=== PATIENT | male | born 1955 | race African-American/Black ===

== ENCOUNTER → 2016-08-11 | Outpatient (CLI) | payer MEDICARE, OTHER ==
--- NOTE | 2016-08-11 15:00 | MR ---
EXAMINATION TYPE: MR brain wo con DATE OF EXAM: 08/11/2016 2:49 PM COMPARISON: NONE HISTORY: Lung CA, Headaches. No Contrast GFR is 24. FINDINGS: The ventricles, basal cisterns and sulci overlying the cerebral convexities are moderately enlarged. There is evidence of mild periventricular white matter ischemic demyelination. Remote deep white matter insults are also noted. No acute edema is seen on diffusion weighted imaging. There is no evidence for midline shift or mass effect. No distinct mass is seen with certainty altho ugh examination is limited by the lack of contrast. Acute intracranial hemorrhage or extra-axial collection is not evident. Chronic paranasal sinusitis. Complete opacification of the bilateral mastoid air cells. IMPRESSION: Age-related atrophic and chronic small vessel ischemic change. No acute intracranial process at this time. No definite evidence for metastatic lesion at this time on this unenhanced study.
== END | disposition home or self-care (01) ==
LOC: RADMRIMAIN 13:12
PROVIDERS: ATTEND Internal Medicine Hematology & Oncology
DX: I67.82 Cerebral ischemia (principal); C34.90 Malignant neoplasm of unspecified part of unspecified bronchus or lung; G31.9 Degenerative disease of nervous system, unspecified
CPT/HCPCS: 36415; 70551; 82565

== ENCOUNTER 2016-08-14 08:56 | Day surgery (SDC) | payer MEDICARE, OTHER ==
[2016-08-11 14:06] VITALS: BMI 23.7
[~2016-08-14 08:56] MED LIST: DEXAMETHASONE SOD PHOSPHATE 10 MG/ML 1 ML VIAL IV ONE; HEPARIN SODIUM,PORCINE 5,000 UNIT/ML 1 ML VIAL SQ ONE; HYDROmorphone 1 MG/ML 1 ML SYRINGE IVP PRN; LACTATED RINGERS 1,000 ML IV SCH; LIDOCAINE 1% 20 ML VIAL (10MG/ML) FOR IV START INTRADERMA PRN; ceFAZolin 2 GM in SODIUM CHLORIDE 0.9% 100 ML IVPB ONE
[2016-08-14] MEDS ORDERED: LIDOCAINE 1% 20 ML VIAL (10MG/ML) FOR IV START INTRADERMA ONE (09:46)
[2016-08-14 10:10] LABS: Glucose,Whole Blood 85 mg/dL (75-99)
--- NOTE | 2016-08-14 10:40 | P.GSHP ---
History of Present Illness H&P Date: 08/14/16 Chief Complaint: Laryngeal cancer This is a 61-year-old male with history of laryngeal cancer. Patient is requiring a Port-A-Cath for IV infusion therapy. Past Medical History Past Medical History: Cancer, Deep Vein Thrombosis (DVT), Sleep Apnea/CPAP/BIPAP , Thyroid Disorder Additional Past Medical History / Comment(s): lung cancer, stage 4 throat cancer -occ uses cane, non verbal from throat surgery, emphysema, no cpap used, hiatal hernia, History of Any Multi-Drug Resistant Organisms: None Reported Additional Past Surgical History / Comment(s): Tracheostomy, Surgery for throat cancer, filter in stomach for blood clots, Past Anesthesia/Blood Transfusion Reactions: No Reported Reaction Past Psychological History: Depression Smoking Status: Former smoker Past Alcohol Use History: None Reported Additional Past Alcohol Use History / Comment(s): quit smoking 2010-1PPD, started smoking age 13 Past Drug Use History: None Reported - Past Family History Mother Family Medical History: No Reported History Medications and Allergies Home Medications Medication Instructions Recorded Confirmed Type Levothyroxine Sodium [Synthroid] 75 mcg PEG/G-TUBE DAILY 04/26/16 08/14/16 History Megestrol Acetate [Megace] 1 - 2 tsp PEG/G-TUBE DAILY 04/26/16 08/14/16 History Morphine Sulfate [Morphine Sulfate 60 mg PO TID PRN 04/26/16 08/14/16 History ER] oxyCODONE HCL/ACETAMINOPHEN 1 tab PEG/G-TUBE TID 04/26/16 08/14/16 History [Percocet 7.5-325 mg] Nebulizer(Name Unknown) 1 applicate IH TID 08/11/16 08/14/16 History Allergies Allergy/AdvReac Type Severity Reaction Status Date / Time No Known Allergies Allergy Verified 08/14/16 09:37 Surgical - Exam Vital Signs Temp Pulse Resp BP Pulse Ox 98.4 F 88 16 145/69 99 08/14/16 10:19 08/14/16 10:19 08/14/16 10:19 08/14/16 10:08/14/16 10:19 - General well developed, no distress - Eyes PERRL - ENT Tracheostomy - Neck no masses - Respiratory normal expansion - Cardiovascular Rhythm: regular - Abdomen Abdomen: soft, non tender Assessment and Plan Plan: History of laryngeal cancer. We'll perform Port-A-Cath insertion
[2016-08-14] MEDS ORDERED: HEPARIN SODIUM,PORCINE 100 UNIT/ML 5 ML VIAL IV ONE (11:12)
[2016-08-14] MEDS ORDERED: IOHEXOL 180 MG/ML 1 ML ML INJ ONE (11:13)
[2016-08-14] MEDS ORDERED: BUPIVACAIN-EPI 0.25%-1:200,000 30 ML VIAL SQ ONE (11:13)
[2016-08-14] MEDS ORDERED: PROPOFOL 10 MG/ML 20 ML VIAL IV ONE (11:24)
[2016-08-14] MEDS ORDERED: fentaNYL (PF) 50 MCG/ML 2 ML AMP ONE (11:24)
[2016-08-14] MEDS ORDERED: MIDAZOLAM 2 MG/2 ML VIAL ONE (11:24)
--- NOTE | 2016-08-14 12:02 | P.OP ---
Date of Procedure: 08/14/16 Preoperative Diagnosis: Laryngeal cancer Postoperative Diagnosis: Laryngeal cancer Procedure(s) Performed: Insertion of right subclavian Port-A-Cath Anesthesia: MAC Surgeon: Jimmy Sánchez Estimated Blood Loss (ml): 5 Pathology: none sent Condition: stable Disposition: PACU Description of Procedure: PROCEDURE: The patient was placed on the operating table in the supine position. She received MAC anesthetic. The Right chest was prepped and draped in the usual sterile fashion. The skin underneath the right clavicle was anesthetized with 1% Xylocaine and using Seldinger technique, the right subclavian vein was cannulized. The wire was placed through the needle and positioned under fluoroscopy. Next, the needle was removed and the port site was anesthetized with 1% Xylocaine. Skin was incised with #15 blade and port pocket was made using blunt and sharp dissection. Following this the catheter was attached to the sport and the port was flushed. The port was positioned into the pocket site and was secured with 3-0 Vicryl suture. The catheter was then brought out through the wire site and then the dilator sheath was placed over the wire and the dilator and the wire were removed. The catheter was placed through the sheath and the sheath was removed. The port was flushed with hep-lock solution. Skin was closed with interrupted 3-0 Vicryl sutures. Steri-Strips were applied. The patient tolerated the procedure well. The patient was sent to recovery room for chest x -ray after the procedure.
[2016-08-14 12:20] VITALS: TEMP 97.4
--- NOTE | 2016-08-14 12:27 | FL ---
EXAMINATION TYPE: FL guided central line placemt HISTORY: Fluoroscopy time Impression: 1. Fluoroscopy support provided to the referring physician. 35 seconds of fluoroscopy provided.
--- NOTE | 2016-08-14 12:45 | XR ---
EXAMINATION TYPE: XR chest 1V DATE OF EXAM: 08/14/2016 12:40 PM COMPARISON: 02/27/2014 HISTORY: Line placement TECHNIQUE: Single frontal view of the chest is obtained. FINDINGS: There is no focal air space opacity, pleural effusion, or pneumothorax seen. The cardiac silhouette size is within normal limits. The osseous structures are intact. There is enlargement of the right upper lobe pulmonary nodule which now measures 3 cm. Heart is enlar ged and there is atherosclerotic change aorta. Mediport catheter seen. Interstitium is somewhat coars ened. IMPRESSION: 1. Mediport appears in good position with the tip overlying the SVC and no sizable pneumothorax. 2. Left basilar atelectasis favored over infiltrate 3. Enlargement of the right upper lobe mass with suspected right hilar adenopathy. Mass now measures 3 cm. 4. Correlate for chronic interstitial pulmonary fibrosis
[2016-08-14 13:01] VITALS: BP 138/74; PULSE 84; RESP 20
== END 2016-08-14 13:13 | disposition home or self-care (01) ==
LOC: OR 08:56
PROVIDERS: ATTEND Surgery
DX: Z45.2 Encounter for adjustment and management of vascular access device (principal); C32.9 Malignant neoplasm of larynx, unspecified; C34.90 Malignant neoplasm of unspecified part of unspecified bronchus or lung; G47.33 Obstructive sleep apnea (adult) (pediatric); J43.9 Emphysema, unspecified; E07.9 Disorder of thyroid, unspecified; Z93.1 Gastrostomy status; Z93.0 Tracheostomy status; Z87.891 Personal history of nicotine dependence; Z86.718 Personal history of other venous thrombosis and embolism; Z79.899 Other long term (current) drug therapy; Z79.891 Long term (current) use of opiate analgesic
CPT/HCPCS: 36556; 77001; 71010; C1788; J2250; J1644; J1642; J1100; Q9965; J0690; J3010; J2704; 99152; 99153

== ENCOUNTER → 2016-08-19 | Outpatient (CLI) | payer MEDICARE, OTHER ==
--- NOTE | 2016-08-20 11:21 | PE ---
EXAMINATION TYPE: PET CT fusion skull to thigh DATE OF EXAM: 08/19/2016 12:18 PM COMPARISON: 10/25/2013 PET/CT, CT chest 10/17/2013, chest x-ray 08/14/2016 HISTORY: Lung cancer TECHNIQUE: Following the intravenous administration of 15.35 mCi of F-18 FDG, whole body images are performed from the skull base to the midthigh. Images are reviewed on the computer in the coronal, a xial, and sagittal planes. Reconstructed rotating images are created on independent workstation and reviewed on the computer. A localization and attenuation correction CT is performed in conjunction with the PET scan. DLP: 494.67 mGycm SCAN: Subsequent Scan Blood glucose: 103 mg/dL Average Mediastinum SUV: 1.5 Average Liver SUV: 2.1 FINDINGS: NECK: There is increased uptake within the parotid glands bilaterally. This is an SUV value of 3 lef t 2.9 on the right there is also a focal area of increased uptake within the parotid region just post erior to the angle of the jaw measuring 2.5 on the left. THORAX: There is increased uptake within a small nodule in the periphery of the right upper lobe. Thi s has an SUV value of 2.8 and be compatible with a metastatic lesion. ABDOMEN AND PELVIS: No abnormal uptake OSSEOUS STRUCTURES: No abnormal uptake LOCALIZATION CT: PEG tube is present. IVC filter is present. Mucosal thickening is within the left et hmoid air cells. Appears to be fluid within the bilateral mastoid air cells. Correlate for mastoiditi s. There is fullness to the adenoid region patient's 2.7 cm right lung mass is well visualized. There is fullness in the right suprahilar region. The ascending thoracic aorta at the level of main pulmon ana artery measures 3.6 cm. The main pulmonary artery bifurcation is 2.8 cm. Coronary artery calcific ation is present. Some punctate calcifications are inferior to the right hilar region in the lingula likely represent calcified granuloma. COMPARISON: The nodular density in the right upper lobe appears to correspond to an area of increased signal on the previous abnormal PET/CT of 10/25/2013. IMPRESSION: 1. Metastatic lesion enlargement right upper lobe from comparison of 2013.
== END | disposition home or self-care (01) ==
LOC: RADPETMAIN 08:02
PROVIDERS: ATTEND Radiology Radiation Oncology
DX: C34.11 Malignant neoplasm of upper lobe, right bronchus or lung (principal)
CPT/HCPCS: 78815; A9552

== ENCOUNTER 2016-08-30 16:07 | Inpatient (IN) | payer MEDICARE, OTHER ==
[2016-08-30] MEDS ORDERED: methylPREDNISolone SOD SUCCI 125 MG/2 ML VIAL IV STA (17:32)
[2016-08-30] MEDS ORDERED: IPRATROPIUM-ALBUTEROL 3 ML NEB INHALATION STA (17:32)
[2016-08-30] MEDS ORDERED: SODIUM CHLORIDE 0.9% 1,000 ML IV ONE ×2 (17:32→22:56)
--- NOTE | 2016-08-30 17:35 | ED ---
General Adult HPI - General Chief complaint: Weakness Stated complaint: Weakness, CA pt Time Seen by Provider: 08/30/16 17:14 Source: patient Mode of arrival: ambulatory Limitations: no limitations - History of Present Illness Initial comments: This is a 61-year-old male with a history of laryngeal cancer that is in remission however developed Small cell lung cancer on chemotherapy presents emergency department for diarrhea for the last few days. It is nonbloody and not melanotic. He has not had any vomiting associated with that there. He does have some associated abdominal discomfort in the epigastric and left upper quadrants. He is also been having a little bit more productive cough recently through his stoma and they've noticed blood in the sputum. No fevers or chills. No sick contacts. No recent hospitalizations or antibiotic use. No other complaints. They have noted that the patient's urine output has decreased. - Related Data Home Medications Medication Instructions Recorded Confirmed Levothyroxine Sodium [Synthroid] 75 mcg PEG/G-TUBE DAILY 04/26/16 08/30/16 Megestrol Acetate [Megace] 40 - 80 mg PEG/G-TUBE DAILY 04/26/16 08/30/16 Morphine Sulfate [Morphine Sulfate 60 mg PEG/G-TUBE BID 04/26/16 08/30/16 ER] oxyCODONE HCL/ACETAMINOPHEN 1 tab PEG/G-TUBE QID PRN 04/26/16 08/30/16 [Percocet 7.5-325 mg] Acetaminophen/Diphenhydramine 1 tab PEG/G-TUBE HS PRN 08/30/16 08/30/16 [Tylenol PM 500-25mg] Budesonide [Pulmicort] 0.5 mg INHALATION RT-BID 08/30/16 08/30/16 Citalopram Hydrobromide [CeleXA] 30 mg PEG/G-TUBE DAILY 08/30/16 08/30/16 Ensure 1 can PEG/G-TUBE TID 08/30/16 08/30/16 Loratadine [Claritin] 10 mg PEG/G-TUBE DAILY 08/30/16 08/30/16 Prochlorperazine [Compazine] 10 mg PEG/G-TUBE Q6H PRN 08/30/16 08/30/16 Allergies Allergy/AdvReac Type Severity Reaction Status Date / Time No Known Allergies Allergy Verified 08/30/16 17:48 Review of Systems ROS Statement: Those systems with pertinent positive or pertinent negative responses have been documented in the HPI. ROS Other: All systems not noted in ROS Statement are negative. Past Medical History Past Medical History: Cancer, Deep Vein Thrombosis (DVT), Thyroid Disorder Additional Past Medical History / Comment(s): lung cancer, stage 4 throat cancer pt- throat, uses cane, non verbal from throat surgery History of Any Multi-Drug Resistant Organisms: None Reported Additional Past Surgical History / Comment(s): Tracheostomy, Surgery for throat ca, filter in stomach for blood clots, Past Anesthesia/Blood Transfusion Reactions: No Reported Reaction Past Psychological History: Depression Smoking Status: Former smoker Past Alcohol Use History: None Reported Additional Past Alcohol Use History / Comment(s): quit smoking 2010-1PPD, started smoking age 13 Past Drug Use History: None Reported - Past Family History Mother Family Medical History: No Reported History General Exam - General Exam Comments Initial Comments: Constitutional: Awake alert Appears comfortable Head: Normocephalic atraumatic Eyes: no conjunctival injection No scleral icterus EOMI ENT: Stoma is intact and patent Neck: No JVD Supple Heart: Tachycardia normal S1-S2 no murmurs Lungs: Kidney with bilateral suturing expiratory wheezes is mild rhonchi bilaterally No rales Abdomen: Soft nondistended is to palpation in the epigastric and left upper quadrants, mild tenderness to palpation the left lower quadrant Extremities: Non edematous DP pulses intact Radial pulses intact Neuro: A&Ox3 No focal neurologic deficits Psych: Appropriate mood and affect Limitations: no limitations Course Vital Signs 08/30/16 08/30/16 08/30/16 16:12 17:42 18:00 Temperature 98.8 F Pulse Rate 115 H 108 H 110 H Respiratory 20 Rate Blood Pressure 108/54 O2 Sat by Pulse 100 Oximetry 08/30/16 08/30/16 08/30/16 18:18 19:00 19:39 Temperature 98.5 F Pulse Rate 115 H 74 110 H Respiratory 30 H 28 H 30 H Rate Blood Pressure 111/62 145/108 107/60 O2 Sat by Pulse 99 99 95 Oximetry Medical Decision Making - Medical Decision Making This is a 61-year-old male presents emergency department for diarrhea and decreased urination. The patient is found to be in acute renal failure with a creatinine of 6. His potassium was elevated as well. His white blood cell was also elevated at 20. Patient's been having a lot of diarrhea and some concern for C. diff. The patient started on Rocephin and Flagyl to also cover for respiratory source because he is been having some cough and soreness of breath. Patient's going to be admitted for IV fluid administration and also monitoring of his respiratory status and further antibiotic treatment. The patient and her updated and agree. - Lab Data Result diagrams: 08/30/16 18:14 08/30/16 18:14 Lab Results 08/30/16 08/30/16 08/30/16 Range/Units 18:14 18:14 18:14 WBC 20.9 H (3.8-10.6) k/uL RBC 3.59 L (4.30-5.90) m/uL Hgb 9.5 L (13.0-17.5) gm/dL Hct 28.0 L (39.0-53.0) % MCV 78.0 L (80.0-100.0) fL MCH 26.4 (25.0-35.0) pg MCHC 33.8 (31.0-37.0) g/dL RDW 16.9 H (11.5-15.5) % PT 12.7 H (9.0-12.0) sec INR 1.3 (<1.1) APTT 23.7 (22.0-30.0) sec Sodium 127 L (137-145) mmol/L Potassium 6.1 H (3.5-5.1) mmol/L Chloride 96 L (98-107) mmol/L Carbon Dioxide 13 L (22-30) mmol/L Anion Gap 18 mmol/L BUN 104 H* (9-20) mg/dL Creatinine 6.39 H* (0.66-1.25) mg/dL Est GFR (MDRD) Af Amer 11 (>60 ml/min/1.73 sqM) Est GFR (MDRD) Non-Af 9 (>60 ml/min/1.73 sqM) Glucose 103 H (74-99) mg/dL Plasma Lactic Acid James (0.7-2.0) mmol/L Calcium 7.2 L (8.4-10.2) mg/dL Total Bilirubin 0.6 (0.2-1.3) mg/dL AST 17 (17-59) U/L ALT 22 (21-72) U/L Alkaline Phosphatase 80 (38-126) U/L Troponin I (0.000-0.034) ng/mL Total Protein 5.4 L (6.3-8.2) g/dL Albumin 2.6 L (3.5-5.0) g/dL Amylase 86 (30-110) U/L Lipase 565 H (23-300) U/L 08/30/16 08/30/16 Range/Units 18:14 18:14 WBC (3.8-10.6) k/uL RBC (4.30-5.90) m/uL Hgb (13.0-17.5) gm/dL Hct (39.0-53.0) % MCV (80.0-100.0) fL MCH (25.0-35.0) pg MCHC (31.0-37.0) g/dL RDW (11.5-15.5) % PT (9.0-12.0) sec INR (<1.1) APTT (22.0-30.0) sec Sodium (137-145) mmol/L Potassium (3.5-5.1) mmol/L Chloride (98-107) mmol/L Carbon Dioxide (22-30) mmol/L Anion Gap mmol/L BUN (9-20) mg/dL Creatinine (0.66-1.25) mg/dL Est GFR (MDRD) Af Amer (>60 ml/min/1.73 sqM) Est GFR (MDRD) Non-Af (>60 ml/min/1.73 sqM) Glucose (74-99) mg/dL Plasma Lactic Acid James 1.3 (0.7-2.0) mmol/L Calcium (8.4-10.2) mg/dL Total Bilirubin (0.2-1.3) mg/dL AST (17-59) U/L ALT (21-72) U/L Alkaline Phosphatase (38-126) U/L Troponin I 0.109 H* (0.000-0.034) ng/mL Total Protein (6.3-8.2) g/dL Albumin (3.5-5.0) g/dL Amylase (30-110) U/L Lipase (23-300) U/L Disposition Clinical Impression: JOVANI (acute kidney injury), Leukocytosis, Diarrhea Disposition: ADMITTED IP TO THIS HOSP Condition: Serious
--- NOTE | 2016-08-30 18:32 | XR ---
EXAMINATION TYPE: XR chest 1V DATE OF EXAM: 08/30/2016 6:27 PM COMPARISON: 08/14/2016 HISTORY: Short of breath TECHNIQUE: Single frontal view of the chest is obtained. FINDINGS: Heart is enlarged. There is mild pulmonary vascular congestion. There is a 2 cm nodular de nsity in the lateral right upper lobe. There is slight blunting of right costophrenic angle. IMPRESSION: Mild heart failure. Small right pleural effusion. Right upper lobe nodule appears slight ly smaller than last exam of 08/14/2016. Pulmonary congestion is unchanged.
[2016-08-30 18:44] LABS: Anisocytosis Slight; CH 27.6; CHCM 35.5; Calcium 7.2 mg/dL (8.4-10.2); HDW 2.41; HGB 9.5 gm/dL (13.0-17.5); INR 1.3 (<1.1); Immature Gran Flag Marked; MCH 26.4 pg (25.0-35.0); MCHC 33.8 g/dL (31.0-37.0); Mean Platelet Volume 9.8; Microcytosis Slight; Partial Thromboplastin Time 23.7 sec (22.0-30.0); Potassium 6.1 mmol/L (3.5-5.1); Prothrombin Time 12.7 sec (9.0-12.0); RBC 3.59 m/uL (4.30-5.90); RDW 16.9 % (11.5-15.5); Total Bilirubin 0.6 mg/dL (0.2-1.3); Total Protein 5.4 g/dL (6.3-8.2); WBC 20.9 k/uL (3.8-10.6); WBC (Perox) 22.36
--- NOTE | 2016-08-30 19:16 | CT ---
EXAMINATION TYPE: CT abdomen pelvis wo con DATE OF EXAM: 08/30/2016 7:02 PM COMPARISON: 02/26/2012 HISTORY: Abd pain and diarrhea, currently on chemo for lung and throat CA. CT DLP: 950. mGycm Automated exposure control for dose reduction was used. TECHNIQUE: Helical acquisition of images was performed from the lung bases through the pelvis. FINDINGS: The heart is enlarged. There are bilateral pleural effusions. There is mild infiltrate the posterior lung bases. Liver shows no focal defect. Spleen appears normal. There is no sign of a pancreatic mass. There is n o adrenal mass. The kidneys show no hydronephrosis. There is inferior vena cava filter noted. There i s no evidence of retroperitoneal adenopathy. Abdominal aorta is atheromatous. There is a gastrostomy tube noted. Gallbladder has normal size. There is no ascites. Bladder distends smoothly. There is pro static 1 cm calcification. There is no sign of a pelvic mass. The appendix appears normal. I see no s ign of a bowel obstruction. There is a small hiatal hernia. I see no bony destructive process. IMPRESSION: SMALL HIATAL HERNIA. THERE IS CARDIOMEGALY THAT IS WORSE THAN OLD EXAM. BILATERAL PLEURAL EFFUSIONS P ROBABLY RELATED TO CONGESTIVE HEART FAILURE. NO EVIDENCE OF AN ACUTE ABNORMALITY WITHIN THE ABDOMEN A ND PELVIS. There is clearing of almost all of the ascites fluid compared to old exam. There is some m inimal residual fluid adjacent to the right colon.
[2016-08-30] MEDS ORDERED: INSULIN REGULAR 100 UNIT/ML VIAL IV ONE (19:22)
[2016-08-30] MEDS ORDERED: DEXTROSE 50%-WATER 50 ML SYRINGE IVP STA (19:22)
[2016-08-30] MEDS ORDERED: CALCIUM GLUCONATE 1,000 MG in SODIUM CHLORIDE 0.9% 100 ML IVPB ONE (19:22)
[2016-08-30 19:23] LABS: Add Differential Manual Differential
[2016-08-30] MEDS ORDERED: AMPICILLIN-SULBACTAM 1.5 GM in SODIUM CHLORIDE 0.9% 50 ML IVPB STA (19:24)
[2016-08-30] MEDS ORDERED: metroNIDAZOLE-NS PMX 500 MG in SALINE 1 100ML.BAG IVPB STA (19:26)
[2016-08-30] MEDS ORDERED: NALOXONE 0.4 MG/ML 1 ML VIAL IV PRN (19:44)
[2016-08-30 20:49] LABS: Glucose,Whole Blood 87 mg/dL (75-99)
[2016-08-30] MEDS ORDERED: VANCOMYCIN 1,000 MG in SODIUM CHLORIDE 0.9% 250 ML IVPB STA (22:45)
[2016-08-30] MEDS ORDERED: IV VANCOMYCIN PER PHARMACY 1 EACH MISC MISCELLANE PRN (22:46)
[2016-08-30] MEDS: MORPHINE SULFATE ER 60 MG TABLET PO SCH (23:12)
[2016-08-30] MEDS: SODIUM CHLORIDE 0.9% 1,000 ML IV SCH (23:13)
[2016-08-31 00:34] LABS: Amorphous Sediment,Urine Rare /hpf; Appearance,Urine Cloudy (Clear); Bilirubin,Urine Negative (Negative); Glucose,Urine (UA) Negative (Negative); Ketones,Urine Negative (Negative); Leukocyte Esterase,Urine Negative (Negative); Nitrite,Urine Negative (Negative); Particle Count 10574; Protein,Urine Trace (Negative); RBC,Urine 2 /hpf (0-5); Squamous Epithelial Cell,Urine 1 /hpf (0-4); UA Billing (MACRO vs. MICRO) MICRO; Urobilinogen,Urine <2.0 mg/dL (<2.0); WBC,Urine 4 /hpf (0-5)
[2016-08-31] MEDS: NOREPINEPHRINE 16 MG in SODIUM CHLORIDE 0.9% 250 ML IV SCH (03:23)
[2016-08-31] MEDS: oxyCODONE-APAP 7.5-325MG 1 EACH TAB PEG/G-TUBE PRN ×2 (03:28→23:38)
[2016-08-31] MEDS: LEVOTHYROXINE 75 MCG TAB PEG/G-TUBE SCH (05:35)
[2016-08-31 06:24] LABS: Anisocytosis Slight; CH 26.3; CHCM 32.8; HCT 28.8 % (39.0-53.0); HGB 9.3 gm/dL (13.0-17.5); Immature Gran Flag Moderate; MCHC 32.4 g/dL (31.0-37.0); MCV 80.2 fL (80.0-100.0); Mean Platelet Volume 9.2; Microcytosis Slight; RBC 3.59 m/uL (4.30-5.90); RDW 16.7 % (11.5-15.5); WBC (Perox) 27.75
[2016-08-31 06:27] LABS: WBC 25.7 k/uL (3.8-10.6)
[2016-08-31 06:28] LABS: Add Differential Manual Differential; INR 1.3 (<1.1); Partial Thromboplastin Time 22.5 sec (22.0-30.0)
[2016-08-31 06:34] LABS: Calcium 7.2 mg/dL (8.4-10.2); Magnesium 2.4 mg/dL (1.6-2.3); Total Bilirubin 0.5 mg/dL (0.2-1.3); Total Protein 5.4 g/dL (6.3-8.2)
[2016-08-31 06:45] LABS: Nucleated Red Blood Cells 0 /100 WBC (0-0); Total Cells Counted 200
[2016-08-31 06:46] LABS: Target Cells Present
[2016-08-31 06:48] LABS: Manual Review Performed
--- NOTE | 2016-08-31 06:50 | XR ---
EXAMINATION TYPE: XR chest 1V DATE OF EXAM: 08/31/2016 6:36 AM HISTORY: SOB. REFERENCE: Previous study dated 08/30/2016. FINDINGS: There is a MediPort in place on the right. The heart is enlarged. There is mild vascular congestion without michelle edema. Pleural spaces are francisco r. IMPRESSION: CARDIOMEGALY.
[2016-08-31 07:01] LABS: Phosphorous 8.3 mg/dL (2.5-4.5); Potassium 6.4 mmol/L (3.5-5.1)
[2016-08-31 07:05] LABS: Creatine Kinase MB 1.5 ng/mL (0.0-2.4)
[2016-08-31 07:16] LABS: Manual Review Performed; Metamyelocytes % 5.5 %; Myelocytes % 1.5 %; Nucleated Red Blood Cells 0 /100 WBC (0-0); Total Cells Counted 200
[2016-08-31 07:17] LABS: Large Platelets Present
[2016-08-31] MEDS ORDERED: DEXTROSE 50%-WATER 50 ML SYRINGE IVP STA (07:18)
[2016-08-31] MEDS ORDERED: INSULIN REGULAR 100 UNIT/ML VIAL IV ONE (07:18)
[2016-08-31] MEDS ORDERED: SODIUM POLYSTYRENE SULFONATE 15 GM/60 ML BOTTLE PO STA (07:18)
[2016-08-31 07:19] LABS: Troponin I 0.116 ng/mL (0.000-0.034)
[2016-08-31] MEDS ORDERED: CALCIUM GLUCONATE 1,000 MG in SODIUM CHLORIDE 0.9% 100 ML IVPB ONE (07:19)
[2016-08-31 07:20] LABS: Polychromasia Present
[2016-08-31 07:22] LABS: Toxic Granulation Present
--- NOTE | 2016-08-31 07:52 | US ---
EXAMINATION TYPE: US kidneys/renal and bladder DATE OF EXAM: 08/31/2016 7:38 AM COMPARISON: NONE CLINICAL HISTORY: JOVANI. ICU patient with LUQ abdominal pain EXAM MEASUREMENTS: Right Kidney: 9.3 x 3.9 x 3.9 cm Left Kidney: 7.5 x 4.0 x 3.9 cm TECHNOLOGIST IMPRESSION: Right Kidney: multiple cystic areas, largest = 0.8 x 0.9 x 0.9cm Left Kidney: atrophic, cystic areas noted, largest = 0.8 x 0.6 x 0.6cm Bladder: patient has Carr Catheter There are multiple cystic areas in both kidneys. These large and appears simply cystic. The bladder i s not distended due to Carr catheter. Neither ureteral jet was visualized. IMPRESSION: LIMITED EXAMINATION SHOWING MULTIPLE CYSTIC LESIONS IN BOTH KIDNEYS.
[2016-08-31] MEDS: SODIUM CHLORIDE 0.9% 1,000 ML IV SCH (08:26)
[2016-08-31] MEDS: IPRATROPIUM-ALBUTEROL 3 ML NEB INHALATION PRN ×2 (08:28→11:46)
[2016-08-31] MEDS: CALCIUM ACETATE 667 MG CAP PO SCH ×3 (08:32→17:38)
[2016-08-31] MEDS: HEPARIN SODIUM,PORCINE 5,000 UNIT/ML 1 ML VIAL SQ SCH ×2 (08:54→20:03)
[2016-08-31] MEDS: CITALOPRAM HYDROBROMIDE 10 MG TAB PO SCH (08:54)
[2016-08-31] MEDS: PANTOPRAZOLE 40 MG/10 ML VIAL IV SCH (08:54)
[2016-08-31] MEDS: metroNIDAZOLE-NS PMX 500 MG in SALINE 1 100ML.BAG IVPB SCH ×3 (08:58→23:18)
--- NOTE | 2016-08-31 10:07 | CONS ---
DATE OF CONSULTATION: Mr. Francisco is a 61-year-old male with a known history of laryngeal cancer, status post tracheostomy, history of small cell CA recently, did start with chemotherapy. I am not able to obtain a good history from the patient since he has the tracheostomy and he is nonvocal, but according to the emergency room he recently was getting chemotherapy and he started to have episode of diarrhea, decreased oral intake, decreased urinary output, progressive fatigue, and abdominal discomfort. He was brought in to the emergency room and subsequently admitted. Cardiology consultation was requested because of elevation of his NT-proBNP, elevation of his troponin as well as abnormal EKG. Patient from asking him he is nodding that he is not having chest pain, but he is having abdominal pain. On the monitor, he has been having episode of nonsustained ventricular tachycardia. There is no clear evidence of dizziness or syncope. I do not have any documentation of prior cardiac abnormalities, although no old records are available to me. He was noted to have severe worsening of his renal function compared with the prior testing. His medications at the time of admission included Percocet, Compazine, Megace, Synthroid, Celexa, Pulmicort. I do not have any prior review of systems. PHYSICAL EXAMINATION: He is a 61-year-old male, alert, status post tracheostomy and non-verbal. Blood pressure 92/60 with the heart rate in the 90s. HEAD: Normocephalic. EYES: Sclerae anicteric. Tracheostomy in place. LUNGS: No wheezes with mild decreased in breath sounds. HEART: Regular rate and rhythm. S1, S2, no S3, with systolic murmur. No diastolic murmur. ABDOMEN: Soft, PEG tube in place. No organomegaly. EXTREMITIES: No edema. Neurologically, he is following commands. Lab data reveals a white blood cell of 20.9 and 25.7, hemoglobin 9.3, platelets count of 107. His potassium 6.4. BUN and creatinine 103 and 6.03. His troponin of 0.109, 0.114 and 0.116. NT-proBNP of 138,000. His EKG revealed a sinus mechanism with intraventricular conduction delay with left axis deviation, nonspecific ST-T wave changes. Chest x-ray shows mild congestion. No clear edema. Abdominal CT scan revealed small hiatal hernia with bilateral pleural effusion. IMPRESSION: 1. Acute worsening of his renal function, could be related to dehydration and his diarrhea. Reviewing the old records, patient has baseline renal insufficiency. 2. Mild elevation of his troponin, most likely related to the renal failure and probably sepsis. 3. Elevation of NT-proBNP although the patient is not in overt heart failure at this point. 4. History of laryngeal carcinoma. 5. Small cell carcinoma receiving chemotherapy. 6. Episode of nonsustained ventricular tachycardia most likely related to the hyperkalemia and the renal failure. RECOMMENDATION: From the cardiac standpoint, will obtain an echocardiogram with Doppler. He is on Levophed at this time. He will be evaluated by Nephrology and ID service. I do not believe that we are dealing with an acute ischemic event. Depending on his progress, further recommendation will be made. Thank you for this consult. We will follow with you.
[2016-08-31] MEDS ORDERED: VANCOMYCIN ORAL SOLUTION 250 MG/5 ML BOTTLE PO SCH (12:00)
[2016-08-31] MEDS: DEXTROSE 5% IN WATER 1,000 ML with SODIUM BICARB (1 MEQ/ML) 150 ML IV SCH ×2 (12:00→20:49)
[2016-08-31] MEDS ORDERED: CHERRY FLAVOR 60 ML BOTTLE PO SCH (12:00)
--- NOTE | 2016-08-31 15:13 | P.HPIM ---
History of Present Illness H&P Date: 08/31/16 Chief Complaint: Diarrhea, abdominal pain This is a 61-year-old -Faroese male patient of Dr. 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 Cartagena. Patient apparently received chemotherapy 2 weeks ago. History of DVT status post IVC filter, hypothyroidism , history of trach and stoma and PEG tube. Patient apparently eats and PEG tube was only used for medications. Patient apparently has been nonverbal since throat surgery. Patient was brought into [facility] emergency center due to weakness and diarrhea that he had had for a few days. There was no blood or tarriness to the stool. No vomiting was noted there was abdominal discomfort in the epigastric and left upper quadrant and increased productive cough through his stoma and also noted of blood in his sputum. This information was obtained from the ER record as patient is unable to provide any history. He underwent renal ultrasound that showed multiple cystic lesions in the bilateral kidneys. Abdominal and pelvic CAT scan without contrast showed small hiatal hernia, cardiomegaly, bilateral pleural effusions. No acute abnormality within the abdomen or pelvis. There is clearing of almost all ascites fluid to from previous exam. Chest x-ray showed mild heart failure with small right pleural effusion and right upper lobe nodule which is smaller since August 14. Multiple consultants were added including nephrology, cardiology, geology professor and infectious disease and patient was admitted into intensive care unit due to hypotension requiring levo fed. He was found to be in acute renal failure with BUN of 104 and creatinine 6.39 with hyponatremia of 127 and hyperkalemia at 6.1. White count was elevated at 20.9. Lactic acid was 1.3. Hemoglobin 9.5 and platelet count 93. Lipase 565 and amylase within normal limits. Troponin was elevated at 0.109, 0.114 and 0.116.. Influenza testing was negative. Urinalysis was cloudy with nitrate and leukoesterase negative. Carr catheter was placed to monitor urine output. There was concern of pus at the PEG tube site for which this was cultured. Patient has received calcium gluconate and insulin and Kayexalate. Dr. clinton has placed him on Flagyl IV and oral vancomycin. Patient has had no further stools since arrival. Review of Systems ROS unobtainable: due to mental status Past Medical History Past Medical History: Cancer, Deep Vein Thrombosis (DVT), Thyroid Disorder Additional Past Medical History / Comment(s): Small cell lung cancer under the care of Dr. Cartagena status post chemotherapy 2 weeks ago, laryngeal cancer, uses cane, non verbal from throat surgery History of Any Multi-Drug Resistant Organisms: None Reported Additional Past Surgical History / Comment(s): Tracheostomy, Surgery for throat ca,IVC filter Past Anesthesia/Blood Transfusion Reactions: No Reported Reaction Past Psychological History: Depression Smoking Status: Former smoker Past Alcohol Use History: None Reported Additional Past Alcohol Use History / Comment(s): quit smoking 2010-1PPD, started smoking age 13. He lives at home with his . Past Drug Use History: None Reported - Past Family History Mother Family Medical History: No Reported History Medications and Allergies Home Medications Medication Instructions Recorded Confirmed Type Levothyroxine Sodium [Synthroid] 75 mcg PEG/G-TUBE DAILY 04/26/16 08/30/16 History Megestrol Acetate [Megace] 40 mg PEG/G-TUBE DAILY 04/26/16 08/30/16 History Morphine Sulfate [Morphine Sulfate 60 mg PO BID 04/26/16 08/30/16 History ER] oxyCODONE HCL/ACETAMINOPHEN 1 tab PEG/G-TUBE QID PRN 04/26/16 08/30/16 History [Percocet 7.5-325 mg] Acetaminophen/Diphenhydramine 1 tab PEG/G-TUBE HS PRN 08/30/16 08/30/16 History [Tylenol PM 500-25mg] Budesonide [Pulmicort] 0.5 mg INHALATION RT-BID 08/30/16 08/30/16 History Citalopram Hydrobromide [CeleXA] 30 mg PEG/G-TUBE DAILY 08/30/16 08/30/16 History Ensure 1 can PEG/G-TUBE TID 08/30/16 08/30/16 History Loratadine [Claritin] 10 mg PEG/G-TUBE DAILY PRN 08/30/16 08/30/16 History Prochlorperazine [Compazine] 10 mg PEG/G-TUBE Q6H PRN 08/30/16 08/30/16 History Allergies Allergy/AdvReac Type Severity Reaction Status Date / Time No Known Allergies Allergy Verified 08/30/16 17:48 Physical Exam Vitals: Vital Signs Temp Pulse Resp BP Pulse Ox 08/31/16 10:15 103 H 16 93 L 08/31/16 10:00 98 19 92/64 94 L 08/31/16 09:45 102 H 14 102/70 92 L 08/31/16 09:30 104 H 18 95/67 90 L 08/31/16 09:15 98 14 104/68 93 L 08/31/16 09:00 102 H 18 109/66 92 L 08/31/16 08:43 105 H 08/31/16 08:31 94 L 08/31/16 08:30 105 H 17 111/66 92 L 08/31/16 08:27 105 H 08/31/16 08:15 99 12 95/68 93 L 08/31/16 08:00 98.0 F 94 15 95/68 87 L 08/31/16 07:45 97 15 110/68 92 L 08/31/16 07:30 96 15 110/68 94 L 08/31/16 07:15 95 13 92/62 94 L 08/31/16 07:00 93 14 92/62 95 08/31/16 06:30 94 14 101/69 94 L 08/31/16 06:00 95 17 107/74 95 08/31/16 05:30 96 16 108/72 91 L 08/31/16 05:00 95 15 92/59 95 08/31/16 04:30 95 17 75/55 96 08/31/16 04:00 98 F 94 10 L 104/72 96 08/31/16 03:30 103 H 10 L 81/58 92 L 08/31/16 03:00 99 21 83/55 95 08/31/16 02:30 100 22 93/71 95 08/31/16 02:00 100 20 81/57 95 08/31/16 01:30 100 21 93/63 97 08/31/16 01:00 103 H 27 H 82/57 97 08/31/16 00:30 103 H 23 96/60 95 08/31/16 00:00 98.2 F 106 H 26 H 82/60 90 L 08/30/16 23:30 105 H 24 82/62 96 08/30/16 23:00 106 H 26 H 86/57 96 08/30/16 22:30 106 H 25 H 92/57 96 08/30/16 22:00 107 H 28 H 82/56 96 08/30/16 21:30 112 H 29 H 90/59 94 L 08/30/16 21:00 98.5 F 113 H 30 H 91/70 97 08/30/16 20:44 100 Intake and Output 08/30/16 08/31/16 08/31/16 22:59 06:59 14:59 Intake Total 2672.916 582.053 Output Total 820 200 Balance 1852.916 382.053 Intake: IV 2550 450 Cefepime 1 gm In Sodium 100 Chloride 0.9% 50 ml @ 100 mls/hr IVPB Q12HR RYAN Rx #:[id number] Sodium Chloride 0.9% 1, 1100 200 000 ml @ 100 mls/hr IV . Q10H RYAN Rx#:[id number] Sodium Chloride 0.9% 1, 1000 000 ml @ 999 mls/hr IV . Q1H1M ONE Rx#:[id number] Vancomycin 1,000 mg In 250 250 Sodium Chloride 0.9% 250 ml @ 125 mls/hr IVPB ONCE STA Rx#:[id number] metroNIDAZOLE-NS PMX 500 100 mg In Saline 1 100ml.bag @ 100 mls/hr IVPB ONCE STA Rx#:[id number] Intake, IV Titration 2.916 132.053 Amount Calcium Gluconate 1,000 100 mg In Sodium Chloride 0.9 % 100 ml @ 100 mls/hr IVPB ONCE ONE Rx#: [id number] Norepinephrine 16 mg In 2.916 32.053 Sodium Chloride 0.9% 250 ml @ Titrate IV .Q0M RYAN Rx#:[id number] Oral 120 Output: Urine 820 200 Other: Voiding Method Urinal Indwelling Catheter Indwelling Catheter Weight 84.7 kg 84.7 kg Patient Weight 09/01/16 06:59 Weight 84.7 kg Gen: This is a 61-year-old -Faro[place] male. He is sitting upright in ICU bed and appears to be in no acute distress. Patient is noted to be nonverbal but appears to be alert and can answer some questions by nodding his head. He is continued on norepinephrine neck. HEENT: Head is atraumatic, normocephalic. Pupils equal, round. Sclerae is anicteric. NECK: Supple. No JVD. No lymphadenopathy. No thyromegaly. Tracheostomy noted to Center. No drainage noted at the site. LUNGS: Decreased breath sounds but otherwise no wheezes.. No intercostal retractions. HEART: Regular rate and rhythm. Systolic murmur. ABDOMEN: Soft. Bowel sounds are present. No masses. No tenderness. PEG tube in place to the left upper quadrant with no noted tenderness or drainage. EXTREMITIES: No pedal edema. No calf tenderness. NEUROLOGICAL: Patient is awake, alert and able to follow simple commands and nod to answer questions. Results CBC & Chem 7: 09/01/16 03:19 09/01/16 03:19 Labs: Abnormal Lab Results - Last 24 Hours (Table) 08/30/16 08/31/16 08/31/16 Range/Units 23:58 00:15 05:48 WBC 25.7 H* (3.8-10.6) k/uL RBC 3.59 L (4.30-5.90) m/uL Hgb 9.3 L (13.0-17.5) gm/dL Hct 28.8 L (39.0-53.0) % RDW 16.7 H (11.5-15.5) % Plt Count 107 L (150-450) k/uL Neutrophils # (Manual) 21.8 H (1.3-7.7) k/uL PT (9.0-12.0) sec Sodium (137-145) mmol/L Potassium (3.5-5.1) mmol/L Carbon Dioxide (22-30) mmol/L BUN (9-20) mg/dL Creatinine (0.66-1.25) mg/dL Glucose (74-99) mg/dL Calcium (8.4-10.2) mg/dL Phosphorus (2.5-4.5) mg/dL Magnesium (1.6-2.3) mg/dL Troponin I 0.114 H* (0.000-0.034) ng/mL Total Protein (6.3-8.2) g/dL Albumin (3.5-5.0) g/dL Urine Protein Trace H (Negative) Amorphous Sediment Rare H (None) /hpf 08/31/16 08/31/16 08/31/16 Range/Units 05:48 05:48 05:48 WBC (3.8-10.6) k/uL RBC (4.30-5.90) m/uL Hgb (13.0-17.5) gm/dL Hct (39.0-53.0) % RDW (11.5-15.5) % Plt Count (150-450) k/uL Neutrophils # (Manual) (1.3-7.7) k/uL PT 13.0 H (9.0-12.0) sec Sodium 133 L (137-145) mmol/L Potassium 6.4 H* (3.5-5.1) mmol/L Carbon Dioxide 11 L (22-30) mmol/L BUN 103 H* (9-20) mg/dL Creatinine 6.03 H* (0.66-1.25) mg/dL Glucose 114 H (74-99) mg/dL Calcium 7.2 L (8.4-10.2) mg/dL Phosphorus 8.3 H* (2.5-4.5) mg/dL Magnesium 2.4 H (1.6-2.3) mg/dL Troponin I 0.116 H* (0.000-0.034) ng/mL Total Protein 5.4 L (6.3-8.2) g/dL Albumin 2.6 L (3.5-5.0) g/dL Urine Protein (Negative) Amorphous Sediment (None) /hpf Thrombosis Risk Factor Assmnt - DVT/VTE Prophylaxis DVT/VTE Prophylaxis: Pharmacologic Prophylaxis ordered - Choose All That Apply Any of the Below Risk Factors Present?: No Other Risk Factors: Yes Each Risk Factor Represents 2 Points: Age 61-74 years Each Risk Factor Represents 3 Points: History of DVT/PE Thrombosis Risk Factor Assessment Total Risk Factor Score: 5 Thrombosis Risk Factor Assessment Level: High Risk Assessment and Plan Plan: 1. Acute renal failure and metabolic acidosis with dehydration due to recent diarrhea and possibly worsened by recent chemotherapy. Nephrology is on consult. IV fluids to be D5 with 3 Amps of bicarbonate 125 mL per hour. Without 2. Diarrhea with signs of sepsis and dehydration with septic shock requiring vasopressors. Patient has been started on IV Flagyl and oral vancomycin. Continue IV fluids. Continue norepinephrine. Continue care in the intensive care unit. Dr. Reece is on consult. 3. Sepsis with septic shock requiring vasopressors. Source may be related to PEG tube site or diarrhea. Peg site culture is pending. Blood cultures been obtained. Patient is currently on IV Flagyl and oral vancomycin. 4. Bicytopenia with low hemoglobin RBC and platelet count. Most likely secondary to recent chemotherapy. Oncology on consult. 5. Elevated troponin. Cardiology consult appreciated. This is thought to be due to renal failure and sepsis. Echocardiogram is ordered. 6. History of laryngeal carcinoma with tracheostomy in place and PEG tube. Patient normally and takes food by mouth and PEG tube issues for medications only. 7. Small cell lung cancer on chemotherapy under the care of Dr. Granado. Consult with Dr. Bonds. 8. Episodes of nonsustained ventricular tachycardia most likely due to hyperkalemia. 9. Hyperkalemia status post Kayexalate and calcium gluconate and insulin with D50. 10. History of DVT status post IVC filter. 11. Gastrointestinal prophylaxis. Protonix. 12. DVT prophylaxis. Subcutaneous heparin. Patient will be admitted to the hospital for a minimum of 2 night stay. Discharge plan: To be determined Impression and plan of care have been directed as dictated by the signing physician. Jacquelyn Ram nurse practitioner acting as scribe for signing physician. Time with Patient: Greater than 30
--- NOTE | 2016-08-31 15:21 | CONS ---
DATE OF CONSULTATION: 08/31/2016 REASON FOR CONSULTATION: Renal failure. HISTORY OF PRESENT ILLNESS: Patient is a 61-year-old male who has a history of laryngeal cancer, which was in remission, but now has a small cell lung cancer and currently maintained on chemotherapy. He had been having diarrhea after his last stay chemo. He had been weak. He did not admit to significant nausea or vomiting. Patient does have a PEG tube, but he has been able to eat through the mouth as well. There has been drainage noted at the site of his PEG tube. Patient's serum creatinine on admission was at 6.39 mg/dL. He initially had no urine output. Currently his urine output has improved. Previous creatinine was 3.1 on 08/11/2016 and 2.46 in February 2014. The patient denies any nonsteroidal anti-inflammatory agents. His potassium was also elevated at 6.1 on admission. He has been acidotic with CO2 13. No diarrhea has been noted since he has been here. Patient is being empirically treated for C. difficile colitis. He was hypotensive and is currently maintained on Levophed. Normal saline is running at 120 mL an hour. PAST MEDICAL HISTORY: History of laryngeal cancer and recent non-small cell lung cancer on chemo, chronic kidney disease as previous creatinine was noted to be around 3, history of DVT, hypothyroidism. PAST SURGICAL HISTORY: Tracheostomy, surgery for laryngeal cancer, [place] filter placement. SOCIAL HISTORY: Patient is an ex-smoker. No history of drug abuse or alcohol abuse. Medications at home included: Synthroid, Megace, morphine, [place], Claritin, Celexa, Pulmicort, Compazine. ALLERGIES: None. REVIEW OF SYSTEMS: As per HPI. Other systems negative. On examination, the patient is currently awake. He is not in any acute distress. Blood pressure was 94/71, heart rate 103 per minute. He is afebrile. Examination of the heart S1 and S2. Examination of the lungs: Bilateral breath sounds are heard. Abdomen is soft, nontender. Examination of lower extremities shows no significant edema. [employer] exam shows patient is moving all 4 extremities. Tracheostomy site is noted. PEG tube is in place. The site is covered; therefore, I did not notice the drainage, which nursing staff had reported. The abdomen is otherwise soft. Labs show white cell count of 25.7, hemoglobin 9.3, sodium 133, potassium 6.4. CO2 is 11, BUN 103, serum creatinine 6.03, phosphorus 8.3. ASSESSMENT: 1. Acute kidney injury, acute tubular necrosis, currently nonoliguric, initially oliguric with perhaps improving renal function with volume replacement. 2. Hyperkalemia associated with acute kidney injury, status post IV treatment and Kayexalate. 3. Metabolic acidosis secondary to advanced renal failure as well as diarrhea. We will start IV bicarb. 4. History of laryngeal cancer. 5. Non-small cell lung cancer, maintained on chemotherapy. 6. Hyperphosphatemia secondary to advanced renal failure. We will start phosphate binders. 7. Mild elevation in troponin. Patient has been seen by Cardiology. 8. History of nonsustained ventricular tachycardia. PLAN: Start IV bicarb. Continue IV fluids. Continue empiric antibiotics. Repeat labs. Avoid nephrotoxic agents. Maintain patient on PhosLo. Thank you for this consultation. Will continue to follow the patient with you during his hospitalization.
--- NOTE | 2016-08-31 15:28 | P.CNPUL ---
History of Present Illness Consult date: 08/31/16 Chief complaint: Acute kidney injury, suspected sepsis History of present illness: 59-year-old male patient, with a previous history of laryngeal cancer status post total laryngectomy and tracheotomy, also history of small cell lung cancer with interval progression based on the recent PET scan, for which the patient was started on systemic chemotherapy. The patient came in to the burst department yesterday because of diminished oral intake, single episode of diarrhea, dehydration, diminished urine output, lethargy, fatigue, vague abdominal discomfort and some fall smelling drainage around the PEG tube. In addition, the patient was found to be in acute kidney injury, acute metabolic acidosis and acute hyperkalemia. For all this reasons, the patient got transferred to the intensive care unit. He got bolused with a total of 2-3 L of IV fluids in the form normal saline and based on the sides recommendation the patient was switched to bicarb drip. The patient was also covered with broad-spectrum antibiotics. He was initially stopped and accommodation of cefepime and vancomycin. Subsequently, the patient was seen by infectious disease and antibiotics were simplified and the patient was placed on IV Flagyl and oral vancomycin suspecting an underlying C. diff colitis. Nevertheless, the patient has not had any further episodes of diarrhea since he came to the ICU. The patient was examined in the ICU. Active site essentially clean and there was no evidence of any purulent drainage. Abdomen was soft and the CAT scan of the abdomen was done in the emergency department showed no acute abnormalities. He was a bit lethargic and slow in answering questions. He denied having any history distress. Denied any cough or sputum production or any chest pain. No open wounds or sores. No dysuria frequency or urgency. Review of Systems Limited information can be provided by the patient. Past Medical History Past Medical History: Cancer, Deep Vein Thrombosis (DVT), Thyroid Disorder Additional Past Medical History / Comment(s): Laryngeal cancer status post laryngectomy and tracheotomy, small cell lung cancer currently under the care of Dr. Cartagena and the patient is receiving systemic chemotherapy and last treatment was approximately 2 weeks ago, history of DVT, hypothyroidism, PEG tube insertion for enteral feeding and nutritional support, IVC filter insertion , depression, limited performance status based on the above-mentioned comorbidities. History of Any Multi-Drug Resistant Organisms: None Reported Additional Past Surgical History / Comment(s): Tracheotomy, total laryngectomy , IVC filter Past Anesthesia/Blood Transfusion Reactions: No Reported Reaction Past Psychological History: Depression Smoking Status: Former smoker Past Alcohol Use History: None Reported Additional Past Alcohol Use History / Comment(s): quit smoking 2010-1PPD, started smoking age 13. He lives at home with his . Past Drug Use History: None Reported - Past Family History Mother Family Medical History: No Reported History Medications and Allergies Home Medications Medication Instructions Recorded Confirmed Type Levothyroxine Sodium [Synthroid] 75 mcg PEG/G-TUBE DAILY 04/26/16 08/30/16 History Megestrol Acetate [Megace] 40 mg PEG/G-TUBE DAILY 04/26/16 08/30/16 History Morphine Sulfate [Morphine Sulfate 60 mg PO BID 04/26/16 08/30/16 History ER] oxyCODONE HCL/ACETAMINOPHEN 1 tab PEG/G-TUBE QID PRN 04/26/16 08/30/16 History [Percocet 7.5-325 mg] Acetaminophen/Diphenhydramine 1 tab PEG/G-TUBE HS PRN 08/30/16 08/30/16 History [Tylenol PM 500-25mg] Budesonide [Pulmicort] 0.5 mg INHALATION RT-BID 08/30/16 08/30/16 History Citalopram Hydrobromide [CeleXA] 30 mg PEG/G-TUBE DAILY 08/30/16 08/30/16 History Ensure 1 can PEG/G-TUBE TID 08/30/16 08/30/16 History Loratadine [Claritin] 10 mg PEG/G-TUBE DAILY PRN 08/30/16 08/30/16 History Prochlorperazine [Compazine] 10 mg PEG/G-TUBE Q6H PRN 08/30/16 08/30/16 History Allergies Allergy/AdvReac Type Severity Reaction Status Date / Time No Known Allergies Allergy Verified 08/30/16 17:48 Physical Exam Vitals: Vital Signs Temp Pulse Resp BP Pulse Ox 08/31/16 11:57 110 H 08/31/16 11:47 108 H 08/31/16 11:15 102 H 12 93 L 08/31/16 11:00 104 H 19 88 L 08/31/16 10:45 102 H 12 93 L 08/31/16 10:30 103 H 12 94/71 91 L 08/31/16 10:15 103 H 16 93 L 08/31/16 10:00 98 19 92/64 94 L 08/31/16 09:45 102 H 14 102/70 92 L 08/31/16 09:30 104 H 18 95/67 90 L 08/31/16 09:15 98 14 104/68 93 L 08/31/16 09:00 102 H 18 109/66 92 L 08/31/16 08:43 105 H 08/31/16 08:31 94 L 08/31/16 08:30 105 H 17 111/66 92 L 08/31/16 08:27 105 H 08/31/16 08:15 99 12 95/68 93 L 08/31/16 08:00 98.0 F 94 15 95/68 87 L 08/31/16 07:45 97 15 110/68 92 L 08/31/16 07:30 96 15 110/68 94 L 08/31/16 07:15 95 13 92/62 94 L 08/31/16 07:00 93 14 92/62 95 08/31/16 06:30 94 14 101/69 94 L 08/31/16 06:00 95 17 107/74 95 08/31/16 05:30 96 16 108/72 91 L 08/31/16 05:00 95 15 92/59 95 08/31/16 04:30 95 17 75/55 96 08/31/16 04:00 98 F 94 10 L 104/72 96 08/31/16 03:30 103 H 10 L 81/58 92 L 08/31/16 03:00 99 21 83/55 95 08/31/16 02:30 100 22 93/71 95 08/31/16 02:00 100 20 81/57 95 08/31/16 01:30 100 21 93/63 97 08/31/16 01:00 103 H 27 H 82/57 97 08/31/16 00:30 103 H 23 96/60 95 08/31/16 00:00 98.2 F 106 H 26 H 82/60 90 L 08/30/16 23:30 105 H 24 82/62 96 08/30/16 23:00 106 H 26 H 86/57 96 08/30/16 22:30 106 H 25 H 92/57 96 08/30/16 22:00 107 H 28 H 82/56 96 08/30/16 21:30 112 H 29 H 90/59 94 L 08/30/16 21:00 98.5 F 113 H 30 H 91/70 97 08/30/16 20:44 100 Intake and Output 08/31/16 08/31/16 08/31/16 06:59 14:59 22:59 Intake Total 2672.916 782.053 Output Total 820 240 Balance 1852.916 542.053 Intake: IV 2550 650 Cefepime 1 gm In Sodium 100 Chloride 0.9% 50 ml @ 100 mls/hr IVPB Q12HR RYAN Rx #:[id number] Sodium Chloride 0.9% 1, 1100 300 000 ml @ 100 mls/hr IV . Q10H RYAN Rx#:[id number] Sodium Chloride 0.9% 1, 1000 000 ml @ 999 mls/hr IV . Q1H1M ONE Rx#:[id number] Vancomycin 1,000 mg In 250 250 Sodium Chloride 0.9% 250 ml @ 125 mls/hr IVPB ONCE STA Rx#:[id number] metroNIDAZOLE-NS PMX 500 100 100 mg In Saline 1 100ml.bag @ 100 mls/hr IVPB ONCE STA Rx#:[id number] Intake, IV Titration 2.916 132.053 Amount Calcium Gluconate 1,000 100 mg In Sodium Chloride 0.9 % 100 ml @ 100 mls/hr IVPB ONCE ONE Rx#: [id number] Norepinephrine 16 mg In 2.916 32.053 Sodium Chloride 0.9% 250 ml @ Titrate IV .Q0M RYAN Rx#:[id number] Oral 120 Output: Urine 820 240 Other: Voiding Method Indwelling Catheter Indwelling Catheter Weight 84.7 kg Patient Weight 09/01/16 06:59 Weight 84.7 kg Elderly -[place]ian male patient, slightly lethargic and obtunded. Able to open up his eyes and follows some simple commands.Head exam was generally normal. There was no scleral icterus or corneal arcus. Mucous membranes were moist. Mucous membranes are dry and the patient has a tracheostomy which is open and widely patent. Scars of previous laryngectomy can be seen over the anterior neck. Lung sounds are diminished bilaterally along with some few rales in the lung bases.Cardiac exam revealed the PMI to be normally situated and sized. The rhythm was regular and no extrasystoles were noted during several minutes of auscultation. The first and second heart sounds were normal and physiologic splitting of the second heart sound was noted. There were no murmurs, rubs, clicks, or gallops. Abdominal exam revealed normal bowel sounds. The abdomen was soft, non-tender, and without masses, organomegaly, or appreciable enlargement of the abdominal aorta. PEG tube site is clean.Examination of the extremities revealed easily palpable radial, femoral and pedal pulses. There was no cyanosis, clubbing or edema. Results - Laboratory Findings CBC and BMP: 08/31/16 05:48 08/31/16 05:48 PT/INR, D-dimer PT 13.0 sec (9.0-12.0) H 08/31/16 05:48 INR 1.3 (<1.1) 08/31/16 05:48 Abnormal lab findings: Abnormal Labs 08/30/16 08/31/16 08/31/16 23:58 00:15 05:48 WBC 25.7 H* RBC 3.59 L Hgb 9.3 L Hct 28.8 L RDW 16.7 H Plt Count 107 L Neutrophils # (Manual) 21.8 H PT Sodium Potassium Carbon Dioxide BUN Creatinine Glucose Calcium Phosphorus Magnesium Troponin I 0.114 H* Total Protein Albumin Urine Protein Trace H Amorphous Sediment Rare H 08/31/16 08/31/16 08/31/16 05:48 05:48 05:48 WBC RBC Hgb Hct RDW Plt Count Neutrophils # (Manual) PT 13.0 H Sodium 133 L Potassium 6.4 H* Carbon Dioxide 11 L BUN 103 H* Creatinine 6.03 H* Glucose 114 H Calcium 7.2 L Phosphorus 8.3 H* Magnesium 2.4 H Troponin I 0.116 H* Total Protein 5.4 L Albumin 2.6 L Urine Protein Amorphous Sediment - Diagnostic Findings Chest x-ray: image reviewed Assessment and Plan Plan: Assessment 1 acute kidney injury, most likely secondary to intravascular volume depletion/ dehydration. Is very much likely the patient had diminished oral intake and this probably got further exacerbated by diarrhea that was reported prior to him coming to the hospital. He is oliguric. He was resuscitated IV fluids and currently he will be switched to D5 with 3 A of bicarb at the rate of 125 mL an hour. Ultrasound the kidneys are to follow nephrology consultation is to follow. 2 acute hyperkalemia, treated and follow-up potassium levels are pending 3 metabolic acidosis secondary to above 4 diarrhea, limited and currently the patient is not having any further episodes. He is covered with broad-spectrum antibiotics including coverage for C. diff 5 laryngeal cancer status post total laryngectomy and tracheotomy 6 small cell lung cancer, metastatic, currently receiving systemic chemotherapy 7 enteral feeding via PEG tube 8 previous history of DVT status post IVC filter placement 9 leukocytosis/thrombocytopenia/chronic anemia, microcytic Plan Continue fluid resuscitation with bicarbonate infusion. Monitor renal function. Ultrasound of the kidneys and abdomen. Watch for any diarrhea and check stool for C. diff if diarrhea recurs. Nephrology consultation. ID consultation. Respiratory status is stable. Prognosis is poor baseline above- mentioned comorbidities. May need supplemental enteral feeding as the patient is unable to keep up with his oral intake. CAT scan of the abdomen was noted in the findings are essentially unremarkable. Cultures of been sent. We'll continue to follow. Time with Patient: Greater than 30
[2016-08-31] MEDS: MORPHINE SULFATE ER 60 MG TABLET PO SCH (17:37)
--- NOTE | 2016-08-31 20:48 | P.CONS ---
History of Present Illness - Reason for Consult Consult date: 08/31/16 Small cell lung cancer on chemotherapy. diarrhea, hypotension - History of Present Illness The patient is a 61-year-old -[place] gentleman, well-known to our service. He is followed by Dr. Cartagena in the outpatient setting. He was diagnosed with locally advanced laryngeal cancer in 2010. He underwent lying ectomy as well as bilateral lymph node dissection at [facility]. He was subsequently treated with chemotherapy and radiation under the care of Dr. Randall and Shruthi. He continued on follow-up with Dr. cartagena subsequently. At that time imaging studies had shown lung nodules with the one in the right upper lobe showing enlargement as well as positivity on PET scan. This was in 2013, and surgery was recommended. The patient however refused that. In the 07/25, he was diagnosed with small cell lung cancer, while a CT-guided needle biopsy of a right lung mass. He was also noted to have evidence of mediastinal lymphadenopathy. The biopsy was done at the [facility] [place]. The patient appeared to have lung limited disease, and was started on carboplatin and ROLLER TURNER-16 along with concurrent radiation. He is status post 1 cycle of chemotherapy completing that about 2 weeks ago. The patient came into the emergency room because of the significant diarrhea that started a few days ago and had been progressive. No bleeding, nausea and vomiting was associated. He was complaining of some pain in the left upper quadrant, especially around the PEG tube site. He was noted to be in acute renal failure with creatinine of 6.39, with baseline creatinine on 08/11/16 being 3.16. Of note he did have a history of renal failure that was attributed to cisplatin received for his laryngeal cancer. Potassium was markedly elevated at 6.1. The patient subsequently developed significant hypotension and was admitted to the ICU for hydration as well as pressors. Hemoglobin on admission was 9.3 with white count elevated at 25.7 with the majority being neutrophils. Case was discussed with nursing. At the time of admission, purulent drainage was noted around the PEG site. Therefore CT of the abdomen and pelvis was done which showed no major abnormality. Ultrasound of the KUB did not show any evidence of obstruction. Review of Systems Constitutional: Reports fatigue, Reports weakness, Reports weight loss Eyes: denies blurred vision, denies pain Ears: deny: decreased hearing, ear discharge, earache, tinnitus Ears, nose, mouth and throat: Reports as per HPI (A tracheostomy opening present ) Cardiovascular: Reports decreased exercise tolerance Respiratory: Reports congestion, Reports dyspnea Gastrointestinal: Reports diarrhea Genitourinary: Reports as per HPI (History of renal insufficiency, developing while on chemo previously.) Musculoskeletal: Reports muscle weakness Integumentary: Denies pruritus, Denies rash Neurological: Reports weakness Psychiatric: Denies anxiety, Denies depression Endocrine: Reports weight change Hematologic/Lymphatic: Reports as per HPI Past Medical History Past Medical History: Cancer, Deep Vein Thrombosis (DVT), Thyroid Disorder Additional Past Medical History / Comment(s): lung cancer, stage 4 throat cancer pt- throat, uses cane, non verbal from throat surgery History of Any Multi-Drug Resistant Organisms: None Reported Additional Past Surgical History / Comment(s): Tracheostomy, Surgery for throat ca, filter in stomach for blood clots, Past Anesthesia/Blood Transfusion Reactions: No Reported Reaction Past Psychological History: Depression Smoking Status: Former smoker Past Alcohol Use History: None Reported Additional Past Alcohol Use History / Comment(s): quit smoking 2010-1PPD, started smoking age 13 Past Drug Use History: None Reported - Past Family History Mother Family Medical History: No Reported History Medications and Allergies Home Medications Medication Instructions Recorded Confirmed Type Levothyroxine Sodium [Synthroid] 75 mcg PEG/G-TUBE DAILY 04/26/16 08/30/16 History Megestrol Acetate [Megace] 40 mg PEG/G-TUBE DAILY 04/26/16 08/30/16 History Morphine Sulfate [Morphine Sulfate 60 mg PO BID 04/26/16 08/30/16 History ER] oxyCODONE HCL/ACETAMINOPHEN 1 tab PEG/G-TUBE QID PRN 04/26/16 08/30/16 History [Percocet 7.5-325 mg] Acetaminophen/Diphenhydramine 1 tab PEG/G-TUBE HS PRN 08/30/16 08/30/16 History [Tylenol PM 500-25mg] Budesonide [Pulmicort] 0.5 mg INHALATION RT-BID 08/30/16 08/30/16 History Citalopram Hydrobromide [CeleXA] 30 mg PEG/G-TUBE DAILY 08/30/16 08/30/16 History Ensure 1 can PEG/G-TUBE TID 08/30/16 08/30/16 History Loratadine [Claritin] 10 mg PEG/G-TUBE DAILY PRN 08/30/16 08/30/16 History Prochlorperazine [Compazine] 10 mg PEG/G-TUBE Q6H PRN 08/30/16 08/30/16 History Allergies Allergy/AdvReac Type Severity Reaction Status Date / Time No Known Allergies Allergy Verified 08/30/16 17:48 Physical Exam Vitals: Vital Signs Temp Pulse Resp BP Pulse Ox 08/31/16 09:00 102 H 18 109/66 92 L 08/31/16 08:43 105 H 08/31/16 08:31 94 L 08/31/16 08:30 105 H 17 111/66 92 L 08/31/16 08:27 105 H 08/31/16 08:15 99 12 95/68 93 L 08/31/16 08:00 98.0 F 94 15 95/68 87 L 08/31/16 07:45 97 15 110/68 92 L 08/31/16 07:30 96 15 110/68 94 L 08/31/16 07:15 95 13 92/62 94 L 08/31/16 07:00 93 14 92/62 95 08/31/16 06:30 94 14 101/69 94 L 08/31/16 06:00 95 17 107/74 95 08/31/16 05:30 96 16 108/72 91 L 08/31/16 05:00 95 15 92/59 95 08/31/16 04:30 95 17 75/55 96 08/31/16 04:00 98 F 94 10 L 104/72 96 08/31/16 03:30 103 H 10 L 81/58 92 L 08/31/16 03:00 99 21 83/55 95 08/31/16 02:30 100 22 93/71 95 08/31/16 02:00 100 20 81/57 95 08/31/16 01:30 100 21 93/63 97 08/31/16 01:00 103 H 27 H 82/57 97 08/31/16 00:30 103 H 23 96/60 95 08/31/16 00:00 98.2 F 106 H 26 H 82/60 90 L 08/30/16 23:30 105 H 24 82/62 96 08/30/16 23:00 106 H 26 H 86/57 96 08/30/16 22:30 106 H 25 H 92/57 96 08/30/16 22:00 107 H 28 H 82/56 96 08/30/16 21:30 112 H 29 H 90/59 94 L 08/30/16 21:00 98.5 F 113 H 30 H 91/70 97 08/30/16 20:44 100 Intake and Output 08/30/16 08/31/16 08/31/16 22:59 06:59 14:59 Intake Total 2672.916 482.053 Output Total 820 150 Balance 1852.916 332.053 Intake: IV 2550 350 Cefepime 1 gm In Sodium 100 Chloride 0.9% 50 ml @ 100 mls/hr IVPB Q12HR RYAN Rx #:[id number] Sodium Chloride 0.9% 1, 1100 100 000 ml @ 100 mls/hr IV . Q10H RAYN Rx#:[id number] Sodium Chloride 0.9% 1, 1000 000 ml @ 999 mls/hr IV . Q1H1M ONE Rx#:[id number] Vancomycin 1,000 mg In 250 250 Sodium Chloride 0.9% 250 ml @ 125 mls/hr IVPB ONCE STA Rx#:[id number] metroNIDAZOLE-NS PMX 500 100 mg In Saline 1 100ml.bag @ 100 mls/hr IVPB ONCE STA Rx#:[id number] Intake, IV Titration 2.916 132.053 Amount Calcium Gluconate 1,000 100 mg In Sodium Chloride 0.9 % 100 ml @ 100 mls/hr IVPB ONCE ONE Rx#: [id number] Norepinephrine 16 mg In 2.916 32.053 Sodium Chloride 0.9% 250 ml @ Titrate IV .Q0M RYAN Rx#:[id number] Oral 120 Output: Urine 820 150 Other: Voiding Method Urinal Indwelling Catheter Indwelling Catheter Weight 84.7 kg - Constitutional General appearance: mild distress - EENT Eyes: EOMI, PERRLA ENT: hearing grossly normal, normal oropharynx - Neck Neck: other (Tracheostomy present. Opening overall looks clean), stridor (Mild) - Respiratory Respiratory: bilateral: CTA, wheezing - Cardiovascular Rhythm: regular Heart sounds: normal: S1, S2 - Gastrointestinal PEG tube in situ in the left upper quadrant. Currently site appears clean. I could not appreciate any fluctuation or express any discharge General gastrointestinal: normal bowel sounds, soft, tenderness (Around the PEG site) - Integumentary Integumentary: normal - Neurologic Neurologic: CNII-XII intact - Musculoskeletal Musculoskeletal: generalized weakness, strength equal bilaterally - Psychiatric Orientation is difficult to estimate as the patient is nonverbal Psychiatric: appropriate affect Results CBC & Chem 7: 08/31/16 05:48 08/31/16 18:00 Labs: Abnormal Lab Results - Last 24 Hours (Table) 08/30/16 08/31/16 08/31/16 Range/Units 23:58 00:15 05:48 WBC 25.7 H* (3.8-10.6) k/uL RBC 3.59 L (4.30-5.90) m/uL Hgb 9.3 L (13.0-17.5) gm/dL Hct 28.8 L (39.0-53.0) % RDW 16.7 H (11.5-15.5) % Plt Count 107 L (150-450) k/uL Neutrophils # (Manual) 21.8 H (1.3-7.7) k/uL PT (9.0-12.0) sec Sodium (137-145) mmol/L Potassium (3.5-5.1) mmol/L Carbon Dioxide (22-30) mmol/L BUN (9-20) mg/dL Creatinine (0.66-1.25) mg/dL Glucose (74-99) mg/dL Calcium (8.4-10.2) mg/dL Phosphorus (2.5-4.5) mg/dL Magnesium (1.6-2.3) mg/dL Troponin I 0.114 H* (0.000-0.034) ng/mL Total Protein (6.3-8.2) g/dL Albumin (3.5-5.0) g/dL Urine Protein Trace H (Negative) Amorphous Sediment Rare H (None) /hpf 08/31/16 08/31/16 08/31/16 Range/Units 05:48 05:48 05:48 WBC (3.8-10.6) k/uL RBC (4.30-5.90) m/uL Hgb (13.0-17.5) gm/dL Hct (39.0-53.0) % RDW (11.5-15.5) % Plt Count (150-450) k/uL Neutrophils # (Manual) (1.3-7.7) k/uL PT 13.0 H (9.0-12.0) sec Sodium 133 L (137-145) mmol/L Potassium 6.4 H* (3.5-5.1) mmol/L Carbon Dioxide 11 L (22-30) mmol/L BUN 103 H* (9-20) mg/dL Creatinine 6.03 H* (0.66-1.25) mg/dL Glucose 114 H (74-99) mg/dL Calcium 7.2 L (8.4-10.2) mg/dL Phosphorus 8.3 H* (2.5-4.5) mg/dL Magnesium 2.4 H (1.6-2.3) mg/dL Troponin I 0.116 H* (0.000-0.034) ng/mL Total Protein 5.4 L (6.3-8.2) g/dL Albumin 2.6 L (3.5-5.0) g/dL Urine Protein (Negative) Amorphous Sediment (None) /hpf Chest x-ray: report reviewed (Ultrasound KUB reviewed) CT scan - abdomen: report reviewed, image reviewed CT scan - pelvis: report reviewed, image reviewed Assessment and Plan (1) JOVANI (acute kidney injury) Narrative/Plan: The patient developed kidney injury initially when he was on chemoradiation for his laryngeal cancer. At that time it was attributed to his cisplatin chemotherapy. He only had a partial improvement at that time. Baseline creatinine is elevated, as noted. The current major dropping GFR, is likely due to intravascular volume depletion from his diarrhea. The patient also received carboplatin, though the dosing for that is according to the kidney function. The patient is still making urine. In this situation, control of diarrhea and hydration would be expected to improve the kidney function. Follow labs with ongoing hydration. If renal function does not improve back to baseline, it would pose a significant problem going forward in regards to resuming chemotherapy. The carboplatin is much less toxic to the kidneys than cisplatin, and dosing is based on GFR, the risk would be increased in a patient with significant underlying kidney disease Status: Acute (2) Diarrhea Narrative/Plan: The cause of this is unclear at this time. His chemotherapy regimen is not generally associated with diarrhea. In fact patients tend to have more trouble with constipation. There was concern regarding pain and drainage around his PEG tube site. However computed tomography scan of the abdomen and pelvis did not show any significant collection in that area. The patient has not had diarrhea with the PEG feeding before. In this situation, and infectious process should be ruled out. C. diff and stool testing for appropriately ordered. However diarrhea has ceased, since coming to the ICU. If this has not recurred, a viral gastroenteritis would be a possibility. Status: Acute (3) Leukocytosis Narrative/Plan: This is reactive, due to her recent diarrhea and dehydration, as well as recovery from his chemotherapy. No intervention from the hematology standpoint required Status: Acute (4) Small cell lung cancer Narrative/Plan: The history is as noted in the HPI. Chemo will be on hold until acute problems resolve Status: Acute
[2016-08-31] MEDS ORDERED: CEFEPIME 1 GM in SODIUM CHLORIDE 0.9% 50 ML IVPB SCH ×3 (21:00)
--- NOTE | 2016-08-31 23:47 | CONS ---
DATE OF CONSULTATION: 08/31/2016 REASON FOR CONSULTATION: 1. Diarrhea with C difficile. 2. Positive blood culture with Gram-negative. HISTORY OF PRESENT ILLNESS: The patient is a 61-year-old -[place] male with a past medical history significant for laryngeal cancer and small-cell lung cancer. Patient's last chemotherapy was about 2 weeks ago. Patient has been brought into the [facility] ER with chief complaints of weakness and diarrhea that he has had for about 5 days now. Patient has multiple loose stools with no blood or mucus in it. No nausea or vomiting. Patient subsequently was evaluated by the ER physician. He was noticed to have elevated white count of 20,000. He did have CT of abdomen and pelvis which did not show any acute abnormality; rather the ascites has resolved. Chest x-ray did show some mild heart failure and a small right pleural effusion, right upper lobe nodule. The patient was noticed to have some pus around the PEG tube site that was cultured. Patient did receive a dose of Rocephin in the ER and he was continued on vancomycin and was admitted to the ICU because of acute renal failure as well as hypotension requiring Levophed. I was contacted this morning by the R.N. to notify of the consult and also patient's white count was elevated at 25,000 compared to 20,000 yesterday. With the history provided mostly of the diarrhea in a patient with recent chemo, he was empirically being treated for possible C difficile in the form of IV Flagyl and vancomycin. Oral vancomycin was later on discontinued by the director of music. Stool for C difficile was requested, but that has not been collected, as the patient did not have any bowel movement. Patient remains non-verbal. All of this information has been obtained from review of the chart and talking to the nursing staff. Review of systems could not be reliably obtained. The positive ones have been mentioned in the HPI. His past medical history is significant for: 1. Laryngeal cancer. 2. Small-cell lung cancer. 3. DVT. 4. Hypothyroidism. PAST SURGICAL HISTORY: 1. Tracheostomy. 2. Laryngectomy for his cancer. 3. IVC filter placement. SOCIAL HISTORY: Positive for smoking; quit back in 2010. No drinking or drug use. FAMILY HISTORY: No pertinent findings were noticed. ALLERGIES: NO KNOWN DRUG ALLERGIES. Medications currently include: 1. DuoNeb. 2. PhosLo. 3. Celexa. 4. Heparin. 5. Synthroid. 6. Flagyl. 7. MS Contin. 8. Narcan. 9. Norepinephrine. 10. Percocet. 11. Protonix. On examination, his blood pressure is 100/72 with a pulse of 106, temperature 97.8. He is 99% on trach collar. General description is a middle-aged male lying in bed in no distress. No tachypnea or accessory muscle of respiration use. HEENT examination shows pallor. No scleral icterus. Oral mucosal membranes dry. NECK: Trachea site looks clean with no evidence of any purulence. LUNGS: Unlabored breathing. Some decreased breath sounds at the base. No wheeze. HEART: S1, S2. Regular rate and rhythm. ABDOMEN: Soft. No tenderness. No guarding or rigidity. The PEG tube site looks clean, with no evidence of any cellulitis or drainage. EXTREMITIES: No edema of feet. SKIN EXAMINATION: No rash or mass palpable. Neurologically the patient is awake and alert. Orientation could not be determined because patient is non-verbal. Mood and affect are normal. LABS: Hemoglobin is 9.3 with a white count of 25.7 with a BUN of 103 with a creatinine of 6.03. UA has been negative. Chest x-ray reported to show mild heart failure, a small right pleural effusion; no new pneumonia. CT of abdomen and pelvis report as mentioned above. DIAGNOSTIC IMPRESSION AND PLAN: 1. Patient presented to hospital with sepsis, and patient did have significant hypotension requiring pressor and fluid support. The patient did have elevated white count, meeting criteria for systemic inflammatory response syndrome, now with a Gram-negative bacteremia. Source is more likely abdominal, though the CT of the abdomen and pelvis is negative for any abscess collection or significant colitis. Patient with no other clinical focus of infection. His urine was negative. Chest x-ray was negative for any pneumonia. 2. Patient with diarrhea with recent exposure to chemotherapy. Will need to rule out C. difficile colitis. PLAN: 1. Will try to obtain stool for C. difficile. 2. Will try to obtain sputum for Gram stain and cultures. 3. Cefepime 1 gram daily for the Gram-negative in the blood. 4. Continue Flagyl 500 q.8. 5. Will follow up on his clinical condition and cultures to further adjust the medication if needed. Thank you for this consultation. Will follow this patient along with you. [facility]
[2016-09-01 03:44] LABS: Calcium 6.6 mg/dL (8.4-10.2); Magnesium 2.3 mg/dL (1.6-2.3); Potassium 4.8 mmol/L (3.5-5.1)
[2016-09-01 03:55] LABS: Phosphorous 9.5 mg/dL (2.5-4.5)
[2016-09-01 03:58] LABS: Anisocytosis Slight; CH 26.6; CHCM 34.2; HCT 24.9 % (39.0-53.0); HDW 2.44; HGB 8.3 gm/dL (13.0-17.5); Immature Gran Flag Marked; MCH 25.8 pg (25.0-35.0); MCHC 33.2 g/dL (31.0-37.0); Mean Platelet Volume 8.7; Microcytosis Slight; RDW 16.9 % (11.5-15.5); WBC (Perox) 35.67
[2016-09-01] MEDS ORDERED: SODIUM CHLORIDE 0.9% 500 ML IV ONE (04:49)
[2016-09-01] MEDS: DEXTROSE 5% IN WATER 1,000 ML with SODIUM BICARB (1 MEQ/ML) 150 ML IV SCH (05:02)
[2016-09-01] MEDS: MORPHINE SULFATE ER 60 MG TABLET PO SCH ×2 (05:02→18:47)
[2016-09-01 05:16] LABS: Add Differential Manual Differential
[2016-09-01 05:23] LABS: Metamyelocytes % 4.5 %; Myelocytes % 1.5 %; Nucleated Red Blood Cells 1 /100 WBC (0-0); Total Cells Counted 200; WBC 33.9 k/uL (3.8-10.6)
[2016-09-01 05:27] LABS: Polychromasia Present; Target Cells Present
[2016-09-01 05:29] LABS: Large Platelets Present; Manual Review Performed
[2016-09-01 05:39] LABS: Glucose,Whole Blood 252 mg/dL (75-99)
[2016-09-01] MEDS: LEVOTHYROXINE 75 MCG TAB PEG/G-TUBE SCH (05:39)
[2016-09-01 07:55] LABS: Glucose,Whole Blood 226 mg/dL (75-99)
[2016-09-01] MEDS: IPRATROPIUM-ALBUTEROL 3 ML NEB INHALATION PRN ×4 (07:57→19:53)
[2016-09-01] MEDS: IOHEXOL 350 MG/ML 25 ML BOTTLE (ORAL USE) PO PRN ×2 (08:06→08:57)
[2016-09-01] MEDS: NOREPINEPHRINE 16 MG in SODIUM CHLORIDE 0.9% 250 ML IV SCH (08:12)
[2016-09-01] MEDS: INSULIN LISPRO (humaLOG) 300 UNIT/3 ML VIAL SQ SCH ×4 (08:14→22:17)
[2016-09-01] MEDS: metroNIDAZOLE-NS PMX 500 MG in SALINE 1 100ML.BAG IVPB SCH ×2 (08:16→18:50)
[2016-09-01] MEDS: PANTOPRAZOLE 40 MG/10 ML VIAL IV SCH (08:17)
--- NOTE | 2016-09-01 08:30 | XR ---
EXAMINATION TYPE: XR chest 1V DATE OF EXAM: 09/01/2016 6:56 AM COMPARISON: Prior chest x-ray August HISTORY: Shortness of breath TECHNIQUE: Single frontal view of the chest is obtained. FINDINGS: Patient is rotated, the heart is enlarged. Right-sided Port-A-Cath shows the distal tip ov erlying the superior vena cava, patient is rotated. Interstitium thought to be improved. There are ov erlying cardiac leads. No pneumothorax or pleural effusion. IMPRESSION: Similar findings. Cardiomegaly. There may be some improvement in volume status.
[2016-09-01] MEDS: SODIUM CHLORIDE 0.9% 1,000 ML IV SCH ×2 (08:38→18:51)
[2016-09-01] MEDS ORDERED: APIXABAN 2.5 MG TABLET PO SCH (09:00)
[2016-09-01] MEDS: MEROPENEM 1 GM in SODIUM CHLORIDE 0.9% 100 ML IVPB SCH ×2 (09:54→20:40)
[2016-09-01] MEDS: METOPROLOL TARTRATE 12.5 MG TAB PO SCH ×2 (09:57→22:19)
[2016-09-01] MEDS: CALCIUM ACETATE 667 MG CAP PO SCH ×3 (09:57→18:47)
[2016-09-01] MEDS: SODIUM BICARBONATE TAB 650 MG TAB PO SCH ×3 (09:57→22:19)
[2016-09-01] MEDS: CITALOPRAM HYDROBROMIDE 10 MG TAB PO SCH (09:58)
--- NOTE | 2016-09-01 10:00 | PN ---
Mr. Francisco is a 61-year-old male with a history of prior tracheostomy, history of small cell CA, history of renal failure who presented with symptoms of progressive fatigue, diarrhea, dehydration, worsening renal function. Cardiology consultation was requested because of a mild troponin elevation. He is more awake. He continues to be been on the aggressive hydration with bicarb in addition to Levophed. His urine output is stable. He had episode of nonsustained ventricular tachycardia during the night. He has not verbalized any symptoms of chest pain. His breathing is unchanged. His past history is remarkable for history of laryngeal CA and small cell CA. He is status post PEG tube in addition to the tracheostomy. He continues to be at this time on the IV Levophed in addition to that Protonix, vancomycin. PHYSICAL EXAMINATION: Blood pressure running in the 100s with the heart rate in the low 100s. LUNGS: With scattered rhonchi. No wheezes. HEART: Regular rate and rhythm. S1, S2, no S3, no rub appreciated. ABDOMEN: Soft and nontender. PEG tube in place. EXTREMITIES: No significant edema. Lab data revealed BUN and creatinine of 103 and 5.4. Potassium 4.8. Hemoglobin of 8.3, white blood cells 33.9. IMPRESSION: 1. Worsening renal failure, most likely related to the dehydration and the severe diarrhea. 2. Episode of nonsustained ventricular tachycardia, stable. 3. Hyperkalemia, resolved. 4. History of laryngeal carcinoma, status post tracheostomy. 5. Small cell carcinoma, metastatic, receiving chemotherapy. 6. Minimal troponin elevation, nondiagnostic. RECOMMENDATIONS: From the cardiac standpoint, I will try to add a low-dose beta cheng. I am hopeful that we can wean the IV Levophed. Continue the rest of his medical regimen. Unfortunately, the prognosis remains guarded.
--- NOTE | 2016-09-01 10:15 | ECHOF ---
Referral Reason:htn MEASUREMENTS -------- HEIGHT: 182.9 cm WEIGHT: 84.4 kg BP: RVIDd: 3.2 cm (< 3.3) IVSd: 1.2 cm (0.6 - 1.1) LVIDd: 6.3 cm (3.9 - 5.3) LVPWd: 1.1 cm (0.6 - 1.1) IVSs: 1.3 cm LVIDs: 5.7 cm LVPWs: 1.4 cm LA Diam: 5.2 cm (2.7 - 3.8) LAESV Index (A-L): 72.59 ml/m Ao Diam: 3.4 cm (2.0 - 3.7) AV Cusp: 2.1 cm (1.5 - 2.6) LA Diam: 5.5 cm (2.7 - 3.8) MV EXCURSION: 19.913 mm (> 18.000) MV EF SLOPE: 67 mm/s (70 - 150) EPSS: 3.2 cm MV E Lloyd: 1.32 m/s MV DecT: 180 ms MV A Lloyd: 0.68 m/s MV E/A Ratio: 1.93 AR PHT: 273 ms RAP: 5.00 mmHg RVSP: 32.66 mmHg FINDINGS -------- Sinus rhythm. This was a technically adequate study. There is mild concentric left ventricular hypertrophy. There is severe global hypokinesis of LV . Overall left ventricular systolic function is severely impaired with, an EF between 20 - 25 %. only basal inflateral wall is martina. The right ventricle is normal in size. LA is severely dilated >40 ml/m2 The right atrial size is normal. There is mild aortic valve sclerosis. There is moderate aortic regurgitation. Mild mitral annular calcification present. Severe mitral regurgitation is present. Mild tricuspid regurgitation present. There is mild pulmonary hypertension. The right ventricular systolic pressure, as measured by Doppler, is 32.66mmHg. There is no pulmonic regurgitation present. The aortic root size is normal. There is no pericardial effusion. CONCLUSIONS -------- 1. There is mild concentric left ventricular hypertrophy. 2. Mild tricuspid regurgitation present. 3. There is mild pulmonary hypertension. 4. The right ventricular systolic pressure, as measured by Doppler, is 32.66mmHg. 5. There is no pulmonic regurgitation present. 6. The aortic root size is normal. 7. There is no pericardial effusion. 8. There is severe global hypokinesis of LV . 9. Overall left ventricular systolic function is severely impaired with, an EF between 20 - 25 %. 10. only basal inflateral wall is martina. 11. LA is severely dilated >40 ml/m2 12. There is mild aortic valve sclerosis. 13. There is moderate aortic regurgitation. 14. Mild mitral annular calcification present. 15. Severe mitral regurgitation is present. CURRICULUM DESIGNER: Blanquita Kelley RDCS
--- NOTE | 2016-09-01 10:17 | CT ---
EXAMINATION TYPE: CT abdomen pelvis wo con DATE OF EXAM: 09/01/2016 9:49 AM COMPARISON: 08/30/2016 HISTORY: 61 year-old male abdominal pain, leukocytosis. Patient poor historian. Patient has drainage from around peg tube. Rule out infection. CT DLP: 1006.8 mGycm. Automated exposure control for dose reduction was used. TECHNIQUE: Contiguous axial scanning of the abdomen and pelvis without IV contrast. Coronal and sagit natalie reconstructions performed. FINDINGS: The heart remains moderately enlarged with continued small pleural effusions with adjacent atelectasi s. Small hiatal hernia redemonstrated A PEG tube is in place. There is some soft tissue thickening along the superior and right lateral asp ect of the PEG tube, refer to axial images 27 and 28 and sagittal image 73. No sizable fluid collecti on is identified. There are prominent artifacts from multiple lines over the patient, patient size, and motion. Within this limitation, no discrete liver lesion by noncontrast CT. There is mild perihepatic ascites , new from prior. Gallbladder shows no abnormal distention. Adrenal glands are not evaluated in detail due to motion an d artifacts. No gross abnormality of the kidneys on noncontrast CT. Spleen and pancreas show no gross abnormality. An IVC filter is present. There is a medial flip of the cecum which is new from 08/30/2016 and with the cecum dilated to 10 cm, coronal image 16. No clear evidence for pneumatosis. Mild right mid and lower abdominal ascites fluid is slightly increased. No dilated small bowel or free air mild hazy densities throughout the abdominal and subcutaneous fat. Appears to be some surgical material at the distal third transverse colon. No mesenteric or retroperitoneal lymphadenopathy. Carr catheter decompresses the bladder. There is nondependent bladder air likely relating to instrum entation. Central prosthetic calcification. Mild presacral edema. No abnormal fluid collection in the pelvis or pelvic lymphadenopathy seen. Bones: No osseous destructive process. IMPRESSION: 1. Soft tissue thickening along the PEG tube especially along the superior margin. Findings could rep resent cellulitis/localized infection. No sizable fluid collection. 2. New cecal bascule as compared to 08/30/2016 and abnormal cecal dilatation up to 10 cm (coronal imag e 16). Close clinical follow-up recommended. Consider surgical evaluation. 3. Mild abdominal ascites, slightly increased from 08/30/2016. 4. Correlate with patient's fluid status given persistent cardiomegaly, small pleural effusions, and mild anasarca-type change.
[2016-09-01 12:27] LABS: Glucose,Whole Blood 151 mg/dL (75-99)
--- NOTE | 2016-09-01 13:15 | PN ---
Patient is seen for followup for acute kidney injury. He was admitted to the hospital after chemotherapy with complaints of diarrhea, nausea and vomiting. He has been hypotensive and was on Levophed yesterday. Patient continues to have adequate urine output. He is currently being hydrated and he is maintained on aggressive IV hydration. Serum creatinine was 6.3 on initial admission. It is now down to 5.4 and we have a prior creatinine of 3.1 on 08/11/2016 and 2.4 in 2013. On examination, the patient is comfortable. He is not in acute distress. Blood pressure 102/68, heart rate 100 per minute. He is afebrile. EXAMINATION OF THE HEART: S1 and S2. EXAMINATION OF THE LUNGS: Bilateral breath sounds are heard. ABDOMEN: Soft. Some drainage at the site of the PEG tube. Examination of lower extremities shows no evidence of edema. Patient is moving all 4 extremities. Tracheostomy site is noted. Labs show sodium 134, potassium 4.8, BUN 103, serum creatinine 5.4. Hemoglobin 8.3 g/dL. ASSESSMENT: 1. Acute kidney injury, acute tubular necrosis, currently nonoliguric, with some improvement in renal function. Continue with aggressive IV hydration and try to wean off pressors. 2. Severe metabolic acidosis secondary to diarrhea and renal failure, currently improved. Will discontinue the IV bicarb and switch to oral sodium bicarb. 3. Hyperkalemia on initial admission, currently improved with improvement in acidosis. 4. Squamous non-small cell lung cancer, on chemotherapy. 5. History of laryngeal cancer, which had been in remission. 6. Anemia, multifactorial. 7. Sepsis with blood cultures growing gram-negative bacilli and wound culture from the PEG tube site is also growing gram-negative bacilli. Urine culture is currently showing no growth so far. 8. Chronic kidney disease, NKF stage IV with previous creatinine at 3.1 mg/dL on 08/11/2016. PLAN: Switch IV fluids to normal saline. Try to wean off Levophed. Start oral sodium bicarb. Increase PhosLo for hyperphosphatemia and repeat labs in a.m. Continue to avoid nephrotoxic agents. Patient has not followed up in the office since 2010 and he was scheduled to see us on the day he was admitted to the hospital on this admission.
--- NOTE | 2016-09-01 13:22 | P.PN ---
Subjective This is a 61-year-old -[place]cu[place] male patient of Dr. 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 Cartagena. Patient apparently received chemotherapy 2 weeks ago. History of DVT status post IVC filter, hypothyroidism , history of trach and stoma and PEG tube. Patient apparently eats and PEG tube was only used for medications. Patient apparently has been nonverbal since throat surgery. Patient was brought into [facility] emergency center due to weakness and diarrhea that he had had for a few days. There was no blood or tarriness to the stool. No vomiting was noted there was abdominal discomfort in the epigastric and left upper quadrant and increased productive cough through his stoma and also noted of blood in his sputum. This information was obtained from the ER record as patient is unable to provide any history. He underwent renal ultrasound that showed multiple cystic lesions in the bilateral kidneys. Abdominal and pelvic CAT scan without contrast showed small hiatal hernia, cardiomegaly, bilateral pleural effusions. No acute abnormality within the abdomen or pelvis. There is clearing of almost all ascites fluid to from previous exam. Chest x-ray showed mild heart failure with small right pleural effusion and right upper lobe nodule which is smaller since August 14. Multiple consultants were added including nephrology, cardiology, travel trailer components assembler and infectious disease and patient was admitted into intensive care unit due to hypotension requiring levo fed. He was found to be in acute renal failure with BUN of 104 and creatinine 6.39 with hyponatremia of 127 and hyperkalemia at 6.1. White count was elevated at 20.9. Lactic acid was 1.3. Hemoglobin 9.5 and platelet count 93. Lipase 565 and amylase within normal limits. Troponin was elevated at 0.109, 0.114 and 0.116.. Influenza testing was negative. Urinalysis was cloudy with nitrate and leukoesterase negative. Carr catheter was placed to monitor urine output. There was concern of pus at the PEG tube site for which this was cultured. Patient has received calcium gluconate and insulin and Kayexalate. Dr. clinton has placed him on Flagyl IV and oral vancomycin. Patient has had no further stools since arrival. 09/01: patient has a known history of PE 2 years ago and has been on eliquis since then. However due to his renal function, he has been started on Coumadin. His PEG tube was placed by Dr. Sánchez. He has had chronic kidney disease since his chemotherapy for the laryngeal cancer. Patient did have several runs of V. tach. IV fluids to be changed over to 0.9 and sodium bicarb per PEG to start. Patient is followed by Dr. Thompson. His urine output has been low and he did receive a 500 mL bolus at 2 AM.CAT scan of the abdomen and pelvis showed soft tissue thickening along the PEG tube. Findings could represent cellulitis or localized infection. No sizable fluid collection. New cecal bascule as compared to August 30 and abnormal cecal dilation up to 10 cm. Consider surgical evaluation mild abdominal ascites increased from August 30. chest x-ray shows similar findings with cardiomegaly some improvement in volume status. wound culture from the PEG tube site is showing gram-negative bacilli to organisms and group B strep agalactia. Blood culture gram-negative bacilli. Urine culture finalized with no growth. Dr. Reece has changed antibiotics to Flagyl and meropenem. He has been seen by cardiology and low dose beta cheng plan to be added and plan to wean levo.Dr. Khan is on consult for intensive care management. Objective - Vital Signs Vital signs: Vital Signs Temp 98.2 F 09/01/16 08:00 Pulse 94 09/01/16 11:46 Resp 20 09/01/16 11:15 BP 102/68 09/01/16 11:15 Pulse Ox 92 L 09/01/16 11:15 Intake & Output 08/31/16 09/01/16 09/01/16 18:59 06:59 18:59 Intake Total 6970.674 5780.595 617.190 Output Total 505 474 77 Balance 6927.140 8038.595 540.190 Weight 84.7 kg 88.9 kg Intake: IV 750 Sodium Chloride 0.9% 1, 300 000 ml @ 100 mls/hr IV . Q10H RYAN Rx#:[id number] Vancomycin 1,000 mg In 250 Sodium Chloride 0.9% 250 ml @ 125 mls/hr IVPB ONCE STA Rx#:[id number] metroNIDAZOLE-NS PMX 500 200 mg In Saline 1 100ml.bag @ 100 mls/hr IVPB ONCE STA Rx#:[id number] Intake, IV Titration 5972.920 8920.595 617.190 Amount Calcium Gluconate 1,000 100 mg In Sodium Chloride 0.9 % 100 ml @ 100 mls/hr IVPB ONCE ONE Rx#: [id number] Dextrose 5% in Water 1, 875 1500 125 000 ml @ 125 mls/hr IV . Q9H12M RYAN with Sodium Bicarb (1 Meq/ml) 150 ml Rx#:[id number] Meropenem 1 gm In Sodium 100 Chloride 0.9% 100 ml @ 200 mls/hr IVPB Q12HR [facility] Rx#:[id number] Norepinephrine 16 mg In 87.866 109.595 17.190 Sodium Chloride 0.9% 250 ml @ Titrate IV .Q0M RYAN Rx#:[id number] Sodium Chloride 0.9% 1, 375 000 ml @ 125 mls/hr IV . Q8H [facility] Rx#:[id number] Sodium Chloride 0.9% 500 500 ml @ 999 mls/hr IV .Q31M ONE Rx#:[id number] Oral 30 Tube Feeding 240 Other 60 Output: Urine 505 474 77 Other: Voiding Method Indwelling Catheter Indwelling Catheter Indwelling Catheter - Exam Gen: This is a 61-year-old -[place]cu[place] male. He is sitting upright in ICU bed and appears to be in no acute distress. Patient is noted to be nonverbal but appears to be alert and can answer some questions by nodding his head. He is continued on norepinephrine neck. HEENT: Head is atraumatic, normocephalic. Pupils equal, round. Sclerae is anicteric. NECK: Supple. No JVD. No lymphadenopathy. No thyromegaly. Tracheostomy noted to Center. No drainage noted at the site. LUNGS: Decreased breath sounds but otherwise no wheezes.. No intercostal retractions. HEART: Regular rate and rhythm. Systolic murmur. ABDOMEN: Soft. Bowel sounds are present. No masses. No tenderness. PEG tube in place to the left upper quadrant with no noted tenderness or drainage. EXTREMITIES: No pedal edema. No calf tenderness. NEUROLOGICAL: Patient is awake, alert and able to follow simple commands and nod to answer questions. - Labs CBC & Chem 7: 09/01/16 03:19 09/01/16 03:19 Labs: Abnormal Lab Results - Last 24 Hours (Table) 08/31/16 09/01/16 09/01/16 Range/Units 18:00 03:19 03:19 WBC 33.9 H* (3.8-10.6) k/uL RBC 3.20 L (4.30-5.90) m/uL Hgb 8.3 L (13.0-17.5) gm/dL Hct 24.9 L (39.0-53.0) % MCV 78.0 L (80.0-100.0) fL RDW 16.9 H (11.5-15.5) % Plt Count 115 L (150-450) k/uL Neutrophils # (Manual) 27.0 H (1.3-7.7) k/uL Monocytes # (Manual) 2.0 H (0-1.0) k/uL Nucleated RBCs 1 H (0-0) /100 WBC Sodium 134 L (137-145) mmol/L Potassium 5.4 H (3.5-5.1) mmol/L Carbon Dioxide 18 L (22-30) mmol/L BUN 103 H* (9-20) mg/dL Creatinine 5.40 H* (0.66-1.25) mg/dL Glucose 227 H (74-99) mg/dL POC Glucose (mg/dL) (75-99) mg/dL Calcium 6.6 L (8.4-10.2) mg/dL Phosphorus 9.5 H* (2.5-4.5) mg/dL 09/01/16 09/01/16 09/01/16 Range/Units 05:37 07:47 12:25 WBC (3.8-10.6) k/uL RBC (4.30-5.90) m/uL Hgb (13.0-17.5) gm/dL Hct (39.0-53.0) % MCV (80.0-100.0) fL RDW (11.5-15.5) % Plt Count (150-450) k/uL Neutrophils # (Manual) (1.3-7.7) k/uL Monocytes # (Manual) (0-1.0) k/uL Nucleated RBCs (0-0) /100 WBC Sodium (137-145) mmol/L Potassium (3.5-5.1) mmol/L Carbon Dioxide (22-30) mmol/L BUN (9-20) mg/dL Creatinine (0.66-1.25) mg/dL Glucose (74-99) mg/dL POC Glucose (mg/dL) 252 H 226 H 151 H (75-99) mg/dL Calcium (8.4-10.2) mg/dL Phosphorus (2.5-4.5) mg/dL Microbiology - Last 24 Hours (Table) 08/31/16 00:15 Urine Culture - Final Urine,Voided 08/31/16 00:25 Gram Stain - Preliminary Abdomen Wound Culture - Preliminary Gram Neg Bacilli Gram Neg Bacilli#2 Strep agalactiae - (group b) 08/31/16 00:25 Anaerobic Culture - Preliminary Abdomen Assessment and Plan Plan: 1. Acute renal failure and metabolic acidosis with dehydration due to recent diarrhea and possibly worsened by recent chemotherapy. Nephrology is on consult. IV fluids normal saline and oral bicarb. 2. Diarrhea with signs of sepsis and dehydration with septic shock requiring vasopressors. Patient now on meropenem and Flagyl. Continue IV fluids. Continue norepinephrine. Continue care in the intensive care unit. Dr. Reece is on consult. 3. Sepsis with septic shock with gram-negative bacteremia requiring vasopressors. Source may be related to PEG tube site or diarrhea. Peg site culture is pending. Blood cultures been obtained. Patient is currently on IV Flagyl and meropenem. 4. Bicytopenia with low hemoglobin RBC and platelet count. Most likely secondary to recent chemotherapy. Oncology on consult. 5. Elevated troponin. Cardiology consult appreciated. This is thought to be due to renal failure and sepsis. Echocardiogram is ordered. 6. History of laryngeal carcinoma with tracheostomy in place and PEG tube. Patient normally and takes food by mouth and PEG tube issues for medications only. 7. Small cell lung cancer on chemotherapy under the care of Dr. Granado. Consult with Dr. Bonds. 8. Episodes of nonsustained ventricular tachycardia most likely due to hyperkalemia. 9. Hyperkalemia status post Kayexalate and calcium gluconate and insulin with D50. 10. History of DVT status post IVC filter. 11. Gastrointestinal prophylaxis. Protonix. 12. DVT prophylaxis. Subcutaneous heparin. Patient will be admitted to the hospital for a minimum of 2 night stay. Discharge plan: To be determined Impression and plan of care have been directed as dictated by the signing physician. Jacquelyn Ram nurse practitioner acting as scribe for signing physician. Time with Patient: Greater than 30
[2016-09-01] MEDS ORDERED: FUROSEMIDE 10 MG/ML 10 ML VIAL IV STA (14:32)
--- NOTE | 2016-09-01 15:26 | P.GSCN ---
History of Present Illness Consult date: 09/01/16 Reason for Consult: PEG tube evaluation, cecal dilation Requesting physician: Janice Khan History of present illness: Patient is a 61-year-old male with past medical history significant for laryngeal carcinoma, small cell lung cancer currently undergoing chemotherapy, with history of tracheotomy and PEG tube. Patient presented to the emergency department with complaints of generalized weakness and diarrhea. No history of melena or hematochezia. Patient was found to have evidence of septic shock and admitted to the intensive care unit. No further evidence of diarrhea since admission. Computed tomography scan of abdomen with evidence of some soft tissue thickening along the superior and right lateral aspect of the PEG tube with no sizable fluid collection identified; new cecal bascule as compared to and new abnormal cecal dilatation up to 10 cm. Surgical consult requested for PEG tube evaluation and cecal lesion. Upon examination, patient is nonverbal and quite despondent. When asked if abdomen hurts, patient nods head yes. Patient afebrile. WBC increased to 33.9. Hemoglobin 8.3. Past Medical History Past Medical History: Cancer, Deep Vein Thrombosis (DVT), Thyroid Disorder Additional Past Medical History / Comment(s): Small cell lung cancer under the care of Dr. Cartagena status post chemotherapy 2 weeks ago, laryngeal cancer, uses cane, non verbal from throat surgery History of Any Multi-Drug Resistant Organisms: None Reported Additional Past Surgical History / Comment(s): Tracheostomy, Surgery for throat ca,IVC filter Past Anesthesia/Blood Transfusion Reactions: No Reported Reaction Past Psychological History: Depression Smoking Status: Former smoker Past Alcohol Use History: None Reported Additional Past Alcohol Use History / Comment(s): quit smoking 2010-PD, started smoking age 13. He lives at home with his . Past Drug Use History: None Reported - Past Family History Mother Family Medical History: No Reported History Medications and Allergies Home Medications Medication Instructions Recorded Confirmed Type Levothyroxine Sodium [Synthroid] 75 mcg PEG/G-TUBE DAILY 04/26/16 08/30/16 History Megestrol Acetate [Megace] 40 mg PEG/G-TUBE DAILY 04/26/16 08/30/16 History Morphine Sulfate [Morphine Sulfate 60 mg PO BID 04/26/16 08/30/16 History ER] oxyCODONE HCL/ACETAMINOPHEN 1 tab PEG/G-TUBE QID PRN 04/26/16 08/30/16 History [Percocet 7.5-325 mg] Acetaminophen/Diphenhydramine 1 tab PEG/G-TUBE HS PRN 08/30/16 08/30/16 History [Tylenol PM 500-25mg] Budesonide [Pulmicort] 0.5 mg INHALATION RT-BID 08/30/16 08/30/16 History Citalopram Hydrobromide [CeleXA] 30 mg PEG/G-TUBE DAILY 08/30/16 08/30/16 History Ensure 1 can PEG/G-TUBE TID 08/30/16 08/30/16 History Loratadine [Claritin] 10 mg PEG/G-TUBE DAILY PRN 08/30/16 08/30/16 History Prochlorperazine [Compazine] 10 mg PEG/G-TUBE Q6H PRN 08/30/16 08/30/16 History Allergies Allergy/AdvReac Type Severity Reaction Status Date / Time No Known Allergies Allergy Verified 08/30/16 17:48 Surgical - Exam Vital Signs Temp Pulse Resp BP Pulse Ox 98.8 F 115 H 20 108/54 100 08/30/16 16:12 08/30/16 16:12 08/30/16 16:12 08/30/16 16:12 08/30/16 16:12 GENERAL: Pt lying in bed, nonverbal, despondent, appears in no acute distress. HEAD: Atraumatic, normocephalic. EYES: Pupils equal and round. Sclera anicteric, conjunctiva are normal. ENT: Moist mucous membranes. Tracheostomy midline. No drainage noted at site. NECK:Supple. Tracheostomy midline. LUNGS: Breath sounds diminished to auscultation bilaterally. No wheezes, rales , or rhonchi. HEART: Heart S1, S2, no S3 or S4. Regular rate and rhythm. Systolic murmur. ABDOMEN: Soft, left upper quadrant tenderness, hypoactive bowel sounds, nondistended. No guarding no rebound. PEG tube to left upper quadrant. NEUROLOGICAL: Pt awake but despondent. Results - Labs 09/01/16 03:19 09/01/16 03:19 Abnormal Lab Results - Last 24 Hours (Table) 08/31/16 09/01/16 09/01/16 Range/Units 18:00 03:19 03:19 WBC 33.9 H* (3.8-10.6) k/uL RBC 3.20 L (4.30-5.90) m/uL Hgb 8.3 L (13.0-17.5) gm/dL Hct 24.9 L (39.0-53.0) % MCV 78.0 L (80.0-100.0) fL RDW 16.9 H (11.5-15.5) % Plt Count 115 L (150-450) k/uL Neutrophils # (Manual) 27.0 H (1.3-7.7) k/uL Monocytes # (Manual) 2.0 H (0-1.0) k/uL Nucleated RBCs 1 H (0-0) /100 WBC Sodium 134 L (137-145) mmol/L Potassium 5.4 H (3.5-5.1) mmol/L Carbon Dioxide 18 L (22-30) mmol/L BUN 103 H* (9-20) mg/dL Creatinine 5.40 H* (0.66-1.25) mg/dL Glucose 227 H (74-99) mg/dL POC Glucose (mg/dL) (75-99) mg/dL Calcium 6.6 L (8.4-10.2) mg/dL Phosphorus 9.5 H* (2.5-4.5) mg/dL 09/01/16 09/01/16 09/01/16 Range/Units 05:37 07:47 12:25 WBC (3.8-10.6) k/uL RBC (4.30-5.90) m/uL Hgb (13.0-17.5) gm/dL Hct (39.0-53.0) % MCV (80.0-100.0) fL RDW (11.5-15.5) % Plt Count (150-450) k/uL Neutrophils # (Manual) (1.3-7.7) k/uL Monocytes # (Manual) (0-1.0) k/uL Nucleated RBCs (0-0) /100 WBC Sodium (137-145) mmol/L Potassium (3.5-5.1) mmol/L Carbon Dioxide (22-30) mmol/L BUN (9-20) mg/dL Creatinine (0.66-1.25) mg/dL Glucose (74-99) mg/dL POC Glucose (mg/dL) 252 H 226 H 151 H (75-99) mg/dL Calcium (8.4-10.2) mg/dL Phosphorus (2.5-4.5) mg/dL Microbiology - Last 24 Hours (Table) 08/31/16 00:15 Urine Culture - Final Urine,Voided 08/31/16 00:25 Gram Stain - Preliminary Abdomen Wound Culture - Preliminary Gram Neg Bacilli Gram Neg Bacilli#2 Strep agalactiae - (group b) 08/31/16 00:25 Anaerobic Culture - Preliminary Abdomen Diabetes panel 08/31/16 09/01/16 Range/Units 18:00 03:19 Sodium 134 L (137-145) mmol/L Potassium 5.4 H 4.8 (3.5-5.1) mmol/L Chloride 101 (98-107) mmol/L Carbon Dioxide 18 L (22-30) mmol/L BUN 103 H* (9-20) mg/dL Creatinine 5.40 H* (0.66-1.25) mg/dL Glucose 227 H (74-99) mg/dL Calcium 6.6 L (8.4-10.2) mg/dL Calcium panel 09/01/16 Range/Units 03:19 Calcium 6.6 L (8.4-10.2) mg/dL Phosphorus 9.5 H* (2.5-4.5) mg/dL Pituitary panel 08/31/16 09/01/16 Range/Units 18:00 03:19 Sodium 134 L (137-145) mmol/L Potassium 5.4 H 4.8 (3.5-5.1) mmol/L Chloride 101 (98-107) mmol/L Carbon Dioxide 18 L (22-30) mmol/L BUN 103 H* (9-20) mg/dL Creatinine 5.40 H* (0.66-1.25) mg/dL Glucose 227 H (74-99) mg/dL Calcium 6.6 L (8.4-10.2) mg/dL Adrenal panel 08/31/16 09/01/16 Range/Units 18:00 03:19 Sodium 134 L (137-145) mmol/L Potassium 5.4 H 4.8 (3.5-5.1) mmol/L Chloride 101 (98-107) mmol/L Carbon Dioxide 18 L (22-30) mmol/L BUN 103 H* (9-20) mg/dL Creatinine 5.40 H* (0.66-1.25) mg/dL Glucose 227 H (74-99) mg/dL Calcium 6.6 L (8.4-10.2) mg/dL - Imaging CT scan - abdomen: report reviewed CT scan - pelvis: report reviewed Assessment and Plan Plan: Impression: 1. Septic shock with gram-negative bacteremia currently on vasopressors. PEG site cultures pending. 2. Cecal dilatation suspect secondary to ileus. 3. History of laryngeal carcinoma with recent chemotherapy status post tracheostomy and PEG tube placement. Plan: 1. Place PEG tube to low intermittent suction. Continue IV antibiotics per infectious disease service. Consider removal of Port-A-Cath if patient remains septic. Continue to follow with medical team. The above impression and plan have been discussed and directed by Dr. Sánchez. Chikis CAZARES acting as scribe for Dr. Sánchez.
--- NOTE | 2016-09-01 16:13 | P.PN ---
Subjective 59-year-old male patient, with a previous history of laryngeal cancer status post total laryngectomy and tracheotomy, also history of small cell lung cancer with interval progression based on the recent PET scan, for which the patient was started on systemic chemotherapy. The patient came in to the burst department yesterday because of diminished oral intake, single episode of diarrhea, dehydration, diminished urine output, lethargy, fatigue, vague abdominal discomfort and some fall smelling drainage around the PEG tube. In addition, the patient was found to be in acute kidney injury, acute metabolic acidosis and acute hyperkalemia. For all this reasons, the patient got transferred to the intensive care unit. He got bolused with a total of 2-3 L of IV fluids in the form normal saline and based on the sides recommendation the patient was switched to bicarb drip. The patient was also covered with broad-spectrum antibiotics. He was initially stopped and accommodation of cefepime and vancomycin. Subsequently, the patient was seen by infectious disease and antibiotics were simplified and the patient was placed on IV Flagyl and oral vancomycin suspecting an underlying C. diff colitis. Nevertheless, the patient has not had any further episodes of diarrhea since he came to the ICU. The patient was examined in the ICU. Active site essentially clean and there was no evidence of any purulent drainage. Abdomen was soft and the CAT scan of the abdomen was done in the emergency department showed no acute abnormalities. He was a bit lethargic and slow in answering questions. He denied having any history distress. Denied any cough or sputum production or any chest pain. No open wounds or sores. No dysuria frequency or urgency. On 09/01/2016, the patient is being seen in follow-up. The patient is quite lethargic. He is post laryngectomy and has a tracheotomy in place. He is also being treated for metastatic small cell lung cancer with systemic chemotherapy on outpatient basis. He presented with acute kidney injury and he is currently septic with gram-negative bacilli growing in his blood culture. The source of the gram-negative is not absolutely clear.. At one point there was suspicion for a PEG tube site infection yet the area seems to be relatively clean and the CAT scan of the abdomen was repeated and showed some soft tissue thickening along the PEG tube especially along the superior margin which raised the suspicion for localized infection and for that reason a surgical consultation was requested. At the same time, the CAT scan showed a new cecal dilatation up to 10 cm compared to the previous CAT scan and for that reason again a surgical consultation was requested. Note that the patient has a port in place yet the port site is clean and intact. Antibiotics have a modified to include a combination of IV Merrem and Flagyl. No diarrhea. No abdominal pain. No nausea vomiting or chest pain. The renal function is slightly improved compared to yesterday. Urine output remains low. The patient is on pressors still and the prednisone extremities 6-10 mics to maintain a mean arterial pressure above 65. The white cell count is elevated at 33.9 IDs on the case. Objective - Vital Signs Vital signs: Vital Signs Temp 98.7 F 09/01/16 12:00 Pulse 93 09/01/16 15:47 Resp 19 09/01/16 14:30 BP 97/68 09/01/16 14:30 Pulse Ox 97 09/01/16 14:30 Intake & Output 08/31/16 09/01/16 09/01/16 18:59 06:59 18:59 Intake Total 7465.110 5668.595 1117.190 Output Total 505 474 122 Balance 1457.862 1327.595 995.190 Weight 84.7 kg 88.9 kg 88.9 kg Intake: IV 750 Sodium Chloride 0.9% 1, 300 000 ml @ 100 mls/hr IV . Q10H [facility] Rx#:[id number] Vancomycin 1,000 mg In 250 Sodium Chloride 0.9% 250 ml @ 125 mls/hr IVPB ONCE STA Rx#:[id number] metroNIDAZOLE-NS PMX 500 200 mg In Saline 1 100ml.bag @ 100 mls/hr IVPB ONCE STA Rx#:[id number] Intake, IV Titration 9391.246 4483.595 1117.190 Amount Calcium Gluconate 1,000 100 mg In Sodium Chloride 0.9 % 100 ml @ 100 mls/hr IVPB ONCE ONE Rx#: [id number] Dextrose 5% in Water 1, 875 1500 125 000 ml @ 125 mls/hr IV . Q9H12M [facility] with Sodium Bicarb (1 Meq/ml) 150 ml Rx#:[id number] Meropenem 1 gm In Sodium 100 Chloride 0.9% 100 ml @ 200 mls/hr IVPB Q12HR [facility] Rx#:[id number] Norepinephrine 16 mg In 87.866 109.595 17.190 Sodium Chloride 0.9% 250 ml @ Titrate IV .Q0M [facility] Rx#:[id number] Sodium Chloride 0.9% 1, 875 000 ml @ 125 mls/hr IV . Q8H [facility] Rx#:[id number] Sodium Chloride 0.9% 500 500 ml @ 999 mls/hr IV .Q31M [facility] Rx#:[id number] Oral 30 Tube Feeding 240 Other 60 Output: Urine 505 474 122 Other: Voiding Method Indwelling Catheter Indwelling Catheter Indwelling Catheter - Exam Elderly -[place] male patient, slightly lethargic and obtunded. Able to open up his eyes and follows some simple commands.Head exam was generally normal. There was no scleral icterus or corneal arcus. Mucous membranes were moist. Mucous membranes are dry and the patient has a tracheostomy which is open and widely patent. Scars of previous laryngectomy can be seen over the anterior neck. Lung sounds are diminished bilaterally along with some few rales in the lung bases. On today's evaluation there is also bilateral extremity wheezes. Cardiac exam revealed the PMI to be normally situated and sized. The rhythm was regular and no extrasystoles were noted during several minutes of auscultation. The first and second heart sounds were normal and physiologic splitting of the second heart sound was noted. There were no murmurs , rubs, clicks, or gallops. Abdominal exam revealed normal bowel sounds. The abdomen was soft, non-tender, and without masses, organomegaly, or appreciable enlargement of the abdominal aorta. PEG tube site is clean.Examination of the extremities revealed easily palpable radial, femoral and pedal pulses. There was no cyanosis, clubbing or edema. - Labs CBC & Chem 7: 09/01/16 03:19 09/01/16 03:19 Labs: Abnormal Lab Results - Last 24 Hours (Table) 08/31/16 09/01/16 09/01/16 Range/Units 18:00 03:19 03:19 WBC 33.9 H* (3.8-10.6) k/uL RBC 3.20 L (4.30-5.90) m/uL Hgb 8.3 L (13.0-17.5) gm/dL Hct 24.9 L (39.0-53.0) % MCV 78.0 L (80.0-100.0) fL RDW 16.9 H (11.5-15.5) % Plt Count 115 L (150-450) k/uL Neutrophils # (Manual) 27.0 H (1.3-7.7) k/uL Monocytes # (Manual) 2.0 H (0-1.0) k/uL Nucleated RBCs 1 H (0-0) /100 WBC Sodium 134 L (137-145) mmol/L Potassium 5.4 H (3.5-5.1) mmol/L Carbon Dioxide 18 L (22-30) mmol/L BUN 103 H* (9-20) mg/dL Creatinine 5.40 H* (0.66-1.25) mg/dL Glucose 227 H (74-99) mg/dL POC Glucose (mg/dL) (75-99) mg/dL Calcium 6.6 L (8.4-10.2) mg/dL Phosphorus 9.5 H* (2.5-4.5) mg/dL 09/01/16 09/01/16 09/01/16 Range/Units 05:37 07:47 12:25 WBC (3.8-10.6) k/uL RBC (4.30-5.90) m/uL Hgb (13.0-17.5) gm/dL Hct (39.0-53.0) % MCV (80.0-100.0) fL RDW (11.5-15.5) % Plt Count (150-450) k/uL Neutrophils # (Manual) (1.3-7.7) k/uL Monocytes # (Manual) (0-1.0) k/uL Nucleated RBCs (0-0) /100 WBC Sodium (137-145) mmol/L Potassium (3.5-5.1) mmol/L Carbon Dioxide (22-30) mmol/L BUN (9-20) mg/dL Creatinine (0.66-1.25) mg/dL Glucose (74-99) mg/dL POC Glucose (mg/dL) 252 H 226 H 151 H (75-99) mg/dL Calcium (8.4-10.2) mg/dL Phosphorus (2.5-4.5) mg/dL Microbiology - Last 24 Hours (Table) 08/31/16 00:15 Urine Culture - Final Urine,Voided 08/31/16 00:25 Gram Stain - Preliminary Abdomen Wound Culture - Preliminary Gram Neg Bacilli Gram Neg Bacilli#2 Strep agalactiae - (group b) 08/31/16 00:25 Anaerobic Culture - Preliminary Abdomen Assessment and Plan Plan: Assessment 1 acute gram-negative sepsis, source being considered of an intra-abdominal in nature with potential infection originating from PEG tube site versus cecum. Line infection is also considered however this is felt to be less likely. The patient does not have any underlying pneumonia. 2 hypotension secondary to above and the patient is currently pressor dependent. Antibiotic coverage has been modified to include a combination of Merrem and Flagyl. The patient was resuscitated adequate with IV fluids and the patient was initially given 3. Normal saline, subsequently switched to a bicarb drip and the patient is currently back to normal saline at the rate of 125 mL an hour. The patient is still pressor dependent. 3 acute kidney injury, most likely secondary to intravascular volume depletion/ dehydration/ and also there is a possibility of an ATN/sepsis induced. 2 acute hyperkalemia, treated 3 metabolic acidosis secondary to above 4 diarrhea, limited and currently the patient is not having any further episodes. He is covered with broad-spectrum antibiotics including coverage for C. diff 5 laryngeal cancer status post total laryngectomy and tracheotomy 6 small cell lung cancer, metastatic, currently receiving systemic chemotherapy 7 enteral feeding via PEG tube, currently on hold and the PEG tube will be respected by general surgeon 8 previous history of DVT status post IVC filter placement 9 leukocytosis/thrombocytopenia/chronic anemia, microcytic 10 cecal dilatation, awaiting surgical evaluation Plan Patient is obviously septic/and septic shock. Continue the pressors. Continue the fluids. Continue the current antibiotic coverage. Obtain a surgical consultation regarding the PEG tube in the cecal limitation. Monitor renal function. Monitor electrolytes. Monitor urine output. We'll keep the patient intensive care unit. Awaiting a surgical consultation. ID is on the case. Nephrology is on the case. We'll continue to follow.
[2016-09-01 16:28] LABS: ABG PCO2 38 mmHg (35-45); ABG PO2 54 mmHg (83-108)
[2016-09-01 16:29] LABS: ABG Base Excess -7.2 mmol/L; ABG HCO3 18 mmol/L (21-25); ABG TCO2 19 mmol/L (19-24)
--- NOTE | 2016-09-01 16:54 | PN ---
DATE OF SERVICE: 09/01/2016 Reason for follow-up is gram-negative bacteremia and sepsis. INTERVAL HISTORY: The patient is afebrile. However, the patient is still requiring pressor support, currently on 20 mcg of Levophed. Blood culture was positive for gram-negative bacilli and showing a gram-negative in addition to Streptococcus agalactiae. Patient did not have any bowel movement, hence, stool for C. diff has not been collected. Though is his white count did jump to 33,000. Patient is unable to provide any history. On examination, blood pressure is 97/68 with a pulse of 93, temperature 98. He is 97% on trach collar. General description is a middle-age male lying in bed in no distress. RESPIRATORY SYSTEM: Unlabored breathing. Clear to auscultation anteriorly. HEART: S1, S2. Regular rate and rhythm. ABDOMEN: Soft. No significant guarding or rigidity. EXTREMITIES: No edema of feet. LABS: Hemoglobin is 8.3 with white count of 33.9. BUN 103 with 5.40. Blood cultures with gram negative with ID and sensitivity pending. Did have a CT of the abdomen and pelvis that was ordered this morning with the contrast, which did show soft tissue thickening along the PEG tube site especially along the superior margin. Findings could represent cellulitis or infection with cecal dilatation. DIAGNOSTIC IMPRESSION AND PLAN: Patient with sepsis. Source is abdomen, now with gram-negative bacteremia. Antibiotic has been brought in to add to meropenem and Flagyl will be continued. Await General Surgery evaluation. Continue supportive care. MTDD
[2016-09-01] MEDS ORDERED: WARFARIN 2.5 MG TAB PO SCH (18:00)
[2016-09-01 18:48] LABS: Glucose,Whole Blood 194 mg/dL (75-99)
--- NOTE | 2016-09-01 18:52 | PCN ---
DATE OF PROCEDURE: 09/01/2016 ARTERIAL LINE PLACEMENT Indication: Hemodynamic monitoring. A time-out was completed verifying correct patient, procedure, site, positioning, and implant(s) or special equipment if applicable. Mejia's test was performed to ensure adequate perfusion. The patient's right wrist was prepped and draped in sterile fashion. 1% Lidocaine was used to anesthetize the area. An 18G Arrow arterial line was introduced into the right radial artery. The catheter was threaded over the guide wire and the needle was removed with appropriate pulsatile blood return. Blood loss was minimal. The catheter was then sutured in place to the skin and a sterile dressing applied. Perfusion to the extremity distal to the point of catheter insertion was checked and found to be adequate. The patient tolerated the procedure well and there were no complications. HERO
[2016-09-01 20:12] LABS: Glucose,Whole Blood 161 mg/dL (75-99)
[2016-09-01] MEDS: oxyCODONE-APAP 7.5-325MG 1 EACH TAB PEG/G-TUBE PRN (20:33)
[2016-09-02] MEDS: metroNIDAZOLE-NS PMX 500 MG in SALINE 1 100ML.BAG IVPB SCH ×2 (00:14→09:03)
[2016-09-02] MEDS: NOREPINEPHRINE 16 MG in SODIUM CHLORIDE 0.9% 250 ML IV SCH (00:14)
[2016-09-02] MEDS: SODIUM CHLORIDE 0.9% 1,000 ML IV SCH ×3 (00:15→15:43)
[2016-09-02 04:03] LABS: Anisocytosis Slight; Immature Gran Flag Marked; MCH 26.1 pg (25.0-35.0); Microcytosis Slight
[2016-09-02 04:11] LABS: INR 1.6 (<1.1); Prothrombin Time 15.2 sec (9.0-12.0)
[2016-09-02 04:12] LABS: CH 26.8; CHCM 34.2; HCT 25.2 % (39.0-53.0); HDW 2.57; HGB 8.4 gm/dL (13.0-17.5); MCHC 33.2 g/dL (31.0-37.0); MCV 78.7 fL (80.0-100.0); Mean Platelet Volume 9.7; RBC 3.21 m/uL (4.30-5.90); WBC (Perox) 43.28
[2016-09-02 04:13] LABS: Magnesium 2.3 mg/dL (1.6-2.3); Potassium 4.9 mmol/L (3.5-5.1)
[2016-09-02 04:26] LABS: Calcium 5.9 mg/dL (8.4-10.2)
[2016-09-02 04:27] LABS: Phosphorous 9.3 mg/dL (2.5-4.5)
[2016-09-02 06:23] LABS: Add Differential Manual Differential
[2016-09-02] MEDS: MORPHINE SULFATE ER 60 MG TABLET PO SCH ×2 (06:25→17:46)
[2016-09-02] MEDS: oxyCODONE-APAP 7.5-325MG 1 EACH TAB PEG/G-TUBE PRN ×2 (06:26→20:44)
[2016-09-02] MEDS: LEVOTHYROXINE 75 MCG TAB PEG/G-TUBE SCH (06:26)
[2016-09-02 06:31] LABS: Nucleated Red Blood Cells 3 /100 WBC (0-0); Total Cells Counted 200
[2016-09-02 06:34] LABS: Manual Review Performed; WBC 42.1 k/uL (3.8-10.6)
[2016-09-02 06:35] LABS: Target Cells Present
--- NOTE | 2016-09-02 07:16 | XR ---
EXAMINATION TYPE: XR chest 1V DATE OF EXAM: 09/02/2016 6:31 AM COMPARISON: 09/01/2016 HISTORY: 61 year-old male shortness of breath TECHNIQUE: Single frontal view of the chest is obtained. FINDINGS: Right-sided anterior chest wall and injection port with subclavian access has tip in the mid SVC. Hea rt remains mildly enlarged. Pulmonary vasculature appears slightly cephalized and there is bilateral hilar prominence. Known right upper lobe pulmonary nodule. No consolidation or pleural effusion. Over all exam is unchanged. IMPRESSION: 1. Mild cardiomegaly and cephalized pulmonary vasculature, stable from prior. Findings suggest residu al mild CHF. 2. Known right upper lobe pulmonary nodule. 3. Bilateral hilar prominence suggests underlying pulmonary arterial hypertension.
[2016-09-02] MEDS: IPRATROPIUM-ALBUTEROL 3 ML NEB INHALATION PRN ×3 (08:05→16:00)
[2016-09-02 08:06] LABS: Glucose,Whole Blood 101 mg/dL (75-99)
[2016-09-02] MEDS: INSULIN LISPRO (humaLOG) 300 UNIT/3 ML VIAL SQ SCH ×4 (08:08→20:21)
[2016-09-02] MEDS: CALCIUM ACETATE 667 MG CAP PO SCH ×3 (08:11→17:46)
[2016-09-02] MEDS: MEROPENEM 1 GM in SODIUM CHLORIDE 0.9% 100 ML IVPB SCH (08:12)
[2016-09-02] MEDS: CITALOPRAM HYDROBROMIDE 10 MG TAB PO SCH (08:12)
[2016-09-02] MEDS: METOPROLOL TARTRATE 12.5 MG TAB PO SCH ×2 (08:12→20:23)
--- NOTE | 2016-09-02 08:12 | P.PN ---
Subjective Principal diagnosis: This is a 61-year-old male with lung cancers who had recent chemotherapy and is in acute kidney injury secondary to gram-negative bacteremia, diarrhea and intravascular volume depletion. He has severe oliguria as of yesterday, he is on norepinephrine drip. The drip has been reduced somewhat because of hemodynamic stability over the last few hours. His 24-hour intake was 34 73 mL and output is 442 mL. He has a chronic tracheostomy. He is known with metastatic lung cancer and had been recently started on chemotherapy. He has chronic remote tracheostomy status post laryngectomy. The cause of his sepsis with gram-negative bacteremia is unclear. He does have abdominal pain and there is suspicion of intra-abdominal source. A PEG tube has been placed and that might be one possible place. A computed tomography scan shows cecal dilatation. So it is somewhat suspicious as well to be the source of the bacteremia. Patient does have abdominal pain which is mild Objective - Vital Signs Vital signs: Vital Signs Temp 97.4 F L 09/02/16 04:00 Pulse 99 09/02/16 07:00 Resp 10 L 09/02/16 07:00 BP 95/69 09/02/16 07:00 Pulse Ox 98 09/02/16 07:00 Intake & Output 09/01/16 09/02/16 09/02/16 18:59 06:59 18:59 Intake Total 6329.545 6388.103 125 Output Total 202 240 20 Balance 6390.360 7097.103 105 Weight 88.9 kg 92.4 kg Intake: Intake, IV Titration 6145.544 5322.103 125 Amount Dextrose 5% in Water 1, 125 000 ml @ 125 mls/hr IV . Q9H12M RYAN with Sodium Bicarb (1 Meq/ml) 150 ml Rx#:[id number] Meropenem 1 gm In Sodium 100 100 Chloride 0.9% 100 ml @ 200 mls/hr IVPB Q12HR [facility] Rx#:[id number] Norepinephrine 16 mg In 17.190 220.103 Sodium Chloride 0.9% 250 ml @ Titrate IV .Q0M [facility] Rx#:[id number] Sodium Chloride 0.9% 1, 1375 1500 125 000 ml @ 125 mls/hr IV . Q8H [facility] Rx#:[id number] Output: Urine 202 240 20 Other: Voiding Method Indwelling Catheter Indwelling Catheter ABP, PAP, CO, CI - Last Documented Arterial Blood Pressure 114/67 On examination he has a tracheostomy tube with an oxygen mask on it. He responds to commands follows commands and understands questions. HEENT exam is difficult. No facial asymmetry. There is some facial fullness Lungs are clear to auscultation and occasional coarse crackle. Heart sounds are unremarkable for any murmur rub gallop Abdomen is soft but somewhat tender but generalized not very specific. Bowel sounds were not heard. He did have diarrhea seems to have slowed down Extremity exam was 2+ edema area. Moves all his extremities but profoundly weak - Labs CBC & Chem 7: 09/02/16 03:55 09/02/16 03:55 Labs: Abnormal Lab Results - Last 24 Hours (Table) 09/01/16 09/01/16 09/01/16 Range/Units 12:25 16:20 18:46 WBC (3.8-10.6) k/uL RBC (4.30-5.90) m/uL Hgb (13.0-17.5) gm/dL Hct (39.0-53.0) % MCV (80.0-100.0) fL RDW (11.5-15.5) % Plt Count (150-450) k/uL Neutrophils # (Manual) (1.3-7.7) k/uL Monocytes # (Manual) (0-1.0) k/uL Nucleated RBCs (0-0) /100 WBC PT (9.0-12.0) sec ABG pH 7.30 L (7.35-7.45) ABG pO2 54 L (83-108) mmHg ABG HCO3 18 L (21-25) mmol/L ABG O2 Saturation 84.0 L (94-97) % Carbon Dioxide (22-30) mmol/L BUN (9-20) mg/dL Creatinine (0.66-1.25) mg/dL POC Glucose (mg/dL) 151 H 194 H (75-99) mg/dL Calcium (8.4-10.2) mg/dL Phosphorus (2.5-4.5) mg/dL 09/01/16 09/02/16 09/02/16 Range/Units 20:11 03:55 03:55 WBC 42.1 H* (3.8-10.6) k/uL RBC 3.21 L (4.30-5.90) m/uL Hgb 8.4 L (13.0-17.5) gm/dL Hct 25.2 L (39.0-53.0) % MCV 78.7 L (80.0-100.0) fL RDW 17.0 H (11.5-15.5) % Plt Count 125 L (150-450) k/uL Neutrophils # (Manual) 31.6 H (1.3-7.7) k/uL Monocytes # (Manual) 2.5 H (0-1.0) k/uL Nucleated RBCs 3 H (0-0) /100 WBC PT (9.0-12.0) sec ABG pH (7.35-7.45) ABG pO2 (83-108) mmHg ABG HCO3 (21-25) mmol/L ABG O2 Saturation (94-97) % Carbon Dioxide 18 L (22-30) mmol/L BUN 99 H* (9-20) mg/dL Creatinine 5.10 H* (0.66-1.25) mg/dL POC Glucose (mg/dL) 161 H (75-99) mg/dL Calcium 5.9 L* (8.4-10.2) mg/dL Phosphorus 9.3 H* (2.5-4.5) mg/dL 09/02/16 Range/Units 03:55 WBC (3.8-10.6) k/uL RBC (4.30-5.90) m/uL Hgb (13.0-17.5) gm/dL Hct (39.0-53.0) % MCV (80.0-100.0) fL RDW (11.5-15.5) % Plt Count (150-450) k/uL Neutrophils # (Manual) (1.3-7.7) k/uL Monocytes # (Manual) (0-1.0) k/uL Nucleated RBCs (0-0) /100 WBC PT 15.2 H (9.0-12.0) sec ABG pH (7.35-7.45) ABG pO2 (83-108) mmHg ABG HCO3 (21-25) mmol/L ABG O2 Saturation (94-97) % Carbon Dioxide (22-30) mmol/L BUN (9-20) mg/dL Creatinine (0.66-1.25) mg/dL POC Glucose (mg/dL) (75-99) mg/dL Calcium (8.4-10.2) mg/dL Phosphorus (2.5-4.5) mg/dL Microbiology - Last 24 Hours (Table) 09/01/16 09:25 Gram Stain - Preliminary Sputum Sputum Culture - Preliminary 08/31/16 00:15 Urine Culture - Final Urine,Voided 08/31/16 00:25 Gram Stain - Preliminary Abdomen Wound Culture - Preliminary Gram Neg Bacilli Gram Neg Bacilli#2 Strep agalactiae - (group b) Assessment and Plan Plan: Impression. 1. Acute kidney injury secondary to sepsis with oliguria. Possibly recovering as his urine output has picked up somewhat. Hemodynamically stable. 2. Mild gap acidosis with bicarb of 18 delta bicarbonate 6, anion gap is 16 delta delta off 4. The cause of this is acute kidney injury. Diarrhea also may be additional factor causing a non-gap acidosis. 3. Hyperkalemia resolved. 4. Remote history of laryngectomy and tracheostomy. 5. More recent history of metastatic lung CA on chemotherapy. Recommendation. Maintain blood pressure with a target mean arterial pressure of about 65-70 with norepinephrine and IV fluids currently he is on IV normal saline maintain that and adjust norepinephrine to keep his pressure up. We're hoping his renal function will recover. Regarding his acidosis maintained sodium bicarbonate by mouth. Monitor labs.
[2016-09-02] MEDS: PANTOPRAZOLE 40 MG/10 ML VIAL IV SCH (08:13)
[2016-09-02] MEDS: SODIUM BICARBONATE TAB 650 MG TAB PO SCH ×3 (08:13→21:15)
--- NOTE | 2016-09-02 09:19 | P.PN ---
Subjective Principal diagnosis: Abdominal pain Patient states his abdominal pain is improved. He remains nothing by mouth. Hypotension seems to be improving with decreased Levophed requirements. White blood cell count remains elevated. Objective - Vital Signs Vital signs: Vital Signs Temp 97.4 F L 09/02/16 04:00 Pulse 99 09/02/16 07:00 Resp 10 L 09/02/16 07:00 BP 95/69 09/02/16 07:00 Pulse Ox 98 09/02/16 07:00 Intake & Output 09/01/16 09/02/16 09/02/16 18:59 06:59 18:59 Intake Total 1746.684 5160.103 125 Output Total 202 240 20 Balance 4255.439 8506.103 105 Weight 88.9 kg 92.4 kg Intake: Intake, IV Titration 4793.326 7469.103 125 Amount Dextrose 5% in Water 1, 125 000 ml @ 125 mls/hr IV . Q9H12M RYAN with Sodium Bicarb (1 Meq/ml) 150 ml Rx#:[id number] Meropenem 1 gm In Sodium 100 100 Chloride 0.9% 100 ml @ 200 mls/hr IVPB Q12HR RYAN Rx#:[id number] Norepinephrine 16 mg In 17.190 220.103 Sodium Chloride 0.9% 250 ml @ Titrate IV .Q0M [facility] Rx#:[id number] Sodium Chloride 0.9% 1, 1375 1500 125 000 ml @ 125 mls/hr IV . Q8H RYAN Rx#:[id number] Output: Urine 202 240 20 Other: Voiding Method Indwelling Catheter Indwelling Catheter ABP, PAP, CO, CI - Last Documented Arterial Blood Pressure 114/67 - Exam Abdomen: Soft, minimal distention, mild tenderness at the PEG tube site without erythema or fluctuance, no lower abdominal tenderness Chest: Port-A-Cath site without erythema or tenderness - Labs CBC & Chem 7: 09/02/16 03:55 09/02/16 03:55 Labs: Abnormal Lab Results - Last 24 Hours (Table) 09/01/16 09/01/16 09/01/16 Range/Units 12:25 16:20 18:46 WBC (3.8-10.6) k/uL RBC (4.30-5.90) m/uL Hgb (13.0-17.5) gm/dL Hct (39.0-53.0) % MCV (80.0-100.0) fL RDW (11.5-15.5) % Plt Count (150-450) k/uL Neutrophils # (Manual) (1.3-7.7) k/uL Monocytes # (Manual) (0-1.0) k/uL Nucleated RBCs (0-0) /100 WBC PT (9.0-12.0) sec ABG pH 7.30 L (7.35-7.45) ABG pO2 54 L (83-108) mmHg ABG HCO3 18 L (21-25) mmol/L ABG O2 Saturation 84.0 L (94-97) % Carbon Dioxide (22-30) mmol/L BUN (9-20) mg/dL Creatinine (0.66-1.25) mg/dL POC Glucose (mg/dL) 151 H 194 H (75-99) mg/dL Calcium (8.4-10.2) mg/dL Phosphorus (2.5-4.5) mg/dL 09/01/16 09/02/16 09/02/16 Range/Units 20:11 03:55 03:55 WBC 42.1 H* (3.8-10.6) k/uL RBC 3.21 L (4.30-5.90) m/uL Hgb 8.4 L (13.0-17.5) gm/dL Hct 25.2 L (39.0-53.0) % MCV 78.7 L (80.0-100.0) fL RDW 17.0 H (11.5-15.5) % Plt Count 125 L (150-450) k/uL Neutrophils # (Manual) 31.6 H (1.3-7.7) k/uL Monocytes # (Manual) 2.5 H (0-1.0) k/uL Nucleated RBCs 3 H (0-0) /100 WBC PT (9.0-12.0) sec ABG pH (7.35-7.45) ABG pO2 (83-108) mmHg ABG HCO3 (21-25) mmol/L ABG O2 Saturation (94-97) % Carbon Dioxide 18 L (22-30) mmol/L BUN 99 H* (9-20) mg/dL Creatinine 5.10 H* (0.66-1.25) mg/dL POC Glucose (mg/dL) 161 H (75-99) mg/dL Calcium 5.9 L* (8.4-10.2) mg/dL Phosphorus 9.3 H* (2.5-4.5) mg/dL 09/02/16 09/02/16 Range/Units 03:55 08:03 WBC (3.8-10.6) k/uL RBC (4.30-5.90) m/uL Hgb (13.0-17.5) gm/dL Hct (39.0-53.0) % MCV (80.0-100.0) fL RDW (11.5-15.5) % Plt Count (150-450) k/uL Neutrophils # (Manual) (1.3-7.7) k/uL Monocytes # (Manual) (0-1.0) k/uL Nucleated RBCs (0-0) /100 WBC PT 15.2 H (9.0-12.0) sec ABG pH (7.35-7.45) ABG pO2 (83-108) mmHg ABG HCO3 (21-25) mmol/L ABG O2 Saturation (94-97) % Carbon Dioxide (22-30) mmol/L BUN (9-20) mg/dL Creatinine (0.66-1.25) mg/dL POC Glucose (mg/dL) 101 H (75-99) mg/dL Calcium (8.4-10.2) mg/dL Phosphorus (2.5-4.5) mg/dL Microbiology - Last 24 Hours (Table) 09/01/16 09:25 Gram Stain - Preliminary Sputum Sputum Culture - Preliminary 08/31/16 00:15 Urine Culture - Final Urine,Voided 08/31/16 00:25 Gram Stain - Preliminary Abdomen Wound Culture - Preliminary Gram Neg Bacilli Gram Neg Bacilli#2 Strep agalactiae - (group b) Assessment and Plan (1) Abdominal pain Narrative/Plan: Continue nothing by mouth today. Continue IV antibiotics per infectious disease. Patient may require Port-A-Cath removal given the positive blood cultures. We'll follow closely with you. Status: Acute
--- NOTE | 2016-09-02 09:30 | PN ---
Mr. Francisco is a 61-year-old male who presented with symptoms of progressive dyspnea, was found to have evidence of sepsis. 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 He was hypotensive on pressors. He has been evaluated by Dr. Khan yesterday. He has a prior history of DVT. He had prior episode of ventricular tachycardia that has been stable. He appears to be alert denying any chest pain at this time. He continues to be on insulin, levothyroxine,, metoprolol tartrate 12.5 mg twice a day, sodium bicarb, Coumadin. PHYSICAL EXAMINATION: Blood pressure running in the 140s with the heart rate in the 90s. LUNGS: Clear anteriorly. No wheezes. Tracheotomy in place and noted. HEART: Regular rate and rhythm. S1, S2. No S3. No rub with a systolic murmur. ABDOMEN: Mild tenderness. Positive bowel sounds. EXTREMITIES: No edema. His echocardiogram that was performed during this admission revealed a severely impaired left ventricular systolic function with moderate aortic regurgitation and severe mitral regurgitation. Lab data revealed a white blood cell of 42,000, which has been worsening, hemoglobin of 8.4. INR 1.6. BUN and creatinine are 99 and 5.1, that is improving slowly. IMPRESSION: 1. Worsening renal failure, improving at this point, probably was worsened by the dehydration then diarrhea. 2. Evidence of gram-negative sepsis, could be related to intra-abdominal process. 3. Hypotension. 4. Severe cardiomyopathy of unknown duration. 5. Prior history of deep venous thrombosis. 6. History of laryngeal carcinoma, status post laryngectomy and tracheotomy. 7. Small cell carcinoma metastatic. RECOMMENDATIONS: From the cardiac standpoint, I will continue supportive care. He had no further episode of ventricular tachycardia. Will follow his renal function. Unfortunately, the prognosis remains guarded.
[2016-09-02 12:38] LABS: Glucose,Whole Blood 84 mg/dL (75-99)
--- NOTE | 2016-09-02 15:26 | P.PN ---
Subjective Principal diagnosis: Sepsis 61-year-old male presented to Hospital with difficulties with abdominal pain and diarrhea. He has a known history of locally advanced laryngeal cancer in 2010. More recently he has been diagnosed with small cell lung carcinoma and has received therapy with carboplatinum and [employer]-16 as well as radiation therapy. It is noted that he completed his first cycle about 2 weeks prior. He is having difficulties with the nausea and emesis and diarrhea. He now has acute renal failure superimposed on his underlying disease state. At admission he was acutely ill and there is evidence of possible blood cultures for which infectious disease was consulted. As noted there is evidence of possible culture, there is also some positive culture from his PEG site as well as a positive sputum culture for gram- negative bacilli. Initially the patient is somewhat improved today and is being followed up. Objective - Vital Signs Vital signs: Vital Signs Temp 97.1 F L 09/02/16 08:00 Pulse 92 09/02/16 14:00 Resp 8 L 09/02/16 14:00 BP 101/65 09/02/16 14:00 Pulse Ox 99 09/02/16 14:00 Intake & Output 09/01/16 09/02/16 09/02/16 18:59 06:59 18:59 Intake Total 0133.999 9466.103 1200 Output Total 202 240 240 Balance 6268.917 7912.103 960 Weight 88.9 kg 92.4 kg Intake: IV 100 metroNIDAZOLE-NS PMX 500 100 mg In Saline 1 100ml.bag @ 100 mls/hr IVPB ONCE STA Rx#:[id number] Intake, IV Titration 9357.669 0664.103 1100 Amount Dextrose 5% in Water 1, 125 000 ml @ 125 mls/hr IV . Q9H12M [facility]YAN with Sodium Bicarb (1 Meq/ml) 150 ml Rx#:[id number] Meropenem 1 gm In Sodium 100 100 Chloride 0.9% 100 ml @ 200 mls/hr IVPB Q12HR [facility] Rx#:[id number] Norepinephrine 16 mg In 17.190 220.103 Sodium Chloride 0.9% 250 ml @ Titrate IV .Q0M [facility] Rx#:[id number] Sodium Chloride 0.9% 1, 1375 1500 1000 000 ml @ 125 mls/hr IV . Q8H [facility] Rx#:[id number] metroNIDAZOLE-NS PMX 500 100 mg In Saline 1 100ml.bag @ 100 mls/hr IVPB ONCE STA Rx#:[id number] Output: Urine 202 240 240 Other: Voiding Method Indwelling Catheter Indwelling Catheter Indwelling Catheter # Bowel Movements 0 ABP, PAP, CO, CI - Last Documented Arterial Blood Pressure 91/50 - Exam 61-year-old male who is quite comfortable HEENT: Anicteric conjunctiva are pink and moist nasal mucosa grossly intact without significant lesions, there is no thrush. Tracheostomy in place trach shield being utilized without purulent secretions Neck: The neck is supple without significant lymphadenopathy or thyromegaly. Lungs: They're symmetrical air entry. There is evidence of expiratory wheezes. A few basilar crackles. No michelle bronchial sounds are noted Heart: Regular rate and rhythm with an audible S1-S2, no S3 no S4. There is no significant murmur click or rub, PMI was nondisplaced. Abdomen: Positive bowel sounds soft and nontender without palpable masses or organomegaly. There was no guarding or rebound. The PEG tube site left upper quadrant has evidence of some scant purulent drainage and nonstick dressing is applied Extremities: The upper extremities have excellent pulses they are symmetric, no significant petechiae or telangiectasia. No splinter hemorrhages were noted. The lower extremities are free from significant edema. The peripheral pulses were 2+ and symmetric. Neuro: Patient is tracheostomy in place. Follows simple commands without difficulties he has no new acute gross focal sensory motor deficits Skin: Patient has a stage III pressure ulceration on his coccyx. Measuring at 1 x 1 x 0.3 cm. - Labs CBC & Chem 7: 09/02/16 03:55 09/02/16 03:55 Labs: Abnormal Lab Results - Last 24 Hours (Table) 09/01/16 09/01/16 09/01/16 Range/Units 16:20 18:46 20:11 WBC (3.8-10.6) k/uL RBC (4.30-5.90) m/uL Hgb (13.0-17.5) gm/dL Hct (39.0-53.0) % MCV (80.0-100.0) fL RDW (11.5-15.5) % Plt Count (150-450) k/uL Neutrophils # (Manual) (1.3-7.7) k/uL Monocytes # (Manual) (0-1.0) k/uL Nucleated RBCs (0-0) /100 WBC PT (9.0-12.0) sec ABG pH 7.30 L (7.35-7.45) ABG pO2 54 L (83-108) mmHg ABG HCO3 18 L (21-25) mmol/L ABG O2 Saturation 84.0 L (94-97) % Carbon Dioxide (22-30) mmol/L BUN (9-20) mg/dL Creatinine (0.66-1.25) mg/dL POC Glucose (mg/dL) 194 H 161 H (75-99) mg/dL Calcium (8.4-10.2) mg/dL Phosphorus (2.5-4.5) mg/dL 09/02/16 09/02/16 09/02/16 Range/Units 03:55 03:55 03:55 WBC 42.1 H* (3.8-10.6) k/uL RBC 3.21 L (4.30-5.90) m/uL Hgb 8.4 L (13.0-17.5) gm/dL Hct 25.2 L (39.0-53.0) % MCV 78.7 L (80.0-100.0) fL RDW 17.0 H (11.5-15.5) % Plt Count 125 L (150-450) k/uL Neutrophils # (Manual) 31.6 H (1.3-7.7) k/uL Monocytes # (Manual) 2.5 H (0-1.0) k/uL Nucleated RBCs 3 H (0-0) /100 WBC PT 15.2 H (9.0-12.0) sec ABG pH (7.35-7.45) ABG pO2 (83-108) mmHg ABG HCO3 (21-25) mmol/L ABG O2 Saturation (94-97) % Carbon Dioxide 18 L (22-30) mmol/L BUN 99 H* (9-20) mg/dL Creatinine 5.10 H* (0.66-1.25) mg/dL POC Glucose (mg/dL) (75-99) mg/dL Calcium 5.9 L* (8.4-10.2) mg/dL Phosphorus 9.3 H* (2.5-4.5) mg/dL 09/02/16 Range/Units 08:03 WBC (3.8-10.6) k/uL RBC (4.30-5.90) m/uL Hgb (13.0-17.5) gm/dL Hct (39.0-53.0) % MCV (80.0-100.0) fL RDW (11.5-15.5) % Plt Count (150-450) k/uL Neutrophils # (Manual) (1.3-7.7) k/uL Monocytes # (Manual) (0-1.0) k/uL Nucleated RBCs (0-0) /100 WBC PT (9.0-12.0) sec ABG pH (7.35-7.45) ABG pO2 (83-108) mmHg ABG HCO3 (21-25) mmol/L ABG O2 Saturation (94-97) % Carbon Dioxide (22-30) mmol/L BUN (9-20) mg/dL Creatinine (0.66-1.25) mg/dL POC Glucose (mg/dL) 101 H (75-99) mg/dL Calcium (8.4-10.2) mg/dL Phosphorus (2.5-4.5) mg/dL Microbiology - Last 24 Hours (Table) 08/31/16 00:25 Anaerobic Culture - Preliminary Abdomen Izabel albicans 08/31/16 00:25 Gram Stain - Final Abdomen Wound Culture - Final Pseudomonas aeruginosa Klebsiella pneumoniae Strep agalactiae - (group b) 09/01/16 09:25 Gram Stain - Preliminary Sputum Sputum Culture - Preliminary Gram Neg Bacilli 08/31/16 00:15 Urine Culture - Final Urine,Voided Laboratory Results WBC 42.1 k/uL (3.8-10.6) H* 09/02/16 03:55 RBC 3.21 m/uL (4.30-5.90) L 09/02/16 03:55 Hgb 8.4 gm/dL (13.0-17.5) L 09/02/16 03:55 Hct 25.2 % (39.0-53.0) L 09/02/16 03:55 MCV 78.7 fL (80.0-100.0) L 09/02/16 03:55 MCH 26.1 pg (25.0-35.0) 09/02/16 03:55 MCHC 33.2 g/dL (31.0-37.0) 09/02/16 03:55 RDW 17.0 % (11.5-15.5) H 09/02/16 03:55 Plt Count 125 k/uL (150-450) L 09/02/16 03:55 Neutrophils % CAT SCAN TECH 08/31/16 05:48 Neutrophils % (Manual) 63.0 % 09/02/16 03:55 Band Neutrophils % 12.0 % 09/02/16 03:55 Lymphocytes % CAT SCAN TECH 08/31/16 05:48 Lymphocytes % (Manual) 9.0 % 09/02/16 03:55 Monocytes % CAT SCAN TECH 08/31/16 05:48 Monocytes % (Manual) 6.0 % 09/02/16 03:55 Eosinophils % CAT SCAN TECH 08/31/16 05:48 Eosinophils % (Manual) 0.5 % 09/01/16 03:19 Basophils % CAT SCAN TECH 08/31/16 05:48 Metamyelocytes % 5.0 % 09/02/16 03:55 Myelocytes % 4.0 % 09/02/16 03:55 Promyelocytes % 1.0 % 09/02/16 03:55 Neutrophils # CAT SCAN TECH 08/31/16 05:48 Neutrophils # (Manual) 31.6 k/uL (1.3-7.7) H 09/02/16 03:55 Lymphocytes # CAT SCAN TECH 08/31/16 05:48 Lymphocytes # (Manual) 3.8 k/uL (1.0-4.8) 09/02/16 03:55 Monocytes # CAT SCAN TECH 08/31/16 05:48 Monocytes # (Manual) 2.5 k/uL (0-1.0) H 09/02/16 03:55 Eosinophils # CAT SCAN TECH 08/31/16 05:48 Eosinophils # (Manual) 0.2 k/uL (0-0.7) 09/01/16 03:19 Basophils # CAT SCAN TECH 08/31/16 05:48 Nucleated RBCs 3 /100 WBC (0-0) H 09/02/16 03:55 Differential Comment 08/31/16 05:48 Manual Slide Review Performed 09/02/16 03:55 Toxic Granulation Present 08/30/16 18:14 Large Platelets Present 09/01/16 03:19 Polychromasia Present 09/01/16 03:19 Poikilocytosis (manual Present 09/02/16 03:55 Anisocytosis Slight 09/02/16 03:55 Anisocytosis (manual) Present 09/02/16 03:55 Microcytosis Slight 09/02/16 03:55 Target Cells Present 09/02/16 03:55 PT 15.2 sec (9.0-12.0) H 09/02/16 03:55 INR 1.6 (<1.1) 09/02/16 03:55 APTT 22.5 sec (22.0-30.0) 08/31/16 05:48 Sample Site R RAD 09/01/16 16:20 ABG pH 7.30 (7.35-7.45) L 09/01/16 16:20 ABG pCO2 38 mmHg (35-45) 09/01/16 16:20 ABG pO2 54 mmHg (83-108) L 09/01/16 16:20 ABG HCO3 18 mmol/L (21-25) L 09/01/16 16:20 ABG Total CO2 19 mmol/L (19-24) 09/01/16 16:20 ABG O2 Saturation 84.0 % (94-97) L 09/01/16 16:20 ABG Base Excess -7.2 mmol/L 09/01/16 16:20 FiO2 28 % 09/01/16 16:20 Sodium 138 mmol/L (137-145) 09/02/16 03:55 Potassium 4.9 mmol/L (3.5-5.1) 09/02/16 03:55 Chloride 104 mmol/L (98-107) 09/02/16 03:55 Carbon Dioxide 18 mmol/L (22-30) L 09/02/16 03:55 Anion Gap 16 mmol/L 09/02/16 03:55 BUN 99 mg/dL (9-20) H* 09/02/16 03:55 Creatinine 5.10 mg/dL (0.66-1.25) H* 09/02/16 03:55 Est GFR (MDRD) Af Amer 14 (>60 ml/min/1.73 sqM) 09/02/16 03:55 Est GFR (MDRD) Non-Af 12 (>60 ml/min/1.73 sqM) 09/02/16 03:55 Glucose 96 mg/dL (74-99) 09/02/16 03:55 POC Glucose (mg/dL) 84 mg/dL (75-99) 09/02/16 12:36 POC Glu Classroom Instruction[employer] Aide ID Makayla Thompson 09/02/16 12:36 Plasma Lactic Acid James 1.3 mmol/L (0.7-2.0) 09/01/16 04:20 Calcium 5.9 mg/dL (8.4-10.2) L* 09/02/16 03:55 Phosphorus 9.3 mg/dL (2.5-4.5) H* 09/02/16 03:55 Magnesium 2.3 mg/dL (1.6-2.3) 09/02/16 03:55 Total Bilirubin 0.5 mg/dL (0.2-1.3) 08/31/16 05:48 AST 17 U/L (17-59) 08/31/16 05:48 ALT 25 U/L (21-72) 08/31/16 05:48 Alkaline Phosphatase 76 U/L (38-126) 08/31/16 05:48 CK-MB (CK-2) 1.5 ng/mL (0.0-2.4) 08/31/16 05:48 Troponin I 0.116 ng/mL (0.000-0.034) H* 08/31/16 05:48 NT-Pro-B Natriuret Pep [id number] pg/mL 08/30/16 18:14 Total Protein 5.4 g/dL (6.3-8.2) L 08/31/16 05:48 Albumin 2.6 g/dL (3.5-5.0) L 08/31/16 05:48 Amylase 86 U/L (30-110) 08/30/16 18:14 Lipase 565 U/L (23-300) H 08/30/16 18:14 Urine Color Yellow 08/31/16 00:15 Urine Appearance Cloudy (Clear) 08/31/16 00:15 Urine pH 5.0 (5.0-8.0) 08/31/16 00:15 Ur Specific [place] 1.010 (1.001-1.035) 08/31/16 00:15 Urine Protein Trace (Negative) H 08/31/16 00:15 Urine Glucose (UA) Negative (Negative) 08/31/16 00:15 Urine Ketones Negative (Negative) 08/31/16 00:15 Urine Blood Negative (Negative) 08/31/16 00:15 Urine Nitrate Negative (Negative) 08/31/16 00:15 Urine Bilirubin Negative (Negative) 08/31/16 00:15 Urine Urobilinogen <2.0 mg/dL (<2.0) 08/31/16 00:15 Ur Leukocyte Esterase Negative (Negative) 08/31/16 00:15 Urine RBC 2 /hpf (0-5) 08/31/16 00:15 Urine WBC 4 /hpf (0-5) 08/31/16 00:15 Ur Squamous Epith Cells 1 /hpf (0-4) 08/31/16 00:15 Amorphous Sediment Rare /hpf (None) H 08/31/16 00:15 Microbiology 08/31/16 00:25 Abdomen Anaerobic Culture - Preliminary [place] albicans 08/31/16 00:25 Abdomen Gram Stain - Final 08/31/16 00:25 Abdomen Wound Culture - Final Pseudomonas aeruginosa Klebsiella pneumoniae Strep agalactiae - (group b) 09/01/16 09:25 Sputum Gram Stain - Preliminary 09/01/16 09:25 Sputum Sputum Culture - Preliminary Gram Neg Bacilli 08/30/16 18:14 Blood Blood Culture Gram Stain - Final 08/30/16 18:14 Blood Blood Culture - Final Pseudomonas aeruginosa 08/31/16 00:15 Urine,Voided Urine Culture - Final 08/30/16 18:14 Blood Blood Culture - Preliminary - Imaging and Cardiology Chest x-ray: image reviewed (No michelle pneumonias are noted the right upper lobe nodule is seen) Assessment and Plan (1) Gram negative sepsis Narrative/Plan: 61-year-old male presents to Hospital acutely ill. Evidence of sepsis with gram -negative bacilli, as well as drainage from his PEG tube site. The computed tomography scan of the abdomen shows evidence of some irritation to that site but no drainable abscess was noted Sputum culture also now has some gram-negative bacilli that are present at admission. Blood culture shows evidence of pseudomonas aeruginosa that is quite susceptible. The patient however is quite immunocompromise. He has extensive leukocytosis that appears to be on the basis of his underlying sepsis which is gram-negative in nature. Repeat blood cultures have been requested to ensure that his bacteremia has cleared. If he has any further ongoing bacteremia would want to consider removal of his port is potential ongoing source of infection, however the abdominal wall appears to be the likely source in his seen in a compromised host. He has tracheostomy in the bacteria that's present could be a colonization. Await the final cultures from above. Metronidazole may be discontinued Currently receiving meropenem and with his thrombocytopenia is a reasonable choice and that Zosyn may further impact his thrombocytopenia. Status: Acute (2) Pseudomonal bacteremia Status: Acute
[2016-09-02 17:48] LABS: Glucose,Whole Blood 83 mg/dL (75-99)
[2016-09-02 18:18] LABS: ABG Base Excess -9.8 mmol/L; ABG HCO3 16 mmol/L (21-25); ABG PCO2 37 mmHg (35-45); ABG PH 7.26 (7.35-7.45); ABG PO2 110 mmHg (83-108); ABG TCO2 17 mmol/L (19-24)
[2016-09-02] MEDS ORDERED: SODIUM BICARB 8.4% 50 ML SYR (1 MEQ/ML) IV ONE (18:30)
[2016-09-02] MEDS: DEXTROSE 5% IN WATER 1,000 ML with SODIUM BICARB (1 MEQ/ML) 150 ML IV SCH (18:54)
--- NOTE | 2016-09-02 18:56 | P.PN ---
Subjective This is a 61-year-old -[place] male patient of Dr. 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 Cartagena. Patient apparently received chemotherapy 2 weeks ago. History of DVT status post IVC filter, hypothyroidism , history of trach and stoma and PEG tube. Patient apparently eats and PEG tube was only used for medications. Patient apparently has been nonverbal since throat surgery. Patient was brought into [facility] emergency center due to weakness and diarrhea that he had had for a few days. There was no blood or tarriness to the stool. No vomiting was noted there was abdominal discomfort in the epigastric and left upper quadrant and increased productive cough through his stoma and also noted of blood in his sputum. This information was obtained from the ER record as patient is unable to provide any history. He underwent renal ultrasound that showed multiple cystic lesions in the bilateral kidneys. Abdominal and pelvic CAT scan without contrast showed small hiatal hernia, cardiomegaly, bilateral pleural effusions. No acute abnormality within the abdomen or pelvis. There is clearing of almost all ascites fluid to from previous exam. Chest x-ray showed mild heart failure with small right pleural effusion and right upper lobe nodule which is smaller since August 14. Multiple consultants were added including nephrology, cardiology, reprint sorter and infectious disease and patient was admitted into intensive care unit due to hypotension requiring levo fed. He was found to be in acute renal failure with BUN of 104 and creatinine 6.39 with hyponatremia of 127 and hyperkalemia at 6.1. White count was elevated at 20.9. Lactic acid was 1.3. Hemoglobin 9.5 and platelet count 93. Lipase 565 and amylase within normal limits. Troponin was elevated at 0.109, 0.114 and 0.116.. Influenza testing was negative. Urinalysis was cloudy with nitrate and leukoesterase negative. Carr catheter was placed to monitor urine output. There was concern of pus at the PEG tube site for which this was cultured. Patient has received calcium gluconate and insulin and Kayexalate. Dr. clinton has placed him on Flagyl IV and oral vancomycin. Patient has had no further stools since arrival. 09/01: patient has a known history of PE 2 years ago and has been on eliquis since then. However due to his renal function, he has been started on Coumadin. His PEG tube was placed by Dr. Sánchez. He has had chronic kidney disease since his chemotherapy for the laryngeal cancer. Patient did have several runs of V. tach. IV fluids to be changed over to 0.9 and sodium bicarb per PEG to start. Patient is followed by Dr. Thompson. His urine output has been low and he did receive a 500 mL bolus at 2 AM.CAT scan of the abdomen and pelvis showed soft tissue thickening along the PEG tube. Findings could represent cellulitis or localized infection. No sizable fluid collection. New cecal bascule as compared to August 30 and abnormal cecal dilation up to 10 cm. Consider surgical evaluation mild abdominal ascites increased from August 30. chest x-ray shows similar findings with cardiomegaly some improvement in volume status. wound culture from the PEG tube site is showing gram-negative bacilli to organisms and group B strep agalactia. Blood culture gram-negative bacilli. Urine culture finalized with no growth. Dr. Reece has changed antibiotics to Flagyl and meropenem. He has been seen by cardiology and low dose beta cheng plan to be added and plan to wean levo.Dr. Khan is on consult for intensive care management. 09/02:Patient had imaging studies performed CAT scan of abdomen and pelvis showing soft tissue thickening along the superior and lateral aspect of the PEG tube area, no sizable fluid collection is identified however findings could represent localized infection or cellulitis, there is a new cecal bascule as compared to 08/2216 with abnormal cecal dilatation up to 10 cm, mild abdominal ascites which is increased small pleural effusion mild anasarca patient currently is made nothing by mouth with oral medications held. Patient remains in ICU still on Levophed 3 mics also followed by Dr. Spence and Dr. Roa from general surgery. Abdominal cultures pseudomonas aeruginosa klebsiella pneumonia strep agalactiae sputum cultures pending blood cultures pseudomonas aeruginosa, C. diff collection still pending Objective - Vital Signs Vital signs: Vital Signs Temp 97.1 F L 09/02/16 08:00 Pulse 90 09/02/16 13:05 Resp 8 L 09/02/16 12:51 BP 109/74 09/02/16 10:00 Pulse Ox 99 09/02/16 10:00 Intake & Output 09/01/16 09/02/16 09/02/16 18:59 06:59 18:59 Intake Total 1684.849 5091.103 700 Output Total 202 240 120 Balance 8227.706 8323.103 580 Weight 88.9 kg 92.4 kg Intake: IV 100 metroNIDAZOLE-NS PMX 500 100 mg In Saline 1 100ml.bag @ 100 mls/hr IVPB ONCE STA Rx#:[id number] Intake, IV Titration 9327.625 4941.103 600 Amount Dextrose 5% in Water 1, 125 000 ml @ 125 mls/hr IV . Q9H12M RYAN with Sodium Bicarb (1 Meq/ml) 150 ml Rx#:[id number] Meropenem 1 gm In Sodium 100 100 Chloride 0.9% 100 ml @ 200 mls/hr IVPB Q12HR RYAN Rx#:[id number] Norepinephrine 16 mg In 17.190 220.103 Sodium Chloride 0.9% 250 ml @ Titrate IV .Q0M RYAN Rx#:[id number] Sodium Chloride 0.9% 1, 1375 1500 500 000 ml @ 125 mls/hr IV . Q8H RYAN Rx#:[id number] metroNIDAZOLE-NS PMX 500 100 mg In Saline 1 100ml.bag @ 100 mls/hr IVPB ONCE STA Rx#:[id number] Output: Urine 202 240 120 Other: Voiding Method Indwelling Catheter Indwelling Catheter Indwelling Catheter # Bowel Movements 0 ABP, PAP, CO, CI - Last Documented Arterial Blood Pressure 100/60 - Constitutional General appearance: Present: cooperative, no acute distress - EENT Eyes: Present: anicteric sclerae, EOMI, PERRLA, dentition normal, normal appearance ENT: Present: hearing grossly normal, NA/AT, normal oropharynx - Neck Neck: Present: normal ROM. Absent: lymphadenopathy, other, rigidity, stridor, thyromegaly - Respiratory Respiratory: bilateral: CTA, negative: diminished, dullness, rales, rhonchi, wheezing, prolonged expiration - Cardiovascular Rhythm: regular Heart sounds: normal: S1, S2 Abnormal Heart Sounds: Absent: systolic murmur, diastolic murmur, rub, S3 Gallop , S4 Gallop, click, other - Gastrointestinal General gastrointestinal: Present: normal bowel sounds, soft - Integumentary Integumentary: Present: decreased turgor, normal - Musculoskeletal Musculoskeletal: Present: generalized weakness, strength equal bilaterally - Psychiatric Psychiatric: Present: A&O x's 3, appropriate affect - Labs CBC & Chem 7: 09/02/16 03:55 09/02/16 03:55 Labs: Abnormal Lab Results - Last 24 Hours (Table) 09/01/16 09/01/16 09/01/16 Range/Units 16:20 18:46 20:11 WBC (3.8-10.6) k/uL RBC (4.30-5.90) m/uL Hgb (13.0-17.5) gm/dL Hct (39.0-53.0) % MCV (80.0-100.0) fL RDW (11.5-15.5) % Plt Count (150-450) k/uL Neutrophils # (Manual) (1.3-7.7) k/uL Monocytes # (Manual) (0-1.0) k/uL Nucleated RBCs (0-0) /100 WBC PT (9.0-12.0) sec ABG pH 7.30 L (7.35-7.45) ABG pO2 54 L (83-108) mmHg ABG HCO3 18 L (21-25) mmol/L ABG O2 Saturation 84.0 L (94-97) % Carbon Dioxide (22-30) mmol/L BUN (9-20) mg/dL Creatinine (0.66-1.25) mg/dL POC Glucose (mg/dL) 194 H 161 H (75-99) mg/dL Calcium (8.4-10.2) mg/dL Phosphorus (2.5-4.5) mg/dL 09/02/16 09/02/16 09/02/16 Range/Units 03:55 03:55 03:55 WBC 42.1 H* (3.8-10.6) k/uL RBC 3.21 L (4.30-5.90) m/uL Hgb 8.4 L (13.0-17.5) gm/dL Hct 25.2 L (39.0-53.0) % MCV 78.7 L (80.0-100.0) fL RDW 17.0 H (11.5-15.5) % Plt Count 125 L (150-450) k/uL Neutrophils # (Manual) 31.6 H (1.3-7.7) k/uL Monocytes # (Manual) 2.5 H (0-1.0) k/uL Nucleated RBCs 3 H (0-0) /100 WBC PT 15.2 H (9.0-12.0) sec ABG pH (7.35-7.45) ABG pO2 (83-108) mmHg ABG HCO3 (21-25) mmol/L ABG O2 Saturation (94-97) % Carbon Dioxide 18 L (22-30) mmol/L BUN 99 H* (9-20) mg/dL Creatinine 5.10 H* (0.66-1.25) mg/dL POC Glucose (mg/dL) (75-99) mg/dL Calcium 5.9 L* (8.4-10.2) mg/dL Phosphorus 9.3 H* (2.5-4.5) mg/dL 09/02/16 Range/Units 08:03 WBC (3.8-10.6) k/uL RBC (4.30-5.90) m/uL Hgb (13.0-17.5) gm/dL Hct (39.0-53.0) % MCV (80.0-100.0) fL RDW (11.5-15.5) % Plt Count (150-450) k/uL Neutrophils # (Manual) (1.3-7.7) k/uL Monocytes # (Manual) (0-1.0) k/uL Nucleated RBCs (0-0) /100 WBC PT (9.0-12.0) sec ABG pH (7.35-7.45) ABG pO2 (83-108) mmHg ABG HCO3 (21-25) mmol/L ABG O2 Saturation (94-97) % Carbon Dioxide (22-30) mmol/L BUN (9-20) mg/dL Creatinine (0.66-1.25) mg/dL POC Glucose (mg/dL) 101 H (75-99) mg/dL Calcium (8.4-10.2) mg/dL Phosphorus (2.5-4.5) mg/dL Microbiology - Last 24 Hours (Table) 08/31/16 00:25 Gram Stain - Final Abdomen Wound Culture - Final Pseudomonas aeruginosa Klebsiella pneumoniae Strep agalactiae - (group b) 09/01/16 09:25 Gram Stain - Preliminary Sputum Sputum Culture - Preliminary Gram Neg Bacilli 02/23/17 00:15 Urine Culture - Final Urine,Voided Microbiology 08/31/16 00:25 Abdomen Anaerobic Culture - Preliminary Izabel albicans 08/31/16 00:25 Abdomen Gram Stain - Final 08/31/16 00:25 Abdomen Wound Culture - Final Pseudomonas aeruginosa Klebsiella pneumoniae Strep agalactiae - (group b) 09/01/16 09:25 Sputum Gram Stain - Preliminary 09/01/16 09:25 Sputum Sputum Culture - Preliminary Gram Neg Bacilli 08/30/16 18:14 Blood Blood Culture Gram Stain - Final 08/30/16 18:14 Blood Blood Culture - Final Pseudomonas aeruginosa 08/31/16 00:15 Urine,Voided Urine Culture - Final 08/30/16 18:14 Blood Blood Culture - Preliminary Assessment and Plan Plan: 1. Acute renal failure and metabolic acidosis with dehydration due to recent diarrhea and possibly worsened by recent chemotherapy. Nephrology is on consult. IV fluids normal saline and oral bicarb. 2. Diarrhea with signs of sepsis and dehydration with septic shock requiring vasopressors. Patient now on meropenem and Flagyl. Continue IV fluids. Continue norepinephrine. C. diff illness be collected Continue care in the intensive care unit. Dr. Reece is on consult. 3. Sepsis with septic shock with gram-negative bacteremia Pseudomonas aeruginosa requiring vasopressors. Source may be related to PEG tube site or diarrhea. Peg site culture is pending. Blood cultures been obtained. Patient is currently on IV Flagyl and meropenem. Infectious disease following 4. Bicytopenia with low hemoglobin RBC and platelet count. Most likely secondary to recent chemotherapy. Oncology on consult. 5. Elevated troponin. Cardiology consult appreciated. This is thought to be due to renal failure and sepsis. Echocardiogram is ordered. 6. History of laryngeal carcinoma with tracheostomy in place and PEG tube. Patient normally and takes food by mouth and PEG tube issues for medications only. 7. Small cell lung cancer on chemotherapy under the care of Dr. Granado. Consult with Dr. Bonds. 8. Episodes of nonsustained ventricular tachycardia most likely due to hyperkalemia. 9. Hyperkalemia status post Kayexalate and calcium gluconate and insulin with D50. 10. Cecal dilatation 10 cm on 09/01/2015 patient currently is nothing by mouth followed by surgery 10. History of DVT status post IVC filter. 11. Gastrointestinal prophylaxis. Protonix. 12. DVT prophylaxis. Subcutaneous heparin.
--- NOTE | 2016-09-02 19:02 | P.PN ---
Subjective 59-year-old male patient, with a previous history of laryngeal cancer status post total laryngectomy and tracheotomy, also history of small cell lung cancer with interval progression based on the recent PET scan, for which the patient was started on systemic chemotherapy. The patient came in to the burst department yesterday because of diminished oral intake, single episode of diarrhea, dehydration, diminished urine output, lethargy, fatigue, vague abdominal discomfort and some fall smelling drainage around the PEG tube. In addition, the patient was found to be in acute kidney injury, acute metabolic acidosis and acute hyperkalemia. For all this reasons, the patient got transferred to the intensive care unit. He got bolused with a total of 2-3 L of IV fluids in the form normal saline and based on the sides recommendation the patient was switched to bicarb drip. The patient was also covered with broad-spectrum antibiotics. He was initially stopped and accommodation of cefepime and vancomycin. Subsequently, the patient was seen by infectious disease and antibiotics were simplified and the patient was placed on IV Flagyl and oral vancomycin suspecting an underlying C. diff colitis. Nevertheless, the patient has not had any further episodes of diarrhea since he came to the ICU. The patient was examined in the ICU. Active site essentially clean and there was no evidence of any purulent drainage. Abdomen was soft and the CAT scan of the abdomen was done in the emergency department showed no acute abnormalities. He was a bit lethargic and slow in answering questions. He denied having any history distress. Denied any cough or sputum production or any chest pain. No open wounds or sores. No dysuria frequency or urgency. On 09/01/2016, the patient is being seen in follow-up. The patient is quite lethargic. He is post laryngectomy and has a tracheotomy in place. He is also being treated for metastatic small cell lung cancer with systemic chemotherapy on outpatient basis. He presented with acute kidney injury and he is currently septic with gram-negative bacilli growing in his blood culture. The source of the gram-negative is not absolutely clear.. At one point there was suspicion for a PEG tube site infection yet the area seems to be relatively clean and the CAT scan of the abdomen was repeated and showed some soft tissue thickening along the PEG tube especially along the superior margin which raised the suspicion for localized infection and for that reason a surgical consultation was requested. At the same time, the CAT scan showed a new cecal dilatation up to 10 cm compared to the previous CAT scan and for that reason again a surgical consultation was requested. Note that the patient has a port in place yet the port site is clean and intact. Antibiotics have a modified to include a combination of IV Merrem and Flagyl. No diarrhea. No abdominal pain. No nausea vomiting or chest pain. The renal function is slightly improved compared to yesterday. Urine output remains low. The patient is on pressors still and the prednisone extremities 6-10 mics to maintain a mean arterial pressure above 65. The white cell count is elevated at 33.9 IDs on the case. On the patient is being seen in follow-up. As mentioned earlier he has a pseudomonal septicemia. The exact source remains not clear. One potential sources of the Mediport this was inserted recently. Intra-abdominal sources are felt to be possible although less likely. I discussed the case with general surgery and infectious disease. The patient has a gram-negative septicemia and the CAT scan of the abdomen showing some cecal dilatation along with evidence of some irritation at the PEG tube site. There is no evidence of pneumonia. The patient is on Merrem. He is immunosuppressed and immunocompromised based on recent chemotherapy as well as being given for lung cancer. I made recommendations to obtain 2 sets of blood cultures from the Mediport and from peripheral site. The patient was weaned off the pressors throughout the day and currently he is off pressors. We have made a decision to continue the treatment and consider taking out the Mediport if the patient does not improve and/or he continues to have persistent bacteremia. Meanwhile, the patient is still nothing by mouth. Abdomen is nondistended. He is awake and alert and is following simple commands. He has a tracheostomy and today's chest x-ray showing cardiomegaly without any evidence of pulmonary infiltration or pneumonia. Gases were obtained late in the afternoon showed evidence of metabolic acidosis with a pH of 7.26 and a pCO2 of 37 and pO2 of 110 and based on that I have made recommendations to switch this patient back to her bicarb drip infusion. His serum bicarbs at 18 and his anion gap is around 16. His renal function remains impaired with a creatinine of 5.1. White cell count remains elevated at 42. No diarrhea. Objective - Vital Signs Vital signs: Vital Signs Temp 98.1 F 09/02/16 17:00 Pulse 95 09/02/16 18:00 Resp 6 L 09/02/16 18:00 BP 94/63 09/02/16 18:00 Pulse Ox 96 09/02/16 18:00 Intake & Output 09/01/16 09/02/16 09/02/16 18:59 06:59 18:59 Intake Total 6788.989 0375.103 1700 Output Total 202 240 375 Balance 4632.063 2645.103 1325 Weight 88.9 kg 92.4 kg Intake: IV 100 metroNIDAZOLE-NS PMX 500 100 mg In Saline 1 100ml.bag @ 100 mls/hr IVPB ONCE STA Rx#:[id number] Intake, IV Titration 2636.499 3162.103 1600 Amount Dextrose 5% in Water 1, 125 000 ml @ 125 mls/hr IV . Q9H12M RYAN with Sodium Bicarb (1 Meq/ml) 150 ml Rx#:[id number] Meropenem 1 gm In Sodium 100 100 Chloride 0.9% 100 ml @ 200 mls/hr IVPB Q12HR RYAN Rx#:[id number] Norepinephrine 16 mg In 17.190 220.103 Sodium Chloride 0.9% 250 ml @ Titrate IV .Q0M RYAN Rx#:[id number] Sodium Chloride 0.9% 1, 1375 1500 1500 000 ml @ 125 mls/hr IV . Q8H RYAN Rx#:[id number] metroNIDAZOLE-NS PMX 500 100 mg In Saline 1 100ml.bag @ 100 mls/hr IVPB ONCE STA Rx#:[id number] Output: Urine 202 240 375 Other: Voiding Method Indwelling Catheter Indwelling Catheter Indwelling Catheter # Bowel Movements 0 ABP, PAP, CO, CI - Last Documented Arterial Blood Pressure 110/49 - Exam Elderly -[place] male patient, slightly lethargic and obtunded. Able to open up his eyes and follows some simple commands.Head exam was generally normal. There was no scleral icterus or corneal arcus. Mucous membranes were moist. Mucous membranes are dry and the patient has a tracheostomy which is open and widely patent. Scars of previous laryngectomy can be seen over the anterior neck. Lung sounds are diminished bilaterally along with some few rales in the lung bases. On today's evaluation there is also bilateral extremity wheezes. Cardiac exam revealed the PMI to be normally situated and sized. The rhythm was regular and no extrasystoles were noted during several minutes of auscultation. The first and second heart sounds were normal and physiologic splitting of the second heart sound was noted. There were no murmurs , rubs, clicks, or gallops. Abdominal exam revealed normal bowel sounds. The abdomen was soft, non-tender, and without masses, organomegaly, or appreciable enlargement of the abdominal aorta. PEG tube site is clean.Examination of the extremities revealed easily palpable radial, femoral and pedal pulses. There was no cyanosis, clubbing or edema. - Labs CBC & Chem 7: 09/02/16 03:55 09/02/16 03:55 Labs: Abnormal Lab Results - Last 24 Hours (Table) 09/01/16 09/02/16 09/02/16 Range/Units 20:11 03:55 03:55 WBC 42.1 H* (3.8-10.6) k/uL RBC 3.21 L (4.30-5.90) m/uL Hgb 8.4 L (13.0-17.5) gm/dL Hct 25.2 L (39.0-53.0) % MCV 78.7 L (80.0-100.0) fL RDW 17.0 H (11.5-15.5) % Plt Count 125 L (150-450) k/uL Neutrophils # (Manual) 31.6 H (1.3-7.7) k/uL Monocytes # (Manual) 2.5 H (0-1.0) k/uL Nucleated RBCs 3 H (0-0) /100 WBC PT (9.0-12.0) sec ABG pH (7.35-7.45) ABG pO2 (83-108) mmHg ABG HCO3 (21-25) mmol/L ABG Total CO2 (19-24) mmol/L ABG O2 Saturation (94-97) % Carbon Dioxide 18 L (22-30) mmol/L BUN 99 H* (9-20) mg/dL Creatinine 5.10 H* (0.66-1.25) mg/dL POC Glucose (mg/dL) 161 H (75-99) mg/dL Calcium 5.9 L* (8.4-10.2) mg/dL Phosphorus 9.3 H* (2.5-4.5) mg/dL 09/02/16 09/02/16 09/02/16 Range/Units 03:55 08:03 16:59 WBC (3.8-10.6) k/uL RBC (4.30-5.90) m/uL Hgb (13.0-17.5) gm/dL Hct (39.0-53.0) % MCV (80.0-100.0) fL RDW (11.5-15.5) % Plt Count (150-450) k/uL Neutrophils # (Manual) (1.3-7.7) k/uL Monocytes # (Manual) (0-1.0) k/uL Nucleated RBCs (0-0) /100 WBC PT 15.2 H (9.0-12.0) sec ABG pH 7.26 L (7.35-7.45) ABG pO2 110 H (83-108) mmHg ABG HCO3 16 L (21-25) mmol/L ABG Total CO2 17 L (19-24) mmol/L ABG O2 Saturation 98.0 H (94-97) % Carbon Dioxide (22-30) mmol/L BUN (9-20) mg/dL Creatinine (0.66-1.25) mg/dL POC Glucose (mg/dL) 101 H (75-99) mg/dL Calcium (8.4-10.2) mg/dL Phosphorus (2.5-4.5) mg/dL Microbiology - Last 24 Hours (Table) 08/31/16 00:25 Anaerobic Culture - Preliminary Abdomen Izabel albicans 08/31/16 00:25 Gram Stain - Final Abdomen Wound Culture - Final Pseudomonas aeruginosa Klebsiella pneumoniae Strep agalactiae - (group b) 09/01/16 09:25 Gram Stain - Preliminary Sputum Sputum Culture - Preliminary Gram Neg Bacilli Assessment and Plan Plan: Assessment 1 septic shock secondary to pseudomonas aeruginosa, source being considered of an intra-abdominal in nature with potential infection originating from PEG tube site versus cecum. Line infection is also considered however this is felt to be less likely. The patient does not have any underlying pneumonia. The patient is currently on IV Merrem. Hemodynamically improved and the patient was taken off norepinephrine infusion this afternoon. 2 hypotension, secondary to septic shock and the patient was aggressively resuscitated with IV fluids and pressors and he is being taken off vasopressors.. 3 acute kidney injury, most likely secondary to intravascular volume depletion/ dehydration/ and also there is a possibility of an ATN/sepsis induced, proving and creatinine is dropping down to 5.1 and the patient is producing adequate amount of urine output. 2 acute hyperkalemia, treated 3 metabolic acidosis secondary to above 4 diarrhea, limited and currently the patient is not having any further episodes. He is covered with broad-spectrum antibiotics including coverage for C. diff 5 laryngeal cancer status post total laryngectomy and tracheotomy 6 small cell lung cancer, metastatic, currently receiving systemic chemotherapy 7 enteral feeding via PEG tube, currently on hold and the PEG tube will be respected by general surgeon 8 previous history of DVT status post IVC filter placement 9 leukocytosis/thrombocytopenia/chronic anemia, microcytic 10 cecal dilatation, awaiting surgical evaluation Plan Switch this patient back to D 5 with 3 Amp of bicarb infusion at the rate of 75 mL an hour. The patient was taken off norepinephrine infusion this afternoon. The patient will have 2 sets of blood cultures sent from periphery and the port and will consider removal of the port if the patient continues to be septic and/ or shows persistent bacteremia. White cell count will be monitored. Continue IV Merrem. Stop the Flagyl. Do not use the PEG tube yet. Surgeries on the case. ID is on the case. We'll continue to follow.
[2016-09-02 20:17] LABS: Glucose,Whole Blood 99 mg/dL (75-99)
[2016-09-02] MEDS: MEROPENEM 500 MG in SODIUM CHLORIDE 0.9% 50 ML IVPB SCH (20:22)
[2016-09-03] MEDS: HEPARIN SODIUM,PORCINE 5,000 UNIT/ML 1 ML VIAL SQ SCH ×3 (00:10→15:00)
[2016-09-03 05:12] LABS: INR 1.6 (<1.1); Prothrombin Time 15.4 sec (9.0-12.0)
[2016-09-03 05:19] LABS: Magnesium 2.5 mg/dL (1.6-2.3); Potassium 5.2 mmol/L (3.5-5.1)
[2016-09-03 05:25] LABS: Calcium 6.3 mg/dL (8.4-10.2)
[2016-09-03 05:57] LABS: Anisocytosis Slight; CH 26.4; CHCM 32.6; HCT 26.9 % (39.0-53.0); HDW 2.53; HGB 8.7 gm/dL (13.0-17.5); Immature Gran Flag Marked; MCH 26.2 pg (25.0-35.0); MCHC 32.3 g/dL (31.0-37.0); MCV 81.2 fL (80.0-100.0); Mean Platelet Volume 9.3; Microcytosis Slight; RBC 3.31 m/uL (4.30-5.90); RDW 17.1 % (11.5-15.5); WBC (Perox) 45.28
[2016-09-03 06:54] LABS: Add Differential Manual Differential
[2016-09-03 07:01] LABS: Band Neutrophils % 21.5 %; Metamyelocytes % 9.5 %; Nucleated Red Blood Cells 3 /100 WBC (0-0); Target Cells Present; Total Cells Counted 200; WBC 42.4 k/uL (3.8-10.6)
[2016-09-03] MEDS: LEVOTHYROXINE 75 MCG TAB PEG/G-TUBE SCH (07:01)
[2016-09-03 07:02] LABS: Large Platelets Present; Polychromasia Present
--- NOTE | 2016-09-03 07:27 | XR ---
EXAMINATION TYPE: XR chest 1V DATE OF EXAM: 09/03/2016 6:44 AM COMPARISON: 09/02/2016 HISTORY: 61 year-old male shortness of breath TECHNIQUE: Single frontal view of the chest is obtained. FINDINGS: Heart remains mildly enlarged. Mild elongation of the thoracic aorta. Opacity is now somewhat more co nfluent in the right upper lobe. Known peripheral right upper lobe pulmonary nodule is not as well-se en on the current exam. Pulmonary vasculature remains mildly cephalized. No significant pleural effus ion. Right anterior chest wall injection port with catheter tip at the mid SVC. IMPRESSION: 1. Cardiomegaly and known right upper lobe pulmonary nodule. 2. Pulmonary vasculature remains mildly cephalized. This may represent mild CHF. 3. Some developing infiltrate in the right upper lobe is not excluded. Follow-up recommended.
[2016-09-03] MEDS: MORPHINE SULFATE ER 60 MG TABLET PO SCH ×2 (07:30→17:59)
[2016-09-03] MEDS: PANTOPRAZOLE 40 MG/10 ML VIAL IV SCH (08:10)
[2016-09-03] MEDS: CALCIUM ACETATE 667 MG CAP PO SCH ×3 (08:10→17:54)
[2016-09-03] MEDS: METOPROLOL TARTRATE 12.5 MG TAB PO SCH ×3 (08:10→20:21)
[2016-09-03] MEDS: MEROPENEM 500 MG in SODIUM CHLORIDE 0.9% 50 ML IVPB SCH (08:10)
[2016-09-03] MEDS: CITALOPRAM HYDROBROMIDE 10 MG TAB PO SCH (08:11)
[2016-09-03] MEDS: INSULIN LISPRO (humaLOG) 300 UNIT/3 ML VIAL SQ SCH ×4 (08:25→20:25)
[2016-09-03] MEDS: SODIUM BICARBONATE TAB 650 MG TAB PO SCH ×3 (08:25→22:31)
[2016-09-03 08:27] LABS: Glucose,Whole Blood 150 mg/dL (75-99)
--- NOTE | 2016-09-03 10:14 | P.PN ---
Subjective Principal diagnosis: This is a 61-year-old male with lung cancers who had recent chemotherapy and is in acute kidney injury secondary to gram-negative bacteremia, Pseudomonas bacteremia diarrhea and intravascular volume depletion. He has severe oliguria as of day before yesterday, he was on norepinephrine drip. Overnight though his urine output has improved. The norepinephrine drip has been discontinued blood pressure is stable in the 110s. He was started on sodium bicarb drip with D5W 3 A of bicarb because of a pH of 7.6. He remains extremely weak and listless almost. Arousable and tries to follow commands but profoundly weak. His PEG tube area is somewhat open and there is a old and he has Pseudomonas growing from it as well as in his blood. He has a chronic tracheostomy. He is known with metastatic lung cancer and had been recently started on chemotherapy. He has chronic remote tracheostomy status post laryngectomy. The cause of his sepsis with gram-negative bacteremia is unclear. He does have abdominal pain and there is suspicion of intra-abdominal source. A PEG tube has been placed and that might be one possible place. A computed tomography scan shows cecal dilatation. So it is somewhat suspicious as well to be the source of the bacteremia. Patient does have abdominal pain which is mild Objective - Vital Signs Vital signs: Vital Signs Temp 98 F 09/03/16 04:00 Pulse 109 H 09/03/16 07:00 Resp 15 09/03/16 07:00 BP 97/62 09/03/16 07:00 Pulse Ox 98 09/03/16 07:00 Intake & Output 09/02/16 09/03/16 09/03/16 18:59 06:59 18:59 Intake Total 1825 950 Output Total 435 650 Balance 1390 300 Weight 95.9 kg Intake: IV 100 950 Dextrose 5% in Water 1, 900 000 ml @ 75 mls/hr IV . [id number] RYAN with Sodium Bicarb (1 Meq/ml) 150 ml Rx#:[id number] Meropenem 500 mg In 50 Sodium Chloride 0.9% 50 ml @ 100 mls/hr IVPB Q12HR RYAN Rx#:[id number] metroNIDAZOLE-NS PMX 500 100 mg In Saline 1 100ml.bag @ 100 mls/hr IVPB ONCE STA Rx#:[id number] Intake, IV Titration 1725 Amount Sodium Chloride 0.9% 1, 1625 000 ml @ 125 mls/hr IV . Q8H RYAN Rx#:[id number] metroNIDAZOLE-NS PMX 500 100 mg In Saline 1 100ml.bag @ 100 mls/hr IVPB ONCE STA Rx#:[id number] Output: Urine 435 650 Other: Voiding Method Indwelling Catheter Indwelling Catheter # Bowel Movements 0 ABP, PAP, CO, CI - Last Documented 102/50 Patient exam difficult to see his neck because of the chronic tracheostomy. Neck is supple no facial asymmetry Lungs are significant for diminished breath sounds bilaterally because of poor inspiratory effort. A chest x-ray though is not any different, there is cardiomegaly with right upper lobe pulmonary nodule and slightly increased pulmonary vasculature. Heart sounds are unremarkable for any murmur rub gallop normal sinus rhythm Abdomen is soft nontender PEG tube with slight drainage from her own. Extremity exam reveals 2+ edema. Warm to touch. Neurologically awake alert oriented follows commands but profoundly weak. - Labs CBC & Chem 7: 09/03/16 04:30 09/03/16 04:30 Labs: Abnormal Lab Results - Last 24 Hours (Table) 09/02/16 09/03/16 09/03/16 Range/Units 16:59 04:30 04:30 WBC 42.4 H* (3.8-10.6) k/uL RBC 3.31 L (4.30-5.90) m/uL Hgb 8.7 L (13.0-17.5) gm/dL Hct 26.9 L (39.0-53.0) % RDW 17.1 H (11.5-15.5) % Neutrophils # (Manual) 30.1 H (1.3-7.7) k/uL Monocytes # (Manual) 1.3 H (0-1.0) k/uL Nucleated RBCs 3 H (0-0) /100 WBC PT (9.0-12.0) sec ABG pH 7.26 L (7.35-7.45) ABG pO2 110 H (83-108) mmHg ABG HCO3 16 L (21-25) mmol/L ABG Total CO2 17 L (19-24) mmol/L ABG O2 Saturation 98.0 H (94-97) % Potassium 5.2 H (3.5-5.1) mmol/L Carbon Dioxide 21 L (22-30) mmol/L BUN 97 H* (9-20) mg/dL Creatinine 5.00 H* (0.66-1.25) mg/dL Glucose 128 H (74-99) mg/dL POC Glucose (mg/dL) (75-99) mg/dL Calcium 6.3 L* (8.4-10.2) mg/dL Phosphorus 9.0 H* (2.5-4.5) mg/dL Magnesium 2.5 H (1.6-2.3) mg/dL Lipase 401 H (23-300) U/L 09/03/16 09/03/16 Range/Units 04:30 08:24 WBC (3.8-10.6) k/uL RBC (4.30-5.90) m/uL Hgb (13.0-17.5) gm/dL Hct (39.0-53.0) % RDW (11.5-15.5) % Neutrophils # (Manual) (1.3-7.7) k/uL Monocytes # (Manual) (0-1.0) k/uL Nucleated RBCs (0-0) /100 WBC PT 15.4 H (9.0-12.0) sec ABG pH (7.35-7.45) ABG pO2 (83-108) mmHg ABG HCO3 (21-25) mmol/L ABG Total CO2 (19-24) mmol/L ABG O2 Saturation (94-97) % Potassium (3.5-5.1) mmol/L Carbon Dioxide (22-30) mmol/L BUN (9-20) mg/dL Creatinine (0.66-1.25) mg/dL Glucose (74-99) mg/dL POC Glucose (mg/dL) 150 H (75-99) mg/dL Calcium (8.4-10.2) mg/dL Phosphorus (2.5-4.5) mg/dL Magnesium (1.6-2.3) mg/dL Lipase (23-300) U/L Microbiology - Last 24 Hours (Table) 08/31/16 00:25 Anaerobic Culture - Final Abdomen Anaerobic Gm Negative Bacilli Anaerobic Gm Negative Bacilli#2 Izabel albicans 08/31/16 00:25 Gram Stain - Final Abdomen Wound Culture - Final Pseudomonas aeruginosa Klebsiella pneumoniae Strep agalactiae - (group b) 09/01/16 09:25 Gram Stain - Preliminary Sputum Sputum Culture - Preliminary Gram Neg Bacilli Assessment and Plan Plan: Impression. 1. Acute kidney injury secondary to sepsis with oliguria. He is recovering as his urine output has picked up somewhat. Hemodynamically stable. Off off norepinephrine this morning 09/03/2016 2. Improving Mild metabolic acidosis with a pH of 7.26, pCO2 of 37, bicarb was 18 dated 09/02/2016 yesterday. Today's serum bicarb of 21 and anion gap of 15 The cause of this is acute kidney injury. Diarrhea also may be additional factor causing a non-gap acidosis. 3. Hyperkalemia resolved. 4. Remote history of laryngectomy and tracheostomy. 5. More recent history of metastatic lung CA on chemotherapy. Recommendation. Patient has been started on D5W with 3 A of bicarb. We will repeat his blood gases today to see where his pH is and then further recommendations will follow. Watch as he might be going into congestive heart failure and uremia and to reduce his sodium load as well as the fluid load. In the meantime maintain oral bicarb.
[2016-09-03 10:20] LABS: ABG HCO3 20 mmol/L (21-25); ABG PCO2 36 mmHg (35-45); ABG PH 7.36 (7.35-7.45); ABG PO2 110 mmHg (83-108)
[2016-09-03 10:21] LABS: ABG Base Excess -4.4 mmol/L; ABG TCO2 21 mmol/L (19-24)
--- NOTE | 2016-09-03 10:27 | P.PN ---
Subjective Principal diagnosis: Abdominal pain Patient sitting up in a chair. He is now off of his Levophed. White blood cell count remains elevated with bandemia. Patient admits to abdominal discomfort but agrees that it is mild. Localizes to the PEG tube site. He is afebrile. Objective - Vital Signs Vital signs: Vital Signs Temp 98 F 09/03/16 04:00 Pulse 109 H 09/03/16 07:00 Resp 15 09/03/16 07:00 BP 97/62 09/03/16 07:00 Pulse Ox 98 09/03/16 07:00 Intake & Output 09/02/16 09/03/16 09/03/16 18:59 06:59 18:59 Intake Total 1825 950 Output Total 435 650 Balance 1390 300 Weight 95.9 kg Intake: IV 100 950 Dextrose 5% in Water 1, 900 000 ml @ 75 mls/hr IV . [id number] RYAN with Sodium Bicarb (1 Meq/ml) 150 ml Rx#:[id number] Meropenem 500 mg In 50 Sodium Chloride 0.9% 50 ml @ 100 mls/hr IVPB Q12HR RYAN Rx#:[id number] metroNIDAZOLE-NS PMX 500 100 mg In Saline 1 100ml.bag @ 100 mls/hr IVPB ONCE STA Rx#:[id number] Intake, IV Titration 1725 Amount Sodium Chloride 0.9% 1, 1625 000 ml @ 125 mls/hr IV . Q8H RYAN Rx#:[id number] metroNIDAZOLE-NS PMX 500 100 mg In Saline 1 100ml.bag @ 100 mls/hr IVPB ONCE STA Rx#:[id number] Output: Urine 435 650 Other: Voiding Method Indwelling Catheter Indwelling Catheter # Bowel Movements 0 ABP, PAP, CO, CI - Last Documented Arterial Blood Pressure 102/50 - Exam Abdomen: Soft, nondistended, mild tenderness around the PEG tube site, no lower abdominal tenderness - Labs CBC & Chem 7: 09/03/16 04:30 09/03/16 04:30 Labs: Abnormal Lab Results - Last 24 Hours (Table) 09/02/16 09/03/16 09/03/16 Range/Units 16:59 04:30 04:30 WBC 42.4 H* (3.8-10.6) k/uL RBC 3.31 L (4.30-5.90) m/uL Hgb 8.7 L (13.0-17.5) gm/dL Hct 26.9 L (39.0-53.0) % RDW 17.1 H (11.5-15.5) % Neutrophils # (Manual) 30.1 H (1.3-7.7) k/uL Monocytes # (Manual) 1.3 H (0-1.0) k/uL Nucleated RBCs 3 H (0-0) /100 WBC PT (9.0-12.0) sec ABG pH 7.26 L (7.35-7.45) ABG pO2 110 H (83-108) mmHg ABG HCO3 16 L (21-25) mmol/L ABG Total CO2 17 L (19-24) mmol/L ABG O2 Saturation 98.0 H (94-97) % Potassium 5.2 H (3.5-5.1) mmol/L Carbon Dioxide 21 L (22-30) mmol/L BUN 97 H* (9-20) mg/dL Creatinine 5.00 H* (0.66-1.25) mg/dL Glucose 128 H (74-99) mg/dL POC Glucose (mg/dL) (75-99) mg/dL Calcium 6.3 L* (8.4-10.2) mg/dL Phosphorus 9.0 H* (2.5-4.5) mg/dL Magnesium 2.5 H (1.6-2.3) mg/dL Lipase 401 H (23-300) U/L 09/03/16 09/03/16 09/03/16 Range/Units 04:30 08:24 10:12 WBC (3.8-10.6) k/uL RBC (4.30-5.90) m/uL Hgb (13.0-17.5) gm/dL Hct (39.0-53.0) % RDW (11.5-15.5) % Neutrophils # (Manual) (1.3-7.7) k/uL Monocytes # (Manual) (0-1.0) k/uL Nucleated RBCs (0-0) /100 WBC PT 15.4 H (9.0-12.0) sec ABG pH (7.35-7.45) ABG pO2 110 H (83-108) mmHg ABG HCO3 20 L (21-25) mmol/L ABG Total CO2 (19-24) mmol/L ABG O2 Saturation 98.0 H (94-97) % Potassium (3.5-5.1) mmol/L Carbon Dioxide (22-30) mmol/L BUN (9-20) mg/dL Creatinine (0.66-1.25) mg/dL Glucose (74-99) mg/dL POC Glucose (mg/dL) 150 H (75-99) mg/dL Calcium (8.4-10.2) mg/dL Phosphorus (2.5-4.5) mg/dL Magnesium (1.6-2.3) mg/dL Lipase (23-300) U/L Microbiology - Last 24 Hours (Table) 08/31/16 00:25 Anaerobic Culture - Final Abdomen Anaerobic Gm Negative Bacilli Anaerobic Gm Negative Bacilli#2 Izabel albicans 08/31/16 00:25 Gram Stain - Final Abdomen Wound Culture - Final Pseudomonas aeruginosa Klebsiella pneumoniae Strep agalactiae - (group b) 09/01/16 09:25 Gram Stain - Preliminary Sputum Sputum Culture - Preliminary Gram Neg Bacilli Assessment and Plan (1) Abdominal pain Narrative/Plan: Begin tube feeds at 10 mL per hour. Begin clear liquid diet. We'll follow with you. Status: Acute
[2016-09-03] MEDS: DEXTROSE 5% IN WATER 1,000 ML with SODIUM BICARB (1 MEQ/ML) 150 ML IV SCH ×2 (12:06→17:55)
[2016-09-03 12:31] LABS: Glucose,Whole Blood 140 mg/dL (75-99)
--- NOTE | 2016-09-03 13:05 | PN ---
Mr. Francisco is a 61-year-old male who has a history of tracheotomy, laryngeal CA and small cell CA, was found to have severe cardiomyopathy and presented with sepsis. He is off his pressors at this morning. Hemodynamically, he is stable. He has no symptoms of chest discomfort. He has some abdominal discomfort before, but he was seen by the Surgical Department by Dr. Roa and was starting feeding tube. His urine output has been stable. He has not received his beta cheng as of yet. He was initiated on metoprolol tartrate 12.5 mg twice a day. He is going to receive the first dose soon. His blood pressure 113/50 with a heart rate in 90s. LUNGS: With a few crackles. No wheezes. HEART: Regular rate and rhythm. S1, S2, no S3, with a systolic murmur. ABDOMEN: Soft, PEG tube in place. EXTREMITIES: No significant edema. Lab data revealed BUN and creatinine are 97 and 5.0, potassium 5.2. He is white blood cells 42.4. His hemoglobin is 8.7. IMPRESSION: 1. Sepsis with septic shock and Pseudomonas infection, probably intra-abdominal. 2. Hypotension, resolved. 3. Severe cardiomyopathy of unknown duration. 4. Chronic kidney disease with acute worsening. 5. Diarrhea. 6. Laryngeal carcinoma. 7. Small cell carcinoma. 8. History of deep venous thrombosis, status post IVC placement. RECOMMENDATIONS: From the cardiac standpoint, will continue present therapy. If his pressure is stable then his beta cheng will be started. Will continue to monitor his blood pressure to adjust his regimen. He is not a candidate for LAWANDA inhibitor at this point because of the severe renal failure. If his pressure is stable, then he may be a candidate for hydralazine and nitrate combination.
--- NOTE | 2016-09-03 13:30 | P.PN ---
Subjective Principal diagnosis: Sepsis 61-year-old male presented to Hospital with difficulties with abdominal pain and diarrhea. He has a known history of locally advanced laryngeal cancer in 2010. More recently he has been diagnosed with small cell lung carcinoma and has received therapy with carboplatinum and QUESTIONED DOCUMENTS EXAMINER-16 as well as radiation therapy. It is noted that he completed his first cycle about 2 weeks prior. He is having difficulties with the nausea and emesis and diarrhea. He now has acute renal failure superimposed on his underlying disease state. At admission he was acutely ill and there is evidence of possible blood cultures for which infectious disease was consulted. As noted there is evidence of positive blood culture, there is also some positive culture from his PEG site as well as a positive sputum culture for gram -negative bacilli. The patient is improved today. He is off of vasopressor therapy. He does have somewhat of a moist cough at times. He does have some minimal abdominal discomfort. Tube feed has been restarted by the surgeon. Objective - Vital Signs Vital signs: Vital Signs Temp 97.4 F L 09/03/16 12:00 Pulse 97 09/03/16 12:00 Resp 6 L 09/03/16 12:00 BP 102/66 09/03/16 09:00 Pulse Ox 98 09/03/16 12:00 Intake & Output 09/02/16 09/03/16 09/03/16 18:59 06:59 18:59 Intake Total 1825 950 375 Output Total 435 650 240 Balance 1390 300 135 Weight 95.9 kg Intake: IV 100 950 375 Dextrose 5% in Water 1, 900 375 000 ml @ 75 mls/hr IV . [id number] RYAN with Sodium Bicarb (1 Meq/ml) 150 ml Rx#:[id number] Meropenem 500 mg In 50 Sodium Chloride 0.9% 50 ml @ 100 mls/hr IVPB Q12HR RYAN Rx#:[id number] metroNIDAZOLE-NS PMX 500 100 mg In Saline 1 100ml.bag @ 100 mls/hr IVPB ONCE STA Rx#:[id number] Intake, IV Titration 1725 Amount Sodium Chloride 0.9% 1, 1625 000 ml @ 125 mls/hr IV . Q8H RYAN Rx#:[id number] metroNIDAZOLE-NS PMX 500 100 mg In Saline 1 100ml.bag @ 100 mls/hr IVPB ONCE STA Rx#:[id number] Output: Urine 435 650 240 Other: Voiding Method Indwelling Catheter Indwelling Catheter Indwelling Catheter # Bowel Movements 0 ABP, PAP, CO, CI - Last Documented Arterial Blood Pressure 117/55 - Exam 61-year-old male who is quite comfortable HEENT: Anicteric conjunctiva are pink and moist nasal mucosa grossly intact without significant lesions, there is no thrush. Tracheostomy in place trach shield being utilized without purulent secretions Neck: The neck is supple without significant lymphadenopathy or thyromegaly. Lungs: They're symmetrical air entry. There is evidence of expiratory wheezes. A few basilar crackles. No michelle bronchial sounds are noted Heart: Regular rate and rhythm with an audible S1-S2, no S3 no S4. There is no significant murmur click or rub, PMI was nondisplaced. Abdomen: Positive bowel sounds soft and nontender without palpable masses or organomegaly. There was no guarding or rebound. The PEG tube site left upper quadrant has evidence of some scant purulent drainage and nonstick dressing is applied Extremities: The upper extremities have excellent pulses they are symmetric, no significant petechiae or telangiectasia. No splinter hemorrhages were noted. The lower extremities are free from significant edema. The peripheral pulses were 2+ and symmetric. Neuro: Patient is tracheostomy in place. Follows simple commands without difficulties he has no new acute gross focal sensory motor deficits Skin: Patient has a stage III pressure ulceration on his coccyx. Measuring at 1 x 1 x 0.3 cm. - Labs CBC & Chem 7: 09/03/16 04:30 09/03/16 04:30 Labs: Abnormal Lab Results - Last 24 Hours (Table) 09/02/16 09/03/16 09/03/16 Range/Units 16:59 04:30 04:30 WBC 42.4 H* (3.8-10.6) k/uL RBC 3.31 L (4.30-5.90) m/uL Hgb 8.7 L (13.0-17.5) gm/dL Hct 26.9 L (39.0-53.0) % RDW 17.1 H (11.5-15.5) % Neutrophils # (Manual) 30.1 H (1.3-7.7) k/uL Monocytes # (Manual) 1.3 H (0-1.0) k/uL Nucleated RBCs 3 H (0-0) /100 WBC PT (9.0-12.0) sec ABG pH 7.26 L (7.35-7.45) ABG pO2 110 H (83-108) mmHg ABG HCO3 16 L (21-25) mmol/L ABG Total CO2 17 L (19-24) mmol/L ABG O2 Saturation 98.0 H (94-97) % Potassium 5.2 H (3.5-5.1) mmol/L Carbon Dioxide 21 L (22-30) mmol/L BUN 97 H* (9-20) mg/dL Creatinine 5.00 H* (0.66-1.25) mg/dL Glucose 128 H (74-99) mg/dL POC Glucose (mg/dL) (75-99) mg/dL Calcium 6.3 L* (8.4-10.2) mg/dL Phosphorus 9.0 H* (2.5-4.5) mg/dL Magnesium 2.5 H (1.6-2.3) mg/dL Lipase 401 H (23-300) U/L 09/03/16 09/03/16 09/03/16 Range/Units 04:30 08:24 10:12 WBC (3.8-10.6) k/uL RBC (4.30-5.90) m/uL Hgb (13.0-17.5) gm/dL Hct (39.0-53.0) % RDW (11.5-15.5) % Neutrophils # (Manual) (1.3-7.7) k/uL Monocytes # (Manual) (0-1.0) k/uL Nucleated RBCs (0-0) /100 WBC PT 15.4 H (9.0-12.0) sec ABG pH (7.35-7.45) ABG pO2 110 H (83-108) mmHg ABG HCO3 20 L (21-25) mmol/L ABG Total CO2 (19-24) mmol/L ABG O2 Saturation 98.0 H (94-97) % Potassium (3.5-5.1) mmol/L Carbon Dioxide (22-30) mmol/L BUN (9-20) mg/dL Creatinine (0.66-1.25) mg/dL Glucose (74-99) mg/dL POC Glucose (mg/dL) 150 H (75-99) mg/dL Calcium (8.4-10.2) mg/dL Phosphorus (2.5-4.5) mg/dL Magnesium (1.6-2.3) mg/dL Lipase (23-300) U/L 09/03/16 Range/Units 12:30 WBC (3.8-10.6) k/uL RBC (4.30-5.90) m/uL Hgb (13.0-17.5) gm/dL Hct (39.0-53.0) % RDW (11.5-15.5) % Neutrophils # (Manual) (1.3-7.7) k/uL Monocytes # (Manual) (0-1.0) k/uL Nucleated RBCs (0-0) /100 WBC PT (9.0-12.0) sec ABG pH (7.35-7.45) ABG pO2 (83-108) mmHg ABG HCO3 (21-25) mmol/L ABG Total CO2 (19-24) mmol/L ABG O2 Saturation (94-97) % Potassium (3.5-5.1) mmol/L Carbon Dioxide (22-30) mmol/L BUN (9-20) mg/dL Creatinine (0.66-1.25) mg/dL Glucose (74-99) mg/dL POC Glucose (mg/dL) 140 H (75-99) mg/dL Calcium (8.4-10.2) mg/dL Phosphorus (2.5-4.5) mg/dL Magnesium (1.6-2.3) mg/dL Lipase (23-300) U/L Microbiology - Last 24 Hours (Table) 09/02/16 10:50 Blood Culture - Preliminary Blood No Growth after 24 hours 09/01/16 09:25 Gram Stain - Final Sputum Sputum Culture - Final Pseudomonas aeruginosa 08/31/16 00:25 Anaerobic Culture - Final Abdomen Anaerobic Gm Negative Bacilli Anaerobic Gm Negative Bacilli#2 Izabel albicans 08/31/16 00:25 Gram Stain - Final Abdomen Wound Culture - Final Pseudomonas aeruginosa Klebsiella pneumoniae Strep agalactiae - (group b) Laboratory Results WBC 42.4 k/uL (3.8-10.6) H* 09/03/16 04:30 RBC 3.31 m/uL (4.30-5.90) L 09/03/16 04:30 Hgb 8.7 gm/dL (13.0-17.5) L 09/03/16 04:30 Hct 26.9 % (39.0-53.0) L 09/03/16 04:30 MCV 81.2 fL (80.0-100.0) 09/03/16 04:30 MCH 26.2 pg (25.0-35.0) 09/03/16 04:30 MCHC 32.3 g/dL (31.0-37.0) 09/03/16 04:30 RDW 17.1 % (11.5-15.5) H 09/03/16 04:30 Plt Count 151 k/uL (150-450) 09/03/16 04:30 Neutrophils % MACHINE ATTENDANT 08/31/16 05:48 Neutrophils % (Manual) 49.5 % 09/03/16 04:30 Band Neutrophils % 21.5 % 09/03/16 04:30 Lymphocytes % MACHINE ATTENDANT 08/31/16 05:48 Lymphocytes % (Manual) 11.0 % 09/03/16 04:30 Monocytes % MACHINE ATTENDANT 08/31/16 05:48 Monocytes % (Manual) 3.0 % 09/03/16 04:30 Eosinophils % MACHINE ATTENDANT 08/31/16 05:48 Eosinophils % (Manual) 0.5 % 09/03/16 04:30 Basophils % MACHINE ATTENDANT 08/31/16 05:48 Metamyelocytes % 9.5 % 09/03/16 04:30 Myelocytes % 5.0 % 09/03/16 04:30 Promyelocytes % 1.0 % 09/02/16 03:55 Neutrophils # MACHINE ATTENDANT 08/31/16 05:48 Neutrophils # (Manual) 30.1 k/uL (1.3-7.7) H 09/03/16 04:30 Lymphocytes # MACHINE ATTENDANT 08/31/16 05:48 Lymphocytes # (Manual) 4.7 k/uL (1.0-4.8) 09/03/16 04:30 Monocytes # MACHINE ATTENDANT 08/31/16 05:48 Monocytes # (Manual) 1.3 k/uL (0-1.0) H 09/03/16 04:30 Eosinophils # MACHINE ATTENDANT 08/31/16 05:48 Eosinophils # (Manual) 0.2 k/uL (0-0.7) 09/03/16 04:30 Basophils # MACHINE ATTENDANT 08/31/16 05:48 Nucleated RBCs 3 /100 WBC (0-0) H 09/03/16 04:30 Differential Comment 08/31/16 05:48 Manual Slide Review Performed 09/02/16 03:55 Toxic Granulation Present 08/30/16 18:14 Large Platelets Present 09/03/16 04:30 Polychromasia Present 09/03/16 04:30 Poikilocytosis (manual Present 09/03/16 04:30 Anisocytosis Slight 09/03/16 04:30 Anisocytosis (manual) Present 09/02/16 03:55 Microcytosis Slight 09/03/16 04:30 Target Cells Present 09/03/16 04:30 PT 15.4 sec (9.0-12.0) H 09/03/16 04:30 INR 1.6 (<1.1) 09/03/16 04:30 APTT 22.5 sec (22.0-30.0) 08/31/16 05:48 Sample Site [place] 09/03/16 10:12 ABG pH 7.36 (7.35-7.45) 09/03/16 10:12 ABG pCO2 36 mmHg (35-45) 09/03/16 10:12 ABG pO2 110 mmHg (83-108) H 09/03/16 10:12 ABG HCO3 20 mmol/L (21-25) L 09/03/16 10:12 ABG Total CO2 21 mmol/L (19-24) 09/03/16 10:12 ABG O2 Saturation 98.0 % (94-97) H 09/03/16 10:12 ABG Base Excess -4.4 mmol/L 09/03/16 10:12 FiO2 50 % 09/03/16 10:12 Sodium 140 mmol/L (137-145) 09/03/16 04:30 Potassium 5.2 mmol/L (3.5-5.1) H 09/03/16 04:30 Chloride 104 mmol/L (98-107) 09/03/16 04:30 Carbon Dioxide 21 mmol/L (22-30) L 09/03/16 04:30 Anion Gap 15 mmol/L 09/03/16 04:30 BUN 97 mg/dL (9-20) H* 09/03/16 04:30 Creatinine 5.00 mg/dL (0.66-1.25) H* 09/03/16 04:30 Est GFR (MDRD) Af Amer 14 (>60 ml/min/1.73 sqM) 09/03/16 04:30 Est GFR (MDRD) Non-Af 12 (>60 ml/min/1.73 sqM) 09/03/16 04:30 Glucose 128 mg/dL (74-99) H 09/03/16 04:30 POC Glucose (mg/dL) 140 mg/dL (75-99) H 09/03/16 12:30 POC Glu Pressurization Mechanic Paige Jesus 09/03/16 12:30 Plasma Lactic Acid James 1.3 mmol/L (0.7-2.0) 09/01/16 04:20 Calcium 6.3 mg/dL (8.4-10.2) L* 09/03/16 04:30 Phosphorus 9.0 mg/dL (2.5-4.5) H* 09/03/16 04:30 Magnesium 2.5 mg/dL (1.6-2.3) H 09/03/16 04:30 Total Bilirubin 0.5 mg/dL (0.2-1.3) 08/31/16 05:48 AST 17 U/L (17-59) 08/31/16 05:48 ALT 25 U/L (21-72) 08/31/16 05:48 Alkaline Phosphatase 76 U/L (38-126) 08/31/16 05:48 CK-MB (CK-2) 1.5 ng/mL (0.0-2.4) 08/31/16 05:48 Troponin I 0.116 ng/mL (0.000-0.034) H* 08/31/16 05:48 NT-Pro-B Natriuret Pep 349424 pg/mL 08/30/16 18:14 Total Protein 5.4 g/dL (6.3-8.2) L 08/31/16 05:48 Albumin 2.6 g/dL (3.5-5.0) L 08/31/16 05:48 Amylase 86 U/L (30-110) 08/30/16 18:14 Lipase 401 U/L (23-300) H 09/03/16 04:30 Urine Color Yellow 08/31/16 00:15 Urine Appearance Cloudy (Clear) 08/31/16 00:15 Urine pH 5.0 (5.0-8.0) 08/31/16 00:15 Ur Specific [place] 1.010 (1.001-1.035) 08/31/16 00:15 Urine Protein Trace (Negative) H 08/31/16 00:15 Urine Glucose (UA) Negative (Negative) 08/31/16 00:15 Urine Ketones Negative (Negative) 08/31/16 00:15 Urine Blood Negative (Negative) 08/31/16 00:15 Urine Nitrate Negative (Negative) 08/31/16 00:15 Urine Bilirubin Negative (Negative) 08/31/16 00:15 Urine Urobilinogen <2.0 mg/dL (<2.0) 08/31/16 00:15 Ur Leukocyte Esterase Negative (Negative) 08/31/16 00:15 Urine RBC 2 /hpf (0-5) 08/31/16 00:15 Urine WBC 4 /hpf (0-5) 08/31/16 00:15 Ur Squamous Epith Cells 1 /hpf (0-4) 08/31/16 00:15 Amorphous Sediment Rare /hpf (None) H 08/31/16 00:15 Microbiology 09/02/16 10:50 Blood Blood Culture - Preliminary No Growth after 24 hours 09/01/16 09:25 Sputum Gram Stain - Final 09/01/16 09:25 Sputum Sputum Culture - Final Pseudomonas aeruginosa 08/31/16 00:25 Abdomen Anaerobic Culture - Final Anaerobic Gm Negative Bacilli Anaerobic Gm Negative Bacilli#2 Izabel albicans 08/31/16 00:25 Abdomen Gram Stain - Final 08/31/16 00:25 Abdomen Wound Culture - Final Pseudomonas aeruginosa Klebsiella pneumoniae Strep agalactiae - (group b) 08/30/16 18:14 Blood Blood Culture Gram Stain - Final 08/30/16 18:14 Blood Blood Culture - Final Pseudomonas aeruginosa 08/31/16 00:15 Urine,Voided Urine Culture - Final 08/30/16 18:14 Blood Blood Culture - Preliminary Assessment and Plan (1) Gram negative sepsis Narrative/Plan: 61-year-old male presents to Hospital acutely ill. Evidence of sepsis with gram -negative bacilli, as well as drainage from his PEG tube site. The computed tomography scan of the abdomen shows evidence of some irritation to that site but no drainable abscess was noted Sputum culture also now has some gram-negative bacilli that are present at admission. Blood culture shows evidence of pseudomonas aeruginosa that is quite susceptible. The patient however is quite immunocompromise. He has extensive leukocytosis that appears to be on the basis of his underlying sepsis which is gram-negative in nature. Repeat blood cultures have been requested to ensure that his bacteremia has cleared. If he has any further ongoing bacteremia would want to consider removal of his port is potential ongoing source of infection, however the abdominal wall appears to be the likely source in his seen in a compromised host. He has tracheostomy in the bacteria that's present could be a colonization. Await the final cultures from above. Metronidazole may be discontinued Was receiving meropenem therapy. However given the current final cultures a transition this to piperacillin tazobactam for de-escalation. The patient continues to have a significant leukocytosis. He has had chemotherapy a consequently with a mild abnormality seen on his computed tomography scan would be conservative the possibility of a bowel wall infection, typhilits. An upright and flat plate x-ray will be obtained to further evaluate his bowel at this time to ensure there is no worsening. At this time doubt pneumonia As far as the PEG tube site, the computed tomography scan as well as a physical exam did not seem to point to a significant abscess at that site. General surgery is following. Status: Acute (2) Pseudomonal bacteremia Status: Acute
--- NOTE | 2016-09-03 14:09 | XR ---
INDICATION: Cecal COMPARISON: None FINDINGS: Two views of the abdomen demonstrates a normal bowel gas pattern. Inferior vena cava filter. No evidence of organomegaly, abnormal calcifications or obvious soft tissue masses. Oral contrast seen in the colon. Gastrostomy tube. The osseous structures are intact. IMPRESSION: Nonobstructive bowel gas pattern. Contrast seen in colon.
--- NOTE | 2016-09-03 14:32 | P.PN ---
Subjective This is a 61-year-old -Luxembourger male patient of Dr. 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 Cartagena. Patient apparently received chemotherapy 2 weeks ago. History of DVT status post IVC filter, hypothyroidism , history of trach and stoma and PEG tube. Patient apparently eats and PEG tube was only used for medications. Patient apparently has been nonverbal since throat surgery. Patient was brought into [facility] emergency center due to weakness and diarrhea that he had had for a few days. There was no blood or tarriness to the stool. No vomiting was noted there was abdominal discomfort in the epigastric and left upper quadrant and increased productive cough through his stoma and also noted of blood in his sputum. This information was obtained from the ER record as patient is unable to provide any history. He underwent renal ultrasound that showed multiple cystic lesions in the bilateral kidneys. Abdominal and pelvic CAT scan without contrast showed small hiatal hernia, cardiomegaly, bilateral pleural effusions. No acute abnormality within the abdomen or pelvis. There is clearing of almost all ascites fluid to from previous exam. Chest x-ray showed mild heart failure with small right pleural effusion and right upper lobe nodule which is smaller since August 14. Multiple consultants were added including nephrology, cardiology, broadcast correspondent and infectious disease and patient was admitted into intensive care unit due to hypotension requiring levo fed. He was found to be in acute renal failure with BUN of 104 and creatinine 6.39 with hyponatremia of 127 and hyperkalemia at 6.1. White count was elevated at 20.9. Lactic acid was 1.3. Hemoglobin 9.5 and platelet count 93. Lipase 565 and amylase within normal limits. Troponin was elevated at 0.109, 0.114 and 0.116.. Influenza testing was negative. Urinalysis was cloudy with nitrate and leukoesterase negative. Carr catheter was placed to monitor urine output. There was concern of pus at the PEG tube site for which this was cultured. Patient has received calcium gluconate and insulin and Kayexalate. Dr. clinton has placed him on Flagyl IV and oral vancomycin. Patient has had no further stools since arrival. 09/01: patient has a known history of PE 2 years ago and has been on eliquis since then. However due to his renal function, he has been started on Coumadin. His PEG tube was placed by Dr. Sánchez. He has had chronic kidney disease since his chemotherapy for the laryngeal cancer. Patient did have several runs of V. tach. IV fluids to be changed over to 0.9 and sodium bicarb per PEG to start. Patient is followed by Dr. Thompson. His urine output has been low and he did receive a 500 mL bolus at 2 AM.CAT scan of the abdomen and pelvis showed soft tissue thickening along the PEG tube. Findings could represent cellulitis or localized infection. No sizable fluid collection. New cecal bascule as compared to August 30 and abnormal cecal dilation up to 10 cm. Consider surgical evaluation mild abdominal ascites increased from August 30. chest x-ray shows similar findings with cardiomegaly some improvement in volume status. wound culture from the PEG tube site is showing gram-negative bacilli to organisms and group B strep agalactia. Blood culture gram-negative bacilli. Urine culture finalized with no growth. Dr. Reece has changed antibiotics to Flagyl and meropenem. He has been seen by cardiology and low dose beta cheng plan to be added and plan to wean levo.Dr. Khan is on consult for intensive care management. 09/02:Patient had imaging studies performed CAT scan of abdomen and pelvis showing soft tissue thickening along the superior and lateral aspect of the PEG tube area, no sizable fluid collection is identified however findings could represent localized infection or cellulitis, there is a new cecal bascule as compared to 08/2216 with abnormal cecal dilatation up to 10 cm, mild abdominal ascites which is increased small pleural effusion mild anasarca patient currently is made nothing by mouth with oral medications held. Patient remains in ICU still on Levophed 3 mics also followed by Dr. Spence and Dr. Roa from general surgery. Abdominal cultures pseudomonas aeruginosa klebsiella pneumonia strep agalactiae sputum cultures pending blood cultures pseudomonas aeruginosa, C. diff collection still pending 08/28; patient remains in ICU he has been off his Levophed, diet has been reordered with PEG feeds at 10 mL per hour with titration patient has prolonged expiration refused any suctioning from his tracheostomy Objective - Vital Signs Vital signs: Vital Signs Temp 97.4 F L 09/03/16 12:00 Pulse 97 09/03/16 12:00 Resp 6 L 09/03/16 12:00 BP 102/66 02/26/17 09:00 Pulse Ox 98 09/03/16 12:00 Intake & Output 09/02/16 09/03/16 09/03/16 18:59 06:59 18:59 Intake Total 1825 950 375 Output Total 435 650 240 Balance 1390 300 135 Weight 95.9 kg Intake: IV 100 950 375 Dextrose 5% in Water 1, 900 375 000 ml @ 75 mls/hr IV . [id number] RYAN with Sodium Bicarb (1 Meq/ml) 150 ml Rx#:[id number] Meropenem 500 mg In 50 Sodium Chloride 0.9% 50 ml @ 100 mls/hr IVPB Q12HR RYAN Rx#:[id number] metroNIDAZOLE-NS PMX 500 100 mg In Saline 1 100ml.bag @ 100 mls/hr IVPB ONCE STA Rx#:[id number] Intake, IV Titration 1725 Amount Sodium Chloride 0.9% 1, 1625 000 ml @ 125 mls/hr IV . Q8H RYAN Rx#:[id number] metroNIDAZOLE-NS PMX 500 100 mg In Saline 1 100ml.bag @ 100 mls/hr IVPB ONCE STA Rx#:[id number] Output: Urine 435 650 240 Other: Voiding Method Indwelling Catheter Indwelling Catheter Indwelling Catheter # Bowel Movements 0 ABP, PAP, CO, CI - Last Documented Arterial Blood Pressure 117/55 - Constitutional General appearance: Present: cooperative, mild distress - EENT Eyes: Present: anicteric sclerae, EOMI, PERRLA, normal appearance ENT: Present: hard of hearing, NA/AT - Neck Neck: Present: normal ROM - Respiratory Respiratory: bilateral: CTA, diminished, prolonged expiration - Cardiovascular Rhythm: regular Heart sounds: normal: S1, S2 Abnormal Heart Sounds: Absent: systolic murmur, diastolic murmur, rub, S3 Gallop , S4 Gallop, click, other - Gastrointestinal General gastrointestinal: Present: normal bowel sounds, soft - Integumentary Integumentary: Present: normal, normal turgor - Neurologic Neurologic: Present: CNII-XII intact - Psychiatric Psychiatric: Present: A&O x's 3, appropriate affect - Labs CBC & Chem 7: 09/03/16 04:30 09/03/16 04:30 Labs: Abnormal Lab Results - Last 24 Hours (Table) 09/02/16 09/03/16 09/03/16 Range/Units 16:59 04:30 04:30 WBC 42.4 H* (3.8-10.6) k/uL RBC 3.31 L (4.30-5.90) m/uL Hgb 8.7 L (13.0-17.5) gm/dL Hct 26.9 L (39.0-53.0) % RDW 17.1 H (11.5-15.5) % Neutrophils # (Manual) 30.1 H (1.3-7.7) k/uL Monocytes # (Manual) 1.3 H (0-1.0) k/uL Nucleated RBCs 3 H (0-0) /100 WBC PT (9.0-12.0) sec ABG pH 7.26 L (7.35-7.45) ABG pO2 110 H (83-108) mmHg ABG HCO3 16 L (21-25) mmol/L ABG Total CO2 17 L (19-24) mmol/L ABG O2 Saturation 98.0 H (94-97) % Potassium 5.2 H (3.5-5.1) mmol/L Carbon Dioxide 21 L (22-30) mmol/L BUN 97 H* (9-20) mg/dL Creatinine 5.00 H* (0.66-1.25) mg/dL Glucose 128 H (74-99) mg/dL POC Glucose (mg/dL) (75-99) mg/dL Calcium 6.3 L* (8.4-10.2) mg/dL Phosphorus 9.0 H* (2.5-4.5) mg/dL Magnesium 2.5 H (1.6-2.3) mg/dL Lipase 401 H (23-300) U/L 09/03/16 09/03/16 09/03/16 Range/Units 04:30 08:24 10:12 WBC (3.8-10.6) k/uL RBC (4.30-5.90) m/uL Hgb (13.0-17.5) gm/dL Hct (39.0-53.0) % RDW (11.5-15.5) % Neutrophils # (Manual) (1.3-7.7) k/uL Monocytes # (Manual) (0-1.0) k/uL Nucleated RBCs (0-0) /100 WBC PT 15.4 H (9.0-12.0) sec ABG pH (7.35-7.45) ABG pO2 110 H (83-108) mmHg ABG HCO3 20 L (21-25) mmol/L ABG Total CO2 (19-24) mmol/L ABG O2 Saturation 98.0 H (94-97) % Potassium (3.5-5.1) mmol/L Carbon Dioxide (22-30) mmol/L BUN (9-20) mg/dL Creatinine (0.66-1.25) mg/dL Glucose (74-99) mg/dL POC Glucose (mg/dL) 150 H (75-99) mg/dL Calcium (8.4-10.2) mg/dL Phosphorus (2.5-4.5) mg/dL Magnesium (1.6-2.3) mg/dL Lipase (23-300) U/L 09/03/16 Range/Units 12:30 WBC (3.8-10.6) k/uL RBC (4.30-5.90) m/uL Hgb (13.0-17.5) gm/dL Hct (39.0-53.0) % RDW (11.5-15.5) % Neutrophils # (Manual) (1.3-7.7) k/uL Monocytes # (Manual) (0-1.0) k/uL Nucleated RBCs (0-0) /100 WBC PT (9.0-12.0) sec ABG pH (7.35-7.45) ABG pO2 (83-108) mmHg ABG HCO3 (21-25) mmol/L ABG Total CO2 (19-24) mmol/L ABG O2 Saturation (94-97) % Potassium (3.5-5.1) mmol/L Carbon Dioxide (22-30) mmol/L BUN (9-20) mg/dL Creatinine (0.66-1.25) mg/dL Glucose (74-99) mg/dL POC Glucose (mg/dL) 140 H (75-99) mg/dL Calcium (8.4-10.2) mg/dL Phosphorus (2.5-4.5) mg/dL Magnesium (1.6-2.3) mg/dL Lipase (23-300) U/L Microbiology - Last 24 Hours (Table) 09/02/16 11:18 Blood Culture - Preliminary Blood No Growth after 24 hours 09/02/16 10:50 Blood Culture - Preliminary Blood No Growth after 24 hours 09/01/16 09:25 Gram Stain - Final Sputum Sputum Culture - Final Pseudomonas aeruginosa 08/31/16 00:25 Anaerobic Culture - Final Abdomen Anaerobic Gm Negative Bacilli Anaerobic Gm Negative Bacilli#2 Izabel albicans 08/31/16 00:25 Gram Stain - Final Abdomen Wound Culture - Final Pseudomonas aeruginosa Klebsiella pneumoniae Strep agalactiae - (group b) Assessment and Plan Plan: 1. Acute renal failure and metabolic acidosis with dehydration due to recent diarrhea and possibly worsened by recent chemotherapy. Nephrology is on consult. IV fluids normal saline and oral bicarb. 2. Diarrhea with signs of sepsis and dehydration with septic shock requiring vasopressors. Patient now on meropenem and Flagyl. Continue IV fluids. Has been off norepinephrine. C. diff illness be collected Continue care in the intensive care unit. Dr. Reece is on consult. 3. Sepsis with septic shock with gram-negative bacteremia Pseudomonas aeruginosa requiring vasopressors. Source may be related to PEG tube site or diarrhea. Peg site culture is pending. Blood cultures been obtained. Patient is currently on IV Flagyl and meropenem. Infectious disease following Dr. Spence currently awaiting second set of blood cultures for bacterial clearance special with the current port that he has 4. Bicytopenia with low hemoglobin RBC and platelet count. Most likely secondary to recent chemotherapy. Oncology on consult. 5. Elevated troponin. Cardiology consult appreciated. This is thought to be due to renal failure and sepsis. Echocardiogram is ordered. 6. History of laryngeal carcinoma with tracheostomy in place and PEG tube. Patient normally and takes food by mouth and PEG tube issues for medications only. 7. Small cell lung cancer on chemotherapy under the care of Dr. Cartagena. Consult with Dr. Bonds. 8. Episodes of nonsustained ventricular tachycardia most likely due to hyperkalemia. 9. Hyperkalemia status post Kayexalate and calcium gluconate and insulin with D50. 10. Cecal dilatation 10 cm on 09/01/2015 patient currently is nothing by mouth followed by surgery, improved on follow-up x-rays 09/03/2016, diet restarted surgery following no intervention provided except for bowel rest 10. History of DVT status post IVC filter. 11. Gastrointestinal prophylaxis. Protonix. 12. DVT prophylaxis. Subcutaneous heparin. 13. Hemodynamic instability secondary to septic shock with bacteremia pseudomonas, improved
[2016-09-03] MEDS: PIPERACILLIN-TAZOBACTAM 3.375 GM in DEXTROSE/WATER 1 50ML.BAG IVPB SCH (15:00)
[2016-09-03 18:00] LABS: Glucose,Whole Blood 188 mg/dL (75-99)
--- NOTE | 2016-09-03 19:00 | P.PN ---
Subjective 59-year-old male patient, with a previous history of laryngeal cancer status post total laryngectomy and tracheotomy, also history of small cell lung cancer with interval progression based on the recent PET scan, for which the patient was started on systemic chemotherapy. The patient came in to the burst department yesterday because of diminished oral intake, single episode of diarrhea, dehydration, diminished urine output, lethargy, fatigue, vague abdominal discomfort and some fall smelling drainage around the PEG tube. In addition, the patient was found to be in acute kidney injury, acute metabolic acidosis and acute hyperkalemia. For all this reasons, the patient got transferred to the intensive care unit. He got bolused with a total of 2-3 L of IV fluids in the form normal saline and based on the sides recommendation the patient was switched to bicarb drip. The patient was also covered with broad-spectrum antibiotics. He was initially stopped and accommodation of cefepime and vancomycin. Subsequently, the patient was seen by infectious disease and antibiotics were simplified and the patient was placed on IV Flagyl and oral vancomycin suspecting an underlying C. diff colitis. Nevertheless, the patient has not had any further episodes of diarrhea since he came to the ICU. The patient was examined in the ICU. Active site essentially clean and there was no evidence of any purulent drainage. Abdomen was soft and the CAT scan of the abdomen was done in the emergency department showed no acute abnormalities. He was a bit lethargic and slow in answering questions. He denied having any history distress. Denied any cough or sputum production or any chest pain. No open wounds or sores. No dysuria frequency or urgency. On 09/01/2016, the patient is being seen in follow-up. The patient is quite lethargic. He is post laryngectomy and has a tracheotomy in place. He is also being treated for metastatic small cell lung cancer with systemic chemotherapy on outpatient basis. He presented with acute kidney injury and he is currently septic with gram-negative bacilli growing in his blood culture. The source of the gram-negative is not absolutely clear.. At one point there was suspicion for a PEG tube site infection yet the area seems to be relatively clean and the CAT scan of the abdomen was repeated and showed some soft tissue thickening along the PEG tube especially along the superior margin which raised the suspicion for localized infection and for that reason a surgical consultation was requested. At the same time, the CAT scan showed a new cecal dilatation up to 10 cm compared to the previous CAT scan and for that reason again a surgical consultation was requested. Note that the patient has a port in place yet the port site is clean and intact. Antibiotics have a modified to include a combination of IV Merrem and Flagyl. No diarrhea. No abdominal pain. No nausea vomiting or chest pain. The renal function is slightly improved compared to yesterday. Urine output remains low. The patient is on pressors still and the prednisone extremities 6-10 mics to maintain a mean arterial pressure above 65. The white cell count is elevated at 33.9 IDs on the case. On the patient is being seen in follow-up. As mentioned earlier he has a pseudomonal septicemia. The exact source remains not clear. One potential sources of the Mediport this was inserted recently. Intra-abdominal sources are felt to be possible although less likely. I discussed the case with general surgery and infectious disease. The patient has a gram-negative septicemia and the CAT scan of the abdomen showing some cecal dilatation along with evidence of some irritation at the PEG tube site. There is no evidence of pneumonia. The patient is on Merrem. He is immunosuppressed and immunocompromised based on recent chemotherapy as well as being given for lung cancer. I made recommendations to obtain 2 sets of blood cultures from the Mediport and from peripheral site. The patient was weaned off the pressors throughout the day and currently he is off pressors. We have made a decision to continue the treatment and consider taking out the Mediport if the patient does not improve and/or he continues to have persistent bacteremia. Meanwhile, the patient is still nothing by mouth. Abdomen is nondistended. He is awake and alert and is following simple commands. He has a tracheostomy and today's chest x-ray showing cardiomegaly without any evidence of pulmonary infiltration or pneumonia. Gases were obtained late in the afternoon showed evidence of metabolic acidosis with a pH of 7.26 and a pCO2 of 37 and pO2 of 110 and based on that I have made recommendations to switch this patient back to her bicarb drip infusion. His serum bicarbs at 18 and his anion gap is around 16. His renal function remains impaired with a creatinine of 5.1. White cell count remains elevated at 42. No diarrhea. On 09/03/2016, the patient is still being treated for a pseudomonal septicemia. The patient is on IV Merrem. Hemodynamically stable. The patient was taken off pressors. He is able to sit up on a chair. The sputum is also showing pseudomonas aeruginosa. The ones around the PEG tube is also growing the same microorganism. Discussed the case with ID. It is suspected that the source of infection is the PEG tube site. Meanwhile, the patient will be started on low rates to feet. No respiratory difficulties. He was placed on a bicarb drip and his metabolic acidosis is improved compared to yesterday. He is producing urine output. Renal function remains impaired. White cell count is still elevated at 42. Objective - Vital Signs Vital signs: Vital Signs Temp 98.2 F 09/03/16 16:00 Pulse 96 09/03/16 17:00 Resp 12 09/03/16 17:00 BP 102/66 09/03/16 09:00 Pulse Ox 96 09/03/16 17:00 Intake & Output 09/02/16 09/03/16 09/03/16 18:59 06:59 18:59 Intake Total 1825 950 725 Output Total 435 650 395 Balance 1390 300 330 Weight 95.9 kg Intake: IV 100 950 675 Dextrose 5% in Water 1, 900 675 000 ml @ 75 mls/hr IV . [id number] RYAN with Sodium Bicarb (1 Meq/ml) 150 ml Rx#:[id number] Meropenem 500 mg In 50 Sodium Chloride 0.9% 50 ml @ 100 mls/hr IVPB Q12HR RYAN Rx#:[id number] metroNIDAZOLE-NS PMX 500 100 mg In Saline 1 100ml.bag @ 100 mls/hr IVPB ONCE STA Rx#:[id number] Intake, IV Titration 1725 50 Amount Piperacillin-Tazobactam 3 50 .375 gm In Dextrose/Water 1 50ml.bag @ 12.5 mls/hr IVPB Q8HR RYAN Rx#: [id number] Sodium Chloride 0.9% 1, 1625 000 ml @ 125 mls/hr IV . Q8H RYAN Rx#:[id number] metroNIDAZOLE-NS PMX 500 100 mg In Saline 1 100ml.bag @ 100 mls/hr IVPB ONCE STA Rx#:[id number] Output: Urine 435 650 395 Other: Voiding Method Indwelling Catheter Indwelling Catheter Indwelling Catheter # Bowel Movements 0 ABP, PAP, CO, CI - Last Documented Arterial Blood Pressure 106/62 - Exam Elderly -[place] male patient, slightly lethargic and obtunded. Able to open up his eyes and follows some simple commands.Head exam was generally normal. There was no scleral icterus or corneal arcus. Mucous membranes were moist. Mucous membranes are dry and the patient has a tracheostomy which is open and widely patent. Scars of previous laryngectomy can be seen over the anterior neck. Lung sounds are diminished bilaterally along with some few rales in the lung bases. On today's evaluation there is also bilateral extremity wheezes. Cardiac exam revealed the PMI to be normally situated and sized. The rhythm was regular and no extrasystoles were noted during several minutes of auscultation. The first and second heart sounds were normal and physiologic splitting of the second heart sound was noted. There were no murmurs , rubs, clicks, or gallops. Abdominal exam revealed normal bowel sounds. The abdomen was soft, non-tender, and without masses, organomegaly, or appreciable enlargement of the abdominal aorta. PEG tube site is clean.Examination of the extremities revealed easily palpable radial, femoral and pedal pulses. There was no cyanosis, clubbing or edema. - Labs CBC & Chem 7: 09/03/16 04:30 09/03/16 04:30 Labs: Abnormal Lab Results - Last 24 Hours (Table) 09/03/16 09/03/16 09/03/16 Range/Units 04:30 04:30 04:30 WBC 42.4 H* (3.8-10.6) k/uL RBC 3.31 L (4.30-5.90) m/uL Hgb 8.7 L (13.0-17.5) gm/dL Hct 26.9 L (39.0-53.0) % RDW 17.1 H (11.5-15.5) % Neutrophils # (Manual) 30.1 H (1.3-7.7) k/uL Monocytes # (Manual) 1.3 H (0-1.0) k/uL Nucleated RBCs 3 H (0-0) /100 WBC PT 15.4 H (9.0-12.0) sec ABG pO2 (83-108) mmHg ABG HCO3 (21-25) mmol/L ABG O2 Saturation (94-97) % Potassium 5.2 H (3.5-5.1) mmol/L Carbon Dioxide 21 L (22-30) mmol/L BUN 97 H* (9-20) mg/dL Creatinine 5.00 H* (0.66-1.25) mg/dL Glucose 128 H (74-99) mg/dL POC Glucose (mg/dL) (75-99) mg/dL Calcium 6.3 L* (8.4-10.2) mg/dL Phosphorus 9.0 H* (2.5-4.5) mg/dL Magnesium 2.5 H (1.6-2.3) mg/dL Lipase 401 H (23-300) U/L 09/03/16 09/03/16 09/03/16 Range/Units 08:24 10:12 12:30 WBC (3.8-10.6) k/uL RBC (4.30-5.90) m/uL Hgb (13.0-17.5) gm/dL Hct (39.0-53.0) % RDW (11.5-15.5) % Neutrophils # (Manual) (1.3-7.7) k/uL Monocytes # (Manual) (0-1.0) k/uL Nucleated RBCs (0-0) /100 WBC PT (9.0-12.0) sec ABG pO2 110 H (83-108) mmHg ABG HCO3 20 L (21-25) mmol/L ABG O2 Saturation 98.0 H (94-97) % Potassium (3.5-5.1) mmol/L Carbon Dioxide (22-30) mmol/L BUN (9-20) mg/dL Creatinine (0.66-1.25) mg/dL Glucose (74-99) mg/dL POC Glucose (mg/dL) 150 H 140 H (75-99) mg/dL Calcium (8.4-10.2) mg/dL Phosphorus (2.5-4.5) mg/dL Magnesium (1.6-2.3) mg/dL Lipase (23-300) U/L 09/03/16 Range/Units 17:58 WBC (3.8-10.6) k/uL RBC (4.30-5.90) m/uL Hgb (13.0-17.5) gm/dL Hct (39.0-53.0) % RDW (11.5-15.5) % Neutrophils # (Manual) (1.3-7.7) k/uL Monocytes # (Manual) (0-1.0) k/uL Nucleated RBCs (0-0) /100 WBC PT (9.0-12.0) sec ABG pO2 (83-108) mmHg ABG HCO3 (21-25) mmol/L ABG O2 Saturation (94-97) % Potassium (3.5-5.1) mmol/L Carbon Dioxide (22-30) mmol/L BUN (9-20) mg/dL Creatinine (0.66-1.25) mg/dL Glucose (74-99) mg/dL POC Glucose (mg/dL) 188 H (75-99) mg/dL Calcium (8.4-10.2) mg/dL Phosphorus (2.5-4.5) mg/dL Magnesium (1.6-2.3) mg/dL Lipase (23-300) U/L Microbiology - Last 24 Hours (Table) 09/02/16 11:18 Blood Culture - Preliminary Blood No Growth after 24 hours 09/02/16 10:50 Blood Culture - Preliminary Blood No Growth after 24 hours 09/01/16 09:25 Gram Stain - Final Sputum Sputum Culture - Final Pseudomonas aeruginosa 08/31/16 00:25 Anaerobic Culture - Final Abdomen Anaerobic Gm Negative Bacilli Anaerobic Gm Negative Bacilli#2 Izabel albicans Assessment and Plan Plan: Assessment 1 septic shock secondary to pseudomonas aeruginosa, source being considered of an intra-abdominal in nature with potential infection originating from PEG tube site versus cecum. Line infection is also considered however this is felt to be less likely. The patient does not have any underlying pneumonia. The patient is currently on IV Merrem. Hemodynamically improved and the patient was taken off norepinephrine infusion this afternoon. On 09/03/2016, the patient is still being treated for septic shock. Hemodynamically improved. No hypotension. The patient is still on broad- spectrum antibiotics covering the pseudomonas septicemia. The source of infection is thought to be the PEG tube site not get it; rhythm was cultured from the wound around the PEG tube. Pseudomonas was also cultures from the lungs however this is a colonizer likely. Chest x-ray remains clear of any pulmonary infiltrates. 2 hypotension, secondary to septic shock and the patient was aggressively resuscitated with IV fluids and pressors and he is being taken off vasopressors.. 3 acute kidney injury, most likely secondary to intravascular volume depletion/ dehydration/ and also there is a possibility of an ATN/sepsis induced, proving and creatinine is dropping down to 5.0 and the patient is producing adequate amount of urine output. 2 acute hyperkalemia, treated 3 metabolic acidosis secondary to above, and the patient remains on a bicarb drip for his metabolic acidosis. 4 diarrhea, limited and currently the patient is not having any further episodes. He is covered with broad-spectrum antibiotics including coverage for C. diff 5 laryngeal cancer status post total laryngectomy and tracheotomy 6 small cell lung cancer, metastatic, currently receiving systemic chemotherapy 7 enteral feeding via PEG tube, 8 previous history of DVT status post IVC filter placement 9 leukocytosis/thrombocytopenia/chronic anemia, microcytic 10 cecal dilatation, as it evaluation was done. Plan Continue the bicarb drip. Monitored hemodynamics. ID switched antibiotics from Merrem to Zosyn which I think is reasonable as long as the pseudomonas is sensitive to the same antibiotic. Initiate tube feeds. Monitor the patient ICU and will continue to follow.
[2016-09-03 20:26] LABS: Glucose,Whole Blood 148 mg/dL (75-99)
[2016-09-04] MEDS: oxyCODONE-APAP 7.5-325MG 1 EACH TAB PEG/G-TUBE PRN ×3 (00:59→20:58)
[2016-09-04] MEDS: HEPARIN SODIUM,PORCINE 5,000 UNIT/ML 1 ML VIAL SQ SCH ×3 (01:00→15:14)
[2016-09-04] MEDS: PIPERACILLIN-TAZOBACTAM 3.375 GM in DEXTROSE/WATER 1 50ML.BAG IVPB SCH ×3 (01:01→20:58)
[2016-09-04 04:30] LABS: Anisocytosis Slight; CH 26.6; CHCM 34.2; HCT 26.7 % (39.0-53.0); HDW 2.55; HGB 8.7 gm/dL (13.0-17.5); Immature Gran Flag Marked; MCH 25.4 pg (25.0-35.0); MCHC 32.6 g/dL (31.0-37.0); MCV 77.9 fL (80.0-100.0); Mean Platelet Volume 8.6; Microcytosis Slight; RBC 3.43 m/uL (4.30-5.90); RDW 17.1 % (11.5-15.5); WBC (Perox) 48.17
[2016-09-04 04:47] LABS: INR 1.7 (<1.1); Prothrombin Time 16.6 sec (9.0-12.0)
[2016-09-04 04:49] LABS: Magnesium 2.5 mg/dL (1.6-2.3); Potassium 4.9 mmol/L (3.5-5.1)
[2016-09-04 04:58] LABS: Calcium 6.4 mg/dL (8.4-10.2); Phosphorous 8.2 mg/dL (2.5-4.5)
[2016-09-04 06:19] LABS: Add Differential Manual Differential
[2016-09-04 06:36] LABS: Nucleated Red Blood Cells 4 /100 WBC (0-0); Total Cells Counted 200
[2016-09-04 06:38] LABS: Manual Review Performed; WBC 42.6 k/uL (3.8-10.6)
[2016-09-04 06:39] LABS: Target Cells Present; Toxic Granulation Present; Toxic Vacuolation Present
[2016-09-04 07:36] LABS: Glucose,Whole Blood 179 mg/dL (75-99)
--- NOTE | 2016-09-04 07:37 | XR ---
EXAMINATION TYPE: XR chest 1V DATE OF EXAM: 09/04/2016 6:51 AM COMPARISON: Prior chest x-ray August HISTORY: Shortness of breath TECHNIQUE: Single frontal view of the chest is obtained. FINDINGS: The heart is enlarged. Central vascularity and interstitium are increased. Airspace diseas e persists in the right upper lobe. Right subclavian central venous catheter shows the distal overlyi ng superior vena cava. Possible improved aeration as compared to prior exam. Right upper lobe lung no dule again noted. No pneumothorax or pleural effusion evident. IMPRESSION: There may be improvement in patient's volume status, correlate for pneumonia, improving pulmonary venous hypertension and interstitial edema.
[2016-09-04] MEDS: SODIUM BICARBONATE TAB 650 MG TAB PO SCH ×2 (07:59→15:14)
[2016-09-04] MEDS: CITALOPRAM HYDROBROMIDE 10 MG TAB PO SCH (07:59)
[2016-09-04] MEDS: METOPROLOL TARTRATE 12.5 MG TAB PO SCH (07:59)
[2016-09-04] MEDS: PANTOPRAZOLE 40 MG/10 ML VIAL IV SCH (07:59)
[2016-09-04] MEDS: LEVOTHYROXINE 75 MCG TAB PEG/G-TUBE SCH (07:59)
[2016-09-04] MEDS: CALCIUM ACETATE 667 MG CAP PO SCH ×3 (07:59→17:17)
[2016-09-04] MEDS: MORPHINE SULFATE ER 60 MG TABLET PO SCH ×2 (08:00→17:18)
[2016-09-04] MEDS: INSULIN LISPRO (humaLOG) 300 UNIT/3 ML VIAL SQ SCH ×4 (08:11→20:55)
[2016-09-04 08:12] LABS: Glucose,Whole Blood 164 mg/dL (75-99)
[2016-09-04] MEDS: IPRATROPIUM-ALBUTEROL 3 ML NEB INHALATION PRN ×4 (08:15→18:57)
[2016-09-04 09:10] VITALS: BP 87/67
--- NOTE | 2016-09-04 10:33 | P.PN ---
Subjective Patient seen in follow-up for acute kidney injury. Unclear as to what his baseline renal function is. Creatinine was 2.4 in February 2014. It was 3.1 this admission and peaked at 6.4. It is down to 4.8 today. Patient has history of lung cancer and underwent recent chemotherapy. He is currently being treated for Pseudomonas bacteremia. Diarrhea has resolved. He did receive a dose of Lopressor yesterday and his blood pressure dropped to systolic 80s and the Levophed had to be resumed. Currently on 8 mics. Urine output is stable at 25-30 mL an hour. He is currently receiving tube feeds. Vital signs are stable. General: The patient appeared well nourished and normally developed. HEENT: Head exam is unremarkable. Neck is without jugular venous distension. LUNGS: Lungs are clear to auscultation and percussion. Breath sounds decreased. HEART: Rate and Rhythm are regular. First and second heart sounds normal. No murmurs, rubs or gallops. ABDOMEN: Abdominal exam reveals normal bowel sounds. Non-tender and non- distended. No evidence of peritonitis. EXTREMITITES: 1+ edema. Objective - Vital Signs Vital signs: Vital Signs Temp 97.4 F L 09/04/16 08:00 Pulse 93 09/04/16 09:00 Resp 18 09/04/16 09:00 BP 87/67 09/04/16 09:00 Pulse Ox 99 09/04/16 09:00 Intake & Output 09/03/16 09/04/16 09/04/16 18:59 06:59 18:59 Intake Total 945 1024.7 245 Output Total 465 355 85 Balance 480 669.7 160 Weight 98.4 kg 98.4 kg Intake: IV 825 900 225 Dextrose 5% in Water 1, 825 900 225 000 ml @ 75 mls/hr IV . [id number] RYAN with Sodium Bicarb (1 Meq/ml) 150 ml Rx#:[id number] Intake, IV Titration 50 4.7 Amount Norepinephrine 16 mg In 4.7 Sodium Chloride 0.9% 250 ml @ Titrate IV .Q0M RYAN Rx#:[id number] Piperacillin-Tazobactam 3 50 .375 gm In Dextrose/Water 1 50ml.bag @ 12.5 mls/hr IVPB Q8HR RYAN Rx#: [id number] Tube Feeding 70 120 20 Output: Urine 465 355 85 Other: Voiding Method Indwelling Catheter Indwelling Catheter Indwelling Catheter ABP, PAP, CO, CI - Last Documented Arterial Blood Pressure 97/46 - Labs CBC & Chem 7: 09/04/16 04:10 09/04/16 04:10 Labs: Abnormal Lab Results - Last 24 Hours (Table) 09/03/16 09/03/16 09/03/16 Range/Units 12:30 17:58 20:25 WBC (3.8-10.6) k/uL RBC (4.30-5.90) m/uL Hgb (13.0-17.5) gm/dL Hct (39.0-53.0) % MCV (80.0-100.0) fL RDW (11.5-15.5) % Neutrophils # (Manual) (1.3-7.7) k/uL Lymphocytes # (Manual) (1.0-4.8) k/uL Monocytes # (Manual) (0-1.0) k/uL Nucleated RBCs (0-0) /100 WBC PT (9.0-12.0) sec BUN (9-20) mg/dL Creatinine (0.66-1.25) mg/dL Glucose (74-99) mg/dL POC Glucose (mg/dL) 140 H 188 H 148 H (75-99) mg/dL Calcium (8.4-10.2) mg/dL Ionized Calcium Judith (4.5-5.3) mg/dL Phosphorus (2.5-4.5) mg/dL Magnesium (1.6-2.3) mg/dL 09/04/16 09/04/16 09/04/16 Range/Units 04:10 04:10 04:10 WBC 42.6 H* (3.8-10.6) k/uL RBC 3.43 L (4.30-5.90) m/uL Hgb 8.7 L (13.0-17.5) gm/dL Hct 26.7 L (39.0-53.0) % MCV 77.9 L (80.0-100.0) fL RDW 17.1 H (11.5-15.5) % Neutrophils # (Manual) 33.7 H (1.3-7.7) k/uL Lymphocytes # (Manual) 0.4 L (1.0-4.8) k/uL Monocytes # (Manual) 2.1 H (0-1.0) k/uL Nucleated RBCs 4 H (0-0) /100 WBC PT 16.6 H (9.0-12.0) sec BUN 102 H* (9-20) mg/dL Creatinine 4.80 H (0.66-1.25) mg/dL Glucose 142 H (74-99) mg/dL POC Glucose (mg/dL) (75-99) mg/dL Calcium 6.4 L* (8.4-10.2) mg/dL Ionized Calcium Judith (4.5-5.3) mg/dL Phosphorus 8.2 H* (2.5-4.5) mg/dL Magnesium 2.5 H (1.6-2.3) mg/dL 09/04/16 09/04/16 09/04/16 Range/Units 04:10 07:34 08:11 WBC (3.8-10.6) k/uL RBC (4.30-5.90) m/uL Hgb (13.0-17.5) gm/dL Hct (39.0-53.0) % MCV (80.0-100.0) fL RDW (11.5-15.5) % Neutrophils # (Manual) (1.3-7.7) k/uL Lymphocytes # (Manual) (1.0-4.8) k/uL Monocytes # (Manual) (0-1.0) k/uL Nucleated RBCs (0-0) /100 WBC PT (9.0-12.0) sec BUN (9-20) mg/dL Creatinine (0.66-1.25) mg/dL Glucose (74-99) mg/dL POC Glucose (mg/dL) 179 H 164 H (75-99) mg/dL Calcium (8.4-10.2) mg/dL Ionized Calcium Judith 3.6 L (4.5-5.3) mg/dL Phosphorus (2.5-4.5) mg/dL Magnesium (1.6-2.3) mg/dL Microbiology - Last 24 Hours (Table) 09/02/16 11:18 Blood Culture - Preliminary Blood No Growth after 24 hours 09/02/16 10:50 Blood Culture - Preliminary Blood No Growth after 24 hours 09/01/16 09:25 Gram Stain - Final Sputum Sputum Culture - Final Pseudomonas aeruginosa 08/31/16 00:25 Anaerobic Culture - Final Abdomen Anaerobic Gm Negative Bacilli Anaerobic Gm Negative Bacilli#2 Izabel albicans Assessment and Plan Plan: Assessment: #1. Nonoliguric acute kidney injury secondary to septic ATN. Creatinine improved to 4.8 today. #2. Hypotension requiring 8 mics of Levophed. #3. Hyperphosphatemia secondary to acute kidney injury. #4. Metabolic acidosis secondary to acute kidney injury. Improved. #5. Pseudomonas bacteremia. #6. Lung cancer. Plan: Discontinue sodium bicarbonate drip. Maintain tube feeds. Maintain PhosLo with meals. Wean vasopressors as blood pressure tolerates. Avoid nephrotoxic agents and hypotensive episodes. Antibiotics per infectious disease recommendations. Maintain oral sodium bicarbonate supplementation.
[2016-09-04 12:36] LABS: Glucose,Whole Blood 121 mg/dL (75-99)
[2016-09-04] MEDS: NOREPINEPHRINE 16 MG in SODIUM CHLORIDE 0.9% 250 ML IV SCH (13:54)
[2016-09-04] MEDS: methylPREDNISolone SOD SUCCI 125 MG/2 ML VIAL IV SCH ×2 (13:56→17:18)
--- NOTE | 2016-09-04 14:41 | P.PN ---
Subjective Principal diagnosis: Acute sepsis secondary to pseudomonal infection. 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 The patient came in to the burst department yesterday because of diminished oral intake, single episode of diarrhea, dehydration, diminished urine output, lethargy, fatigue, vague abdominal discomfort and some fall smelling drainage around the PEG tube. In addition, the patient was found to be in acute kidney injury, acute metabolic acidosis and acute hyperkalemia. For all this reasons, the patient got transferred to the intensive care unit. He got bolused with a total of 2-3 L of IV fluids in the form normal saline and based on the sides recommendation the patient was switched to bicarb drip. The patient was also covered with broad-spectrum antibiotics. He was initially stopped and accommodation of cefepime and vancomycin. Subsequently, the patient was seen by infectious disease and antibiotics were simplified and the patient was placed on IV Flagyl and oral vancomycin suspecting an underlying C. diff colitis. Nevertheless, the patient has not had any further episodes of diarrhea since he came to the ICU. The patient was examined in the ICU. Active site essentially clean and there was no evidence of any purulent drainage. Abdomen was soft and the CAT scan of the abdomen was done in the emergency department showed no acute abnormalities. He was a bit lethargic and slow in answering questions. He denied having any history distress. Denied any cough or sputum production or any chest pain. No open wounds or sores. No dysuria frequency or urgency. On 09/01/2016, the patient is being seen in follow-up. The patient is quite lethargic. He is post laryngectomy and has a tracheotomy in place. He is also being treated for metastatic small cell lung cancer with systemic chemotherapy on outpatient basis. He presented with acute kidney injury and he is currently septic with gram-negative bacilli growing in his blood culture. The source of the gram-negative is not absolutely clear.. At one point there was suspicion for a PEG tube site infection yet the area seems to be relatively clean and the CAT scan of the abdomen was repeated and showed some soft tissue thickening along the PEG tube especially along the superior margin which raised the suspicion for localized infection and for that reason a surgical consultation was requested. At the same time, the CAT scan showed a new cecal dilatation up to 10 cm compared to the previous CAT scan and for that reason again a surgical consultation was requested. Note that the patient has a port in place yet the port site is clean and intact. Antibiotics have a modified to include a combination of IV Merrem and Flagyl. No diarrhea. No abdominal pain. No nausea vomiting or chest pain. The renal function is slightly improved compared to yesterday. Urine output remains low. The patient is on pressors still and the prednisone extremities 6-10 mics to maintain a mean arterial pressure above 65. The white cell count is elevated at 33.9 IDs on the case. On the patient is being seen in follow-up. As mentioned earlier he has a pseudomonal septicemia. The exact source remains not clear. One potential sources of the Mediport this was inserted recently. Intra-abdominal sources are felt to be possible although less likely. I discussed the case with general surgery and infectious disease. The patient has a gram-negative septicemia and the CAT scan of the abdomen showing some cecal dilatation along with evidence of some irritation at the PEG tube site. There is no evidence of pneumonia. The patient is on Merrem. He is immunosuppressed and immunocompromised based on recent chemotherapy as well as being given for lung cancer. I made recommendations to obtain 2 sets of blood cultures from the Mediport and from peripheral site. The patient was weaned off the pressors throughout the day and currently he is off pressors. We have made a decision to continue the treatment and consider taking out the Mediport if the patient does not improve and/or he continues to have persistent bacteremia. Meanwhile, the patient is still nothing by mouth. Abdomen is nondistended. He is awake and alert and is following simple commands. He has a tracheostomy and today's chest x-ray showing cardiomegaly without any evidence of pulmonary infiltration or pneumonia. Gases were obtained late in the afternoon showed evidence of metabolic acidosis with a pH of 7.26 and a pCO2 of 37 and pO2 of 110 and based on that I have made recommendations to switch this patient back to her bicarb drip infusion. His serum bicarbs at 18 and his anion gap is around 16. His renal function remains impaired with a creatinine of 5.1. White cell count remains elevated at 42. No diarrhea. On 09/03/2016, the patient is still being treated for a pseudomonal septicemia. The patient is on IV Merrem. Hemodynamically stable. The patient was taken off pressors. He is able to sit up on a chair. The sputum is also showing pseudomonas aeruginosa. The ones around the PEG tube is also growing the same microorganism. Discussed the case with ID. It is suspected that the source of infection is the PEG tube site. Meanwhile, the patient will be started on low rates to feet. No respiratory difficulties. He was placed on a bicarb drip and his metabolic acidosis is improved compared to yesterday. He is producing urine output. Renal function remains impaired. White cell count is still elevated at 42. Patient was seen again on 09/04/2016, doing relatively well, hemodynamically stable, in no distress. Continues to have trach collar in place, on multiple antibiotics for his pseudomonal infection, his bicarb has been corrected nicely and I will discontinue the bicarbonate drip. Patient has a decent urine output. His white count remains elevated at 42.6. INR is 1.7. BUN is 102 creatinine is 4.80. Chest x-ray is showing slight improvement in volume status. And I believe there is slight improvement in the interstitial edema. Objective - Vital Signs Vital signs: Vital Signs Temp 97.6 F 09/04/16 12:00 Pulse 96 09/04/16 14:00 Resp 6 L 09/04/16 14:00 BP 87/67 09/04/16 09:00 Pulse Ox 97 09/04/16 14:00 Intake & Output 09/03/16 09/04/16 09/04/16 18:59 06:59 18:59 Intake Total 945 1024.7 485 Output Total 465 355 210 Balance 480 669.7 275 Weight 98.4 kg 98.4 kg Intake: IV 825 900 325 0.9 NS 100 Dextrose 5% in Water 1, 825 900 225 000 ml @ 75 mls/hr IV . [id number] RYAN with Sodium Bicarb (1 Meq/ml) 150 ml Rx#:[id number] Intake, IV Titration 50 4.7 Amount Norepinephrine 16 mg In 4.7 Sodium Chloride 0.9% 250 ml @ Titrate IV .Q0M RYAN Rx#:[id number] Piperacillin-Tazobactam 3 50 .375 gm In Dextrose/Water 1 50ml.bag @ 12.5 mls/hr IVPB Q8HR [facility] Rx#: [id number] Tube Feeding 70 120 120 Other 40 Output: Urine 465 355 210 Other: Voiding Method Indwelling Catheter Indwelling Catheter Indwelling Catheter ABP, PAP, CO, CI - Last Documented Arterial Blood Pressure 113/56 - Exam Elderly -[place] male patient, slightly lethargic and obtunded. Able to open up his eyes and follows some simple commands.Head exam was generally normal. There was no scleral icterus or corneal arcus. Mucous membranes were moist. Mucous membranes are dry and the patient has a tracheostomy which is open and widely patent. Scars of previous laryngectomy can be seen over the anterior neck. Lung sounds are diminished bilaterally along with some few rales in the lung bases. On today's evaluation there is also bilateral extremity wheezes. Cardiac exam revealed the PMI to be normally situated and sized. The rhythm was regular and no extrasystoles were noted during several minutes of auscultation. The first and second heart sounds were normal and physiologic splitting of the second heart sound was noted. There were no murmurs , rubs, clicks, or gallops. Abdominal exam revealed normal bowel sounds. The abdomen was soft, non-tender, and without masses, organomegaly, or appreciable enlargement of the abdominal aorta. PEG tube site is clean.Examination of the extremities revealed easily palpable radial, femoral and pedal pulses. There was no cyanosis, clubbing or edema. - Labs CBC & Chem 7: 09/04/16 04:10 09/04/16 04:10 Labs: Abnormal Lab Results - Last 24 Hours (Table) 09/03/16 09/03/16 09/04/16 Range/Units 17:58 20:25 04:10 WBC 42.6 H* (3.8-10.6) k/uL RBC 3.43 L (4.30-5.90) m/uL Hgb 8.7 L (13.0-17.5) gm/dL Hct 26.7 L (39.0-53.0) % MCV 77.9 L (80.0-100.0) fL RDW 17.1 H (11.5-15.5) % Neutrophils # (Manual) 33.7 H (1.3-7.7) k/uL Lymphocytes # (Manual) 0.4 L (1.0-4.8) k/uL Monocytes # (Manual) 2.1 H (0-1.0) k/uL Nucleated RBCs 4 H (0-0) /100 WBC PT (9.0-12.0) sec BUN (9-20) mg/dL Creatinine (0.66-1.25) mg/dL Glucose (74-99) mg/dL POC Glucose (mg/dL) 188 H 148 H (75-99) mg/dL Calcium (8.4-10.2) mg/dL Ionized Calcium Judith (4.5-5.3) mg/dL Phosphorus (2.5-4.5) mg/dL Magnesium (1.6-2.3) mg/dL 09/04/16 09/04/16 09/04/16 Range/Units 04:10 04:10 04:10 WBC (3.8-10.6) k/uL RBC (4.30-5.90) m/uL Hgb (13.0-17.5) gm/dL Hct (39.0-53.0) % MCV (80.0-100.0) fL RDW (11.5-15.5) % Neutrophils # (Manual) (1.3-7.7) k/uL Lymphocytes # (Manual) (1.0-4.8) k/uL Monocytes # (Manual) (0-1.0) k/uL Nucleated RBCs (0-0) /100 WBC PT 16.6 H (9.0-12.0) sec BUN 102 H* (9-20) mg/dL Creatinine 4.80 H (0.66-1.25) mg/dL Glucose 142 H (74-99) mg/dL POC Glucose (mg/dL) (75-99) mg/dL Calcium 6.4 L* (8.4-10.2) mg/dL Ionized Calcium Judith 3.6 L (4.5-5.3) mg/dL Phosphorus 8.2 H* (2.5-4.5) mg/dL Magnesium 2.5 H (1.6-2.3) mg/dL 09/04/16 09/04/16 09/04/16 Range/Units 07:34 08:11 12:34 WBC (3.8-10.6) k/uL RBC (4.30-5.90) m/uL Hgb (13.0-17.5) gm/dL Hct (39.0-53.0) % MCV (80.0-100.0) fL RDW (11.5-15.5) % Neutrophils # (Manual) (1.3-7.7) k/uL Lymphocytes # (Manual) (1.0-4.8) k/uL Monocytes # (Manual) (0-1.0) k/uL Nucleated RBCs (0-0) /100 WBC PT (9.0-12.0) sec BUN (9-20) mg/dL Creatinine (0.66-1.25) mg/dL Glucose (74-99) mg/dL POC Glucose (mg/dL) 179 H 164 H 121 H (75-99) mg/dL Calcium (8.4-10.2) mg/dL Ionized Calcium Judith (4.5-5.3) mg/dL Phosphorus (2.5-4.5) mg/dL Magnesium (1.6-2.3) mg/dL Microbiology - Last 24 Hours (Table) 09/02/16 11:18 Blood Culture - Preliminary Blood No Growth after 48 hours 09/02/16 10:50 Blood Culture - Preliminary Blood No Growth after 48 hours 09/01/16 09:25 Gram Stain - Final Sputum Sputum Culture - Final Pseudomonas aeruginosa 08/31/16 00:25 Anaerobic Culture - Final Abdomen Anaerobic Gm Negative Bacilli Anaerobic Gm Negative Bacilli#2 Izabel albicans Assessment and Plan Plan: 1 septic shock secondary to pseudomonas aeruginosa, source being considered of an intra-abdominal in nature with potential infection originating from PEG tube site versus cecum. Line infection is also considered however this is felt to be less likely. The patient does not have any underlying pneumonia. The patient is currently on IV Merrem. Hemodynamically improved and the patient was taken off norepinephrine infusion this afternoon. On 09/03/2016, the patient is still being treated for septic shock. Hemodynamically improved. No hypotension. The patient is still on broad- spectrum antibiotics covering the pseudomonas septicemia. The source of infection is thought to be the PEG tube site not get it; rhythm was cultured from the wound around the PEG tube. Pseudomonas was also cultures from the lungs however this is a colonizer likely. Chest x-ray remains clear of any pulmonary infiltrates. On 09/04/2016, patient is still being treated for septic shock. And pseudomonal sepsis. Improving, but clearly not quite ready to be transferred out of the ICU at this point. 2 hypotension, secondary to septic shock and the patient was aggressively resuscitated with IV fluids and pressors and he is being taken off vasopressors.. 3 acute kidney injury, most likely secondary to intravascular volume depletion/ dehydration/ and also there is a possibility of an ATN/sepsis induced, proving and creatinine is dropping down to 5.0 and the patient is producing adequate amount of urine output. 2 acute hyperkalemia, treated 3 metabolic acidosis secondary to above, and the patient remains on a bicarb drip for his metabolic acidosis. This was discontinued on 09/04/2016 4 diarrhea, limited and currently the patient is not having any further episodes. He is covered with broad-spectrum antibiotics including coverage for C. diff 5 laryngeal cancer status post total laryngectomy and tracheotomy 6 small cell lung cancer, metastatic, currently receiving systemic chemotherapy 7 enteral feeding via PEG tube, 8 previous history of DVT status post IVC filter placement 9 leukocytosis/thrombocytopenia/chronic anemia, microcytic 10 cecal dilatation, as it evaluation was done. Recommendation: Discontinue bicarb drip, continue antibiotics as per infectious disease recommendation, continue to monitor in the ICU, not quite ready to transfer out of the ICU at this point. Critical care time is 33 minutes. Time with Patient: Greater than 30
[2016-09-04] MEDS: SODIUM CHLORIDE 0.9% 1,000 ML IV SCH (15:13)
--- NOTE | 2016-09-04 15:33 | P.PN ---
Subjective This is a 61-year-old -[place] male patient of Dr. 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 Cartagena. Patient apparently received chemotherapy 2 weeks ago. History of DVT status post IVC filter, hypothyroidism , history of trach and stoma and PEG tube. Patient apparently eats and PEG tube was only used for medications. Patient apparently has been nonverbal since throat surgery. Patient was brought into [facility] emergency center due to weakness and diarrhea that he had had for a few days. There was no blood or tarriness to the stool. No vomiting was noted there was abdominal discomfort in the epigastric and left upper quadrant and increased productive cough through his stoma and also noted of blood in his sputum. This information was obtained from the ER record as patient is unable to provide any history. He underwent renal ultrasound that showed multiple cystic lesions in the bilateral kidneys. Abdominal and pelvic CAT scan without contrast showed small hiatal hernia, cardiomegaly, bilateral pleural effusions. No acute abnormality within the abdomen or pelvis. There is clearing of almost all ascites fluid to from previous exam. Chest x-ray showed mild heart failure with small right pleural effusion and right upper lobe nodule which is smaller since August 14. Multiple consultants were added including nephrology, cardiology, mixed livestock farm worker and infectious disease and patient was admitted into intensive care unit due to hypotension requiring levo fed. He was found to be in acute renal failure with BUN of 104 and creatinine 6.39 with hyponatremia of 127 and hyperkalemia at 6.1. White count was elevated at 20.9. Lactic acid was 1.3. Hemoglobin 9.5 and platelet count 93. Lipase 565 and amylase within normal limits. Troponin was elevated at 0.109, 0.114 and 0.116.. Influenza testing was negative. Urinalysis was cloudy with nitrate and leukoesterase negative. Carr catheter was placed to monitor urine output. There was concern of pus at the PEG tube site for which this was cultured. Patient has received calcium gluconate and insulin and Kayexalate. Dr. clinton has placed him on Flagyl IV and oral vancomycin. Patient has had no further stools since arrival. 09/01: patient has a known history of PE 2 years ago and has been on eliquis since then. However due to his renal function, he has been started on Coumadin. His PEG tube was placed by Dr. Sánchez. He has had chronic kidney disease since his chemotherapy for the laryngeal cancer. Patient did have several runs of V. tach. IV fluids to be changed over to 0.9 and sodium bicarb per PEG to start. Patient is followed by Dr. Thompson. His urine output has been low and he did receive a 500 mL bolus at 2 AM.CAT scan of the abdomen and pelvis showed soft tissue thickening along the PEG tube. Findings could represent cellulitis or localized infection. No sizable fluid collection. New cecal bascule as compared to August 30 and abnormal cecal dilation up to 10 cm. Consider surgical evaluation mild abdominal ascites increased from August 30. chest x-ray shows similar findings with cardiomegaly some improvement in volume status. wound culture from the PEG tube site is showing gram-negative bacilli to organisms and group B strep agalactia. Blood culture gram-negative bacilli. Urine culture finalized with no growth. Dr. Reece has changed antibiotics to Flagyl and meropenem. He has been seen by cardiology and low dose beta cheng plan to be added and plan to wean levo.Dr. Khan is on consult for intensive care management. 09/02:Patient had imaging studies performed CAT scan of abdomen and pelvis showing soft tissue thickening along the superior and lateral aspect of the PEG tube area, no sizable fluid collection is identified however findings could represent localized infection or cellulitis, there is a new cecal bascule as compared to 08/2216 with abnormal cecal dilatation up to 10 cm, mild abdominal ascites which is increased small pleural effusion mild anasarca patient currently is made nothing by mouth with oral medications held. Patient remains in ICU still on Levophed 3 mics also followed by Dr. Spence and Dr. Roa from general surgery. Abdominal cultures pseudomonas aeruginosa klebsiella pneumonia strep agalactiae sputum cultures pending blood cultures pseudomonas aeruginosa, C. diff collection still pending 09/03: patient remains in ICU he has been off his Levophed, diet has been reordered with PEG feeds at 10 mL per hour with titration patient has prolonged expiration refused any suctioning from his tracheostomy 09/04: Patient remains in the intensive care unit. Urine output has been 25-30 mL per hour. He is currently on tube feedings and also on vasopressors with Levophed. Blood culture was positive for Pseudomonas and repeat blood cultures are showing no growth after 24 hours. IV Solu-Medrolstarted along with inhaled steroids with Pulmicort and steroid Humalog scale. Objective - Vital Signs Vital signs: Vital Signs Temp 97.6 F 09/04/16 12:00 Pulse 100 09/04/16 12:00 Resp 23 09/04/16 12:00 BP 87/67 09/04/16 09:00 Pulse Ox 99 09/04/16 12:00 Intake & Output 09/03/16 09/04/16 09/04/16 18:59 06:59 18:59 Intake Total 945 1024.7 245 Output Total 465 355 85 Balance 480 669.7 160 Weight 98.4 kg 98.4 kg Intake: IV 825 900 225 Dextrose 5% in Water 1, 825 900 225 000 ml @ 75 mls/hr IV . [id number] [facility] with Sodium Bicarb (1 Meq/ml) 150 ml Rx#:[id number] Intake, IV Titration 50 4.7 Amount Norepinephrine 16 mg In 4.7 Sodium Chloride 0.9% 250 ml @ Titrate IV .Q0M [facility] Rx#:[id number] Piperacillin-Tazobactam 3 50 .375 gm In Dextrose/Water 1 50ml.bag @ 12.5 mls/hr IVPB Q8HR [facility] Rx#: [id number] Tube Feeding 70 120 20 Output: Urine 465 355 85 Other: Voiding Method Indwelling Catheter Indwelling Catheter Indwelling Catheter ABP, PAP, CO, CI - Last Documented Arterial Blood Pressure 109/51 - Exam Gen: This is a 61-year-old -[place] male. He is sitting upright in ICU bed and appears to be in no acute distress. Patient is noted to be nonverbal but appears to be alert and can answer some questions by nodding his head. He is continued on norepinephrine neck. HEENT: Head is atraumatic, normocephalic. Pupils equal, round. Sclerae is anicteric. NECK: Supple. No JVD. No lymphadenopathy. No thyromegaly. Tracheostomy noted to Center. No drainage noted at the site. LUNGS: Decreased breath sounds but otherwise no wheezes.. No intercostal retractions. HEART: Regular rate and rhythm. Systolic murmur. ABDOMEN: Soft. Bowel sounds are present. No masses. No tenderness. PEG tube in place to the left upper quadrant with no noted tenderness or drainage. EXTREMITIES: No pedal edema. No calf tenderness. NEUROLOGICAL: Patient is awake, alert and able to follow simple commands and nod to answer questions. - Labs CBC & Chem 7: 09/04/16 04:10 09/04/16 04:10 Labs: Abnormal Lab Results - Last 24 Hours (Table) 09/03/16 09/03/16 09/03/16 Range/Units 12:30 17:58 20:25 WBC (3.8-10.6) k/uL RBC (4.30-5.90) m/uL Hgb (13.0-17.5) gm/dL Hct (39.0-53.0) % MCV (80.0-100.0) fL RDW (11.5-15.5) % Neutrophils # (Manual) (1.3-7.7) k/uL Lymphocytes # (Manual) (1.0-4.8) k/uL Monocytes # (Manual) (0-1.0) k/uL Nucleated RBCs (0-0) /100 WBC PT (9.0-12.0) sec BUN (9-20) mg/dL Creatinine (0.66-1.25) mg/dL Glucose (74-99) mg/dL POC Glucose (mg/dL) 140 H 188 H 148 H (75-99) mg/dL Calcium (8.4-10.2) mg/dL Ionized Calcium Judith (4.5-5.3) mg/dL Phosphorus (2.5-4.5) mg/dL Magnesium (1.6-2.3) mg/dL 09/04/16 09/04/16 09/04/16 Range/Units 04:10 04:10 04:10 WBC 42.6 H* (3.8-10.6) k/uL RBC 3.43 L (4.30-5.90) m/uL Hgb 8.7 L (13.0-17.5) gm/dL Hct 26.7 L (39.0-53.0) % MCV 77.9 L (80.0-100.0) fL RDW 17.1 H (11.5-15.5) % Neutrophils # (Manual) 33.7 H (1.3-7.7) k/uL Lymphocytes # (Manual) 0.4 L (1.0-4.8) k/uL Monocytes # (Manual) 2.1 H (0-1.0) k/uL Nucleated RBCs 4 H (0-0) /100 WBC PT 16.6 H (9.0-12.0) sec BUN 102 H* (9-20) mg/dL Creatinine 4.80 H (0.66-1.25) mg/dL Glucose 142 H (74-99) mg/dL POC Glucose (mg/dL) (75-99) mg/dL Calcium 6.4 L* (8.4-10.2) mg/dL Ionized Calcium Judith (4.5-5.3) mg/dL Phosphorus 8.2 H* (2.5-4.5) mg/dL Magnesium 2.5 H (1.6-2.3) mg/dL 09/04/16 09/04/16 09/04/16 Range/Units 04:10 07:34 08:11 WBC (3.8-10.6) k/uL RBC (4.30-5.90) m/uL Hgb (13.0-17.5) gm/dL Hct (39.0-53.0) % MCV (80.0-100.0) fL RDW (11.5-15.5) % Neutrophils # (Manual) (1.3-7.7) k/uL Lymphocytes # (Manual) (1.0-4.8) k/uL Monocytes # (Manual) (0-1.0) k/uL Nucleated RBCs (0-0) /100 WBC PT (9.0-12.0) sec BUN (9-20) mg/dL Creatinine (0.66-1.25) mg/dL Glucose (74-99) mg/dL POC Glucose (mg/dL) 179 H 164 H (75-99) mg/dL Calcium (8.4-10.2) mg/dL Ionized Calcium Judith 3.6 L (4.5-5.3) mg/dL Phosphorus (2.5-4.5) mg/dL Magnesium (1.6-2.3) mg/dL Microbiology - Last 24 Hours (Table) 09/02/16 11:18 Blood Culture - Preliminary Blood No Growth after 24 hours 09/02/16 10:50 Blood Culture - Preliminary Blood No Growth after 24 hours 09/01/16 09:25 Gram Stain - Final Sputum Sputum Culture - Final Pseudomonas aeruginosa 08/31/16 00:25 Anaerobic Culture - Final Abdomen Anaerobic Gm Negative Bacilli Anaerobic Gm Negative Bacilli#2 Izabel albicans Assessment and Plan Plan: 1. Acute renal failure and metabolic acidosis with dehydration due to recent diarrhea and possibly worsened by recent chemotherapy. Nephrology is on consult. IV fluids normal saline and oral bicarb. 2. Diarrhea with signs of sepsis and dehydration with septic shock requiring vasopressors. Patient now on meropenem and Flagyl. Continue IV fluids. Continue norepinephrine. Continue care in the intensive care unit. Dr. Reece is on consult. 3. Sepsis with septic shock with Pseudomonas bacteremia requiring vasopressors. Source may be related to PEG tube site or diarrhea. Peg site culture is pending. Blood cultures been obtained. Patient is currently on IV Flagyl and meropenem. 4. Bicytopenia with low hemoglobin RBC and platelet count. Most likely secondary to recent chemotherapy. Oncology on consult. 5. Elevated troponin. Cardiology consult appreciated. This is thought to be due to renal failure and sepsis. Echocardiogram is ordered. 6. History of laryngeal carcinoma with tracheostomy in place and PEG tube. Patient normally and takes food by mouth and PEG tube issues for medications only. 7. Small cell lung cancer on chemotherapy under the care of Dr. Granado. Consult with Dr. Bonds. 8. Episodes of nonsustained ventricular tachycardia most likely due to hyperkalemia. 9. Hyperkalemia status post Kayexalate and calcium gluconate and insulin with D50. 10. Cecal dilatation 10 cm on 09/01/2015 patient currently is nothing by mouth followed by surgery, improved on follow-up x-rays 09/03/2016, diet restarted surgery following no intervention provided except for bowel rest 11. History of DVT status post IVC filter. 12. Gastrointestinal prophylaxis. Protonix. 13. DVT prophylaxis. Subcutaneous heparin. Discharge plan: To be determined Impression and plan of care have been directed as dictated by the signing physician. Jacquelyn Ram nurse practitioner acting as scribe for signing physician. Time with Patient: Greater than 30
--- NOTE | 2016-09-04 15:51 | PN ---
Mr. Francisco is a 61-year-old male who presented with symptoms of progressive dyspnea. He has a history of laryngeal carcinoma and tracheotomy as well as small-cell carcinoma of the lung. He is undergoing chemotherapy. He presented with pseudomonal septicemia and hypotension. He was found to have evidence of cardiomyopathy on his echocardiogram. He is back on his Levophed because of a drop in blood pressure. His urine output is stable, unchanged. He is tolerating feeding tube. He has no evidence of tachy- or bradyarrhythmia. He continues to be at this time on the Levophed in addition to his antibiotics. His beta cheng has been on hold. PHYSICAL EXAMINATION: Blood pressure running in the 90s on 8 mcg of Levophed. Heart rate in the 90s. Lungs with scattered rhonchi. No wheezes. HEART: Regular rate, rhythm. S1, S2. No S3. With a systolic murmur. No diastolic murmur. ABDOMEN: Soft. Mild tenderness. EXTREMITIES: No significant edema. Lab data revealed hemoglobin of 8.7. White blood cell 42,600. BUN and creatinine are 102 and 4.8. IMPRESSION: 1. Sepsis, pseudomonas, with associated hypotension. 2. Severe cardiomyopathy. The duration of the cardiomyopathy is unclear. 3. Worsening renal failure. 4. History of deep venous thrombosis. 5. History of laryngeal carcinoma, status post total laryngectomy. 6. Small-cell carcinoma, metastatic. 7. PEG tube feeding. RECOMMENDATIONS: From the cardiac standpoint, his beta cheng will continue to be on hold. Will continue supportive care. Once his blood pressure is stabilized, then we can consider reinitiating beta cheng. Unfortunately the prognosis is guarded.
[2016-09-04] MEDS: metroNIDAZOLE 500 MG TAB PEG/G-TUBE SCH (16:14)
[2016-09-04 17:08] LABS: Glucose,Whole Blood 156 mg/dL (75-99)
--- NOTE | 2016-09-04 17:16 | P.PN ---
Subjective Principal diagnosis: Abdominal pain Patient is evaluated at bedside lying in bed. Patient admits to abdominal discomfort. Localizes to PEG tube site. Denies nausea or vomiting. Patient had a large bowel movement per nurse yesterday. Tolerating tube feeds at 10 mL an hour. Tolerating clear liquid diet. WBC increased to 42.6. Hemoglobin 8.7. Patient currently off pressors. Objective - Vital Signs Vital signs: Vital Signs Temp 97.5 F L 09/04/16 16:00 Pulse 105 H 09/04/16 16:16 Resp 8 L 09/04/16 16:00 BP 87/67 09/04/16 09:00 Pulse Ox 98 09/04/16 16:05 Intake & Output 09/03/16 09/04/16 09/04/16 18:59 06:59 18:59 Intake Total 945 1024.7 580.455 Output Total 465 355 270 Balance 480 669.7 310.455 Weight 98.4 kg 98.4 kg Intake: IV 825 900 365 0.9 NS 140 Dextrose 5% in Water 1, 825 900 225 000 ml @ 75 mls/hr IV . [id number] RYAN with Sodium Bicarb (1 Meq/ml) 150 ml Rx#:[id number] Intake, IV Titration 50 4.7 35.455 Amount Norepinephrine 16 mg In 4.7 35.455 Sodium Chloride 0.9% 250 ml @ Titrate IV .Q0M [facility] Rx#:[id number] Piperacillin-Tazobactam 3 50 .375 gm In Dextrose/Water 1 50ml.bag @ 12.5 mls/hr IVPB Q8HR [facility] Rx#: [id number] Tube Feeding 70 120 140 Other 40 Output: Urine 465 355 270 Other: Voiding Method Indwelling Catheter Indwelling Catheter Indwelling Catheter ABP, PAP, CO, CI - Last Documented Arterial Blood Pressure 111/53 - Exam Abdomen: Soft, nondistended, mild tenderness around PEG tube site with no active drainage, active bowel sounds. - Labs CBC & Chem 7: 09/04/16 04:10 09/04/16 04:10 Labs: Abnormal Lab Results - Last 24 Hours (Table) 09/03/16 09/03/16 09/04/16 Range/Units 17:58 20:25 04:10 WBC 42.6 H* (3.8-10.6) k/uL RBC 3.43 L (4.30-5.90) m/uL Hgb 8.7 L (13.0-17.5) gm/dL Hct 26.7 L (39.0-53.0) % MCV 77.9 L (80.0-100.0) fL RDW 17.1 H (11.5-15.5) % Neutrophils # (Manual) 33.7 H (1.3-7.7) k/uL Lymphocytes # (Manual) 0.4 L (1.0-4.8) k/uL Monocytes # (Manual) 2.1 H (0-1.0) k/uL Nucleated RBCs 4 H (0-0) /100 WBC PT (9.0-12.0) sec BUN (9-20) mg/dL Creatinine (0.66-1.25) mg/dL Glucose (74-99) mg/dL POC Glucose (mg/dL) 188 H 148 H (75-99) mg/dL Calcium (8.4-10.2) mg/dL Ionized Calcium Judith (4.5-5.3) mg/dL Phosphorus (2.5-4.5) mg/dL Magnesium (1.6-2.3) mg/dL 09/04/16 09/04/16 09/04/16 Range/Units 04:10 04:10 04:10 WBC (3.8-10.6) k/uL RBC (4.30-5.90) m/uL Hgb (13.0-17.5) gm/dL Hct (39.0-53.0) % MCV (80.0-100.0) fL RDW (11.5-15.5) % Neutrophils # (Manual) (1.3-7.7) k/uL Lymphocytes # (Manual) (1.0-4.8) k/uL Monocytes # (Manual) (0-1.0) k/uL Nucleated RBCs (0-0) /100 WBC PT 16.6 H (9.0-12.0) sec BUN 102 H* (9-20) mg/dL Creatinine 4.80 H (0.66-1.25) mg/dL Glucose 142 H (74-99) mg/dL POC Glucose (mg/dL) (75-99) mg/dL Calcium 6.4 L* (8.4-10.2) mg/dL Ionized Calcium Judith 3.6 L (4.5-5.3) mg/dL Phosphorus 8.2 H* (2.5-4.5) mg/dL Magnesium 2.5 H (1.6-2.3) mg/dL 09/04/16 09/04/16 09/04/16 Range/Units 07:34 08:11 12:34 WBC (3.8-10.6) k/uL RBC (4.30-5.90) m/uL Hgb (13.0-17.5) gm/dL Hct (39.0-53.0) % MCV (80.0-100.0) fL RDW (11.5-15.5) % Neutrophils # (Manual) (1.3-7.7) k/uL Lymphocytes # (Manual) (1.0-4.8) k/uL Monocytes # (Manual) (0-1.0) k/uL Nucleated RBCs (0-0) /100 WBC PT (9.0-12.0) sec BUN (9-20) mg/dL Creatinine (0.66-1.25) mg/dL Glucose (74-99) mg/dL POC Glucose (mg/dL) 179 H 164 H 121 H (75-99) mg/dL Calcium (8.4-10.2) mg/dL Ionized Calcium Judith (4.5-5.3) mg/dL Phosphorus (2.5-4.5) mg/dL Magnesium (1.6-2.3) mg/dL 09/04/16 Range/Units 17:06 WBC (3.8-10.6) k/uL RBC (4.30-5.90) m/uL Hgb (13.0-17.5) gm/dL Hct (39.0-53.0) % MCV (80.0-100.0) fL RDW (11.5-15.5) % Neutrophils # (Manual) (1.3-7.7) k/uL Lymphocytes # (Manual) (1.0-4.8) k/uL Monocytes # (Manual) (0-1.0) k/uL Nucleated RBCs (0-0) /100 WBC PT (9.0-12.0) sec BUN (9-20) mg/dL Creatinine (0.66-1.25) mg/dL Glucose (74-99) mg/dL POC Glucose (mg/dL) 156 H (75-99) mg/dL Calcium (8.4-10.2) mg/dL Ionized Calcium Judith (4.5-5.3) mg/dL Phosphorus (2.5-4.5) mg/dL Magnesium (1.6-2.3) mg/dL Microbiology - Last 24 Hours (Table) 09/02/16 11:18 Blood Culture - Preliminary Blood No Growth after 48 hours 09/02/16 10:50 Blood Culture - Preliminary Blood No Growth after 48 hours Assessment and Plan Plan: Impression: 1. Abdominal pain. 2. Septic shock with cultures positive for Pseudomonas aeruginosa. 3. Cecal dilatation suspect secondary to ileus, resolved. 4. History of laryngeal carcinoma with recent chemotherapy status post tracheostomy and PEG tube placement. Plan: 1. Continue tube feeds at 10 mL an hour. Continue clear liquid diet. Continue IV antibiotics per infectious disease service. Continue to follow with medical team. The above impression and plan have been discussed and directed by Dr. Sánchez. Chikis CAZARES acting as scribe for Dr. Sánchez.
[2016-09-04] MEDS: BUDESONIDE 0.5 MG/2 ML NEBU INHALATION SCH (18:57)
[2016-09-04 20:27] LABS: Glucose,Whole Blood 154 mg/dL (75-99)
--- NOTE | 2016-09-04 21:19 | PN ---
DATE OF SERVICE: 09/04/2016 Reason for follow-up: Pseudomonas bacteremia, source pneumonia. INTERVAL HISTORY: The patient is afebrile. He has been breathing comfortably. No nausea. No vomiting. No significant abdominal pain. No diarrhea. Did have four bowel movements last night. On examination, blood pressure 107/50 with a pulse 102, temperature 97.6, he is 97% on trach collar. General description is a middle-age male lying in bed in no distress. RESPIRATORY SYSTEM: Unlabored breathing. Clear to auscultation anteriorly. HEART: S1, S2 regular rate and rhythm. ABDOMEN: Soft, no tenderness. LABS: Hemoglobin is 8.7, white count is 42.6. BUN of 102, with a creatinine 4.80. DIAGNOSTIC IMPRESSION AND PLAN: Patient with pseudomonas bacteremia source is likely a component of pneumonia and abdominal source, which is sensitive to pathogen. Currently on Piptazobactam and will be continued now with worsening of the white count. Will add Flagyl to cover for some of the anaerobes that were seen on the culture and may not be covered with zosyn and repeat CBC tomorrow. Continue supportive care. MTDD
[2016-09-05] MEDS: METOPROLOL TARTRATE 12.5 MG TAB PO SCH ×3 (00:59→21:10)
[2016-09-05] MEDS: HEPARIN SODIUM,PORCINE 5,000 UNIT/ML 1 ML VIAL SQ SCH ×4 (01:03→23:05)
[2016-09-05] MEDS: SODIUM BICARBONATE TAB 650 MG TAB PO SCH ×4 (01:03→23:03)
[2016-09-05] MEDS: methylPREDNISolone SOD SUCCI 125 MG/2 ML VIAL IV SCH ×5 (01:04→23:06)
[2016-09-05] MEDS: metroNIDAZOLE 500 MG TAB PEG/G-TUBE SCH ×4 (01:32→23:05)
[2016-09-05] MEDS: oxyCODONE-APAP 7.5-325MG 1 EACH TAB PEG/G-TUBE PRN ×2 (05:36→20:45)
[2016-09-05] MEDS: LEVOTHYROXINE 75 MCG TAB PEG/G-TUBE SCH (05:36)
[2016-09-05 05:47] LABS: INR 1.7 (<1.1); Prothrombin Time 16.4 sec (9.0-12.0)
[2016-09-05 05:48] LABS: Anisocytosis Slight; CH 26.4; CHCM 33.6; HCT 25.3 % (39.0-53.0); HDW 2.53; HGB 8.4 gm/dL (13.0-17.5); Immature Gran Flag Marked; MCH 26.1 pg (25.0-35.0); MCHC 33.1 g/dL (31.0-37.0); Mean Platelet Volume 9.4; Microcytosis Slight; RDW 17.1 % (11.5-15.5); WBC (Perox) 48.31
[2016-09-05 05:49] LABS: Calcium 6.8 mg/dL (8.4-10.2); Magnesium 2.5 mg/dL (1.6-2.3); Phosphorous 7.7 mg/dL (2.5-4.5); Potassium 4.6 mmol/L (3.5-5.1)
[2016-09-05] MEDS: MORPHINE SULFATE ER 60 MG TABLET PO SCH ×2 (07:04→16:25)
[2016-09-05 07:35] LABS: Glucose,Whole Blood 247 mg/dL (75-99)
[2016-09-05 07:42] LABS: Add Differential Manual Differential
[2016-09-05 07:50] LABS: Band Neutrophils % 8.5 %; Metamyelocytes % 6.5 %; Nucleated Red Blood Cells 5 /100 WBC (0-0); Total Cells Counted 200
[2016-09-05 07:51] LABS: Manual Review Performed
[2016-09-05 07:52] LABS: Target Cells Present; Toxic Granulation Present
[2016-09-05] MEDS: CALCIUM ACETATE 667 MG CAP PO SCH ×3 (08:00→16:25)
[2016-09-05] MEDS: BUDESONIDE 0.5 MG/2 ML NEBU INHALATION SCH ×2 (08:33→19:27)
[2016-09-05] MEDS: IPRATROPIUM-ALBUTEROL 3 ML NEB INHALATION PRN ×4 (08:33→19:27)
[2016-09-05] MEDS: PANTOPRAZOLE 40 MG/10 ML VIAL IV SCH (09:00)
[2016-09-05] MEDS: CITALOPRAM HYDROBROMIDE 10 MG TAB PO SCH (09:00)
--- NOTE | 2016-09-05 09:13 | XR ---
EXAMINATION TYPE: XR chest 1V portable DATE OF EXAM: 09/05/2016 6:36 AM COMPARISON: 09/04/2016 HISTORY: Shortness of breath TECHNIQUE: Single frontal view of the chest is obtained. FINDINGS: Heart is prominent. There is a right-sided central venous catheter with no pneumothorax. I nterstitial pattern persists. IMPRESSION: 1. Stable interstitial pattern correlate for interstitial pneumonitis or mild venous congestion. 2. Basilar atelectasis or early infiltrate stable
--- NOTE | 2016-09-05 10:29 | P.PN ---
Subjective Patient seen in follow-up for acute kidney injury. Unclear as to what his baseline renal function is. Creatinine was 2.4 in February 2014. It was 3.1 this admission and peaked at 6.4. It is relatively stable at 4.9 today. Patient has history of lung cancer and underwent recent chemotherapy. He is currently being treated for Pseudomonas bacteremia. Diarrhea has resolved. Vasopressors have been discontinued. Urine output is stable at 25-30 mL an hour. He is currently receiving tube feeds. Vital signs are stable. General: The patient appeared well nourished and normally developed. HEENT: Head exam is unremarkable. Neck is without jugular venous distension. LUNGS: Lungs are clear to auscultation and percussion. Breath sounds decreased. HEART: Rate and Rhythm are regular. First and second heart sounds normal. No murmurs, rubs or gallops. ABDOMEN: Abdominal exam reveals normal bowel sounds. Non-tender and non- distended. No evidence of peritonitis. EXTREMITITES: 1+ edema. Objective - Vital Signs Vital signs: Vital Signs Temp 98.2 F 09/05/16 04:00 Pulse 99 09/05/16 08:57 Resp 10 L 09/05/16 07:00 BP 87/67 09/04/16 09:00 Pulse Ox 96 09/05/16 08:35 Intake & Output 09/04/16 09/05/16 09/05/16 18:59 06:59 18:59 Intake Total 716.109 890 60 Output Total 360 320 30 Balance 356.109 570 30 Weight 98.4 kg 100.2 kg Intake: IV 425 220 20 0.9 NS 200 220 20 Dextrose 5% in Water 1, 225 000 ml @ 75 mls/hr IV . [id number] [facility] with Sodium Bicarb (1 Meq/ml) 150 ml Rx#:[id number] Intake, IV Titration 51.109 50 Amount Norepinephrine 16 mg In 51.109 Sodium Chloride 0.9% 250 ml @ Titrate IV .Q0M [facility] Rx#:[id number] Piperacillin-Tazobactam 3 50 .375 gm In Dextrose/Water 1 50ml.bag @ 12.5 mls/hr IVPB Q12HR [facility] Rx#: [id number] Oral 30 Tube Feeding 200 510 40 Other 40 80 Output: Urine 360 320 30 Other: Voiding Method Indwelling Catheter Indwelling Catheter ABP, PAP, CO, CI - Last Documented Arterial Blood Pressure 106/48 - Labs CBC & Chem 7: 09/05/16 05:30 09/05/16 05:30 Labs: Abnormal Lab Results - Last 24 Hours (Table) 09/04/16 09/04/16 09/04/16 Range/Units 12:34 17:06 20:26 WBC (3.8-10.6) k/uL RBC (4.30-5.90) m/uL Hgb (13.0-17.5) gm/dL Hct (39.0-53.0) % MCV (80.0-100.0) fL RDW (11.5-15.5) % Neutrophils # (Manual) (1.3-7.7) k/uL Monocytes # (Manual) (0-1.0) k/uL Nucleated RBCs (0-0) /100 WBC PT (9.0-12.0) sec BUN (9-20) mg/dL Creatinine (0.66-1.25) mg/dL Glucose (74-99) mg/dL POC Glucose (mg/dL) 121 H 156 H 154 H (75-99) mg/dL Calcium (8.4-10.2) mg/dL Phosphorus (2.5-4.5) mg/dL Magnesium (1.6-2.3) mg/dL 09/05/16 09/05/16 09/05/16 Range/Units 05:30 05:30 05:30 WBC 45.0 H* (3.8-10.6) k/uL RBC 3.20 L (4.30-5.90) m/uL Hgb 8.4 L (13.0-17.5) gm/dL Hct 25.3 L (39.0-53.0) % MCV 79.0 L (80.0-100.0) fL RDW 17.1 H (11.5-15.5) % Neutrophils # (Manual) 34.2 H (1.3-7.7) k/uL Monocytes # (Manual) 1.1 H (0-1.0) k/uL Nucleated RBCs 5 H (0-0) /100 WBC PT 16.4 H (9.0-12.0) sec BUN 108 H* (9-20) mg/dL Creatinine 4.92 H (0.66-1.25) mg/dL Glucose 194 H (74-99) mg/dL POC Glucose (mg/dL) (75-99) mg/dL Calcium 6.8 L (8.4-10.2) mg/dL Phosphorus 7.7 H (2.5-4.5) mg/dL Magnesium 2.5 H (1.6-2.3) mg/dL 09/05/16 Range/Units 07:32 WBC (3.8-10.6) k/uL RBC (4.30-5.90) m/uL Hgb (13.0-17.5) gm/dL Hct (39.0-53.0) % MCV (80.0-100.0) fL RDW (11.5-15.5) % Neutrophils # (Manual) (1.3-7.7) k/uL Monocytes # (Manual) (0-1.0) k/uL Nucleated RBCs (0-0) /100 WBC PT (9.0-12.0) sec BUN (9-20) mg/dL Creatinine (0.66-1.25) mg/dL Glucose (74-99) mg/dL POC Glucose (mg/dL) 247 H (75-99) mg/dL Calcium (8.4-10.2) mg/dL Phosphorus (2.5-4.5) mg/dL Magnesium (1.6-2.3) mg/dL Microbiology - Last 24 Hours (Table) 09/02/16 11:18 Blood Culture - Preliminary Blood No Growth after 48 hours 09/02/16 10:50 Blood Culture - Preliminary Blood No Growth after 48 hours Assessment and Plan Plan: Assessment: #1. Nonoliguric acute kidney injury secondary to septic ATN. Renal function is relatively stable with creatinine at 4.9 today. #2. Hypotension. Improved. Off all vasopressors. #3. Hyperphosphatemia secondary to acute kidney injury. #4. Metabolic acidosis secondary to acute kidney injury. Improved. #5. Pseudomonas bacteremia. #6. Lung cancer. Plan: Off all IV fluids at this time. Maintain tube feeds. Maintain PhosLo with meals. Avoid nephrotoxic agents and hypotensive episodes. Antibiotics per infectious disease recommendations. Maintain oral sodium bicarbonate supplementation.
[2016-09-05] MEDS: INSULIN LISPRO (humaLOG) 300 UNIT/3 ML VIAL SQ SCH ×4 (11:14→21:09)
[2016-09-05] MEDS: INSULIN DETEMIR 100 UNIT/ML 10 ML VIAL SQ SCH (11:14)
[2016-09-05] MEDS: PIPERACILLIN-TAZOBACTAM 3.375 GM in DEXTROSE/WATER 1 50ML.BAG IVPB SCH ×2 (11:15→23:03)
[2016-09-05] MEDS: FLUCONAZOLE 100 MG TAB PEG/G-TUBE SCH (11:15)
[2016-09-05 11:58] LABS: Glucose,Whole Blood 247 mg/dL (75-99)
--- NOTE | 2016-09-05 12:02 | PN ---
Mr. Francisco is a 61-year-old male with a history of laryngeal CA and small cell CA who presented with sepsis. He was noted to have severe cardiomyopathy. He is off his Levophed since 6:00 in the morning. He has no arrhythmia. He has not received his beta cheng. He has no chest pain. No dizziness. No palpitations. His abdominal discomfort appears to be better. He continues to be on the antibiotics, levothyroxine, subQ heparin, ipratropium, Protonix, methylprednisolone. PHYSICAL EXAMINATION: Blood pressure 113/50 with a heart rate in the low 100 and high 90s. Lungs with scattered rhonchi. HEART: Regular rate rhythm. S1, S2, no S3, no rub. ABDOMEN: Soft, PEG tube in place. EXTREMITIES: +1 edema. Lab data revealed a white blood cell of 45,000, hemoglobin of 8.4. BUN and creatinine of 108 and 4.92. Potassium 4.6. IMPRESSION: 1. Pseudomonas sepsis with hypotension, improving. 2. Severe cardiomyopathy. 3. Worsening renal failure. 4. Laryngeal carcinoma. 5. Small cell carcinoma. 6. Status post PEG tube. 7. Prior history of deep venous thrombosis and IVC placement. RECOMMENDATION: From the cardiac standpoint, if his pressure remains stable in the afternoon, we may give him a trial with the low dose beta cheng because of his severe cardiomyopathy, otherwise continue supportive care. Unfortunately, the prognosis is guarded.
--- NOTE | 2016-09-05 13:53 | P.PN ---
Subjective This is a 61-year-old -[place] male patient of Dr. 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 Cartagena. Patient apparently received chemotherapy 2 weeks ago. History of DVT status post IVC filter, hypothyroidism , history of trach and stoma and PEG tube. Patient apparently eats and PEG tube was only used for medications. Patient apparently has been nonverbal since throat surgery. Patient was brought into [facility] emergency center due to weakness and diarrhea that he had had for a few days. There was no blood or tarriness to the stool. No vomiting was noted there was abdominal discomfort in the epigastric and left upper quadrant and increased productive cough through his stoma and also noted of blood in his sputum. This information was obtained from the ER record as patient is unable to provide any history. He underwent renal ultrasound that showed multiple cystic lesions in the bilateral kidneys. Abdominal and pelvic CAT scan without contrast showed small hiatal hernia, cardiomegaly, bilateral pleural effusions. No acute abnormality within the abdomen or pelvis. There is clearing of almost all ascites fluid to from previous exam. Chest x-ray showed mild heart failure with small right pleural effusion and right upper lobe nodule which is smaller since August 14. Multiple consultants were added including nephrology, cardiology, biology specialist and infectious disease and patient was admitted into intensive care unit due to hypotension requiring levo fed. He was found to be in acute renal failure with BUN of 104 and creatinine 6.39 with hyponatremia of 127 and hyperkalemia at 6.1. White count was elevated at 20.9. Lactic acid was 1.3. Hemoglobin 9.5 and platelet count 93. Lipase 565 and amylase within normal limits. Troponin was elevated at 0.109, 0.114 and 0.116.. Influenza testing was negative. Urinalysis was cloudy with nitrate and leukoesterase negative. Carr catheter was placed to monitor urine output. There was concern of pus at the PEG tube site for which this was cultured. Patient has received calcium gluconate and insulin and Kayexalate. Dr. clinton has placed him on Flagyl IV and oral vancomycin. Patient has had no further stools since arrival. 09/01: patient has a known history of PE 2 years ago and has been on eliquis since then. However due to his renal function, he has been started on Coumadin. His PEG tube was placed by Dr. Sánchez. He has had chronic kidney disease since his chemotherapy for the laryngeal cancer. Patient did have several runs of V. tach. IV fluids to be changed over to 0.9 and sodium bicarb per PEG to start. Patient is followed by Dr. Thompson. His urine output has been low and he did receive a 500 mL bolus at 2 AM.CAT scan of the abdomen and pelvis showed soft tissue thickening along the PEG tube. Findings could represent cellulitis or localized infection. No sizable fluid collection. New cecal bascule as compared to August 30 and abnormal cecal dilation up to 10 cm. Consider surgical evaluation mild abdominal ascites increased from August 30. chest x-ray shows similar findings with cardiomegaly some improvement in volume status. wound culture from the PEG tube site is showing gram-negative bacilli to organisms and group B strep agalactia. Blood culture gram-negative bacilli. Urine culture finalized with no growth. Dr. Reece has changed antibiotics to Flagyl and meropenem. He has been seen by cardiology and low dose beta cheng plan to be added and plan to wean levo.Dr. Khan is on consult for intensive care management. 09/02:Patient had imaging studies performed CAT scan of abdomen and pelvis showing soft tissue thickening along the superior and lateral aspect of the PEG tube area, no sizable fluid collection is identified however findings could represent localized infection or cellulitis, there is a new cecal bascule as compared to 08/2216 with abnormal cecal dilatation up to 10 cm, mild abdominal ascites which is increased small pleural effusion mild anasarca patient currently is made nothing by mouth with oral medications held. Patient remains in ICU still on Levophed 3 mics also followed by Dr. Spence and Dr. Roa from general surgery. Abdominal cultures pseudomonas aeruginosa klebsiella pneumonia strep agalactiae sputum cultures pending blood cultures pseudomonas aeruginosa, C. diff collection still pending 09/03: patient remains in ICU he has been off his Levophed, diet has been reordered with PEG feeds at 10 mL per hour with titration patient has prolonged expiration refused any suctioning from his tracheostomy 09/04: Patient remains in the intensive care unit. Urine output has been 25-30 mL per hour. He is currently on tube feedings and also on vasopressors with Levophed. Blood culture was positive for Pseudomonas and repeat blood cultures are showing no growth after 24 hours. IV Solu-Medrolstarted along with inhaled steroids with Pulmicort and steroid Humalog scale. 09/05: Patient is currently off Levo. Urine output has been around 25 mL/h. Blood sugars have been running 154-247 and patient started on Levemir [address] Reece has added Flagyl to Zosyn. He has continued on IV Solu -Medrol 60 mg every 6 hours. Objective - Vital Signs Vital signs: Vital Signs Temp 98.2 F 09/05/16 04:00 Pulse 97 09/05/16 08:35 Resp 10 L 09/05/16 07:00 BP 87/67 09/04/16 09:00 Pulse Ox 96 09/05/16 08:35 Intake & Output 09/04/16 09/05/16 09/05/16 18:59 06:59 18:59 Intake Total 716.109 890 60 Output Total 360 320 30 Balance 356.109 570 30 Weight 98.4 kg 100.2 kg Intake: IV 425 220 20 0.9 NS 200 220 20 Dextrose 5% in Water 1, 225 000 ml @ 75 mls/hr IV . [id number] RYAN with Sodium Bicarb (1 Meq/ml) 150 ml Rx#:[id number] Intake, IV Titration 51.109 50 Amount Norepinephrine 16 mg In 51.109 Sodium Chloride 0.9% 250 ml @ Titrate IV .Q0M RYAN Rx#:[id number] Piperacillin-Tazobactam 3 50 .375 gm In Dextrose/Water 1 50ml.bag @ 12.5 mls/hr IVPB Q12HR RYAN Rx#: [id number] Oral 30 Tube Feeding 200 510 40 Other 40 80 Output: Urine 360 320 30 Other: Voiding Method Indwelling Catheter Indwelling Catheter ABP, PAP, CO, CI - Last Documented Arterial Blood Pressure 106/48 - Exam Gen: This is a 61-year-old -[place] male. He is sitting upright in ICU bed and appears to be in no acute distress. Patient is noted to be nonverbal but appears to be alert and can answer some questions by nodding his head. He is continued on norepinephrine neck. HEENT: Head is atraumatic, normocephalic. Pupils equal, round. Sclerae is anicteric. NECK: Supple. No JVD. No lymphadenopathy. No thyromegaly. Tracheostomy noted to Center. No drainage noted at the site. LUNGS: Decreased breath sounds but otherwise no wheezes.. No intercostal retractions. HEART: Regular rate and rhythm. Systolic murmur. ABDOMEN: Soft. Bowel sounds are present. No masses. No tenderness. PEG tube in place to the left upper quadrant with no noted tenderness or drainage. EXTREMITIES: No pedal edema. No calf tenderness. NEUROLOGICAL: Patient is awake, alert and able to follow simple commands and nod to answer questions. - Labs CBC & Chem 7: 09/05/16 05:30 09/05/16 05:30 Labs: Abnormal Lab Results - Last 24 Hours (Table) 09/04/16 09/04/16 09/04/16 Range/Units 12:34 17:06 20:26 WBC (3.8-10.6) k/uL RBC (4.30-5.90) m/uL Hgb (13.0-17.5) gm/dL Hct (39.0-53.0) % MCV (80.0-100.0) fL RDW (11.5-15.5) % Neutrophils # (Manual) (1.3-7.7) k/uL Monocytes # (Manual) (0-1.0) k/uL Nucleated RBCs (0-0) /100 WBC PT (9.0-12.0) sec BUN (9-20) mg/dL Creatinine (0.66-1.25) mg/dL Glucose (74-99) mg/dL POC Glucose (mg/dL) 121 H 156 H 154 H (75-99) mg/dL Calcium (8.4-10.2) mg/dL Phosphorus (2.5-4.5) mg/dL Magnesium (1.6-2.3) mg/dL 09/05/16 09/05/16 09/05/16 Range/Units 05:30 05:30 05:30 WBC 45.0 H* (3.8-10.6) k/uL RBC 3.20 L (4.30-5.90) m/uL Hgb 8.4 L (13.0-17.5) gm/dL Hct 25.3 L (39.0-53.0) % MCV 79.0 L (80.0-100.0) fL RDW 17.1 H (11.5-15.5) % Neutrophils # (Manual) 34.2 H (1.3-7.7) k/uL Monocytes # (Manual) 1.1 H (0-1.0) k/uL Nucleated RBCs 5 H (0-0) /100 WBC PT 16.4 H (9.0-12.0) sec BUN 108 H* (9-20) mg/dL Creatinine 4.92 H (0.66-1.25) mg/dL Glucose 194 H (74-99) mg/dL POC Glucose (mg/dL) (75-99) mg/dL Calcium 6.8 L (8.4-10.2) mg/dL Phosphorus 7.7 H (2.5-4.5) mg/dL Magnesium 2.5 H (1.6-2.3) mg/dL 09/05/16 Range/Units 07:32 WBC (3.8-10.6) k/uL RBC (4.30-5.90) m/uL Hgb (13.0-17.5) gm/dL Hct (39.0-53.0) % MCV (80.0-100.0) fL RDW (11.5-15.5) % Neutrophils # (Manual) (1.3-7.7) k/uL Monocytes # (Manual) (0-1.0) k/uL Nucleated RBCs (0-0) /100 WBC PT (9.0-12.0) sec BUN (9-20) mg/dL Creatinine (0.66-1.25) mg/dL Glucose (74-99) mg/dL POC Glucose (mg/dL) 247 H (75-99) mg/dL Calcium (8.4-10.2) mg/dL Phosphorus (2.5-4.5) mg/dL Magnesium (1.6-2.3) mg/dL Microbiology - Last 24 Hours (Table) 09/02/16 11:18 Blood Culture - Preliminary Blood No Growth after 48 hours 09/02/16 10:50 Blood Culture - Preliminary Blood No Growth after 48 hours Assessment and Plan Plan: 1. Acute renal failure and metabolic acidosis with dehydration due to recent diarrhea and possibly worsened by recent chemotherapy. Nephrology is on consult. IV fluids normal saline and oral bicarb. 2. Diarrhea with signs of sepsis and dehydration with septic shock requiring vasopressors. Patient now on meropenem and Flagyl. Continue IV fluids. Continue norepinephrine. Continue care in the intensive care unit. Dr. Reece is on consult. 3. Sepsis with septic shock with Pseudomonas bacteremia requiring vasopressors. Source may be related to PEG tube site or diarrhea. Peg site culture is pending. Blood cultures been obtained. Patient is currently on IV Flagyl and meropenem. Patient is now off vasopressors. 4. Bicytopenia with low hemoglobin RBC and platelet count. Most likely secondary to recent chemotherapy. Oncology on consult. 5. Elevated troponin. Cardiology consult appreciated. This is thought to be due to renal failure and sepsis. Echocardiogram is ordered. 6. History of laryngeal carcinoma with tracheostomy in place and PEG tube. Patient normally and takes food by mouth and PEG tube issues for medications only. 7. Small cell lung cancer on chemotherapy under the care of Dr. Granado. Consult with Dr. Bonds. 8. Episodes of nonsustained ventricular tachycardia most likely due to hyperkalemia. 9. Hyperkalemia status post Kayexalate and calcium gluconate and insulin with D50. 10. Cecal dilatation 10 cm on 09/01/2015 patient currently is nothing by mouth followed by surgery, improved on follow-up x-rays 09/03/2016, diet restarted surgery following no intervention provided except for bowel rest 11. History of DVT status post IVC filter. 12. Gastrointestinal prophylaxis. Protonix. 13. DVT prophylaxis. Subcutaneous heparin. 14. Stage III pressure ulceration to his coccyx. Discharge plan: To be determined Impression and plan of care have been directed as dictated by the signing physician. Jacquelyn Ram nurse practitioner acting as scribe for signing physician. Time with Patient: Greater than 30
--- NOTE | 2016-09-05 14:49 | P.PN ---
Subjective Principal diagnosis: Abdominal pain Patient is evaluated at bedside lying in bed. No history of nausea or vomiting. Tube feeding has been advanced to 40 mL an hour and patient is tolerating. Tolerating clear liquid diet. Afebrile. WBC increased to 45. Hemoglobin stable at 8.4. Patient currently off vasopressors. Objective - Vital Signs Vital signs: Vital Signs Temp 97.2 F L 09/05/16 12:00 Pulse 104 H 09/05/16 14:00 Resp 8 L 09/05/16 14:00 BP 87/67 09/04/16 09:00 Pulse Ox 99 09/05/16 14:00 Intake & Output 09/04/16 09/05/16 09/05/16 18:59 06:59 18:59 Intake Total 716.109 890 240 Output Total 360 320 270 Balance 356.109 570 -30 Weight 98.4 kg 100.2 kg Intake: IV 425 220 160 0.9 NS 200 220 160 Dextrose 5% in Water 1, 225 000 ml @ 75 mls/hr IV . [id number] RYAN with Sodium Bicarb (1 Meq/ml) 150 ml Rx#:[id number] Intake, IV Titration 51.109 50 Amount Norepinephrine 16 mg In 51.109 Sodium Chloride 0.9% 250 ml @ Titrate IV .Q0M RYAN Rx#:[id number] Piperacillin-Tazobactam 3 50 .375 gm In Dextrose/Water 1 50ml.bag @ 12.5 mls/hr IVPB Q12HR RYAN Rx#: [id number] Oral 30 Tube Feeding 200 510 80 Other 40 80 Output: Urine 360 320 270 Other: Voiding Method Indwelling Catheter Indwelling Catheter Indwelling Catheter ABP, PAP, CO, CI - Last Documented Arterial Blood Pressure 101/52 - Exam Abdomen: Soft, nondistended, mild tenderness around PEG tube site with no active drainage, active bowel sounds. - Labs CBC & Chem 7: 09/05/16 05:30 09/05/16 05:30 Labs: Abnormal Lab Results - Last 24 Hours (Table) 09/04/16 09/04/16 09/05/16 Range/Units 17:06 20:26 05:30 WBC (3.8-10.6) k/uL RBC (4.30-5.90) m/uL Hgb (13.0-17.5) gm/dL Hct (39.0-53.0) % MCV (80.0-100.0) fL RDW (11.5-15.5) % Neutrophils # (Manual) (1.3-7.7) k/uL Monocytes # (Manual) (0-1.0) k/uL Nucleated RBCs (0-0) /100 WBC PT 16.4 H (9.0-12.0) sec BUN (9-20) mg/dL Creatinine (0.66-1.25) mg/dL Glucose (74-99) mg/dL POC Glucose (mg/dL) 156 H 154 H (75-99) mg/dL Calcium (8.4-10.2) mg/dL Phosphorus (2.5-4.5) mg/dL Magnesium (1.6-2.3) mg/dL 09/05/16 09/05/16 09/05/16 Range/Units 05:30 05:30 07:32 WBC 45.0 H* (3.8-10.6) k/uL RBC 3.20 L (4.30-5.90) m/uL Hgb 8.4 L (13.0-17.5) gm/dL Hct 25.3 L (39.0-53.0) % MCV 79.0 L (80.0-100.0) fL RDW 17.1 H (11.5-15.5) % Neutrophils # (Manual) 34.2 H (1.3-7.7) k/uL Monocytes # (Manual) 1.1 H (0-1.0) k/uL Nucleated RBCs 5 H (0-0) /100 WBC PT (9.0-12.0) sec BUN 108 H* (9-20) mg/dL Creatinine 4.92 H (0.66-1.25) mg/dL Glucose 194 H (74-99) mg/dL POC Glucose (mg/dL) 247 H (75-99) mg/dL Calcium 6.8 L (8.4-10.2) mg/dL Phosphorus 7.7 H (2.5-4.5) mg/dL Magnesium 2.5 H (1.6-2.3) mg/dL 09/05/16 Range/Units 11:56 WBC (3.8-10.6) k/uL RBC (4.30-5.90) m/uL Hgb (13.0-17.5) gm/dL Hct (39.0-53.0) % MCV (80.0-100.0) fL RDW (11.5-15.5) % Neutrophils # (Manual) (1.3-7.7) k/uL Monocytes # (Manual) (0-1.0) k/uL Nucleated RBCs (0-0) /100 WBC PT (9.0-12.0) sec BUN (9-20) mg/dL Creatinine (0.66-1.25) mg/dL Glucose (74-99) mg/dL POC Glucose (mg/dL) 247 H (75-99) mg/dL Calcium (8.4-10.2) mg/dL Phosphorus (2.5-4.5) mg/dL Magnesium (1.6-2.3) mg/dL Microbiology - Last 24 Hours (Table) 09/02/16 11:18 Blood Culture - Preliminary Blood No Growth after 72 hours 09/02/16 10:50 Blood Culture - Preliminary Blood No Growth after 72 hours Assessment and Plan Plan: Impression: 1. Abdominal pain. 2. Septic shock with cultures positive for Pseudomonas aeruginosa. 3. Cecal dilatation suspect secondary to ileus, resolved. 4. History of laryngeal carcinoma with recent chemotherapy status post tracheostomy and PEG tube placement. Plan: 1. Continue tube feeds per dietary recommendations. Continue clear liquid diet. Continue IV antibiotics per infectious disease service. Continue to follow with medical team. Patient is not a surgical candidate at this time. The above impression and plan have been discussed and directed by Dr. Sánchez. Chikis CAZARES acting as scribe for Dr. Sánchez.
--- NOTE | 2016-09-05 15:39 | P.PN ---
Subjective Principal diagnosis: Acute sepsis secondary to pseudomonal infection. 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 The patient came in to the burst department yesterday because of diminished oral intake, single episode of diarrhea, dehydration, diminished urine output, lethargy, fatigue, vague abdominal discomfort and some fall smelling drainage around the PEG tube. In addition, the patient was found to be in acute kidney injury, acute metabolic acidosis and acute hyperkalemia. For all this reasons, the patient got transferred to the intensive care unit. He got bolused with a total of 2-3 L of IV fluids in the form normal saline and based on the sides recommendation the patient was switched to bicarb drip. The patient was also covered with broad-spectrum antibiotics. He was initially stopped and accommodation of cefepime and vancomycin. Subsequently, the patient was seen by infectious disease and antibiotics were simplified and the patient was placed on IV Flagyl and oral vancomycin suspecting an underlying C. diff colitis. Nevertheless, the patient has not had any further episodes of diarrhea since he came to the ICU. The patient was examined in the ICU. Active site essentially clean and there was no evidence of any purulent drainage. Abdomen was soft and the CAT scan of the abdomen was done in the emergency department showed no acute abnormalities. He was a bit lethargic and slow in answering questions. He denied having any history distress. Denied any cough or sputum production or any chest pain. No open wounds or sores. No dysuria frequency or urgency. On 09/01/2016, the patient is being seen in follow-up. The patient is quite lethargic. He is post laryngectomy and has a tracheotomy in place. He is also being treated for metastatic small cell lung cancer with systemic chemotherapy on outpatient basis. He presented with acute kidney injury and he is currently septic with gram-negative bacilli growing in his blood culture. The source of the gram-negative is not absolutely clear.. At one point there was suspicion for a PEG tube site infection yet the area seems to be relatively clean and the CAT scan of the abdomen was repeated and showed some soft tissue thickening along the PEG tube especially along the superior margin which raised the suspicion for localized infection and for that reason a surgical consultation was requested. At the same time, the CAT scan showed a new cecal dilatation up to 10 cm compared to the previous CAT scan and for that reason again a surgical consultation was requested. Note that the patient has a port in place yet the port site is clean and intact. Antibiotics have a modified to include a combination of IV Merrem and Flagyl. No diarrhea. No abdominal pain. No nausea vomiting or chest pain. The renal function is slightly improved compared to yesterday. Urine output remains low. The patient is on pressors still and the prednisone extremities 6-10 mics to maintain a mean arterial pressure above 65. The white cell count is elevated at 33.9 IDs on the case. On the patient is being seen in follow-up. As mentioned earlier he has a pseudomonal septicemia. The exact source remains not clear. One potential sources of the Mediport this was inserted recently. Intra-abdominal sources are felt to be possible although less likely. I discussed the case with general surgery and infectious disease. The patient has a gram-negative septicemia and the CAT scan of the abdomen showing some cecal dilatation along with evidence of some irritation at the PEG tube site. There is no evidence of pneumonia. The patient is on Merrem. He is immunosuppressed and immunocompromised based on recent chemotherapy as well as being given for lung cancer. I made recommendations to obtain 2 sets of blood cultures from the Mediport and from peripheral site. The patient was weaned off the pressors throughout the day and currently he is off pressors. We have made a decision to continue the treatment and consider taking out the Mediport if the patient does not improve and/or he continues to have persistent bacteremia. Meanwhile, the patient is still nothing by mouth. Abdomen is nondistended. He is awake and alert and is following simple commands. He has a tracheostomy and today's chest x-ray showing cardiomegaly without any evidence of pulmonary infiltration or pneumonia. Gases were obtained late in the afternoon showed evidence of metabolic acidosis with a pH of 7.26 and a pCO2 of 37 and pO2 of 110 and based on that I have made recommendations to switch this patient back to her bicarb drip infusion. His serum bicarbs at 18 and his anion gap is around 16. His renal function remains impaired with a creatinine of 5.1. White cell count remains elevated at 42. No diarrhea. On 09/03/2016, the patient is still being treated for a pseudomonal septicemia. The patient is on IV Merrem. Hemodynamically stable. The patient was taken off pressors. He is able to sit up on a chair. The sputum is also showing pseudomonas aeruginosa. The ones around the PEG tube is also growing the same microorganism. Discussed the case with ID. It is suspected that the source of infection is the PEG tube site. Meanwhile, the patient will be started on low rates to feet. No respiratory difficulties. He was placed on a bicarb drip and his metabolic acidosis is improved compared to yesterday. He is producing urine output. Renal function remains impaired. White cell count is still elevated at 42. Patient was seen again on 09/04/2016, doing relatively well, hemodynamically stable, in no distress. Continues to have trach collar in place, on multiple antibiotics for his pseudomonal infection, his bicarb has been corrected nicely and I will discontinue the bicarbonate drip. Patient has a decent urine output. His white count remains elevated at 42.6. INR is 1.7. BUN is 102 creatinine is 4.80. Chest x-ray is showing slight improvement in volume status. And I believe there is slight improvement in the interstitial edema. Patient was seen again today on 09/05/2016, patient has been doing well except for the fact that he dropped his blood pressure significantly after a dose of beta cheng given to him last night. Patient had to be placed on norepinephrine, this was discontinued a few hours later. Presently his hemodynamic stable, and this is the second time it drops his blood pressure after a beta cheng given. Continues to have leukocytosis with WBC count of 45 ,000. Hemoglobin is 8.4. INR is 1.7. Basic metabolic profile is relatively normal except BUN is 108 creatinine is 4.92. Patient clearly has a picture of acute kidney injury, urine output is about 50 ML per hour. And he is presently on tube feeding. Denies any shortness of breath. The area around the PEG tube seems to be improving. Objective - Vital Signs Vital signs: Vital Signs Temp 97.2 F L 09/05/16 12:00 Pulse 114 H 09/05/16 15:19 Resp 8 L 09/05/16 14:00 BP 87/67 09/04/16 09:00 Pulse Ox 98 09/05/16 15:19 Intake & Output 09/04/16 09/05/16 09/05/16 18:59 06:59 18:59 Intake Total 716.109 890 240 Output Total 360 320 270 Balance 356.109 570 -30 Weight 98.4 kg 100.2 kg Intake: IV 425 220 160 0.9 NS 200 220 160 Dextrose 5% in Water 1, 225 000 ml @ 75 mls/hr IV . [id number] [facility] with Sodium Bicarb (1 Meq/ml) 150 ml Rx#:[id number] Intake, IV Titration 51.109 50 Amount Norepinephrine 16 mg In 51.109 Sodium Chloride 0.9% 250 ml @ Titrate IV .Q0M [facility] Rx#:[id number] Piperacillin-Tazobactam 3 50 .375 gm In Dextrose/Water 1 50ml.bag @ 12.5 mls/hr IVPB Q12HR [facility] Rx#: [id number] Oral 30 Tube Feeding 200 510 80 Other 40 80 Output: Urine 360 320 270 Other: Voiding Method Indwelling Catheter Indwelling Catheter Indwelling Catheter ABP, PAP, CO, CI - Last Documented Arterial Blood Pressure 101/52 - Exam Elderly -[place] male patient, slightly lethargic and obtunded. Able to open up his eyes and follows some simple commands.Head exam was generally normal. There was no scleral icterus or corneal arcus. Mucous membranes were moist. Mucous membranes are dry and the patient has a tracheostomy which is open and widely patent. Scars of previous laryngectomy can be seen over the anterior neck. Lung sounds are diminished bilaterally along with some few rales in the lung bases. On today's evaluation there is also bilateral extremity wheezes. Cardiac exam revealed the PMI to be normally situated and sized. The rhythm was regular and no extrasystoles were noted during several minutes of auscultation. The first and second heart sounds were normal and physiologic splitting of the second heart sound was noted. There were no murmurs , rubs, clicks, or gallops. Abdominal exam revealed normal bowel sounds. The abdomen was soft, non-tender, and without masses, organomegaly, or appreciable enlargement of the abdominal aorta. PEG tube site is clean.Examination of the extremities revealed easily palpable radial, femoral and pedal pulses. There was no cyanosis, clubbing or edema. - Labs CBC & Chem 7: 09/05/16 05:30 09/05/16 05:30 Labs: Abnormal Lab Results - Last 24 Hours (Table) 09/04/16 09/04/16 09/05/16 Range/Units 17:06 20:26 05:30 WBC (3.8-10.6) k/uL RBC (4.30-5.90) m/uL Hgb (13.0-17.5) gm/dL Hct (39.0-53.0) % MCV (80.0-100.0) fL RDW (11.5-15.5) % Neutrophils # (Manual) (1.3-7.7) k/uL Monocytes # (Manual) (0-1.0) k/uL Nucleated RBCs (0-0) /100 WBC PT 16.4 H (9.0-12.0) sec BUN (9-20) mg/dL Creatinine (0.66-1.25) mg/dL Glucose (74-99) mg/dL POC Glucose (mg/dL) 156 H 154 H (75-99) mg/dL Calcium (8.4-10.2) mg/dL Phosphorus (2.5-4.5) mg/dL Magnesium (1.6-2.3) mg/dL 09/05/16 09/05/16 09/05/16 Range/Units 05:30 05:30 07:32 WBC 45.0 H* (3.8-10.6) k/uL RBC 3.20 L (4.30-5.90) m/uL Hgb 8.4 L (13.0-17.5) gm/dL Hct 25.3 L (39.0-53.0) % MCV 79.0 L (80.0-100.0) fL RDW 17.1 H (11.5-15.5) % Neutrophils # (Manual) 34.2 H (1.3-7.7) k/uL Monocytes # (Manual) 1.1 H (0-1.0) k/uL Nucleated RBCs 5 H (0-0) /100 WBC PT (9.0-12.0) sec BUN 108 H* (9-20) mg/dL Creatinine 4.92 H (0.66-1.25) mg/dL Glucose 194 H (74-99) mg/dL POC Glucose (mg/dL) 247 H (75-99) mg/dL Calcium 6.8 L (8.4-10.2) mg/dL Phosphorus 7.7 H (2.5-4.5) mg/dL Magnesium 2.5 H (1.6-2.3) mg/dL 09/05/16 Range/Units 11:56 WBC (3.8-10.6) k/uL RBC (4.30-5.90) m/uL Hgb (13.0-17.5) gm/dL Hct (39.0-53.0) % MCV (80.0-100.0) fL RDW (11.5-15.5) % Neutrophils # (Manual) (1.3-7.7) k/uL Monocytes # (Manual) (0-1.0) k/uL Nucleated RBCs (0-0) /100 WBC PT (9.0-12.0) sec BUN (9-20) mg/dL Creatinine (0.66-1.25) mg/dL Glucose (74-99) mg/dL POC Glucose (mg/dL) 247 H (75-99) mg/dL Calcium (8.4-10.2) mg/dL Phosphorus (2.5-4.5) mg/dL Magnesium (1.6-2.3) mg/dL Microbiology - Last 24 Hours (Table) 09/02/16 11:18 Blood Culture - Preliminary Blood No Growth after 72 hours 09/02/16 10:50 Blood Culture - Preliminary Blood No Growth after 72 hours Assessment and Plan Plan: 1 septic shock secondary to pseudomonas aeruginosa, source being considered of an intra-abdominal in nature with potential infection originating from PEG tube site versus Line infection is also considered however this is felt to be less likely. The patient does not have any underlying pneumonia. The patient is currently on IV Merrem. Hemodynamically improved and the patient was taken off norepinephrine infusion this afternoon. On 09/03/2016, the patient is still being treated for septic shock. Hemodynamically improved. No hypotension. The patient is still on broad- spectrum antibiotics covering the pseudomonas septicemia. The source of infection is thought to be the PEG tube site not get it; rhythm was cultured from the wound around the PEG tube. Pseudomonas was also cultures from the lungs however this is a colonizer likely. Chest x-ray remains clear of any pulmonary infiltrates. On 09/04/2016, patient is still being treated for septic shock. And pseudomonal sepsis. Improving, but clearly not quite ready to be transferred out of the ICU at this point. On 09/05/2016, his blood pressure continues to fluctuate up and down, I believe the drop in the blood pressure is mostly related to beta blockers which are presently on hold, and I hope not to be given again. Presently he is off norepinephrine, and doing relatively well, still concerned about his significant leukocytosis/leukemoid reaction. 2 hypotension, secondary to septic shock and the patient was aggressively resuscitated with IV fluids and pressors and he is being taken off vasopressors.. 3 acute kidney injury, most likely secondary to intravascular volume depletion/ dehydration/ and also there is a possibility of an ATN/sepsis induced, proving and creatinine is dropping down to 5.0 and the patient is producing adequate amount of urine output. Urine status seems to be gradually improving slowly 2 acute hyperkalemia, treated 3 metabolic acidosis secondary to above, and the patient remains on a bicarb drip for his metabolic acidosis. This was discontinued on 09/04/2016 4 diarrhea, limited and currently the patient is not having any further episodes. He is covered with broad-spectrum antibiotics including coverage for C. diff 5 laryngeal cancer status post total laryngectomy and tracheotomy 6 small cell lung cancer, metastatic, currently receiving systemic chemotherapy 7 enteral feeding via PEG tube, 8 previous history of DVT status post IVC filter placement 9 leukocytosis/thrombocytopenia/chronic anemia, microcytic 10 cecal dilatation, as it evaluation was done. Recommendation: Continue present treatment plan, monitor in the ICU, continue antibiotics, hold beta blockers for the next 24 hours at least, if the patient remains hemodynamically stable, May transferred to a regular medical floor. Or possibly to a cardiac floor. Prognosis remains guarded, patient remains critically ill with multiple comorbidities as noted above. Critical care time is 32 minutes with Time with Patient: Greater than 30
[2016-09-05] MEDS: SODIUM CHLORIDE 0.9% 1,000 ML IV SCH (16:24)
[2016-09-05 16:35] LABS: Glucose,Whole Blood 167 mg/dL (75-99)
[2016-09-05 20:34] LABS: Glucose,Whole Blood 176 mg/dL (75-99)
[2016-09-05] MEDS: MORPHINE SULFATE ER 15 MG TABLET PO SCH (23:02)
--- NOTE | 2016-09-05 23:30 | PN ---
DATE OF SERVICE: 09/05/2016 REASON FOR FOLLOWUP: Pseudomonas bacteremia; source pneumonia and abdominal infection; elevated white count. INTERVAL HISTORY: The patient is afebrile. He is hemodynamically stable, not on any pressor support since 6 in the morning. Patient remains lethargic and does not provide a reliable history. No nausea or vomiting has been noted or any significant diarrhea per the R.N. On examination, blood pressure is 107/51 with a pulse of 105, temperature 97.8. He is 98% on a trach collar. General description is a middle-aged male lying in bed in no distress. RESPIRATORY SYSTEM: Unlabored breathing. Some coarse breath sounds at the bases. HEART: S1, S2. Regular rate and rhythm. ABDOMEN: Soft. No tenderness. LABS: Hemoglobin 8.4, white count 45,000 with a BUN of 108, creatinine 4.92. Follow-up blood culture has been negative. DIAGNOSTIC IMPRESSION AND PLAN: Patient with Pseudomonas bacteremia. Source could be likely abdominal in a patient who did have evidence of an abscess around the PEG tube as well as pneumonia, as the sputum grew the same pathogen. Follow-up blood culture has been negative; however, the patient remains to have persistent elevated white count. Some of it could be steroid-related, although abdominal culture is now showing Izabel albicans. Hence Diflucan will be added to the Zosyn and Flagyl regimen. We will continue to monitor the patient closely. Continue supportive care.
[2016-09-06 04:24] LABS: Anisocytosis Slight; CH 26.8; CHCM 34.4; HCT 24.9 % (39.0-53.0); HDW 2.47; HGB 8.9 gm/dL (13.0-17.5); Immature Gran Flag Marked; MCH 28.1 pg (25.0-35.0); Mean Platelet Volume 9.6; Microcytosis Slight; RBC 3.19 m/uL (4.30-5.90); RDW 17.2 % (11.5-15.5)
[2016-09-06 04:29] LABS: INR 1.8 (<1.1); Prothrombin Time 17.1 sec (9.0-12.0)
[2016-09-06] MEDS: oxyCODONE-APAP 7.5-325MG 1 EACH TAB PEG/G-TUBE PRN (04:37)
[2016-09-06 04:41] LABS: Add Differential Manual Differential
[2016-09-06 04:42] LABS: Calcium 6.7 mg/dL (8.4-10.2); Magnesium 2.8 mg/dL (1.6-2.3); Phosphorous 6.5 mg/dL (2.5-4.5); Potassium 4.8 mmol/L (3.5-5.1)
[2016-09-06 04:45] LABS: Blast Cells 0.5; Metamyelocytes % 5.5 %; Nucleated Red Blood Cells 8 /100 WBC (0-0); Total Cells Counted 200
[2016-09-06 04:46] LABS: WBC 49.1 k/uL (3.8-10.6)
[2016-09-06 04:48] LABS: Manual Review Performed; Target Cells Present
[2016-09-06] MEDS: methylPREDNISolone SOD SUCCI 125 MG/2 ML VIAL IV SCH ×3 (06:31→19:03)
[2016-09-06] MEDS: LEVOTHYROXINE 75 MCG TAB PEG/G-TUBE SCH (06:31)
[2016-09-06 07:50] LABS: Glucose,Whole Blood 176 mg/dL (75-99)
[2016-09-06] MEDS: BUDESONIDE 0.5 MG/2 ML NEBU INHALATION SCH ×2 (08:05→19:16)
[2016-09-06] MEDS: IPRATROPIUM-ALBUTEROL 3 ML NEB INHALATION PRN ×4 (08:05→19:16)
--- NOTE | 2016-09-06 08:26 | XR ---
EXAMINATION TYPE: XR chest 1V portable DATE OF EXAM: 09/06/2016 6:49 AM COMPARISON: 09/05/2016 HISTORY: Pneumonia TECHNIQUE: Single frontal view of the chest is obtained. FINDINGS: Heart is prominent. There is a right-sided central venous catheter with no pneumothorax. I nterstitial pattern persists. More confluent area in the right upper lobe noted. IMPRESSION: 1. Stable interstitial pattern correlate for interstitial pneumonitis or mild venous congestion. 2. Basilar atelectasis or early infiltrate stable. More confluent density in the right upper lobe may represent developing infiltrate.
--- NOTE | 2016-09-06 09:00 | PN ---
Mr. Francisco is a 61-year-old male who presented with symptoms of hypotension, progressive dyspnea. Has a known history of laryngeal CA and small cell lung CA with metastasis. He had evidence of sepsis. He was found to have cardiomyopathy. He has been off his Levothroid for more than 24 hours. He has tolerated dose of beta cheng last night. He denies any chest discomfort. His abdominal discomfort is better. He is tolerating feeding tube. He has tolerated the Lopressor at 12.5 mg twice a day. PHYSICAL EXAMINATION: The blood pressure is running in the high 90s to 100 with the heart rate in the 90s. LUNGS: Clear anteriorly. HEART: Regular rate and rhythm. S1 and S2, no S3 with systolic murmur. No diastolic murmur. ABDOMEN: Soft. PEG tube in place. EXTREMITIES: No significant edema. Lab data revealed a hemoglobin of 8.9, white blood cell of ( ), which is worse compared with yesterday. BUN and creatinine of 119 and 4.6. Potassium 4.8. IMPRESSION: 1. Gram-negative sepsis with Pseudomonas. 2. Severe cardiomyopathy. 3. Metastatic small cell carcinoma. 4. Status post laryngeal carcinoma and laryngectomy and tracheotomy. 5. PEG tube. 6. Severe chronic kidney disease with minimal improvement. RECOMMENDATIONS: From the cardiac standpoint, will continue present therapy with present support and depending on his progress, further recommendation will be made.
[2016-09-06] MEDS: METOPROLOL TARTRATE 12.5 MG TAB PO SCH ×2 (09:39→21:11)
[2016-09-06] MEDS: SODIUM BICARBONATE TAB 650 MG TAB PO SCH ×3 (09:39→21:12)
[2016-09-06] MEDS: CALCIUM ACETATE 667 MG CAP PO SCH ×3 (09:39→16:18)
[2016-09-06] MEDS: FLUCONAZOLE 100 MG TAB PEG/G-TUBE SCH (09:45)
[2016-09-06] MEDS: CITALOPRAM HYDROBROMIDE 10 MG TAB PO SCH (09:45)
[2016-09-06] MEDS: HEPARIN SODIUM,PORCINE 5,000 UNIT/ML 1 ML VIAL SQ SCH ×2 (09:45→16:18)
[2016-09-06] MEDS: INSULIN LISPRO (humaLOG) 300 UNIT/3 ML VIAL SQ SCH ×4 (09:45→21:10)
[2016-09-06] MEDS: metroNIDAZOLE 500 MG TAB PEG/G-TUBE SCH ×3 (09:46→21:12)
[2016-09-06] MEDS: PANTOPRAZOLE 40 MG/10 ML VIAL IV SCH (09:46)
[2016-09-06] MEDS: MORPHINE SULFATE ER 15 MG TABLET PO SCH ×2 (09:49→22:17)
[2016-09-06] MEDS: INSULIN DETEMIR 100 UNIT/ML 10 ML VIAL SQ SCH (09:51)
[2016-09-06] MEDS: PIPERACILLIN-TAZOBACTAM 3.375 GM in DEXTROSE/WATER 1 50ML.BAG IVPB SCH ×2 (10:46→21:11)
[2016-09-06 12:27] LABS: Glucose,Whole Blood 226 mg/dL (75-99)
--- NOTE | 2016-09-06 13:42 | P.PN ---
Subjective Principal diagnosis: Abdominal pain Patient is evaluated at bedside lying in bed. No history of nausea or vomiting. Tube feeding has been advanced to 55 mL an hour and patient is tolerating. Tolerating clear liquid diet. Afebrile. WBC increased to 49.1. Hemoglobin stable at 8.9. Patient currently off vasopressors. Patient indicates pain to left sided abdomen. Patient had a bowel movement last night. Objective - Vital Signs Vital signs: Vital Signs Temp 97.9 F 09/06/16 05:00 Pulse 98 09/06/16 12:00 Resp 11 L 09/06/16 12:00 BP 87/67 09/04/16 09:00 Pulse Ox 96 09/06/16 12:00 Intake & Output 09/05/16 09/06/16 09/06/16 18:59 06:59 18:59 Intake Total 885 1185 285 Output Total 465 400 200 Balance 420 785 85 Weight 100.2 kg 100.1 kg Intake: IV 260 220 120 0.9 NS 260 220 120 Intake, IV Titration 20 Amount Sodium Chloride 0.9% 1, 20 000 ml @ 20 mls/hr IV . Q24H [facility] Rx#:[id number] Tube Feeding 625 865 165 Other 80 Output: Urine 465 400 200 Other: Voiding Method Indwelling Catheter Indwelling Catheter # Bowel Movements 0 0 ABP, PAP, CO, CI - Last Documented Arterial Blood Pressure 105/59 - Exam Abdomen: Soft, nondistended, mild tenderness around PEG tube site with no active drainage, active bowel sounds. - Labs CBC & Chem 7: 09/06/16 04:15 09/06/16 04:15 Labs: Abnormal Lab Results - Last 24 Hours (Table) 09/05/16 09/05/16 09/06/16 Range/Units 16:33 20:31 04:15 WBC (3.8-10.6) k/uL RBC (4.30-5.90) m/uL Hgb (13.0-17.5) gm/dL Hct (39.0-53.0) % MCV (80.0-100.0) fL RDW (11.5-15.5) % Neutrophils # (Manual) (1.3-7.7) k/uL Lymphocytes # (Manual) (1.0-4.8) k/uL Monocytes # (Manual) (0-1.0) k/uL Nucleated RBCs (0-0) /100 WBC PT 17.1 H (9.0-12.0) sec BUN (9-20) mg/dL Creatinine (0.66-1.25) mg/dL Glucose (74-99) mg/dL POC Glucose (mg/dL) 167 H 176 H (75-99) mg/dL Calcium (8.4-10.2) mg/dL Phosphorus (2.5-4.5) mg/dL Magnesium (1.6-2.3) mg/dL 09/06/16 09/06/16 09/06/16 Range/Units 04:15 04:15 07:48 WBC 49.1 H* (3.8-10.6) k/uL RBC 3.19 L (4.30-5.90) m/uL Hgb 8.9 L (13.0-17.5) gm/dL Hct 24.9 L (39.0-53.0) % MCV 78.0 L (80.0-100.0) fL RDW 17.2 H (11.5-15.5) % Neutrophils # (Manual) 42.7 H (1.3-7.7) k/uL Lymphocytes # (Manual) 0.5 L (1.0-4.8) k/uL Monocytes # (Manual) 1.5 H (0-1.0) k/uL Nucleated RBCs 8 H (0-0) /100 WBC PT (9.0-12.0) sec BUN 119 H* (9-20) mg/dL Creatinine 4.60 H (0.66-1.25) mg/dL Glucose 171 H (74-99) mg/dL POC Glucose (mg/dL) 176 H (75-99) mg/dL Calcium 6.7 L (8.4-10.2) mg/dL Phosphorus 6.5 H (2.5-4.5) mg/dL Magnesium 2.8 H (1.6-2.3) mg/dL 09/06/16 Range/Units 12:25 WBC (3.8-10.6) k/uL RBC (4.30-5.90) m/uL Hgb (13.0-17.5) gm/dL Hct (39.0-53.0) % MCV (80.0-100.0) fL RDW (11.5-15.5) % Neutrophils # (Manual) (1.3-7.7) k/uL Lymphocytes # (Manual) (1.0-4.8) k/uL Monocytes # (Manual) (0-1.0) k/uL Nucleated RBCs (0-0) /100 WBC PT (9.0-12.0) sec BUN (9-20) mg/dL Creatinine (0.66-1.25) mg/dL Glucose (74-99) mg/dL POC Glucose (mg/dL) 226 H (75-99) mg/dL Calcium (8.4-10.2) mg/dL Phosphorus (2.5-4.5) mg/dL Magnesium (1.6-2.3) mg/dL Microbiology - Last 24 Hours (Table) 09/02/16 11:18 Blood Culture - Preliminary Blood No Growth after 96 hours 09/02/16 10:50 Blood Culture - Preliminary Blood No Growth after 96 hours Assessment and Plan Plan: Impression: 1. Abdominal pain. 2. Septic shock with cultures positive for Pseudomonas aeruginosa. 3. Cecal dilatation suspect secondary to ileus, resolved. 4. History of laryngeal carcinoma with recent chemotherapy status post tracheostomy and PEG tube placement. Plan: 1. Continue tube feeds per dietary recommendations. Continue clear liquid diet. Continue IV antibiotics per infectious disease service. Continue to follow with medical team. Patient is not a surgical candidate at this time. The above impression and plan have been discussed and directed by Dr. Sánchez. Chikis CAZARES acting as scribe for Dr. Sánchez.
--- NOTE | 2016-09-06 15:03 | P.PN ---
Subjective Principal diagnosis: Acute sepsis secondary to pseudomonal infection. 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 The patient came in to the burst department yesterday because of diminished oral intake, single episode of diarrhea, dehydration, diminished urine output, lethargy, fatigue, vague abdominal discomfort and some fall smelling drainage around the PEG tube. In addition, the patient was found to be in acute kidney injury, acute metabolic acidosis and acute hyperkalemia. For all this reasons, the patient got transferred to the intensive care unit. He got bolused with a total of 2-3 L of IV fluids in the form normal saline and based on the sides recommendation the patient was switched to bicarb drip. The patient was also covered with broad-spectrum antibiotics. He was initially stopped and accommodation of cefepime and vancomycin. Subsequently, the patient was seen by infectious disease and antibiotics were simplified and the patient was placed on IV Flagyl and oral vancomycin suspecting an underlying C. diff colitis. Nevertheless, the patient has not had any further episodes of diarrhea since he came to the ICU. The patient was examined in the ICU. Active site essentially clean and there was no evidence of any purulent drainage. Abdomen was soft and the CAT scan of the abdomen was done in the emergency department showed no acute abnormalities. He was a bit lethargic and slow in answering questions. He denied having any history distress. Denied any cough or sputum production or any chest pain. No open wounds or sores. No dysuria frequency or urgency. On 09/01/2016, the patient is being seen in follow-up. The patient is quite lethargic. He is post laryngectomy and has a tracheotomy in place. He is also being treated for metastatic small cell lung cancer with systemic chemotherapy on outpatient basis. He presented with acute kidney injury and he is currently septic with gram-negative bacilli growing in his blood culture. The source of the gram-negative is not absolutely clear.. At one point there was suspicion for a PEG tube site infection yet the area seems to be relatively clean and the CAT scan of the abdomen was repeated and showed some soft tissue thickening along the PEG tube especially along the superior margin which raised the suspicion for localized infection and for that reason a surgical consultation was requested. At the same time, the CAT scan showed a new cecal dilatation up to 10 cm compared to the previous CAT scan and for that reason again a surgical consultation was requested. Note that the patient has a port in place yet the port site is clean and intact. Antibiotics have a modified to include a combination of IV Merrem and Flagyl. No diarrhea. No abdominal pain. No nausea vomiting or chest pain. The renal function is slightly improved compared to yesterday. Urine output remains low. The patient is on pressors still and the prednisone extremities 6-10 mics to maintain a mean arterial pressure above 65. The white cell count is elevated at 33.9 IDs on the case. On the patient is being seen in follow-up. As mentioned earlier he has a pseudomonal septicemia. The exact source remains not clear. One potential sources of the Mediport this was inserted recently. Intra-abdominal sources are felt to be possible although less likely. I discussed the case with general surgery and infectious disease. The patient has a gram-negative septicemia and the CAT scan of the abdomen showing some cecal dilatation along with evidence of some irritation at the PEG tube site. There is no evidence of pneumonia. The patient is on Merrem. He is immunosuppressed and immunocompromised based on recent chemotherapy as well as being given for lung cancer. I made recommendations to obtain 2 sets of blood cultures from the Mediport and from peripheral site. The patient was weaned off the pressors throughout the day and currently he is off pressors. We have made a decision to continue the treatment and consider taking out the Mediport if the patient does not improve and/or he continues to have persistent bacteremia. Meanwhile, the patient is still nothing by mouth. Abdomen is nondistended. He is awake and alert and is following simple commands. He has a tracheostomy and today's chest x-ray showing cardiomegaly without any evidence of pulmonary infiltration or pneumonia. Gases were obtained late in the afternoon showed evidence of metabolic acidosis with a pH of 7.26 and a pCO2 of 37 and pO2 of 110 and based on that I have made recommendations to switch this patient back to her bicarb drip infusion. His serum bicarbs at 18 and his anion gap is around 16. His renal function remains impaired with a creatinine of 5.1. White cell count remains elevated at 42. No diarrhea. On 09/03/2016, the patient is still being treated for a pseudomonal septicemia. The patient is on IV Merrem. Hemodynamically stable. The patient was taken off pressors. He is able to sit up on a chair. The sputum is also showing pseudomonas aeruginosa. The ones around the PEG tube is also growing the same microorganism. Discussed the case with ID. It is suspected that the source of infection is the PEG tube site. Meanwhile, the patient will be started on low rates to feet. No respiratory difficulties. He was placed on a bicarb drip and his metabolic acidosis is improved compared to yesterday. He is producing urine output. Renal function remains impaired. White cell count is still elevated at 42. Patient was seen again on 09/04/2016, doing relatively well, hemodynamically stable, in no distress. Continues to have trach collar in place, on multiple antibiotics for his pseudomonal infection, his bicarb has been corrected nicely and I will discontinue the bicarbonate drip. Patient has a decent urine output. His white count remains elevated at 42.6. INR is 1.7. BUN is 102 creatinine is 4.80. Chest x-ray is showing slight improvement in volume status. And I believe there is slight improvement in the interstitial edema. Patient was seen again today on 09/05/2016, patient has been doing well except for the fact that he dropped his blood pressure significantly after a dose of beta cheng given to him last night. Patient had to be placed on norepinephrine, this was discontinued a few hours later. Presently his hemodynamic stable, and this is the second time it drops his blood pressure after a beta cheng given. Continues to have leukocytosis with WBC count of 45 ,000. Hemoglobin is 8.4. INR is 1.7. Basic metabolic profile is relatively normal except BUN is 108 creatinine is 4.92. Patient clearly has a picture of acute kidney injury, urine output is about 50 ML per hour. And he is presently on tube feeding. Denies any shortness of breath. The area around the PEG tube seems to be improving. Patient was seen again today on 09/06/2016, tolerated his last dose of beta cheng without any hypotension. Patient is not requiring any norepinephrine, hence I believe the patient could be considered to transfer to a monitored bed on selective/cardiac floor. Patient does not seem to be in any distress, however I'm still concerned about his white count being quite elevated, patient clearly has a leukemoid reaction. Potential sources of infection include area around the PEG tube, the large sacral decub which is quite deep, and today I recommended culturing of that sacral decubitus ulcer. Infection in the lungs could also be considered especially with his pseudomonal infection, and other areas of infection are not entirely ruled out. In the meantime the patient is on proper antibiotics, and he is followed closely by infectious disease. His labs were all reviewed renal profile remains concerning with a BUN of 119 creatinine of 4.60. Patient is relatively asymptomatic, and he does not complain much. Objective - Vital Signs Vital signs: Vital Signs Temp 97.9 F 09/06/16 05:00 Pulse 96 09/06/16 14:00 Resp 17 09/06/16 14:00 BP 87/67 09/04/16 09:00 Pulse Ox 93 L 09/06/16 14:00 Intake & Output 09/05/16 09/06/16 09/06/16 18:59 06:59 18:59 Intake Total 885 1185 325 Output Total 465 400 260 Balance 420 785 65 Weight 100.2 kg 100.1 kg Intake: IV 260 220 160 0.9 NS 260 220 160 Intake, IV Titration 20 Amount Sodium Chloride 0.9% 1, 20 000 ml @ 20 mls/hr IV . Q24H RYAN Rx#:[id number] Tube Feeding 625 865 165 Other 80 Output: Urine 465 400 260 Other: Voiding Method Indwelling Catheter Indwelling Catheter Indwelling Catheter # Bowel Movements 0 0 ABP, PAP, CO, CI - Last Documented Arterial Blood Pressure 113/61 - Exam Elderly -[place] male patient, slightly lethargic and obtunded. Able to open up his eyes and follows some simple commands.Head exam was generally normal. There was no scleral icterus or corneal arcus. Mucous membranes were moist. Mucous membranes are dry and the patient has a tracheostomy which is open and widely patent. Scars of previous laryngectomy can be seen over the anterior neck. Lung sounds are diminished bilaterally along with some few rales in the lung bases. Cardiac exam revealed the PMI to be normally situated and sized. The rhythm was regular and no extrasystoles. The first and second heart sounds were normal and physiologic splitting of the second heart sound was noted. There were no murmurs, rubs, clicks, or gallops. Abdominal exam revealed normal bowel sounds. The abdomen was soft, non-tender, and without masses, organomegaly, or appreciable enlargement of the abdominal aorta. PEG tube site is clean.Examination of the extremities revealed easily palpable radial, femoral and pedal pulses. There was no cyanosis, clubbing or edema. Examination of the sacral decubitus ulcer was done today, seems to be quite deep , just stage III possibly even extending to the bones. Cultures where taken from the site, and advised infectious disease evaluation of the sacral decubitus ulcer. - Labs CBC & Chem 7: 09/06/16 04:15 09/06/16 04:15 Labs: Abnormal Lab Results - Last 24 Hours (Table) 09/05/16 09/05/16 09/06/16 Range/Units 16:33 20:31 04:15 WBC (3.8-10.6) k/uL RBC (4.30-5.90) m/uL Hgb (13.0-17.5) gm/dL Hct (39.0-53.0) % MCV (80.0-100.0) fL RDW (11.5-15.5) % Neutrophils # (Manual) (1.3-7.7) k/uL Lymphocytes # (Manual) (1.0-4.8) k/uL Monocytes # (Manual) (0-1.0) k/uL Nucleated RBCs (0-0) /100 WBC PT 17.1 H (9.0-12.0) sec BUN (9-20) mg/dL Creatinine (0.66-1.25) mg/dL Glucose (74-99) mg/dL POC Glucose (mg/dL) 167 H 176 H (75-99) mg/dL Calcium (8.4-10.2) mg/dL Phosphorus (2.5-4.5) mg/dL Magnesium (1.6-2.3) mg/dL 09/06/16 09/06/16 09/06/16 Range/Units 04:15 04:15 07:48 WBC 49.1 H* (3.8-10.6) k/uL RBC 3.19 L (4.30-5.90) m/uL Hgb 8.9 L (13.0-17.5) gm/dL Hct 24.9 L (39.0-53.0) % MCV 78.0 L (80.0-100.0) fL RDW 17.2 H (11.5-15.5) % Neutrophils # (Manual) 42.7 H (1.3-7.7) k/uL Lymphocytes # (Manual) 0.5 L (1.0-4.8) k/uL Monocytes # (Manual) 1.5 H (0-1.0) k/uL Nucleated RBCs 8 H (0-0) /100 WBC PT (9.0-12.0) sec BUN 119 H* (9-20) mg/dL Creatinine 4.60 H (0.66-1.25) mg/dL Glucose 171 H (74-99) mg/dL POC Glucose (mg/dL) 176 H (75-99) mg/dL Calcium 6.7 L (8.4-10.2) mg/dL Phosphorus 6.5 H (2.5-4.5) mg/dL Magnesium 2.8 H (1.6-2.3) mg/dL 09/06/16 Range/Units 12:25 WBC (3.8-10.6) k/uL RBC (4.30-5.90) m/uL Hgb (13.0-17.5) gm/dL Hct (39.0-53.0) % MCV (80.0-100.0) fL RDW (11.5-15.5) % Neutrophils # (Manual) (1.3-7.7) k/uL Lymphocytes # (Manual) (1.0-4.8) k/uL Monocytes # (Manual) (0-1.0) k/uL Nucleated RBCs (0-0) /100 WBC PT (9.0-12.0) sec BUN (9-20) mg/dL Creatinine (0.66-1.25) mg/dL Glucose (74-99) mg/dL POC Glucose (mg/dL) 226 H (75-99) mg/dL Calcium (8.4-10.2) mg/dL Phosphorus (2.5-4.5) mg/dL Magnesium (1.6-2.3) mg/dL Microbiology - Last 24 Hours (Table) 09/02/16 11:18 Blood Culture - Preliminary Blood No Growth after 96 hours 09/02/16 10:50 Blood Culture - Preliminary Blood No Growth after 96 hours Assessment and Plan Plan: 1 septic shock secondary to pseudomonas aeruginosa, source being considered of an intra-abdominal in nature with potential infection originating from PEG tube site versus Line infection is also considered however this is felt to be less likely. The patient does not have any underlying pneumonia. The patient is currently on IV Merrem. Hemodynamically improved and the patient was taken off norepinephrine infusion this afternoon. On 09/03/2016, the patient is still being treated for septic shock. Hemodynamically improved. No hypotension. The patient is still on broad- spectrum antibiotics covering the pseudomonas septicemia. The source of infection is thought to be the PEG tube site not get it; rhythm was cultured from the wound around the PEG tube. Pseudomonas was also cultures from the lungs however this is a colonizer likely. Chest x-ray remains clear of any pulmonary infiltrates. On 09/04/2016, patient is still being treated for septic shock. And pseudomonal sepsis. Improving, but clearly not quite ready to be transferred out of the ICU at this point. On 09/05/2016, his blood pressure continues to fluctuate up and down, I believe the drop in the blood pressure is mostly related to beta blockers which are presently on hold, and I hope not to be given again. Presently he is off norepinephrine, and doing relatively well, still concerned about his significant leukocytosis/leukemoid reaction. On 09/06/2016, patient seems to be hemodynamically stable. However continues to have significant leukocytosis worsening of the sacral decubitus ulcer was noted. Remains on the same antibiotics. And overall prognosis seems to be very poor. May have to approach the family again regarding possibly hospice care and referral. Prognostic picture is extremely poor. 2 hypotension, secondary to septic shock and the patient was aggressively resuscitated with IV fluids and pressors and he is being taken off vasopressors.. 3 acute kidney injury, most likely secondary to intravascular volume depletion/ dehydration/ and also there is a possibility of an ATN/sepsis induced, proving and creatinine is dropping down to 5.0 and the patient is producing adequate amount of urine output. Urine status seems to be gradually improving slowly 2 acute hyperkalemia, treated 3 metabolic acidosis secondary to above, and the patient remains on a bicarb drip for his metabolic acidosis. This was discontinued on 09/04/2016 4 diarrhea, limited and currently the patient is not having any further episodes. He is covered with broad-spectrum antibiotics including coverage for C. diff 5 laryngeal cancer status post total laryngectomy and tracheotomy 6 small cell lung cancer, metastatic, currently receiving systemic chemotherapy 7 enteral feeding via PEG tube, 8 previous history of DVT status post IVC filter placement 9 leukocytosis/thrombocytopenia/chronic anemia, microcytic 10 stage III sacral decubitus ulcer, cultures were taken from the ulcer today. Recommendation: Continue present treatment plan, transferred to a cardiac floor/ monitor bed today, continue antibiotics, infectious disease to reevaluate the sacral decubitus ulcer and will continue to follow. Prognosis again is extremely poor. Critical care time is 32 minutes. Time with Patient: Greater than 30
[2016-09-06 15:59] LABS: Glucose,Whole Blood 212 mg/dL (75-99)
[2016-09-06] MEDS: SODIUM CHLORIDE 0.9% 1,000 ML IV SCH (16:18)
[2016-09-06] MEDS: COLLAGENASE 250 UNIT/GM OINTMENT 30 GM TUBE TOPICAL SCH (18:50)
--- NOTE | 2016-09-06 19:19 | P.PN ---
Subjective This is a 61-year-old -[place] male patient of Dr. 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 Cartagena. Patient apparently received chemotherapy 2 weeks ago. History of DVT status post IVC filter, hypothyroidism , history of trach and stoma and PEG tube. Patient apparently eats and PEG tube was only used for medications. Patient apparently has been nonverbal since throat surgery. Patient was brought into [facility] emergency center due to weakness and diarrhea that he had had for a few days. There was no blood or tarriness to the stool. No vomiting was noted there was abdominal discomfort in the epigastric and left upper quadrant and increased productive cough through his stoma and also noted of blood in his sputum. This information was obtained from the ER record as patient is unable to provide any history. He underwent renal ultrasound that showed multiple cystic lesions in the bilateral kidneys. Abdominal and pelvic CAT scan without contrast showed small hiatal hernia, cardiomegaly, bilateral pleural effusions. No acute abnormality within the abdomen or pelvis. There is clearing of almost all ascites fluid to from previous exam. Chest x-ray showed mild heart failure with small right pleural effusion and right upper lobe nodule which is smaller since August 14. Multiple consultants were added including nephrology, cardiology, business case analyst and infectious disease and patient was admitted into intensive care unit due to hypotension requiring levo fed. He was found to be in acute renal failure with BUN of 104 and creatinine 6.39 with hyponatremia of 127 and hyperkalemia at 6.1. White count was elevated at 20.9. Lactic acid was 1.3. Hemoglobin 9.5 and platelet count 93. Lipase 565 and amylase within normal limits. Troponin was elevated at 0.109, 0.114 and 0.116.. Influenza testing was negative. Urinalysis was cloudy with nitrate and leukoesterase negative. Carr catheter was placed to monitor urine output. There was concern of pus at the PEG tube site for which this was cultured. Patient has received calcium gluconate and insulin and Kayexalate. Dr. clinton has placed him on Flagyl IV and oral vancomycin. Patient has had no further stools since arrival. 09/01: patient has a known history of PE 2 years ago and has been on eliquis since then. However due to his renal function, he has been started on Coumadin. His PEG tube was placed by Dr. Sánchez. He has had chronic kidney disease since his chemotherapy for the laryngeal cancer. Patient did have several runs of V. tach. IV fluids to be changed over to 0.9 and sodium bicarb per PEG to start. Patient is followed by Dr. Thompson. His urine output has been low and he did receive a 500 mL bolus at 2 AM.CAT scan of the abdomen and pelvis showed soft tissue thickening along the PEG tube. Findings could represent cellulitis or localized infection. No sizable fluid collection. New cecal bascule as compared to August 30 and abnormal cecal dilation up to 10 cm. Consider surgical evaluation mild abdominal ascites increased from August 30. chest x-ray shows similar findings with cardiomegaly some improvement in volume status. wound culture from the PEG tube site is showing gram-negative bacilli to organisms and group B strep agalactia. Blood culture gram-negative bacilli. Urine culture finalized with no growth. Dr. Reece has changed antibiotics to Flagyl and meropenem. He has been seen by cardiology and low dose beta cheng plan to be added and plan to wean levo.Dr. Khan is on consult for intensive care management. 09/02:Patient had imaging studies performed CAT scan of abdomen and pelvis showing soft tissue thickening along the superior and lateral aspect of the PEG tube area, no sizable fluid collection is identified however findings could represent localized infection or cellulitis, there is a new cecal bascule as compared to 08/2216 with abnormal cecal dilatation up to 10 cm, mild abdominal ascites which is increased small pleural effusion mild anasarca patient currently is made nothing by mouth with oral medications held. Patient remains in ICU still on Levophed 3 mics also followed by Dr. Spence and Dr. Roa from general surgery. Abdominal cultures pseudomonas aeruginosa klebsiella pneumonia strep agalactiae sputum cultures pending blood cultures pseudomonas aeruginosa, C. diff collection still pending 09/03: patient remains in ICU he has been off his Levophed, diet has been reordered with PEG feeds at 10 mL per hour with titration patient has prolonged expiration refused any suctioning from his tracheostomy 09/04: Patient remains in the intensive care unit. Urine output has been 25-30 mL per hour. He is currently on tube feedings and also on vasopressors with Levophed. Blood culture was positive for Pseudomonas and repeat blood cultures are showing no growth after 24 hours. IV Solu-Medrolstarted along with inhaled steroids with Pulmicort and steroid Humalog scale. 09/05: Patient is currently off Levo. Urine output has been around 25 mL/h. Blood sugars have been running 154-247 and patient started on Levemir [address] Reece has added Flagyl to Zosyn. He has continued on IV Solu -Medrol 60 mg every 6 hours. 09/06: patient remains in icu, anasarca noted, azotemic, marginal blood pressure but off pressor. no futher chemo is desired in the futures but is quiet and comfortable, patient's at bedside and have given an update on multiple end organ damage, with bleak outcome, hospice is recommended in detail and currently entertained, family will decide later with this option over the next few days Objective - Vital Signs Vital signs: Vital Signs Temp 97.9 F 09/06/16 05:00 Pulse 101 H 09/06/16 16:14 Resp 10 L 09/06/16 16:00 BP 87/67 09/04/16 09:00 Pulse Ox 99 09/06/16 16:00 Intake & Output 09/05/16 09/06/16 09/06/16 18:59 06:59 18:59 Intake Total 885 1185 365 Output Total 465 400 325 Balance 420 785 40 Weight 100.2 kg 100.1 kg Intake: IV 260 220 200 0.9 NS 260 220 200 Intake, IV Titration 20 Amount Sodium Chloride 0.9% 1, 20 000 ml @ 20 mls/hr IV . Q24H ON LICENSE OF [facility] Rx#:[id number] Tube Feeding 625 865 165 Other 80 Output: Urine 465 400 325 Other: Voiding Method Indwelling Catheter Indwelling Catheter Indwelling Catheter # Bowel Movements 0 0 ABP, PAP, CO, CI - Last Documented Arterial Blood Pressure 104/56 - Constitutional General appearance: Present: average body habitus, cooperative, mild distress - EENT Eyes: Present: anicteric sclerae, PERRLA, poor dentition, normal appearance ENT: Present: hearing grossly normal, NA/AT, normal oropharynx - Respiratory Respiratory: bilateral: diminished, rhonchi, prolonged expiration, negative: CTA , dullness, rales, wheezing - Cardiovascular Rhythm: regular - Peripheral edema leg Peripheral Edema: bilateral: 4+, Pitting - Gastrointestinal General gastrointestinal: Present: normal bowel sounds, soft - Genitourinary Male genitourinary: penile edema - Integumentary Integumentary: Present: decreased turgor, normal, normal turgor - Neurologic Neurologic: Present: CNII-XII intact - Musculoskeletal Musculoskeletal: Present: generalized weakness, strength equal bilaterally - Psychiatric Psychiatric: Present: A&O x's 3, appropriate affect, intact judgment & insight - Labs CBC & Chem 7: 09/06/16 04:15 09/06/16 04:15 Labs: Abnormal Lab Results - Last 24 Hours (Table) 09/05/16 09/06/16 09/06/16 Range/Units 20:31 04:15 04:15 WBC 49.1 H* (3.8-10.6) k/uL RBC 3.19 L (4.30-5.90) m/uL Hgb 8.9 L (13.0-17.5) gm/dL Hct 24.9 L (39.0-53.0) % MCV 78.0 L (80.0-100.0) fL RDW 17.2 H (11.5-15.5) % Neutrophils # (Manual) 42.7 H (1.3-7.7) k/uL Lymphocytes # (Manual) 0.5 L (1.0-4.8) k/uL Monocytes # (Manual) 1.5 H (0-1.0) k/uL Nucleated RBCs 8 H (0-0) /100 WBC PT 17.1 H (9.0-12.0) sec BUN (9-20) mg/dL Creatinine (0.66-1.25) mg/dL Glucose (74-99) mg/dL POC Glucose (mg/dL) 176 H (75-99) mg/dL Calcium (8.4-10.2) mg/dL Phosphorus (2.5-4.5) mg/dL Magnesium (1.6-2.3) mg/dL 09/06/16 09/06/16 09/06/16 Range/Units 04:15 07:48 12:25 WBC (3.8-10.6) k/uL RBC (4.30-5.90) m/uL Hgb (13.0-17.5) gm/dL Hct (39.0-53.0) % MCV (80.0-100.0) fL RDW (11.5-15.5) % Neutrophils # (Manual) (1.3-7.7) k/uL Lymphocytes # (Manual) (1.0-4.8) k/uL Monocytes # (Manual) (0-1.0) k/uL Nucleated RBCs (0-0) /100 WBC PT (9.0-12.0) sec BUN 119 H* (9-20) mg/dL Creatinine 4.60 H (0.66-1.25) mg/dL Glucose 171 H (74-99) mg/dL POC Glucose (mg/dL) 176 H 226 H (75-99) mg/dL Calcium 6.7 L (8.4-10.2) mg/dL Phosphorus 6.5 H (2.5-4.5) mg/dL Magnesium 2.8 H (1.6-2.3) mg/dL 09/06/16 Range/Units 15:56 WBC (3.8-10.6) k/uL RBC (4.30-5.90) m/uL Hgb (13.0-17.5) gm/dL Hct (39.0-53.0) % MCV (80.0-100.0) fL RDW (11.5-15.5) % Neutrophils # (Manual) (1.3-7.7) k/uL Lymphocytes # (Manual) (1.0-4.8) k/uL Monocytes # (Manual) (0-1.0) k/uL Nucleated RBCs (0-0) /100 WBC PT (9.0-12.0) sec BUN (9-20) mg/dL Creatinine (0.66-1.25) mg/dL Glucose (74-99) mg/dL POC Glucose (mg/dL) 212 H (75-99) mg/dL Calcium (8.4-10.2) mg/dL Phosphorus (2.5-4.5) mg/dL Magnesium (1.6-2.3) mg/dL Microbiology - Last 24 Hours (Table) 09/06/16 11:13 Anaerobic Culture - Preliminary Buttock 09/06/16 11:13 Wound Culture - Preliminary Buttock 09/02/16 11:18 Blood Culture - Preliminary Blood No Growth after 96 hours 09/02/16 10:50 Blood Culture - Preliminary Blood No Growth after 96 hours Assessment and Plan Plan: 1. Acute renal failure and metabolic acidosis with dehydration due to recent diarrhea and possibly worsened by recent chemotherapy with multi end organ damage. multiple consultants for septic shock, cardiogenic shock and renal failure with azotemia from [facility]. Hospice is discussed with bleak outcome family will confer and decide upon this further. 2. Diarrhea with signs of sepsis and dehydration with septic shock requiring vasopressors multi organ dammage. Patient now on meropenem and Flagyl. Continue IV fluids. Currently off norepinephrine. Continue care in the intensive care unit. Dr. Reece is on consult. 3. Sepsis with septic shock with Pseudomonas bacteremia requiring vasopressors. Source may be related to PEG tube site or diarrhea. Peg site culture is pending. Blood cultures been obtained. Patient is currently on IV Flagyl and meropenem. Patient is now off vasopressors. 4. Bicytopenia with low hemoglobin RBC and platelet count. Most likely secondary to recent chemotherapy. Oncology on consult. 5. Elevated troponin. Cardiology consult appreciated. This is thought to be due to renal failure and sepsis. Echocardiogram is ordered. 6. History of laryngeal carcinoma with tracheostomy in place and PEG tube. Patient normally and takes food by mouth and PEG tube issues for medications only. 7. Small cell lung cancer on chemotherapy under the care of Dr. Granado. Consult with Dr. Bonds. 8. Episodes of nonsustained ventricular tachycardia most likely due to hyperkalemia. 9. Hyperkalemia status post Kayexalate and calcium gluconate and insulin with D50. 10. Cecal dilatation 10 cm on 09/01/2015 patient currently is nothing by mouth followed by surgery, improved on follow-up x-rays 09/03/2016, diet restarted surgery following no intervention provided except for bowel rest peristoma cellulitis with localized abscess at opening of PEG. currently on antibiotics , peg functional at goal feeds nephro 55 cc/hr 11. History of DVT status post IVC filter. 12. Gastrointestinal prophylaxis. Protonix. 13. DVT prophylaxis. Subcutaneous heparin. 14. Stage III pressure ulceration to his coccyx. 15. Hyperglycemia due to steroids. Patient started on Levemir 8 units daily and Humalog scale. Discharge plan: To be determined
--- NOTE | 2016-09-06 20:04 | PN ---
Patient is seen for followup for acute kidney injury. He was admitted to the hospital with a serum creatinine of about 6.3 mg/dL. His renal function has been slowly improving. His urine output has been ( ). Patient was on IV fluids. Currently he is maintained on tube feeding. On examination, blood pressure is 98/55, heart rate 101 per minute. He is afebrile. EXAMINATION OF THE HEART: S1 and S2. EXAMINATION OF THE LUNGS: Bilateral breath sounds are heard. Decreased breath sounds in bases. ABDOMEN: Soft, nontender. PEG tube site has no drainage. Examination of lower extremities shows edema trace bilaterally. Labs show sodium 140, potassium 4.8, BUN 119, serum creatinine 4.6. Hemoglobin 8.9 g/dL. White cell count is 49,000. Magnesium 2.8. ASSESSMENT: 1. Acute kidney injury, acute tubular necrosis, currently slowly improving. 2. Chronic kidney disease, stage IV to V prior to admission, with baseline creatinine about 3 mg/dL on 08/11/2016. 3. Sepsis/septic shock secondary to pseudomonas, which grew in the wound and in the blood. This is the wound at the PEG tube site. 4. Hyperphosphatemia associated with acute kidney injury. 5. Metabolic acidosis secondary to advanced renal failure, currently improved. 6. Bruising noted on the abdominal wall with stable hemoglobin. 7. Leukocytosis secondary to sepsis. Recently patient was started on steroids, which was only about 2 days ago. 8. Metastatic small-cell carcinoma, maintained on chemotherapy. 9. History of laryngeal cancer, laryngectomy and tracheostomy. PLAN: No changes at this time. Continue tube feeding. Repeat labs in a.m. Patient is maintained on low dose of beta blockers. His blood pressure is marginal. We can continue with the low-dose Lopressor as long as systolic blood pressure is not below 95 mmHg and urine output is maintained.
[2016-09-06 21:10] LABS: Glucose,Whole Blood 187 mg/dL (75-99)
[2016-09-06] MEDS ORDERED: FUROSEMIDE 10 MG/ML 4 ML VIAL IV STA (23:21)
[2016-09-07] MEDS: methylPREDNISolone SOD SUCCI 125 MG/2 ML VIAL IV SCH ×4 (00:03→17:13)
[2016-09-07] MEDS: HEPARIN SODIUM,PORCINE 5,000 UNIT/ML 1 ML VIAL SQ SCH ×3 (00:03→15:48)
[2016-09-07 05:26] LABS: Anisocytosis Slight; CH 26.5; CHCM 33.4; HCT 26.1 % (39.0-53.0); HDW 2.49; HGB 8.4 gm/dL (13.0-17.5); Immature Gran Flag Marked; MCH 25.8 pg (25.0-35.0); MCHC 32.4 g/dL (31.0-37.0); MCV 79.8 fL (80.0-100.0); Mean Platelet Volume 9.1; Microcytosis Slight; RBC 3.27 m/uL (4.30-5.90); RDW 17.8 % (11.5-15.5); WBC (Perox) 54.72
[2016-09-07] MEDS: LEVOTHYROXINE 75 MCG TAB PEG/G-TUBE SCH (05:30)
[2016-09-07 05:32] LABS: Calcium 6.9 mg/dL (8.4-10.2); Magnesium 2.8 mg/dL (1.6-2.3); Potassium 4.7 mmol/L (3.5-5.1)
[2016-09-07 05:38] LABS: INR 1.7 (<1.1); Prothrombin Time 16.3 sec (9.0-12.0)
[2016-09-07 06:03] LABS: Add Differential Manual Differential
[2016-09-07 06:06] LABS: Myelocytes % 0.5 %; Nucleated Red Blood Cells 11 /100 WBC (0-0); Total Cells Counted 200
[2016-09-07 06:07] LABS: Manual Review Performed; Polychromasia Present; WBC 49.6 k/uL (3.8-10.6)
[2016-09-07] MEDS ORDERED: SODIUM CHLORIDE 0.9% 250 ML IV ONE (06:07)
[2016-09-07 06:08] LABS: Target Cells Present
[2016-09-07] MEDS: SODIUM CHLORIDE 0.9% 1,000 ML IV SCH ×3 (06:12→09:43)
[2016-09-07] MEDS: IPRATROPIUM-ALBUTEROL 3 ML NEB INHALATION PRN ×3 (07:53→15:49)
[2016-09-07] MEDS: BUDESONIDE 0.5 MG/2 ML NEBU INHALATION SCH (07:53)
[2016-09-07 07:54] LABS: Glucose,Whole Blood 215 mg/dL (75-99)
--- NOTE | 2016-09-07 08:04 | PN ---
DATE OF SERVICE: 09/06/2016 Reason for followup: 1. Abdominal wound infection with pseudomonas bacteremia, now with possible Pseudomonas pneumonia. 2. Stage III sacral pressure ulcer. INTERVAL HISTORY: The patient is afebrile. He is hemodynamically stable. He is currently breathing comfortably with trach collar. Denies significant chest pain. Occasional cough. Has been tolerating his tube feeds and no significant diarrhea per the RN. The patient also did have a stage III sacral pressure ulcer with no significant drainage from it, currently being treated with Aquacel Silver. On examination, blood pressure is 113/60 with a pulse of 96, temperature 98. He is 98% on trach collar. General description is a middle age male lying in bed in no distress. RESPIRATORY SYSTEM: Unlabored breathing with decreased breath sounds at the bases. HEART: S1, S2. Regular rate and rhythm. ABDOMEN: Soft. No tenderness. Sacral area has stage III pressure ulcer, some slough tissue, but no surrounding swelling or erythema. LABS: Hemoglobin is 8.9, white count 49.1 with a BUN of 119 and creatinine 4.60. DIAGNOSTIC IMPRESSION AND PLAN: 1. Patient with abdominal wound infection with multiple pathogens including Pseudomonas, Klebsiella and Streptococcus agalactiae. All of them are sensitive pathogen and is being covered with Zosyn. The patient is on in addition to the Flagyl and Diflucan that will be continued. 2. Patient with stage III sacral pressure ulcer with no significant cellulitis, did have some slough tissue. Local wound care was switched over to Santyl. Clinically doubt that this was source of elevated white count. Continue supportive care. MTDD
--- NOTE | 2016-09-07 08:12 | XR ---
EXAMINATION TYPE: XR chest 1V portable DATE OF EXAM: 09/07/2016 6:40 AM COMPARISON: Prior chest x-ray one September 2016 HISTORY: Pneumonia TECHNIQUE: Single frontal view of the chest is obtained. FINDINGS: The heart is markedly enlarged. Central vascularity and interstitium are increased as on p rior, Port-A-Cath is stable with the tip in the superior vena cava. There are overlying cardiac leads . No evident pneumothorax. There may be small pleural effusion. IMPRESSION: Correlate for pulmonary venous hypertension and interstitial edema, congestive heart natalie lure, follow-up recommended
[2016-09-07] MEDS: PIPERACILLIN-TAZOBACTAM 3.375 GM in DEXTROSE/WATER 1 50ML.BAG IVPB SCH (09:41)
[2016-09-07] MEDS: PANTOPRAZOLE 40 MG/10 ML VIAL IV SCH (09:41)
[2016-09-07] MEDS: INSULIN LISPRO (humaLOG) 300 UNIT/3 ML VIAL SQ SCH ×3 (09:45→17:14)
[2016-09-07] MEDS: MORPHINE SULFATE ER 15 MG TABLET PO SCH (09:47)
[2016-09-07] MEDS: METOPROLOL TARTRATE 12.5 MG TAB PO SCH (09:52)
[2016-09-07] MEDS: INSULIN DETEMIR 100 UNIT/ML 10 ML VIAL SQ SCH (09:53)
[2016-09-07] MEDS: metroNIDAZOLE 500 MG TAB PEG/G-TUBE SCH ×2 (09:53→15:48)
[2016-09-07] MEDS: CALCIUM ACETATE 667 MG CAP PO SCH ×3 (09:53→16:31)
[2016-09-07] MEDS: FLUCONAZOLE 100 MG TAB PEG/G-TUBE SCH (09:53)
[2016-09-07] MEDS: COLLAGENASE 250 UNIT/GM OINTMENT 30 GM TUBE TOPICAL SCH (09:53)
[2016-09-07] MEDS: CITALOPRAM HYDROBROMIDE 10 MG TAB PO SCH (09:53)
[2016-09-07] MEDS: SODIUM BICARBONATE TAB 650 MG TAB PO SCH ×2 (09:54→15:49)
[2016-09-07 09:57] VITALS: BMI 28.0
[2016-09-07 11:54] LABS: Glucose,Whole Blood 216 mg/dL (75-99)
[2016-09-07 12:03] VITALS: RESP 14
--- NOTE | 2016-09-07 13:06 | PN ---
Patient is seen for followup for acute kidney injury on top of chronic kidney disease. His renal function had improved to some degree after initial admission, but urine output remains marginal. This morning, his creatinine is higher and now it is at 5.0 from 4.6 yesterday. Urine output remains at about 15 to 20 mL an hour. Patient is maintained on saline at 50 mL an hour. His is present in the ICU and I had a discussion with her and his brother. They are scheduled to have a meeting with Dr. Camacho later on in the day and I discussed renal replacement therapy with them. At this time it appears that they would like to proceed with dialysis unless there is another decision after further discussion with Dr. Camacho. They are aware that he is sick, that he is quite weak with multiple comorbidities, but also mentioned that at this time she is not at all thinking of hospice. On examination, blood pressure is 98/51, heart rate 96 per minute. He is afebrile. EXAMINATION OF THE HEART: S1 and S2. EXAMINATION OF THE LUNGS: Decreased breath sounds at the bases. ABDOMEN: Soft, nontender. No drainage noted from the PEG site. Examination of the lower extremities shows edema 1+ bilaterally, upper and lower extremities. Labs show sodium 142, potassium 4.7, BUN 133, creatinine 5.0, hemoglobin 8.4 g/dL. ASSESSMENT: 1. Acute kidney injury, acute tubular necrosis, currently renal function is worsen from yesterday. Urine output has been marginal. I will continue with IV fluids at 50 mL and hour. Renal replacement therapy has been recommended if they would like to proceed with aggressive measures; however, given his underlying comorbidities he may not be a good candidate for long-term dialysis. Further decision will be made later on today after discussion with Dr. Camacho. 2. Sepsis with blood cultures growing Pseudomonas and wound culture also growing Pseudomonas along with sputum growing Pseudomonas. His wound culture also grew Klebsiella and group B strep. 3. Chronic kidney disease stage IV with previous creatinine about 3.1 on 08/11/2016. 4. Hyperphosphatemia associated with acute kidney injury and advanced renal failure. 5. Metastatic small cell carcinoma, maintained on chemotherapy. 6. History of laryngeal cancer, status post laryngectomy and tracheostomy. PLAN: The patient will need to start hemodialysis if family wants to continue with aggressive measures.
--- NOTE | 2016-09-07 14:58 | P.DS ---
Providers Date of admission: 08/30/16 19:44 Attending physician: Karl Greenberg Consults: 08/30/16 20:26 Consult Physician Routine Consulting Provider: Noe Reece Consult Reason/Comments: Leukocytosis/Diarrhea Do you want consulting provider notified?: Yes, Notify in am 08/30/16 20:28 Consult Physician Routine Consulting Provider: Frannie Thompson Consult Reason/Comments: JOVANI Do you want consulting provider notified?: Yes, Notify in am 08/30/16 22:47 Consult Physician Urgent Consulting Provider: Janice Khan Consult Reason/Comments: Sepsis Do you want consulting provider notified?: Yes 08/30/16 23:02 Consult Physician Routine Consulting Provider: Ronald Lopez Consult Reason/Comments: Abnormal EGK, elevated troponins Do you want consulting provider notified?: Yes 08/30/16 23:04 Consult Physician Routine Consulting Provider: Elías Cartagena Consult Reason/Comments: Lung CA Do you want consulting provider notified?: Yes, Notify in am Primary care physician: Fiona Camacho [facility] Course: his is a 61-year-old -[place] male patient of Dr. 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 Cartagena. Patient apparently received chemotherapy 2 weeks ago. History of DVT status post IVC filter, hypothyroidism , history of trach and stoma and PEG tube. Patient apparently eats and PEG tube was only used for medications. Patient apparently has been nonverbal since throat surgery. Patient was brought into [facility] emergency center due to weakness and diarrhea that he had had for a few days. There was no blood or tarriness to the stool. No vomiting was noted there was abdominal discomfort in the epigastric and left upper quadrant and increased productive cough through his stoma and also noted of blood in his sputum. This information was obtained from the ER record as patient is unable to provide any history. He underwent renal ultrasound that showed multiple cystic lesions in the bilateral kidneys. Abdominal and pelvic CAT scan without contrast showed small hiatal hernia, cardiomegaly, bilateral pleural effusions. No acute abnormality within the abdomen or pelvis. There is clearing of almost all ascites fluid to from previous exam. Chest x-ray showed mild heart failure with small right pleural effusion and right upper lobe nodule which is smaller since August 14. Multiple consultants were added including nephrology, cardiology, print binding and finishing worker and infectious disease and patient was admitted into intensive care unit due to hypotension requiring levo fed. He was found to be in acute renal failure with BUN of 104 and creatinine 6.39 with hyponatremia of 127 and hyperkalemia at 6.1. White count was elevated at 20.9. Lactic acid was 1.3. Hemoglobin 9.5 and platelet count 93. Lipase 565 and amylase within normal limits. Troponin was elevated at 0.109, 0.114 and 0.116.. Influenza testing was negative. Urinalysis was cloudy with nitrate and leukoesterase negative. Carr catheter was placed to monitor urine output. There was concern of pus at the PEG tube site for which this was cultured. Patient has received calcium gluconate and insulin and Kayexalate. Dr. clinton has placed him on Flagyl IV and oral vancomycin. Patient has had no further stools since arrival. 09/01: patient has a known history of PE 2 years ago and has been on eliquis since then. However due to his renal function, he has been started on Coumadin. His PEG tube was placed by Dr. Sánchez. He has had chronic kidney disease since his chemotherapy for the laryngeal cancer. Patient did have several runs of V. tach. IV fluids to be changed over to 0.9 and sodium bicarb per PEG to start. Patient is followed by Dr. Thompson. His urine output has been low and he did receive a 500 mL bolus at 2 AM.CAT scan of the abdomen and pelvis showed soft tissue thickening along the PEG tube. Findings could represent cellulitis or localized infection. No sizable fluid collection. New cecal bascule as compared to August 30 and abnormal cecal dilation up to 10 cm. Consider surgical evaluation mild abdominal ascites increased from August 30. chest x-ray shows similar findings with cardiomegaly some improvement in volume status. wound culture from the PEG tube site is showing gram-negative bacilli to organisms and group B strep agalactia. Blood culture gram-negative bacilli. Urine culture finalized with no growth. Dr. Reece has changed antibiotics to Flagyl and meropenem. He has been seen by cardiology and low dose beta cheng plan to be added and plan to wean levo.Dr. Khan is on consult for intensive care management. 09/02:Patient had imaging studies performed CAT scan of abdomen and pelvis showing soft tissue thickening along the superior and lateral aspect of the PEG tube area, no sizable fluid collection is identified however findings could represent localized infection or cellulitis, there is a new cecal bascule as compared to 08/2216 with abnormal cecal dilatation up to 10 cm, mild abdominal ascites which is increased small pleural effusion mild anasarca patient currently is made nothing by mouth with oral medications held. Patient remains in ICU still on Levophed 3 mics also followed by Dr. Spence and Dr. Roa from general surgery. Abdominal cultures pseudomonas aeruginosa klebsiella pneumonia strep agalactiae sputum cultures pending blood cultures pseudomonas aeruginosa, C. diff collection still pending 09/03: patient remains in ICU he has been off his Levophed, diet has been reordered with PEG feeds at 10 mL per hour with titration patient has prolonged expiration refused any suctioning from his tracheostomy 09/04: Patient remains in the intensive care unit. Urine output has been 25-30 mL per hour. He is currently on tube feedings and also on vasopressors with Levophed. Blood culture was positive for Pseudomonas and repeat blood cultures are showing no growth after 24 hours. IV Solu-Medrolstarted along with inhaled steroids with Pulmicort and steroid Humalog scale. 09/05: Patient is currently off Levo. Urine output has been around 25 mL/h. Blood sugars have been running 154-247 and patient started on Levemir [address] Reece has added Flagyl to Zosyn. He has continued on IV Solu -Medrol 60 mg every 6 hours. 09/06: patient remains in icu, anasarca noted, azotemic, marginal blood pressure but off pressor. no futher chemo is desired in the futures but is quiet and comfortable, patient's at bedside and have given an update on multiple end organ damage, with bleak outcome, hospice is recommended in detail and currently entertained, family will decide later with this option over the next few days 09/07 family requested to be transfered [facility] for treatment of multiple comorbidities including multiorgan failure, MICu accepted transfer when bed is available, Prognosis guarded but stable on transfer with o2 blowby trach mask, no pressors required on transfer, PREFERRED [facility] Assessment and Plan Plan: 1. Acute renal failure and metabolic acidosis with dehydration due to recent diarrhea and possibly worsened by recent chemotherapy with multi end organ damage. multiple consultants for septic shock,anasarca cardiogenic shock and renal failure with azotemia from [facility]. Hospice is discussed with bleak outcome family will confer and decide upon this further.family decided to pursue aggressive treatments including hemodialysis, plan for transfer to [facility] per their request they have had treatments at [facility] . I spoken to the MICU team at [facility] and had accepted the patient 2. Diarrhea with signs of sepsis and dehydration with septic shock requiring vasopressors, pastmulti organ damage. Patient now on meropenem and Flagyl. Continue IV fluids. Currently off norepinephrine. Continue care in the intensive care unit. Dr. Reece is on consult. 3. Sepsis with septic shock with Pseudomonas bacteremia, Pseudomonas pneumonia requiring vasopressors. Peg site culture growing Pseudomonas aeruginosa klebsiella pneumonia strep agalactiae group B Blood cultures been obtained. Patient is currently on IV Flagyl and zosyn. Patient is now off vasopressors. 4. Bicytopenia with low hemoglobin RBC and platelet count. Most likely secondary to recent chemotherapy. Oncology on consult. 5. Elevated troponin. Cardiology consult appreciated. This is thought to be due to renal failure and sepsis. Echocardiogram is ordered. 6. History of laryngeal carcinoma with tracheostomy in place and PEG tube. Patient normally and takes food by mouth and PEG tube issues for medications only. 7. Small cell lung cancer on chemotherapy under the care of Dr. Rodriguez. biopsy was done at [facility] was started on carboplatin [employer]UD[employer]ODUCTION [employer]NAGER-16 and radiation treatment status post chemotherapy 2 weeks ago[address] Consult with Dr. Bonds. 8. Episodes of nonsustained ventricular tachycardia most likely due to hyperkalemia. 9. Hyperkalemia status post Kayexalate and calcium gluconate and insulin with D50. 10. Cecal dilatation 10 cm on 09/01/2015 patient currentlytreated conservatively with functional use off the bowels active infusion 55 mL an hour on 09/07/20162 improved on follow-up x-rays 09/03/2016, diet restarted surgery following no intervention provided except for bowel rest 11 peristoma cellulitis with localized abscess at opening of PEG. currently on antibiotics , peg functional at goal feeds nephro 55 cc/hr 11. prior history of pulmonary emboli 2014, History of DVT status post IVC filter approximately 2011. 12. Gastrointestinal prophylaxis. Protonix. 13. DVT prophylaxis. Subcutaneous heparin. 14. Stage III pressure ulceration to his coccyx. 15. Hyperglycemia due to steroids. Patient started on Levemir 8 units daily and Humalog scale. 16. Anasarca with severe protein malnutrition critical azotemia patient would need dialysis worsening of renal function, prognosis is very poor 17. DECUBITUS ULCER PRESENT PRIOR TO ADMISSION, STAGE 3 Discharge plan: [facility] MICU Discharge Medication List Levothyroxine Sodium [Synthroid] 75 mcg PEG/G-TUBE DAILY 04/26/16 [History] Megestrol Acetate [Megace] 40 mg PEG/G-TUBE DAILY 04/26/16 [History] Budesonide [Pulmicort] 0.5 mg INHALATION RT-BID 08/30/16 [History] Citalopram Hydrobromide [CeleXA] 30 mg PEG/G-TUBE DAILY 08/30/16 [History] Calcium Acetate [PhosLo] 1,334 mg PO TID-W/MEALS cap 09/07/16 [Rx] Collagenase [Santyl] 1 applic TOPICAL DAILY applic 09/07/16 [Rx] Ensure 1 can PEG/G-TUBE TID #0 09/07/16 [Rx] Fluconazole [Diflucan] 100 mg PEG/G-TUBE DAILY tab 09/07/16 [Rx] Heparin Sodium,Porcine [Heparin Sodium] 5,000 unit SQ Q8HR vial 09/07/16 [Rx] INSULIN LISPRO (humaLOG) [humaLOG (formulary)] 0 unit SQ ACHS vial 09/07/16 [Rx ] Insulin Detemir [Levemir] 8 unit SQ DAILY vial 09/07/16 [Rx] Ipratropium-Albuterol Nebulize [Duoneb 0.5 mg-3 mg/3 ml Soln] 3 ml INHALATION QID PRN #0 ampul.neb 09/07/16 [Rx] Metoprolol Tartrate [Lopressor] 12.5 mg PO BID tab 09/07/16 [Rx] Morphine Sulfate ER [Ms Contin] 45 mg PO Q12HR tablet 09/07/16 [Rx] Piperacillin-Tazobactam [Zosyn] 3.375 gm IVPB Q12HR #20 bag 09/07/16 [Rx] Sodium Bicarbonate Tab 650 mg PO TID tab 09/07/16 [Rx] Solu-Medrol 60 mg IV Q6H #0 09/07/16 [Rx] metroNIDAZOLE [Flagyl] 500 mg PEG/G-TUBE TID tab 09/07/16 [Rx] oxyCODONE-APAP 7.5-325MG [Percocet 7.5-325 mg] 1 each PEG/G-TUBE QID PRN #0 tab 09/07/16 [Rx] Patient Condition at Discharge: Serious Plan - Discharge Summary New Discharge Prescriptions: Solu-Medrol 60 mg IV Q6H #0 Piperacillin-Tazobactam [Zosyn] 3.375 gm IVPB Q12HR #20 bag Discharge Medication List Levothyroxine Sodium [Synthroid] 75 mcg PEG/G-TUBE DAILY 04/26/16 [History] Megestrol Acetate [Megace] 40 mg PEG/G-TUBE DAILY 04/26/16 [History] Budesonide [Pulmicort] 0.5 mg INHALATION RT-BID 08/30/16 [History] Citalopram Hydrobromide [CeleXA] 30 mg PEG/G-TUBE DAILY 08/30/16 [History] Calcium Acetate [PhosLo] 1,334 mg PO TID-W/MEALS cap 09/07/16 [Rx] Collagenase [Santyl] 1 applic TOPICAL DAILY applic 09/07/16 [Rx] Ensure 1 can PEG/G-TUBE TID #0 09/07/16 [Rx] Fluconazole [Diflucan] 100 mg PEG/G-TUBE DAILY tab 09/07/16 [Rx] Heparin Sodium,Porcine [Heparin Sodium] 5,000 unit SQ Q8HR vial 09/07/16 [Rx] INSULIN LISPRO (humaLOG) [humaLOG (formulary)] 0 unit SQ ACHS vial 09/07/16 [Rx ] Insulin Detemir [Levemir] 8 unit SQ DAILY vial 09/07/16 [Rx] Ipratropium-Albuterol Nebulize [Duoneb 0.5 mg-3 mg/3 ml Soln] 3 ml INHALATION QID PRN #0 ampul.neb 09/07/16 [Rx] Metoprolol Tartrate [Lopressor] 12.5 mg PO BID tab 09/07/16 [Rx] Morphine Sulfate ER [Ms Contin] 45 mg PO Q12HR tablet 09/07/16 [Rx] Piperacillin-Tazobactam [Zosyn] 3.375 gm IVPB Q12HR #20 bag 09/07/16 [Rx] Sodium Bicarbonate Tab 650 mg PO TID tab 09/07/16 [Rx] Solu-Medrol 60 mg IV Q6H #0 09/07/16 [Rx] metroNIDAZOLE [Flagyl] 500 mg PEG/G-TUBE TID tab 09/07/16 [Rx] oxyCODONE-APAP 7.5-325MG [Percocet 7.5-325 mg] 1 each PEG/G-TUBE QID PRN #0 tab 09/07/16 [Rx] Follow up Appointment(s)/Referral(s): Frannie Thompson MD [STAFF PHYSICIAN] - 1 Week (POST SDICSCHARGE FROM [facility]) Fiona Camacho MD [Primary Care Provider] - 1-2 days Elías Cartagena MD [STAFF PHYSICIAN] - 2 Weeks (POST DISCHARGE FROM [facility]) Discharge Disposition: TRANSFER TO SHORT TERM HOSP
--- NOTE | 2016-09-07 15:39 | P.PN ---
Subjective Principal diagnosis: Acute sepsis secondary to pseudomonal infection. 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 The patient came in to the burst department yesterday because of diminished oral intake, single episode of diarrhea, dehydration, diminished urine output, lethargy, fatigue, vague abdominal discomfort and some fall smelling drainage around the PEG tube. In addition, the patient was found to be in acute kidney injury, acute metabolic acidosis and acute hyperkalemia. For all this reasons, the patient got transferred to the intensive care unit. He got bolused with a total of 2-3 L of IV fluids in the form normal saline and based on the sides recommendation the patient was switched to bicarb drip. The patient was also covered with broad-spectrum antibiotics. He was initially stopped and accommodation of cefepime and vancomycin. Subsequently, the patient was seen by infectious disease and antibiotics were simplified and the patient was placed on IV Flagyl and oral vancomycin suspecting an underlying C. diff colitis. Nevertheless, the patient has not had any further episodes of diarrhea since he came to the ICU. The patient was examined in the ICU. Active site essentially clean and there was no evidence of any purulent drainage. Abdomen was soft and the CAT scan of the abdomen was done in the emergency department showed no acute abnormalities. He was a bit lethargic and slow in answering questions. He denied having any history distress. Denied any cough or sputum production or any chest pain. No open wounds or sores. No dysuria frequency or urgency. On 09/01/2016, the patient is being seen in follow-up. The patient is quite lethargic. He is post laryngectomy and has a tracheotomy in place. He is also being treated for metastatic small cell lung cancer with systemic chemotherapy on outpatient basis. He presented with acute kidney injury and he is currently septic with gram-negative bacilli growing in his blood culture. The source of the gram-negative is not absolutely clear.. At one point there was suspicion for a PEG tube site infection yet the area seems to be relatively clean and the CAT scan of the abdomen was repeated and showed some soft tissue thickening along the PEG tube especially along the superior margin which raised the suspicion for localized infection and for that reason a surgical consultation was requested. At the same time, the CAT scan showed a new cecal dilatation up to 10 cm compared to the previous CAT scan and for that reason again a surgical consultation was requested. Note that the patient has a port in place yet the port site is clean and intact. Antibiotics have a modified to include a combination of IV Merrem and Flagyl. No diarrhea. No abdominal pain. No nausea vomiting or chest pain. The renal function is slightly improved compared to yesterday. Urine output remains low. The patient is on pressors still and the prednisone extremities 6-10 mics to maintain a mean arterial pressure above 65. The white cell count is elevated at 33.9 IDs on the case. On the patient is being seen in follow-up. As mentioned earlier he has a pseudomonal septicemia. The exact source remains not clear. One potential sources of the Mediport this was inserted recently. Intra-abdominal sources are felt to be possible although less likely. I discussed the case with general surgery and infectious disease. The patient has a gram-negative septicemia and the CAT scan of the abdomen showing some cecal dilatation along with evidence of some irritation at the PEG tube site. There is no evidence of pneumonia. The patient is on Merrem. He is immunosuppressed and immunocompromised based on recent chemotherapy as well as being given for lung cancer. I made recommendations to obtain 2 sets of blood cultures from the Mediport and from peripheral site. The patient was weaned off the pressors throughout the day and currently he is off pressors. We have made a decision to continue the treatment and consider taking out the Mediport if the patient does not improve and/or he continues to have persistent bacteremia. Meanwhile, the patient is still nothing by mouth. Abdomen is nondistended. He is awake and alert and is following simple commands. He has a tracheostomy and today's chest x-ray showing cardiomegaly without any evidence of pulmonary infiltration or pneumonia. Gases were obtained late in the afternoon showed evidence of metabolic acidosis with a pH of 7.26 and a pCO2 of 37 and pO2 of 110 and based on that I have made recommendations to switch this patient back to her bicarb drip infusion. His serum bicarbs at 18 and his anion gap is around 16. His renal function remains impaired with a creatinine of 5.1. White cell count remains elevated at 42. No diarrhea. On 09/03/2016, the patient is still being treated for a pseudomonal septicemia. The patient is on IV Merrem. Hemodynamically stable. The patient was taken off pressors. He is able to sit up on a chair. The sputum is also showing pseudomonas aeruginosa. The ones around the PEG tube is also growing the same microorganism. Discussed the case with ID. It is suspected that the source of infection is the PEG tube site. Meanwhile, the patient will be started on low rates to feet. No respiratory difficulties. He was placed on a bicarb drip and his metabolic acidosis is improved compared to yesterday. He is producing urine output. Renal function remains impaired. White cell count is still elevated at 42. Patient was seen again on 09/04/2016, doing relatively well, hemodynamically stable, in no distress. Continues to have trach collar in place, on multiple antibiotics for his pseudomonal infection, his bicarb has been corrected nicely and I will discontinue the bicarbonate drip. Patient has a decent urine output. His white count remains elevated at 42.6. INR is 1.7. BUN is 102 creatinine is 4.80. Chest x-ray is showing slight improvement in volume status. And I believe there is slight improvement in the interstitial edema. Patient was seen again today on 09/05/2016, patient has been doing well except for the fact that he dropped his blood pressure significantly after a dose of beta cheng given to him last night. Patient had to be placed on norepinephrine, this was discontinued a few hours later. Presently his hemodynamic stable, and this is the second time it drops his blood pressure after a beta cheng given. Continues to have leukocytosis with WBC count of 45 ,000. Hemoglobin is 8.4. INR is 1.7. Basic metabolic profile is relatively normal except BUN is 108 creatinine is 4.92. Patient clearly has a picture of acute kidney injury, urine output is about 50 ML per hour. And he is presently on tube feeding. Denies any shortness of breath. The area around the PEG tube seems to be improving. Patient was seen again today on 09/06/2016, tolerated his last dose of beta cheng without any hypotension. Patient is not requiring any norepinephrine, hence I believe the patient could be considered to transfer to a monitored bed on selective/cardiac floor. Patient does not seem to be in any distress, however I'm still concerned about his white count being quite elevated, patient clearly has a leukemoid reaction. Potential sources of infection include area around the PEG tube, the large sacral decub which is quite deep, and today I recommended culturing of that sacral decubitus ulcer. Infection in the lungs could also be considered especially with his pseudomonal infection, and other areas of infection are not entirely ruled out. In the meantime the patient is on proper antibiotics, and he is followed closely by infectious disease. His labs were all reviewed renal profile remains concerning with a BUN of 119 creatinine of 4.60. Patient is relatively asymptomatic, and he does not complain much. Reevaluated today on 09/07/2016, patient is basically about the same. Family is requesting transfer to [facility], I discussed his condition with the slot floorperson was planning dialysis, and I believe the family would like to have that done at [facility]. Patient continues to have leukocytosis with WBC count of 49.6. Renal profile is worsening. Otherwise patient is about the same. Objective - Vital Signs Vital signs: Vital Signs Temp 97.3 F L 09/07/16 12:00 Pulse 97 09/07/16 14:00 Resp 14 09/07/16 14:00 BP 87/67 09/04/16 09:00 Pulse Ox 99 09/07/16 14:00 Intake & Output 09/06/16 09/07/16 09/07/16 18:59 06:59 18:59 Intake Total 460 1480.0 825.0 Output Total 385 291 305 Balance 75 1189.0 520.0 Weight 98.9 kg 98.9 kg Intake: IV 240 450 170 0.9 NS 240 450 170 Intake, IV Titration 50.0 50.0 Amount Piperacillin-Tazobactam 3 50.0 50.0 .375 gm In Dextrose/Water 1 50ml.bag @ 12.5 mls/hr IVPB Q12HR [facility] Rx#: [id number] Oral 60 Tube Feeding 220 770 605 Other 150 Output: Urine 385 291 305 Other: Voiding Method Indwelling Catheter Indwelling Catheter Indwelling Catheter # Bowel Movements 1 ABP, PAP, CO, CI - Last Documented Arterial Blood Pressure 105/53 - Exam Elderly -Russian male patient, slightly lethargic and obtunded. Able to open up his eyes and follows some simple commands.Head exam was generally normal. There was no scleral icterus or corneal arcus. Mucous membranes were moist. Mucous membranes are dry and the patient has a tracheostomy which is open and widely patent. Scars of previous laryngectomy can be seen over the anterior neck. Lung sounds are diminished bilaterally along with some few rales in the lung bases. Cardiac exam revealed the PMI to be normally situated and sized. The rhythm was regular and no extrasystoles. The first and second heart sounds were normal and physiologic splitting of the second heart sound was noted. There were no murmurs, rubs, clicks, or gallops. Abdominal exam revealed normal bowel sounds. The abdomen was soft, non-tender, and without masses, organomegaly, or appreciable enlargement of the abdominal aorta. PEG tube site is clean.Examination of the extremities revealed easily palpable radial, femoral and pedal pulses. There was no cyanosis, clubbing or edema. Examination of the sacral decubitus ulcer was done today, seems to be quite deep , just stage III possibly even extending to the bones. Cultures where taken from the site, and advised infectious disease evaluation of the sacral decubitus ulcer. - Labs CBC & Chem 7: 09/07/16 05:15 09/07/16 05:15 Labs: Abnormal Lab Results - Last 24 Hours (Table) 09/06/16 09/06/16 09/07/16 Range/Units 15:56 21:09 05:15 WBC (3.8-10.6) k/uL RBC (4.30-5.90) m/uL Hgb (13.0-17.5) gm/dL Hct (39.0-53.0) % MCV (80.0-100.0) fL RDW (11.5-15.5) % Neutrophils # (Manual) (1.3-7.7) k/uL Monocytes # (Manual) (0-1.0) k/uL Nucleated RBCs (0-0) /100 WBC PT 16.3 H (9.0-12.0) sec BUN (9-20) mg/dL Creatinine (0.66-1.25) mg/dL Glucose (74-99) mg/dL POC Glucose (mg/dL) 212 H 187 H (75-99) mg/dL Calcium (8.4-10.2) mg/dL Phosphorus (2.5-4.5) mg/dL Magnesium (1.6-2.3) mg/dL 09/07/16 09/07/16 09/07/16 Range/Units 05:15 05:15 07:52 WBC 49.6 H* (3.8-10.6) k/uL RBC 3.27 L (4.30-5.90) m/uL Hgb 8.4 L (13.0-17.5) gm/dL Hct 26.1 L (39.0-53.0) % MCV 79.8 L (80.0-100.0) fL RDW 17.8 H (11.5-15.5) % Neutrophils # (Manual) 45.9 H (1.3-7.7) k/uL Monocytes # (Manual) 2.2 H (0-1.0) k/uL Nucleated RBCs 11 H (0-0) /100 WBC PT (9.0-12.0) sec BUN 133 H* (9-20) mg/dL Creatinine 5.09 H* (0.66-1.25) mg/dL Glucose 218 H (74-99) mg/dL POC Glucose (mg/dL) 215 H (75-99) mg/dL Calcium 6.9 L (8.4-10.2) mg/dL Phosphorus 7.0 H (2.5-4.5) mg/dL Magnesium 2.8 H (1.6-2.3) mg/dL 09/07/16 Range/Units 11:53 WBC (3.8-10.6) k/uL RBC (4.30-5.90) m/uL Hgb (13.0-17.5) gm/dL Hct (39.0-53.0) % MCV (80.0-100.0) fL RDW (11.5-15.5) % Neutrophils # (Manual) (1.3-7.7) k/uL Monocytes # (Manual) (0-1.0) k/uL Nucleated RBCs (0-0) /100 WBC PT (9.0-12.0) sec BUN (9-20) mg/dL Creatinine (0.66-1.25) mg/dL Glucose (74-99) mg/dL POC Glucose (mg/dL) 216 H (75-99) mg/dL Calcium (8.4-10.2) mg/dL Phosphorus (2.5-4.5) mg/dL Magnesium (1.6-2.3) mg/dL Microbiology - Last 24 Hours (Table) 09/02/16 11:18 Blood Culture - Preliminary Blood No Growth after 120 hours 09/02/16 10:50 Blood Culture - Preliminary Blood No Growth after 120 hours 09/06/16 11:13 Gram Stain - Preliminary Buttock Wound Culture - Preliminary 09/06/16 11:13 Anaerobic Culture - Preliminary Buttock Assessment and Plan Plan: 1 septic shock secondary to pseudomonas aeruginosa, source being considered of an intra-abdominal in nature with potential infection originating from PEG tube site versus Line infection is also considered however this is felt to be less likely. The patient does not have any underlying pneumonia. The patient is currently on IV Merrem. Hemodynamically improved and the patient was taken off norepinephrine infusion this afternoon. On 09/03/2016, the patient is still being treated for septic shock. Hemodynamically improved. No hypotension. The patient is still on broad- spectrum antibiotics covering the pseudomonas septicemia. The source of infection is thought to be the PEG tube site not get it; rhythm was cultured from the wound around the PEG tube. Pseudomonas was also cultures from the lungs however this is a colonizer likely. Chest x-ray remains clear of any pulmonary infiltrates. On 09/04/2016, patient is still being treated for septic shock. And pseudomonal sepsis. Improving, but clearly not quite ready to be transferred out of the ICU at this point. On 09/05/2016, his blood pressure continues to fluctuate up and down, I believe the drop in the blood pressure is mostly related to beta blockers which are presently on hold, and I hope not to be given again. Presently he is off norepinephrine, and doing relatively well, still concerned about his significant leukocytosis/leukemoid reaction. On 09/06/2016, patient seems to be hemodynamically stable. However continues to have significant leukocytosis worsening of the sacral decubitus ulcer was noted. Remains on the same antibiotics. And overall prognosis seems to be very poor. May have to approach the family again regarding possibly hospice care and referral. Prognostic picture is extremely poor. On 09/07/2016, patient is basically about the same, family is requesting referral to a tertiary care center/[facility]. 2 hypotension, secondary to septic shock and the patient was aggressively resuscitated with IV fluids and pressors and he is being taken off vasopressors.. 3 acute kidney injury, most likely secondary to intravascular volume depletion/ dehydration/ and also there is a possibility of an ATN/sepsis induced, proving and creatinine is dropping down to 5.0 and the patient is producing adequate amount of urine output. Urine status seems to be gradually improving slowly 2 acute hyperkalemia, treated 3 metabolic acidosis secondary to above, and the patient remains on a bicarb drip for his metabolic acidosis. This was discontinued on 09/04/2016 4 diarrhea, limited and currently the patient is not having any further episodes. He is covered with broad-spectrum antibiotics including coverage for C. diff 5 laryngeal cancer status post total laryngectomy and tracheotomy 6 small cell lung cancer, metastatic, currently receiving systemic chemotherapy 7 enteral feeding via PEG tube, 8 previous history of DVT status post IVC filter placement 9 leukocytosis/thrombocytopenia/chronic anemia, microcytic 10 stage III sacral decubitus ulcer, cultures were taken from the ulcer today. Recommendation: Continue present treatment plan, agree with discharge planning to [facility] long-term prognosis remains poor and guarded considering his multiple comorbidities. Time with Patient: Less than 30
[2016-09-07 16:11] VITALS: TEMP 97.4
--- NOTE | 2016-09-07 16:15 | PN ---
Mr. Francisco is a 61-year-old male who presented with a drop in the blood pressure, worsening renal failure. He has a history of metastatic small-cell carcinoma, was found to have cardiomyopathy and evidence of Gram-negative sepsis. He is off his Levophed, tolerating the beta cheng. His renal functions are getting worse and he is being contemplated for transfer to [facility] per family's request. On the monitor he had no evidence of tachy- or bradyarrhythmia. He continues to be in sinus mechanism. He continues to be at this time on Lopressor 12.5 mg twice a day, antibiotics and methylprednisolone. PHYSICAL EXAMINATION: Blood pressure running in the 100s with a heart rate in the 90s. LUNGS: No wheezes. HEART: Regular rate, rhythm. S1, S2. No S3. Tracheotomy in place. ABDOMEN: Soft. PEG tube in place. Nontender. EXTREMITIES: One plus edema. Lab data revealed BUN and creatinine of 133 and 5.09. Potassium 4.7. His renal functions are worse compared with yesterday. His INR is 1.7. Hemoglobin of 8.4. IMPRESSION: 1. Sepsis. 2. Worsening renal function. 3. Cardiomyopathy of unknown duration or etiology. 4. Metastatic small-cell carcinoma. 5. Status post laryngeal carcinoma. 6. Status post PEG tube. 7. History of deep venous thrombosis. RECOMMENDATIONS: From the cardiac standpoint, will continue present therapy. Depending on his blood pressure, the dose of beta cheng can be further adjusted. Will see him on as-needed basis. Please feel free to call us for any questions.
[2016-09-07 17:10] VITALS: PULSE 95
[2016-09-07 17:16] LABS: Glucose,Whole Blood 203 mg/dL (75-99)
--- NOTE | 2016-09-07 17:34 | PN ---
DATE OF SERVICE: 09/07/2016 REASON FOR FOLLOW-UP: 1. Pseudomonas pneumonia and bacteremia. 2. Polymicrobial/ PEG tube site infection. 3. Stage III sacral pressure ulcer. INTERVAL HISTORY: The patient is afebrile. He is hemodynamically stable, not on any pressor support. No respiratory distress has been noticed or any significant diarrhea. On examination, her blood pressure is 98/51 with a pulse of 91, temperature 97.3. He is 100% on trach collar. General description is a middle-age male lying in bed in no distress. RESPIRATORY SYSTEM: Unlabored breathing with decreased breath sounds at bases. HEART: S1, S2. Regular rate and rhythm. ABDOMEN: Soft, no tenderness. LABS: Hemoglobin 8.4, white count of 49.6, platelet count 306 with a BUN of 133, creatinine 5.09. DIAGNOSTIC IMPRESSION AND PLAN: 1. Patient admitted to the hospital with sepsis source multifactorial and patient did have a component of pneumonia, sputum has been pseudomonas with pseudomonas also showing in the blood in addition to the PEG tube site infection which shows pseudomonas Klebsiella and strep. Patient covered adequately for underlying infection in the form of Zosyn, Diflucan and Flagyl. Some of the elevated white count could be related to reactive and to steroids. 2. The patient is stage III sacral pressure ulcer with no evidence of cellulitis and continue with Santyl and keep the area of the pressure. MTDD
--- NOTE | 2016-09-11 09:47 | CDI ---
In responding to this query, please exercise your independent professional judgment. The [facility] Coding Staff and Clinical Documentation Specialists appreciate your assistance in clarifying documentation, maintaining compliance with coding guidelines, accurately documenting patients condition and capturing severity of illness. The fact that a question is asked does not imply that any particular answer is desired or expected. Communication forms are a method of clarifying documentation and are not made part of the Legal Health Record. Thank you in advance for your clarification. Last Revision, May 2015 Anival Pate [id number] [facility] [place] [address] Documentation Clarification Form Date: 09/11/2016 9:39:00 AM From: Miya Mera Phone: Admit Date: 08/30/2016 7:44:00 PM Patient Name: Eder Francisco Visit Number: [id number] Discharge Date: 09/21/16 Dr. Fiona Camacho The following has been documented in your progress notes: Patient admitted 08/30, per documentation in 09/02 progress note of a stage III pressure ulceration on his coccyx. Definition of Present on Admission (POA): A diagnosis present at the time the order for admission to inpatient status was written. For each diagnosis, documentation must be clear to determine if the condition was present at the time of the patients inpatient admission or developed during the hospital stay. Please clarify in progress notes and/or discharge summary as to whether the stage III pressure ulceraton on his coccyx was: YES PRESENT PRIOR Y = Yes, the condition was present at the time of the order for inpatient admission. N = No, the condition was not present at the time of the order for inpatient admission. W = Clinically undetermined if the condition was present at the time of the order for inpatient admission. Please continue to document in your progress notes and/or discharge summary in order to capture severity of illness and risk of mortality. Include clinical findings that support your diagnosis. FYI: Press F11 to launch patient chart. Miya Mera, VANESSA, CCS, AHIMA Certified [employer] Community Health Nurse Supervisor/Produce Production Team Member Community Health Nurse Supervisor II HERO
== END 2016-09-07 18:27 | disposition short-term general hospital (02) | DRG 871 ==
LOC: EC 16:07 → 6ICU 19:44
PROVIDERS: ADMIT Internal Medicine; ATTEND Internal Medicine
PROC: 03HY32Z Insertion of Monitoring Device into Upper Artery, Percutaneous Approach (ICD-10-PCS; principal; 2016-09-01)
PROC: 4A133B1 Monitoring of Arterial Pressure, Peripheral, Percutaneous Approach (ICD-10-PCS; 2016-09-01)
PROC: 4A133J1 Monitoring of Arterial Pulse, Peripheral, Percutaneous Approach (ICD-10-PCS; 2016-09-01)
DX: A41.52 Sepsis due to Pseudomonas (principal); R65.21 Severe sepsis with septic shock; N17.0 Acute kidney failure with tubular necrosis; I47.2 Ventricular tachycardia; J15.0 Pneumonia due to Klebsiella pneumoniae; R57.0 Cardiogenic shock; E43 Unspecified severe protein-calorie malnutrition; E87.2 Acidosis; K59.39 Other megacolon; N18.5 Chronic kidney disease, stage 5; J15.1 Pneumonia due to Pseudomonas; L89.153 Pressure ulcer of sacral region, stage 3; I42.9 Cardiomyopathy, unspecified; K94.22 Gastrostomy infection; E87.1 Hypo-osmolality and hyponatremia; C78.01 Secondary malignant neoplasm of right lung; K56.7 Ileus, unspecified; L03.311 Cellulitis of abdominal wall; Z93.0 Tracheostomy status; I27.2 Other secondary pulmonary hypertension; I50.9 Heart failure, unspecified; D69.6 Thrombocytopenia, unspecified; E83.39 Other disorders of phosphorus metabolism; E87.5 Hyperkalemia; F32.9 Major depressive disorder, single episode, unspecified; I08.0 Rheumatic disorders of both mitral and aortic valves; D50.9 Iron deficiency anemia, unspecified; T38.0X5A Adverse effect of glucocorticoids and synthetic analogues, initial encounter; R73.9 Hyperglycemia, unspecified; D72.823 Leukemoid reaction; T45.1X5A Adverse effect of antineoplastic and immunosuppressive drugs, initial encounter; E03.9 Hypothyroidism, unspecified; E86.0 Dehydration; K44.9 Diaphragmatic hernia without obstruction or gangrene; Z85.21 Personal history of malignant neoplasm of larynx; Z86.718 Personal history of other venous thrombosis and embolism; Z90.02 Acquired absence of larynx; Z87.891 Personal history of nicotine dependence; Z86.711 Personal history of pulmonary embolism; Z95.828 Presence of other vascular implants and grafts; Z79.891 Long term (current) use of opiate analgesic; Z79.51 Long term (current) use of inhaled steroids; Z79.899 Other long term (current) drug therapy
CPT/HCPCS: 36415; 36600; 71010; 74000; 74176; 76770; 80048; 80053; 81001; 82150; 82330; 82553; 82805; 83605; 83690; 83735; 83880; 84100; 84132; 84484; 85025; 85610; 85730; 87040; 87070; 87075; 87077; 87086; 87186; 87205; 93005; 93306; 94640; 96361; 96365; 96375; 99285